=== PATIENT | male | born 1950 | race Caucasian/White ===

== ENCOUNTER 2019-09-23 12:45 | Outpatient (RCR) | payer MEDICARE, OTHER ==
[~2019-09-23] VITALS: Ht 180 cm; Wt 93.0 kg
== END 2019-12-22 | disposition home or self-care (01) ==
LOC: DSME 12:45
PROVIDERS: ATTEND Family Medicine
DX: E11.9 Type 2 diabetes mellitus without complications (principal)

== ENCOUNTER → 2020-03-07 | Outpatient (CLI) | payer OTHER, MEDICARE ==
[2020-03-07 18:37] LABS: ALBUMIN 4.4 GM/DL (3.2-4.5); CALCIUM 9.2 MG/DL (8.5-10.1); CREATININE SERUM 1.63 MG/DL (0.60-1.30); MAGNESIUM 2.9 MG/DL (1.6-2.4); PHOSPHORUS 5.2 MG/DL (2.3-4.7); POTASSIUM 4.6 MMOL/L (3.6-5.0); URIC ACID 5.4 MG/DL (2.6-7.2)
== END ==
LOC: GIR 17:38
PROVIDERS: ATTEND Internal Medicine Nephrology
DX: Z01.89 Encounter for other specified special examinations (principal)
CPT/HCPCS: 80069; 82570; 83735; 84156; 84550

== ENCOUNTER 2023-04-30 09:59 | Inpatient (IN) | payer MEDICARE, OTHER ==
[~2023-04-30] VITALS: Ht 180.3 cm; Wt 94.1 kg
--- NOTE | 2023-04-30 09:48 | PM&R Post Admission Assessment ---
PM&R HP Date of Visit: Apr 30, 2023 Time of Visit: 14:00 History of Present Illness CC: Brain injury and pelvic fracture following a fall with LOC HPI: This is a 73yoWM patient of Dr Pelayo who has a PMH of prostate cancer and DM who presents from following an evaluation of multiple bone fractures and s ubdural hematoma sustained in a fall on concrete steps on 04/23/23. No fracture was assessed to require surgical intervention. He is currently alert and reports some pain in his pelvis where his fracture it. Bowels are slow so will initiate treatment. 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 CC: multiple traumatic injuries HPI: 73 y/o male presented to the ED following [place] His neighbors found him, but patient himself has no recollection of falling. He sustained fractures to right 2nd rib, right acetabular, and left pelvic regions along with a small left subdural hematoma. His injuries were considered inoperable after neurological, orthopedic, and IM consults, and he was transferred on 04/30/23 to [facility] for further management. PMH: HTN, GERD, DMT2, arthritis, BPH-urinary retention, HLD, CKD stage 2, prostate cancer 2009. PSH: rectocutaneous fistulectomy-1999, rotator cuff repair- 2002, retropubic prostectomy -2010, b/l total pelvic lymphadectomy 10/23/2010, laproscopy w/ lysis of adhesion- 10/23/2010, appendectomy in , bunionectomy All: NKDA, no enviromental or food allergies Meds: Acetaminophen 325 mg PO Q6H Amantadine HCl 100 mg PO BID Amlodipine besylate 10 mg tab PO QD Ascorbate calcium 500 mg tab PO QD Aspirin 81 mg tab PO QD Bisacodyl 10 mg RC Q6H Dapagliflozin propanediol 10 mg PO QD Fish oil/ Borage/ flax/ om 3,6,9 1,200 mg capsule PO YID Lisinopril 10 mg tab PO QD Metformin 500 mg tab PO BID with meals Naloxone 4mg -held Oxycodone 5mg tab PO Q6H Miralax 34 grams PO BID Senna 8.6 mg tab PO BID Tamsulosin 0.4 mg cap PO QD Vitamen E 400 unit cap PO QD SH: No drugs, tobacco, ETOH- 1 drink a week. Occupation- retired FH: Heart attack, stroke ROS: No chest pain, no abdominal pain, no dyspnea, no fever or chills Exam: Neuro: A&Ox2-patient is aware of name and that thye are at [facility] could not answer any other questions. CN II-XII intact b/l. Muscle strength 5/5 in UE and 4/5 in LE. Sensation intact. Pupils responsive to light. Abdomen: Soft, non tender, no hepatospleenomegaly, non distended Cardio: Regular rate and rhythm, no murmurs or gallops Lung: Clear to auscultation b/l. no wheezing or rales. Labs: all on 04/23/23 no current labs after admission to [facility] CTA of head- multifocal intracranial atherosclerosis without blunt vascular injury, a right cisternal subarachnoid hemorrhage, and mild posterior posterior left cerebral subdural hemorrgae CT maxifacial sinus- nondisplaced right zygomatic fracture, right costomanubrial fracture. Pelvic X-ray showed large areas of central lucency and peripheral sclerosis in b/l femoral head- suggestive of underlying AVN on left Chest radiograph showed trace medial right pneumothorax. Right chest wall exhibits subcutaneous emphysema Chest CT showed mild cardiomegaly w/ pulmonary vascular congestion and perihilar interstital opacites -likely edema. Knee radiograph showed mild osteoarthritis in knee greatest at patellofemoral region. Assessment: Acute PT and OT subdural hematoma pelvic fracture DMT2 CKD HTN arthritis HLD Plan: continue PT and OT pain management monitor labs and vitals repeat neurological testing Past [id number]-[id number] Hx Past Med/Social Hx: Reviewed Nursing Past Med/Soc Hx, Reviewed and Corrections made Patient Social History Marrital Status: Employed/Student: employed Alcohol Use: Occasionally Uses Smoking Status: Never a Smoker Past Medical History Surgeries: Prostatectomy Cardiac: High Cholesterol, Hypertension Genitourinary: Prostate Problems Endocrine: Diabetes, Non-Insulin dep Cancer: Prostate What Type of Treatment Did You: Surgical Intervention 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 PM&R Allergy/Meds/Data Review Allergies Coded Allergies: No Known Drug Allergies (Unverified , 07/31/10) Home Medications Scheduled Acetaminophen (Tylenol), 650 MG PO Q6H, (Reported) Amantadine HCl (Amantadine), 100 MG PO BID, (Reported) Amlodipine Besylate (Amlodipine Besylate), 10 MG PO DAILY, (Reported) Ascorbate Calcium (Vitamin C), 1,500 MG PO DAILY, (Reported) Aspirin (Aspirin), 81 MG PO DAILY, (Reported) Bisacodyl (Bisacodyl), 10 MG RC Q6H, (Reported) Dapagliflozin Propanediol (Farxiga), 10 MG PO DAILY, (Reported) Fish Oil/Borage/Flax/Om3,6,9#1 ([place] 3-6-9 1,200 mg Softgel), 1 EA PO TID, (Reported) Lisinopril (Lisinopril), 10 MG PO DAILY, (Reported) Metformin HCl (Metformin HCl), 500 MG PO BID WITH MEALS, (Reported) Multivitamin (Multivitamin), 1 EACH PO DAILY, (Reported) Polyethylene Glycol 3350 (Miralax), 34 GM PO BID, (Reported) Sennosides (Senna), 17.2 MG PO BID, (Reported) Tamsulosin HCl (Flomax), 0.4 MG PO DAILY AFTER BREAKFAS, (Reported) Vitamin E Mixed (Vitamin E), 400 UNIT PO DAILY, (Reported) Scheduled PRN Bacitracin Zinc (Bacitracin Zinc), 1 EACH TP UD PRN for ABRASIONS, (Reported) Naloxone HCl (Narcan), 1 SPRAY NA UD PRN for OPIOID OVERDOSE, (Reported) Oxycodone HCl (Oxycodone HCl), 5 MG PO Q6H PRN for PAIN-SEVERE (8-10), (Reported) Current Medications Current Medications Reviewed Review of Systems Constitutional: see HPI, dizziness, malaise, weakness EENTM: no symptoms reported Respiratory: no symptoms reported Cardiovascular: no symptoms reported Gastrointestinal: constipation Genitourinary: decreased output Musculoskeletal: back pain, joint pain Skin: no symptoms reported Psychiatric/Neurological: Anxiety, Depressed All Other Systems Reviewed Negative Unless Noted: Yes Physical Exam Physical Exam Vital Signs Capillary Refill : Height, Weight, BMI Height: 5'11.00" Weight: 200lbs. 0.0oz. 90.125120dz; 28.70 BMI Method: General Appearance: No Apparent Distress, WD/WN, Chronically ill Eyes: Bilateral Eye Normal Inspection, Bilateral Eye PERRL HEENT: PERRL/EOMI, Normal ENT Inspection, Pharynx Normal Neck: Full Range of Motion, Normal Inspection, Non Tender, Supple, Carotid Bruit Respiratory: Chest Non Tender, Lungs Clear, Normal Breath Sounds, No Accessory Muscle Use, No Respiratory Distress Cardiovascular: Regular Rate, Rhythm, No Edema, No Gallop, No JVD, No Murmur, Normal Peripheral Pulses Gastrointestinal: Normal Bowel Sounds, No Organomegaly, No Pulsatile Mass, Non Tender, Soft Back: Normal Inspection, No CVA Tenderness, No Vertebral Tenderness Extremity: Normal Capillary Refill, Normal Inspection, Normal Range of Motion (except legs are limited due to pelvic fracture pain), Non Tender, No Calf Tenderness, No Pedal Edema Neurologic/Psychiatric: Alert, Oriented x3 (poor recall), 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 Norm as Tested, Abnormal Gait, Depressed Affect, Motor Weakness (all extremities 3/5) Skin: Normal Color, Warm/Dry Lymphatic: No Adenopathy PM&R Medical Assessment & Plan REHAB/MEDICAL ASSESSMENT AND PLAN: REHAB IMPAIRMENT GROUP: Major multisystem trauma with brain injury ETIOLOGIC DIAGNOSIS: IPH, closed fracture of right acetabulum, closed fracture of ramus and left pubis The comorbidities that impact the patients function and/or functional outcome by: advanced age, fall risk, pelvic fracture pain, brain injury, DM, BPH REHAB PLAN: The patient is being admitted to our comprehensive inpatient rehabilitation facility and can tolerate the intensity of service consisting of at least: 180 minutes of therapy a day, 5 out of 7 days a week Rehab treatment will consist of: PT OT will focus on regaining function with use of AD in order to regain function and independence in order to return home to live independently The patient/family has a good understanding of our discharge process and will benefit from an interdisciplinary inpatient rehabilitation program. The patient has potential to make improvement and is in need of at least two of the following multidisciplinary therapies including but not limited to physical, occupational, speech, and prosthetics and orthotics. Additionally the patient will need services from respiratory, nutritional services, wound care, psychology, etc. (Customize this to each patient). Given the patients complex condition and risk of further medical complications, rehabilitation services cannot be safely or effectively provided at a lower level of care such as a long-term facility. BARRIERS TO DISCHARGE: Severe pain and brain injury ESTIMATED LOS: 10 days DISPOSITION: Home RELEVANT CHANGES SINCE PREADMISSION SCREENING: I have compared the patients medical and functional status at the time of the preadmission screening and there are: no changes PROGNOSIS: Good REHABILITATION GOALS: 1. PT OT will focus on regaining function with use of AD in order to regain function and independence in order to return home to live independently All the above goals were reviewed with the patient and he/she is in agreement. By signing this document, I acknowledge that I have personally performed a full physical examination on this patient within 24 hours of admission to this inpatient rehabilitation facility and have determined the patient to be able to tolerate the above course of treatment at an intensive level for a reasonable period of time. I will be completing a detailed individualized Plan of Care for this patient by day #4 of the patients stay based upon the Preadmission Screen, the Post-Admission Evaluation, and the therapy evaluations. Admission Dx/Comorbidities: (1) Subdural hematoma ICD Codes: S06.5XAA - Traumatic subdural hemorrhage with loss of consciousness status unknown, initial encounter Assessment/Plan Assessment and Plan Assess & Plan/Chief Complaint Assessment: s/p fall on concrete steps sustaining SDH, facial fractures, pelvic fractures and sustaining brain injury with LOC DM HTN BPH h/o prostate cancer Current constipation Plan: PT OT ST to help regain cognition Monitor BP and sugar Home meds MARCIO COHN DO Apr 30, 2023 09:48
[~2023-04-30 09:59] MED LIST: ACETAMINOPHEN 325 MG TABLET PO PRN; ALPRAZolam 0.25 MG TABLET PO PRN; BISACODYL 10 MG SUPPOSITORY PR PRN; DOCUSATE SODIUM 100 MG CAPSULE PO PRN; LACTULOSE SYRUP 10GM/15ML 30ML UDC PO PRN; LOPERAMIDE 2 MG CAPSULE PO PRN; MELATONIN 3 MG TABLET PO PRN; Sodium Phosphate/Sodium Biphosphate ADULT enema PR PRN; diphenhydrAMINE 25 MG TABLET PO PRN; guaiFENesin/CODEINE 10ML UDC PO PRN
[2023-04-30] MEDS ORDERED: BISA10SU8 RC (11:43)
[2023-04-30] MEDS ORDERED: ACET325T38 PO (11:43)
[2023-04-30] MEDS ORDERED: NALO4SPR (11:43)
[2023-04-30] MEDS ORDERED: METF-397 PO (11:43)
[2023-04-30] MEDS ORDERED: VITA-212 PO (11:43)
[2023-04-30] MEDS ORDERED: MULT-1136 PO (11:43)
[2023-04-30] MEDS ORDERED: BACI1PAC28 TP (11:43)
[2023-04-30] MEDS ORDERED: LISI10TA25 PO (11:43)
[2023-04-30] MEDS ORDERED: DAPA10TA PO (11:43)
[2023-04-30] MEDS ORDERED: ASPI-999 PO (11:43)
[2023-04-30] MEDS ORDERED: SENN-234 PO (11:43)
[2023-04-30] MEDS ORDERED: ASCO-262 PO (11:43)
[2023-04-30] MEDS ORDERED: AMAN100T PO (11:43)
[2023-04-30] MEDS ORDERED: TMSL.4C PO (11:43)
[2023-04-30] MEDS ORDERED: FISH12002 PO (11:43)
[2023-04-30] MEDS ORDERED: AMLO-251 PO (11:43)
[2023-04-30] MEDS ORDERED: OXYC5TAB PO (11:43)
[2023-04-30] MEDS ORDERED: POLY17PO6 PO (11:43)
[2023-04-30 13:08] VITALS: BP 150/77
--- OUTSIDE RECORDS SUMMARY | 2023-04-30 13:20 | XMS REPORT | Clinical Summary ---
Author Author [facility] Organization [facility] Address Unknown Phone Unavailable Care Team Providers Care Tool Operator Name Role Phone Rossi MERIDA PA-C, James R Unavailable [phone] Ta Pelayo PCP James Valles MD Unavailable Unavailable Source Comments Some departments are not documenting in the electronic medical record. If you d o not see the information that you expected, contact Release of Information in [facility] Health Information Management department at [phone] for further assistan ce in locating additional records.[facility] Allergies No known active allergies Medications End Date Status Medication Sig Dispensed Refills Start Date Active Fish Oil-Fat Acid Take 1 Cap by 0 Comb.[id number] (OMEGA mouth Three 3-6-9) 1,200 mg PO Cap Times Daily. Active ascorbic acid (VITAMIN C) Take 1,500 mg 0 500 mg PO tablet by mouth Daily. Active vitamin E 400 unit PO Take 400 0 capsule Units by mouth Daily. Active vitamins, multiple PO Cap Take 1 Cap by 0 mouth Daily. Active metformin (GLUCOPHAGE) Take 500 mg 0 500 mg PO tablet by mouth Twice Daily With Meals. Active tamsulosin (FLOMAX) 0.4 Take one 90 capsule 0 /202 mg capsule capsule by 3 mouth daily after breakfast. Do not crush, chew or open capsules. Take 30 minutes following the same meal each day. Active senna (SENOKOT) 8.6 mg Take two 180 tablet 0 tablet tablets by 3 mouth twice daily. Active polyethylene glycol 3350 Take two 12 packet 0 0 (MIRALAX) 17 g packet packets by 3 mouth twice daily. Active oxyCODONE (ROXICODONE) 5 Take one 0 04/30 mg tablet tablet by 3 mouth every 6 hours as needed. Active lisinopriL (ZESTRIL) 10 Take one 90 tablet 0 mg tablet tablet by 3 mouth daily. Active dapagliflozin propanediol Take one 90 tablet 0 (FARXIGA) 10 mg tablet by 3 tabletIndications: type 2 mouth daily. diabetes mellitus Indications: type 2 diabetes mellitus Active bisacodyL (DULCOLAX) 10 Insert or 8 0 mg rectal suppository Apply one suppository 3 suppository to rectal area as directed every 6 hours. Active bacitracin zinc 500 Apply 30 g 0 unit/g topical ointment topically to 3 affected area as Needed (Apply to abrasions prn). Active amLODIPine (NORVASC) 10 Take one 90 tablet 0 mg tablet tablet by 3 mouth daily. Active amantadine (SYMMETREL) Take one 0 02 100 mg tablet tablet by 3 mouth twice daily. Active acetaminophen (TYLENOL) Take two 0 325 mg tablet tablets by 3 mouth every 6 hours while awake. Active naloxone (NARCAN) 4 Insert 1 2 each 0 mg/actuation nasal spray spray into 1 3 nostril as needed for signs of opioid overdose then call 911. May repeat dose every 2-3 minutes (alternate nostrils) until medical team arrives. Active aspirin 81 mg chewable Chew one 0 2 02 tablet tablet by 3 mouth daily. 04/30/2023 Discontinued tolterodine LA(+) (DETROL Take 4 mg by 0 LA) 4 mg PO capsule mouth Daily. 04/30/2023 Discontinued pravastatin (PRAVACHOL) Take 80 mg by 0 80 mg PO tablet mouth Daily. 04/30/2023 Discontinued MELOXICAM PO Take 15 mg by 0 mouth Daily. 04/30/2023 Discontinued olmesartan-hydrochlorothi Take 1 Tab by 0 azide (BENICAR HCT) mouth Daily. 20-12.5 mg PO per tablet 04/30/2023 Discontinued (Reorder) aspirin 81 mg PO chew Take 1 Tab by 1 Tab 0 tablet mouth daily. 1 04/30/2023 Discontinued oxycodone/acetaminophen Take 1 Tab by 45 Tab 0 (PERCOCET) 5/325 mg PO mouth every 4 1 tablet hours as needed for Pain. 04/30/2023 Discontinued hyoscyamine (LEVSIN/SL) 1 Tab every 4 40 Tab 0 0.125 mg SL tablet hours as 1 needed for Other... (Bladder spasms). 04/30/2023 Discontinued senna/docusate Take 1 Tab by 60 Tab 2 (SENOKOT-S) 8.6/50 mg PO mouth twice 1 tablet daily. 04/30/2023 Discontinued polymyxin/bacitracin/jared/ Apply to 1 Container 0 HC (CORTISPORIN) 1 % TP affected area 1 topical ointment three times daily. Active Problems Problem Noted Date Diagnosed Date Acute pain due to trauma 04/26/2023 Intraparenchymal hemorrhage of brain 04/26/2023 SDH (subdural hematoma) 04/26/2023 Closed fracture of left zygomatic arch 04/26/2023 HTN (hypertension) 04/26/2023 Urinary retention 04/26/2023 CKD (chronic kidney disease) stage 2, GFR 60-89 ml/mi n 04/26/2023 Traumatic rhabdomyolysis 04/26/2023 Type 2 diabetes mellitus, with long-term current use of 04/26/2023 insulin Closed fracture of ramus of left pubis 04/26/2023 Closed fracture of right acetabulum 04/26/2023 Impaired mobility and ADLs 04/26/2023 Trauma 04/23/2023 Encounters Care Team Description Date Type Department Jerald Crawford MD 04/26/2023 Hospital Vascular Access Tea m: 7:34 AM Encounter [facility] CDT [address] [facility] [address], [address] [place] [id number] Jerald Crawford MD Guidry, Christopher A, MD Trauma Discharge Disposition: Rehab Facility (Not [facility]) 04/23/2023 [facility] Patient Care Unit B H53: 4:20 AM Encounter [facility] CDT - [address] 04/30/2023 Level 5 11:00 AM [place] CDT [id number] from Last 3 Months Surgical History Surgery Date Site/Laterality Comments HX APPENDECTOMY early Open Appy 1990s HX BUNIONECTOMY ~ 1994 FL SURG TX ANAL FISTULA 2000 Rectocutaneous Fistulectomy SUBQ HX ROTATOR CUFF REPAIR 2005 Right FL LAPS PROSTECT 10/23/2010 RETROPUBIC RAD W/NRV SPARING ROBOT FL LAPS SURG BILATERAL 10/23/2010 TOTAL PELVIC LMPHADECTOMY FL LAPAROSCOPY W/LYSIS OF 10/23/2010 ADHESIONS Medical History Medical History Date Comments Prostate cancer (HCC) 08/21/2010 Type II diabetes mellitus (HCC) Arthritis BPH with urinary obstruction HTN (hypertension) HLD (hyperlipidemia) Family History Medical History Relation Name Comments Heart Attack Other 1 Stroke Other 2 Relation Name Status Comments Father Suicide Other 1 Other 2 Social History Date Tobacco Use Types Packs/Day Years Used Smoking Tobacco: Never Smokeless Tobacco: Never Tobacco Cessation: Counseling Given: Not Answered Comments Alcohol Use Standard Drinks/Week Yes 0.8 (1 standard drink = 0.6 oz pure alcohol) Date Recorded Alcohol Use Answer Alcohol Use Yes Male: 9+ ounces (15+ Standard Drinks) per week .5 Threshold Female: 4.8+ ounces (8+ Standard Drinks) per week No t on file Threshold Date Recorded Sex and Gender Information Value 04/26/2023 9:07 AM CDT Sex Assigned at Male 04/26/2023 9:07 AM CDT Gender Identity Male Sexual Orientation Not on file Obstetrics History Last Filed Vital Signs Reading Time Taken Comments Vital Sign 125/61 04/30/2023 7:55 AM CDT Blood Pressure 55 04/30/2023 8:34 AM CDT Pulse 36.4 C (97.5 F) 04/30/2023 7:55 AM CDT Temperature - - Respiratory Rate 93% 04/30/2023 8:34 AM CDT Oxygen Saturation - - Inhaled Oxygen Concentration 104 kg (229 lb 4.5 oz) 04/23/2023 4:32 AM CDT Weight 180.3 cm (5' 11") 04/23/2023 4:32 AM CDT Height 31.98 04/23/2023 4:32 AM CDT Body Mass Index Plan of Treatment Health Maintenance Due Date Last Done Comments DIABETES HBA1C 1950 DIABETES MICROALBUMIN TO 1950 CREATININE RATIO PNEUMOCOCCAL VACCINE 65+ 02/15/1956 YRS (1 - PCV) DIABETES DILATED EYE EXAM 02/15/1968 DIABETES FOOT EXAM 02/15/1968 (.dmfoot) HEPATITIS C SCREENING 02/15/1968 PHYSICAL (COMPREHENSIVE) 02/15/1968 EXAM COLORECTAL CANCER 1995 SCREENING DEPRESSION SCREENING 09/02/2022 COVID-19 VACCINE (5 - 12/16/2022 08/17/2022, Moderna series) 08/08/2021, 12/02/2020, Additional history exists INFLUENZA VACCINE (#1) 2023 DIABETES EGFR SCREEN 04/26/2024 04/26/2023, 04/25/2023, 04/24/2023, Additional history exists DTAP/TDAP VACCINES (2 - 04/22/2033 04/22/2023 Td or Tdap) SHINGLES RECOMBINANT Completed 05/30/2022, VACCINE 12/05/2021 Goals Goal Patient Associated Recent Progress Patient-Stat Aut hor Goal Type Problems ed? GOAL General On track (04/26/2023 No Monica wood, 12:27 PM CDT) FAB Cabrera Note: Back to normal Procedures Comments Procedure Name Priority Date/Time Associated Diag nosis POC GLUCOSE 04/30/2023 9:13 AM CDT POC GLUCOSE 04/30/2023 8:20 AM CDT POC GLUCOSE 04/29/2023 9:55 PM CDT POC GLUCOSE 04/29/2023 8:57 PM CDT POC GLUCOSE 04/29/2023 5:50 PM CDT POC GLUCOSE 04/29/2023 11:55 AM CDT POC GLUCOSE 04/29/2023 11:33 AM CDT POC GLUCOSE 04/29/2023 7:18 AM CDT POC GLUCOSE 04/28/2023 10:08 PM CDT POC GLUCOSE 04/28/2023 3:38 PM CDT POC GLUCOSE 04/28/2023 11:54 AM CDT POC GLUCOSE 04/28/2023 11:13 AM CDT POC GLUCOSE 04/28/2023 7:50 AM CDT POC GLUCOSE 04/27/2023 9:06 PM CDT POC GLUCOSE 04/27/2023 5:29 PM CDT POC GLUCOSE 04/27/2023 11:34 AM CDT POC GLUCOSE 04/27/2023 7:00 AM CDT POC GLUCOSE 04/26/2023 9:17 PM CDT POC GLUCOSE 04/26/2023 5:46 PM CDT POC GLUCOSE 04/26/2023 11:47 AM CDT POC GLUCOSE 04/26/2023 7:52 AM CDT CONSULT VASCULAR ACCESS Routine 04/26/2023 TEAM 6:34 AM CDT HC CK(CPK OR CREATINE Add on 04/26/2023 KINASE) 3:42 AM CDT HC BASIC METABOLIC PANEL Routine 04/26/2023 3:42 AM CDT HC PHOSPHOROUS, SERUM Routine 04/26/2023 3:42 AM CDT HC MAGNESIUM Routine 04/26/2023 3:42 AM CDT HC CBC,AUTOMATED Routine 04/26/2023 3:42 AM CDT POC GLUCOSE 04/25/2023 9:40 PM CDT POC GLUCOSE 04/25/2023 4:06 PM CDT POC GLUCOSE 04/25/2023 12:24 PM CDT POC GLUCOSE 04/25/2023 6:01 AM CDT HC BASIC METABOLIC PANEL Routine 04/25/2023 2:45 AM CDT HC PHOSPHOROUS, SERUM Routine 04/25/2023 2:45 AM CDT HC MAGNESIUM Routine 04/25/2023 2:45 AM CDT HC CBC,AUTOMATED Routine 04/25/2023 2:45 AM CDT POC GLUCOSE 04/24/2023 9:01 PM CDT FEEDING TUBE PLCMNT STAT 04/24/2023 (ABD/CHEST LMTD) 7:18 PM CDT POC GLUCOSE 04/24/2023 5:01 PM CDT POC GLUCOSE 04/24/2023 11:40 AM CDT FEEDING TUBE PLCMNT STAT 04/24/2023 (ABD/CHEST LMTD) 8:27 AM CDT FEEDING TUBE PLCMNT STAT 04/24/2023 (ABD/CHEST LMTD) 6:45 AM CDT POC GLUCOSE 04/24/2023 6:08 AM CDT HC COMPREHENSIVE Routine 04/24/2023 METABOLIC PANEL 3:55 AM CDT HC PHOSPHOROUS, SERUM Routine 04/24/2023 3:55 AM CDT HC MAGNESIUM Routine 04/24/2023 3:55 AM CDT HC CBC,AUTOMATED Routine 04/24/2023 3:55 AM CDT POC GLUCOSE 04/23/2023 9:40 PM CDT FEEDING TUBE PLCMNT Routine 04/23/2023 (ABD/CHEST LMTD) 4:40 PM CDT POC GLUCOSE 04/23/2023 4:17 PM CDT ANTEVERSION SERIES PELVIS Routine 04/23/2023 2:49 PM CDT POC GLUCOSE 04/23/2023 12:54 PM CDT CHEST SINGLE VIEW STAT 04/23/2023 8:56 AM CDT 2D + DOPPLER ECHO W/ ESHA 04/23/2023 CONTRAST 7:33 AM CDT HAND MIN 3 VIEWS RIGHT STAT 04/23/2023 6:29 AM CDT KNEE 1 OR 2 VIEWS RIGHT STAT 04/23/2023 6:29 AM CDT FOREARM 2 VIEWS RIGHT STAT 04/23/2023 6:28 AM CDT SHOULDER MIN 2 VIEWS STAT 04/23/2023 RIGHT 6:27 AM CDT CTA NECK WO/W CONT STAT 04/23/2023 5:44 AM CDT CTA HEAD WO/W CONT STAT 04/23/2023 5:[address] MAXIFACIAL/SINUS WO STAT 04/23/2023 CONTRAST 5:37 AM CDT TYPE & CROSSMATCH Routine 04/23/2023 4:29 AM CDT TEG WITH KAOLIN STAT 04/23/2023 4:29 AM CDT HC CK(CPK OR CREATINE STAT 04/23/2023 KINASE) 4:29 AM CDT HC PTT(APTT) STAT 04/23/2023 4:29 AM CDT HC PT(INR) STAT 04/23/2023 4:29 AM CDT HC CALCIUM IONIZED STAT 04/23/2023 4:29 AM CDT HC LACTIC ACID(LACTATE) STAT 04/23/2023 4:29 AM CDT HC PHOSPHOROUS, SERUM STAT 04/23/2023 4:29 AM CDT HC MAGNESIUM STAT 04/23/2023 4:29 AM CDT HC COMPREHENSIVE STAT 04/23/2023 METABOLIC PANEL 4:29 AM CDT HC CBC,AUTOMATED STAT 04/23/2023 4:29 AM CDT from Last 3 Months Results * (ABNORMAL) POC GLUCOSE (04/30/2023 9:13 AM CDT) Only the most recent of 32 results within the time period is included. Pathologist Signature Component Value Ref Test Method Analysis Performed A t Range Time Glucose, POC 156 (H) 70 - 100 04/30/2023 [facility] PA TH AND MG/DL 9:13 AM LAB MEDICINE POC CDT Anatomical Location / Laterality Collection Method / Volume Liss ection Time Received Time Specimen (Source) 04/30/2023 9:13 AM CDT 04/30/20 9:14 AM CDT Jerald Crawford OTHER LABORATORY City/State/ZIP Code Phone Number Performing [place] [address] [facility] DEPT PATH AND [address] [facility] LAB MEDICINE POC * CBC (04/26/2023 3:42 AM CDT) Only the most recent of 4 results within the time period is included. Pathologist Signature Component Value Ref Test Method Analysis Performed A t Range Time White Blood Cells 10.0 4.5 - 04/26/2023 [facility] DE PT PATH AND 11.0 4:03 AM LAB MEDICINE K/UL CDT RBC 4.43 4.4 - 04/26/2023 [facility] DEPT PAT H AND 5.5 M/UL 4:03 AM LAB MEDICINE CDT Hemoglobin 13.9 13.5 - 04/26/2023 [facility] DEPT PAT H AND 16.5 4:03 AM LAB MEDICINE GM/DL CDT Hematocrit 41.7 40 - 50 04/26/2023 [facility] PAT H AND % 4:03 AM LAB MEDICINE CDT MCV 94.1 80 - 100 04/26/2023 [facility] PAT H AND FL 4:03 AM LAB MEDICINE CDT MCH 31.3 26 - 34 04/26/2023 [facility] PAT H AND PG 4:03 AM LAB MEDICINE CDT MCHC 33.3 32.0 - 04/26/2023 [facility] PAT H AND 36.0 4:03 AM LAB MEDICINE G/DL CDT RDW 14.0 11 - 15 04/26/2023 [facility] DEPT PAT H AND % 4:03 AM LAB MEDICINE CDT Platelet Count 263 150 - 04/26/2023 [facility] DEPT PATH AND 400 K/UL 4:03 AM LAB MEDICINE CDT MPV 8.5 7 - 11 04/26/2023 [facility] DEPT PAT H AND FL 4:03 AM LAB MEDICINE CDT Anatomical Location / Laterality Collection Method / Volume Liss ection Time Received Time Specimen (Source) BLOOD / Unknown 04/26/2023 3:42 AM CDT 04/26/20 3:51 AM CDT Jerald Crawford LABORATORY ORDERJOHN LAMBERT [facility]/ZIP Code Phone Number Performing Address Organization [address] [employer] [facility] AND [address] [employer] . LAB MEDICINE * PHOSPHORUS (04/26/2023 3:42 AM CDT) Only the most recent of 4 results within the time period is included. Pathologist Signature Component Value Ref Test Method Analysis Performed A t Range Time Phosphorus 3.7 2.0 - 04/26/2023 [facility] DEPT PAT H AND 4.5 4:24 AM LAB MEDICINE MG/DL CDT Anatomical Location / Laterality Collection Method / Volume Liss ection Time Received Time Specimen (Source) BLOOD / Unknown 04/26/2023 3:42 AM CDT 04/26/20 3:51 AM CDT Jerald Crawford LABORATORY ORDERJOHN LAMBETR [facility]/ZIP Code Phone Number Performing Address Organization [address] [facility] DEPT PATH AND [address] [facility] LAB MEDICINE * MAGNESIUM (04/26/2023 3:42 AM CDT) Only the most recent of 4 results within the time period is included. Pathologist Signature Component Value Ref Test Method Analysis Performed A t Range Time Magnesium 2.3 1.6 - 04/26/2023 [facility] DEPT PAT H AND 2.6 4:24 AM LAB MEDICINE mg/dL CDT Anatomical Location / Laterality Collection Method / Volume Liss ection Time Received Time Specimen (Source) BLOOD / Unknown 04/26/2023 3:42 AM CDT 04/26/20 3:51 AM CDT Jerald Crawford LABORATORY ORDERABLES [facility]/State/ZIP Code Phone Number Performing Address [place] [address], [facility] PATH AND [employer] [facility] LAB [facility] * (ABNORMAL) CREATINE KINASE-CPK (04/26/2023 3:42 AM CDT) Only the most recent of 2 results within the time period is included. Pathologist Signature Component Value Ref Test Method Analysis Performed A t Range Time Creatine Kinase 907 (H) 35 - 232 04/26/2023 [facility] DEPT PATH AND U/L 7:43 AM LAB MEDICINE CDT Anatomical Location / Laterality Collection Method / Volume Liss ection Time Received Time Specimen (Source) 04/26/2023 3:42 AM CDT 04/26/20 3:51 AM CDT Altagracia Levi MD LABORATORY ORDERABLES City/State/ZIP Code Phone Number Performing Address Organization [address] [facility] PATH AND [employer] [facility] LAB MEDICINE * (ABNORMAL) BASIC METABOLIC PANEL (04/26/2023 3:42 AM CDT) Only the most recent of 2 results within the time period is included. Pathologist Signature Component Value Ref Test Method Analysis Performed A t Range Time Sodium 138 137 - 04/26/2023 [facility] DEPT PAT H AND 147 4:24 AM LAB MEDICINE MMOL/L CDT Potassium 4.9 3.5 - 04/26/2023 [facility] DEPT PAT H AND 5.1 4:24 AM LAB MEDICINE MMOL/L CDT Chloride 101 98 - 110 04/26/2023 [facility] DEPT PAT H AND MMOL/L 4:24 AM LAB MEDICINE CDT CO2 27 21 - 30 04/26/2023 [facility] DEPT PAT H AND MMOL/L 4:24 AM LAB MEDICINE CDT Anion Gap 10 3 - 12 04/26/2023 [facility] DEPT PAT H AND 4:24 AM LAB MEDICINE CDT Glucose 174 (H) 70 - 100 04/26/2023 [facility] DEPT PAT H AND MG/DL 4:24 AM LAB MEDICINE CDT Blood Urea Nitrogen 36 (H) 7 - 25 04/26/2023 [facility] DEPT PATH AND MG/DL 4:24 AM LAB MEDICINE CDT Creatinine 1.36 (H) 0.4 - 04/26/2023 [facility] DEPT PAT H AND 1.24 4:24 AM LAB MEDICINE MG/DL CDT Calcium 10.3 8.5 - 04/26/2023 [facility] DEPT PAT H AND 10.6 4:24 AM LAB MEDICINE MG/DL CDT eGFR 55 (L) >60 04/26/2023 [facility] DEPT PAT H AND mL/min 4:24 AM LAB MEDICINE CDT Comment: eGFR calculated using the CKD-EPIcr_R equation Anatomical Location / Laterality Collection Method / Volume Liss ection Time Received Time Specimen (Source) BLOOD / Unknown 04/26/2023 3:42 AM CDT 04/26/20 3:51 AM CDT Jerald Crawford LABORATORY ORDERABLES City/State/ZIP Code Phone Number [place] [address], [facility] AND [address] [facility] LAB MEDICINE * FEEDING TUBE PLCMNT (ABD/CHEST LMTD) (04/24/2023 7:18 PM CDT) Only the most recent of 4 results within the time period is included. Modality Anatomical Region Laterality Computed Radiography CHEST, Abdomen Anatomical Location / Laterality Collection Method / Volume Liss ection Time Received Time Specimen (Source) 04/25/2023 8:18 AM CDT Impressions 04/25/2023 8:43 AM CDT FINDINGS/IMPRESSION: Unchanged position of an enteric tube, which terminates in the third portion the duodenum. No dilated loops of bowel. Mild bibasilar opacities. Lumbar spine fusion hardware. Finalized by Aracelis Castañeda M.D. on 04/25/2023 8:43 AM. Dictated by Aracelis Castañeda M.D. on 04/25/2023 8:18 AM. Narrative 04/25/2023 8:43 AM CDT CLINICAL HISTORY: Patient pulled [place]. TECHNIQUE: AP semierect images of the lower chest and abdomen obtained. COMPARISON: Same-day abdominal radiograph. Procedure Note Aracelis Castañeda MD - 04/25/2023 CLINICAL HISTORY: Patient pulled [place]. TECHNIQUE: AP semierect images of the lower chest and abdomen obtained. COMPARISON: Same-day abdominal radiograph. IMPRESSION FINDINGS/IMPRESSION: Unchanged position of an enteric tube, which terminates in the third portion the duodenum. No dilated loops of bowel. Mild bibasilar opacities. Lumbar spine fusion hardware. Finalized by Aracelis Castañeda M.D. on 04/25/2023 8:43 AM. Dictated by Aracelis Castañeda M.D. on 04/25/2023 8:18 AM. Flor Briones MD DIAGNOSTIC IMAGING ORDERABL ES * (ABNORMAL) COMPREHENSIVE METABOLIC PANEL (04/24/2023 3:55 AM CDT) Only the most recent of 2 results within the time period is included. Pathologist Signature Component Value Ref Test Method Analysis Performed A t Range Time Sodium 142 137 - 04/24/2023 [facility] DEPT PAT H AND 147 4:50 AM LAB MEDICINE MMOL/L CDT Potassium 4.6 3.5 - 04/24/2023 [facility] DEPT PAT H AND 5.1 4:50 AM LAB MEDICINE MMOL/L CDT Chloride 108 98 - 110 04/24/2023 [facility] DEPT PAT H AND MMOL/L 4:50 AM LAB MEDICINE CDT Glucose 124 (H) 70 - 100 04/24/2023 [facility] DEPT PAT H AND MG/DL 4:50 AM LAB MEDICINE CDT Blood Urea Nitrogen 28 (H) 7 - 25 04/24/2023 [facility] DEPT PATH AND MG/DL 4:50 AM LAB MEDICINE CDT Creatinine 1.48 (H) 0.4 - 04/24/2023 [facility] DEPT PAT H AND 1.24 4:50 AM LAB MEDICINE MG/DL CDT Calcium 9.1 8.5 - 04/24/2023 [facility] DEPT PAT H AND 10.6 4:50 AM LAB MEDICINE MG/DL CDT Total Protein 6.4 6.0 - 04/24/2023 [facility] DEPT P ATH AND 8.0 G/DL 4:50 AM LAB MEDICINE CDT Total Bilirubin 0.7 0.3 - 04/24/2023 [facility] DEPT PATH AND 1.2 4:50 AM LAB MEDICINE MG/DL CDT Albumin 3.5 3.5 - 04/24/2023 [facility] DEPT PAT H AND 5.0 G/DL 4:50 AM LAB MEDICINE CDT Alk Phosphatase 42 25 - 110 04/24/2023 [facility] DEPT PATH AND U/L 4:50 AM LAB MEDICINE CDT AST (SGOT) 162 (H) 7 - 40 04/24/2023 [facility] DEPT PAT H AND U/L 4:50 AM LAB MEDICINE CDT CO2 24 21 - 30 04/24/2023 [facility] DEPT PAT H AND MMOL/L 4:50 AM LAB MEDICINE CDT ALT (SGPT) 249 (H) 7 - 56 04/24/2023 [facility] DEPT PAT H AND U/L 4:50 AM LAB MEDICINE CDT Anion Gap 10 3 - 12 04/24/2023 [facility] DEPT PAT H AND 4:50 AM LAB MEDICINE CDT eGFR 50 (L) >60 04/24/2023 [facility] DEPT PAT H AND mL/min 4:50 AM LAB MEDICINE CDT Comment: eGFR calculated using the CKD-EPIcr_R equation Anatomical Location / Laterality Collection Method / Volume Liss ection Time Received Time Specimen (Source) BLOOD / Unknown 04/24/2023 3:55 AM CDT 04/24/20 4:15 AM CDT Jerald Crawford LABORATORY ORDERABLES City/State/ZIP Code Phone Number [place] [address], [facility] DEPT PATH AND [address] [facility] LAB MEDICINE * ANTEVERSION SERIES PELVIS (04/23/2023 2:49 PM CDT) Modality Anatomical Region Laterality Computed Radiography ABD/PELVIS Anatomical Location / Laterality Collection Method / Volume Liss ection Time Received Time Specimen (Source) 04/23/2023 2:51 PM CDT Impressions 04/23/2023 2:56 PM CDT 1. Intubation, laminectomy and posteri or lateral bone graft partially visualized in the lower lumbar spine. 2. Large areas of central lucency otoniel pheral sclerosis in the bilateral femoral heads greater on the left most compatible with underlying AVN. Mild camouflage of both hips. 3. Minimally displaced left superior a nd inferior pubic rami fractures are noted. There is limited detail, the reported right anterior acetabular fracture is not well demonstrated. 4. Symphysis pubis and SI joints are m aintained. Minimal degenerative change of the hips. Finalized by Jorge Zamora M.D. on 04/23/2023 2:56 PM. Dictated by Jorge Zamora M.D. on 04/23/2023 2:51 PM. Narrative 04/23/2023 2:56 PM CDT Exam: ANTEVERSION SERIES PELVIS CLINICAL INDICATION: 73 years fall with pelvic fractures , CT with right anterior acetabular fracture and left superior pubic ramus fracture COMPARISON: None. Procedure Note Jorge Zamora MD - 04/23/2023 Exam: ANTEVERSION SERIES PELVIS CLINICAL INDICATION: 73 years fall with pelvic fractures , CT with right anterior acetabular fracture and left superior pubic ramus fracture COMPARISON: None. IMPRESSION 1. Intubation, laminectomy and posterio r lateral bone graft partially visualized in the lower lumbar spine. 2. Large areas of central lucency perip heral sclerosis in the bilateral femoral heads greater on the left most compatible with underlying AVN. Mild camouflage of both hips. 3. Minimally displaced left superior an d inferior pubic rami fractures are noted. There is limited detail, the reported right anterior acetabular fracture is not well demonstrated. 4. Symphysis pubis and SI joints are ma intained. Minimal degenerative change of the hips. Finalized by Jorge Zamora M.D. on 04/23/2023 2:56 PM. Dictated by Jorge Zamora M.D. on 04/23/2023 2:51 PM. Jerald Crawford DIAGNOSTIC IMAGING ORDERABL * CHEST SINGLE VIEW (04/23/2023 8:56 AM CDT) Modality Anatomical Region Laterality Computed Radiography CHEST Anatomical Location / Laterality Collection Method / Volume Liss ection Time Received Time Specimen (Source) 04/23/2023 9:18 AM CDT Impressions 04/23/2023 10:55 AM CDT 1. Trace medial right pneumothorax 2. Mild cardiomegaly with pulmonary va scular congestion with perihilar interstitial opacities, likely edema. 3. Right chest wall subcutaneous emphy sema. Approved by Andrew Ennis MD on 04/23/2023 10:40 AM By my electronic signature, I attest that I have personally reviewed the images for this examination and formulated the interpretations and opinions expressed in this report Finalized by Lacho Hussein M.D. on 04/23/2023 10:55 AM. Dictated by Andrew Ennis MD on 04/23/2023 9:18 AM. Narrative 04/23/2023 10:55 AM CDT CHEST SINGLE VIEW INDICATION: Evaluate R PTX. COMPARISON STUDY: None. FINDINGS: Lungs/Pleura: Perihilar interstitial opacities. Medial trace right pneumothorax. No pleural effusion. Heart and Mediastinum: Mild cardiomegaly with pulmonary vascular congestion. Osseous structures and soft tissues: Subcutaneous edema overlying the left chest wall and tracking through the pectoralis muscle. Procedure Note Lacho Hussein MD - 04/23/2023 CHEST SINGLE VIEW INDICATION: Evaluate R PTX. COMPARISON STUDY: None. FINDINGS: Lungs/Pleura: Perihilar interstitial opacities. Medial trace right pneumothorax. No pleural effusion. Heart and Mediastinum: Mild cardiomegaly with pulmonary vascular congestion. Osseous structures and soft tissues: Subcutaneous edema overlying the left chest wall and tracking through the pectoralis muscle. IMPRESSION 1. Trace medial right pneumothorax 2. Mild cardiomegaly with pulmonary vas cular congestion with perihilar interstitial opacities, likely edema. 3. Right chest wall subcutaneous emphys ravi. Approved by Andrew Ennis MD on 04/23/2023 10:40 AM By my electronic signature, I attest that I have personally reviewed the images for this examination and formulated the interpretations and opinions expressed in this report Finalized by Lacho Hussein M.D. on 04/23/2023 10:55 AM. Dictated by Andrew Ennis MD on 04/23/2023 9:18 AM. [facility]NO[facility]AG[facility] ORDERABL MARY KATE LAMBERT * 2D + DOPPLER ECHO W/ CONTRAST (04/23/2023 7:33 AM CDT) Pathologist Signature Component Value Ref Test Method Analysis Performed A t Range Time Left Ventricle 103.00 62 - 150 OTHER OUTSIDE L AB Diastolic Volume mL Left Ventricle 24.00 21 - 61 OTHER OUTSIDE L AB Systolic Volume mL IVS 1.10 0.6 - OTHER OUTSIDE L AB 1.0 cm LVIDD 5.00 4.2 - OTHER OUTSIDE L AB 5.8 cm LVIDS 3.10 2.5 - OTHER OUTSIDE L AB 4.0 cm LVOT diameter 2.10 cm OTHER OUTSIDE L AB LVOT peak VTI 27.20 cm OTHER OUTSIDE L AB PW 1.20 0.6 - OTHER OUTSIDE L AB 1.0 cm TDI lateral e' 0.10 m/s OTHER OUTSIDE L AB TDI Medial e' 0.07 m/s OTHER OUTSIDE L AB LA volume 57.00 18 - 58 OTHER OUTSIDE L AB mL LA size 4.00 3.0 - OTHER OUTSIDE L AB 4.0 cm AV peak velocity 1.90 m/s OTHER OUTSIDE LAB Sinus 3.30 2.8 - OTHER OUTSIDE L AB 4.0 cm E wave decelartion 261.00 ms OTHER OUTSI DE LAB time MV Peak A Theo 1.04 m/s OTHER OUTSIDE L AB MV Peak E Theo PW 0.84 m/s OTHER OUTSIDE LAB Right Heart Systolic 2.59 >1.7 cm OTHER OUT SIDE LAB Mmode TAPSE Right Ventricular 1.70 1.9 - OTHER OUTSID E LAB Mid Diameter 3.5 cm Right Ventricular 3.00 2.5 - OTHER OUTSID E LAB Basal Diameter 4.1 cm Right Atrial Area 13.00 <18 cm2 OTHER OUTSID E LAB Right Heart Systolic 0.15 m/s OTHER OUT SIDE LAB TDI S' BSA 2.28 m2 OTHER OUTSIDE L AB FS 38.00 28 - 44 OTHER OUTSIDE L AB % Teichholtz 64.60 % OTHER OUTSIDE L AB Left Ventricle 11 11 - 31 OTHER OUTSIDE L AB Systolic Volume mL/m2 Index Left Ventricle 45 34 - 74 OTHER OUTSIDE L AB Diastolic Volume mL/m2 Index Left Atrium Index 25.00 16 - 34 OTHER OUTSID E LAB mL/m2 LV mass 220 88 - 224 OTHER OUTSIDE L AB g Left Ventricle Mass 97 49 - 115 OTHER OUTS [facility] LAB Index g/m2 RWT 0.48 <=0.42 OTHER OUTSIDE L AB LVOT area 3.46 cm2 OTHER OUTSIDE L AB LVOT stroke volume 94.21 cm3 OTHER OUTSI DE LAB E/A ratio 0.81 OTHER OUTSIDE LAB Medial E/E' ratio 12.00 OTHER OUTSIDE LAB Lateral E/E' ratio 8.40 OTHER OUTSIDE LAB Cardiology Donis Epiq OTHER OUTSIDE LAB Ultrasound Machine Ascending aorta 3.3 cm OTHER OUTSIDE LAB LVOT peak theo 1.4 m/s OTHER OUTSIDE L AB AV Stroke Volume 42 OTHER OUTSIDE LAB Index AV index (curyung) 0.74 OTHER OUTSIDE LAB ECHO EF 75 % OTHER OUTSIDE L AB BOOKER'S BIPLANE EF 76 % OTHER OUT SIDE LAB Modality Anatomical Region Laterality Ultrasound Anatomical Location / Laterality Collection Method / Volume Liss ection Time Received Time Specimen (Source) Narrative 04/23/2023 8:17 AM CDT Technically difficult study with poor endocardial visualization. Unable to obtain subcostal images. Normal left ventricular size with hyperdynamic left ventricular systolic function, LVEF >70%. Normal diastolic function. Normal right ventricular size and systolic function. Normal-sized atria. No hemodynamically significant valvular abnormality on 2D and Doppler images. IVC not visualized, unable to estimate CVP. Insufficient TR jet, unable to estimate PASP. Based off PI jet, estimated mean PA pressure is 14 mmHg + CVP. No pericardial effusion. No prior studies for comparison. Left Ventricle The left ventricular size is normal. Wall thickness is increased. Concentric remodeling. The left ventricular systolic function is hyperdynamic. The visually estimated ejection fraction is 75%. The ejection fraction by Booker's biplane method is 76%. There are no segmental wall motion abnormalities. Normal left ventricular diastolic function. Normal left atrial pressure. Right Ventricle The right ventricular size is normal. The right ventricular systolic function is normal. The pulmonary artery pressure could not be estimated due to inadequate tricuspid regurgitation signal. Left Atrium Normal size. Right Atrium Normal size. IVC/SVC Inferior vena cava was not well seen; right atrial pressure could not be estimated. Mitral Valve Normal valve structure. No stenosis. No regurgitation. Tricuspid Valve Normal valve structure. No stenosis. No regurgitation. Aortic Valve Tricuspid aortic valve. No stenosis. No regurgitation. Pericardium No pericardial effusion. Pulmonary The pulmonic valve was not seen well but no Doppler evidence of stenosis. Mild regurgitation. Aorta The visualized portions of the aortic root and ascending aorta are normal in size. Wall Scoring Resting Score Index: 1.00 The left ventricular wall motion is globally hyperkinetic. Jerald Torres Crawford ECHO ORDERABLES MD * HAND MIN 3 VIEWS RIGHT (04/23/2023 6:29 AM CDT) Modality Anatomical Region Laterality Computed Radiography UPPEREXT Right Anatomical Location / Laterality Collection Method / Volume Liss ection Time Received Time Specimen (Source) 04/23/2023 8:15 AM CDT Impressions 04/23/2023 8:19 AM CDT 1. No fracture or dislocation of the s houlder. Mild degenerative change at the AC joint and glenohumeral joint. 2. No acute fracture of the radius and ulna. Mild to moderate spurring of the radial head at the elbow with small enthesophytes of the humeral epicondyles. 3. Moderate scattered osteoarthritis w ithin the hand. There are external artifacts. Small well-defined calcification on the dorsal aspect of the wrist fracture sequela of old injury though could be further evaluated with a dedicated exam of the wrist if there is focal tenderness in the dorsal wrist. 4. There is mild osteoarthritis of the knee greatest at the patellofemoral compartment. No acute fracture identified. Mild knee joint effusion. Finalized by Jorge Zamora M.D. on 04/23/2023 8:19 AM. Dictated by Jorge Zamora M.D. on 04/23/2023 8:15 AM. Narrative 04/23/2023 8:19 AM CDT Exam: SHOULDER MIN 2 VIEWS RIGHT, FOREARM 2 VIEWS RIGHT, HAND MIN 3 VIEWS RIGHT, KNEE 1 OR 2 VIEWS RIGHT CLINICAL INDICATION: 73 years trauma COMPARISON: None. Procedure Note Jorge Zamora MD - 04/23/2023 Exam: SHOULDER MIN 2 VIEWS RIGHT, FOREARM 2 VIEWS RIGHT, HAND MIN 3 VIEWS RIGHT, KNEE 1 OR 2 VIEWS RIGHT CLINICAL INDICATION: 73 years trauma COMPARISON: None. IMPRESSION 1. No fracture or dislocation of the sh oulder. Mild degenerative change at the AC joint and glenohumeral joint. 2. No acute fracture of the radius and ulna. Mild to moderate spurring of the radial head at the elbow with small enthesophytes of the humeral epicondyles. 3. Moderate scattered osteoarthritis wi thin the hand. There are external artifacts. Small well-defined calcification on the dorsal aspect of the wrist fracture sequela of old injury though could be further evaluated with a dedicated exam of the wrist if there is focal tenderness in the dorsal wrist. 4. There is mild osteoarthritis of the knee greatest at the patellofemoral compartment. No acute fracture identified. Mild knee joint effusion. Finalized by Jorge Zamora M.D. on 04/23/2023 8:19 AM. Dictated by Jorge Zamora M.D. on 04/23/2023 8:15 AM. [facility] DIAGNOSTIC IMAGING ORDERABL * KNEE 1 OR 2 VIEWS RIGHT (04/23/2023 6:29 AM CDT) Modality Anatomical Region Laterality Computed Radiography LOWEREXT Right Anatomical Location / Laterality Collection Method / Volume Liss ection Time Received Time Specimen (Source) 04/23/2023 8:15 AM CDT Impressions 04/23/2023 8:19 AM CDT 1. No fracture or dislocation of the s houlder. Mild degenerative change at the AC joint and glenohumeral joint. 2. No acute fracture of the radius and ulna. Mild to moderate spurring of the radial head at the elbow with small enthesophytes of the humeral epicondyles. 3. Moderate scattered osteoarthritis w ithin the hand. There are external artifacts. Small well-defined calcification on the dorsal aspect of the wrist fracture sequela of old injury though could be further evaluated with a dedicated exam of the wrist if there is focal tenderness in the dorsal wrist. 4. There is mild osteoarthritis of the knee greatest at the patellofemoral compartment. No acute fracture identified. Mild knee joint effusion. Finalized by Jorge Zamora M.D. on 04/23/2023 8:19 AM. Dictated by Jorge Zamora M.D. on 04/23/2023 8:15 AM. Narrative 04/23/2023 8:19 AM CDT Exam: SHOULDER MIN 2 VIEWS RIGHT, FOREARM 2 VIEWS RIGHT, HAND MIN 3 VIEWS RIGHT, KNEE 1 OR 2 VIEWS RIGHT CLINICAL INDICATION: 73 years trauma COMPARISON: None. Procedure Note Jorge Zamora MD - 04/23/2023 Exam: SHOULDER MIN 2 VIEWS RIGHT, FOREARM 2 VIEWS RIGHT, HAND MIN 3 VIEWS RIGHT, KNEE 1 OR 2 VIEWS RIGHT CLINICAL INDICATION: 73 years trauma COMPARISON: None. IMPRESSION 1. No fracture or dislocation of the sh oulder. Mild degenerative change at the AC joint and glenohumeral joint. 2. No acute fracture of the radius and ulna. Mild to moderate spurring of the radial head at the elbow with small enthesophytes of the humeral epicondyles. 3. Moderate scattered osteoarthritis wi thin the hand. There are external artifacts. Small well-defined calcification on the dorsal aspect of the wrist fracture sequela of old injury though could be further evaluated with a dedicated exam of the wrist if there is focal tenderness in the dorsal wrist. 4. There is mild osteoarthritis of the knee greatest at the patellofemoral compartment. No acute fracture identified. Mild knee joint effusion. Finalized by Jorge Zamora M.D. on 04/23/2023 8:19 AM. Dictated by Jorge Zamora M.D. on 04/23/2023 8:15 AM. [facility] DIAGNOSTIC IMAGING ORDERABL ES MD * FOREARM 2 VIEWS RIGHT (04/23/2023 6:28 AM CDT) Modality Anatomical Region Laterality Computed Radiography UPPEREXT Right Anatomical Location / Laterality Collection Method / Volume Liss ection Time Received Time Specimen (Source) 04/23/2023 8:15 AM CDT Impressions 04/23/2023 8:19 AM CDT 1. No fracture or dislocation of the s houlder. Mild degenerative change at the AC joint and glenohumeral joint. 2. No acute fracture of the radius and ulna. Mild to moderate spurring of the radial head at the elbow with small enthesophytes of the humeral epicondyles. 3. Moderate scattered osteoarthritis w ithin the hand. There are external artifacts. Small well-defined calcification on the dorsal aspect of the wrist fracture sequela of old injury though could be further evaluated with a dedicated exam of the wrist if there is focal tenderness in the dorsal wrist. 4. There is mild osteoarthritis of the knee greatest at the patellofemoral compartment. No acute fracture identified. Mild knee joint effusion. Finalized by Jorge Zamora M.D. on 04/23/2023 8:19 AM. Dictated by Jorge Zamora M.D. on 04/23/2023 8:15 AM. Narrative 04/23/2023 8:19 AM CDT Exam: SHOULDER MIN 2 VIEWS RIGHT, FOREARM 2 VIEWS RIGHT, HAND MIN 3 VIEWS RIGHT, KNEE 1 OR 2 VIEWS RIGHT CLINICAL INDICATION: 73 years trauma COMPARISON: None. Procedure Note Jorge Zamora MD - 04/23/2023 Exam: SHOULDER MIN 2 VIEWS RIGHT, FOREARM 2 VIEWS RIGHT, HAND MIN 3 VIEWS RIGHT, KNEE 1 OR 2 VIEWS RIGHT CLINICAL INDICATION: 73 years trauma COMPARISON: None. IMPRESSION 1. No fracture or dislocation of the sh oulder. Mild degenerative change at the AC joint and glenohumeral joint. 2. No acute fracture of the radius and ulna. Mild to moderate spurring of the radial head at the elbow with small enthesophytes of the humeral epicondyles. 3. Moderate scattered osteoarthritis wi thin the hand. There are external artifacts. Small well-defined calcification on the dorsal aspect of the wrist fracture sequela of old injury though could be further evaluated with a dedicated exam of the wrist if there is focal tenderness in the dorsal wrist. 4. There is mild osteoarthritis of the knee greatest at the patellofemoral compartment. No acute fracture identified. Mild knee joint effusion. Finalized by Jorge Zamora M.D. on 04/23/2023 8:19 AM. Dictated by Jorge Zamora M.D. on 04/23/2023 8:15 AM. J[facility] DIAGNOSTIC IMAGING ORDERABL ES * SHOULDER MIN 2 VIEWS RIGHT (04/23/2023 6:27 AM CDT) Modality Anatomical Region Laterality Computed Radiography UPPEREXT Right Anatomical Location / Laterality Collection Method / Volume Liss ection Time Received Time Specimen (Source) 04/23/2023 8:15 AM CDT Right Impressions 04/23/2023 8:19 AM CDT 1. No fracture or dislocation of the s houlder. Mild degenerative change at the AC joint and glenohumeral joint. 2. No acute fracture of the radius and ulna. Mild to moderate spurring of the radial head at the elbow with small enthesophytes of the humeral epicondyles. 3. Moderate scattered osteoarthritis w ithin the hand. There are external artifacts. Small well-defined calcification on the dorsal aspect of the wrist fracture sequela of old injury though could be further evaluated with a dedicated exam of the wrist if there is focal tenderness in the dorsal wrist. 4. There is mild osteoarthritis of the knee greatest at the patellofemoral compartment. No acute fracture identified. Mild knee joint effusion. Finalized by Jorge Zamora M.D. on 04/23/2023 8:19 AM. Dictated by Jorge Zamora M.D. on 04/23/2023 8:15 AM. Narrative 04/23/2023 8:19 AM CDT Exam: SHOULDER MIN 2 VIEWS RIGHT, FOREARM 2 VIEWS RIGHT, HAND MIN 3 VIEWS RIGHT, KNEE 1 OR 2 VIEWS RIGHT CLINICAL INDICATION: 73 years trauma COMPARISON: None. Procedure Note Jorge Zamora MD - 04/23/2023 Exam: SHOULDER MIN 2 VIEWS RIGHT, FOREARM 2 VIEWS RIGHT, HAND MIN 3 VIEWS RIGHT, KNEE 1 OR 2 VIEWS RIGHT CLINICAL INDICATION: 73 years trauma COMPARISON: None. IMPRESSION 1. No fracture or dislocation of the sh oulder. Mild degenerative change at the AC joint and glenohumeral joint. 2. No acute fracture of the radius and ulna. Mild to moderate spurring of the radial head at the elbow with small enthesophytes of the humeral epicondyles. 3. Moderate scattered osteoarthritis wi thin the hand. There are external artifacts. Small well-defined calcification on the dorsal aspect of the wrist fracture sequela of old injury though could be further evaluated with a dedicated exam of the wrist if there is focal tenderness in the dorsal wrist. 4. There is mild osteoarthritis of the knee greatest at the patellofemoral compartment. No acute fracture identified. Mild knee joint effusion. Finalized by Jorge Zamora M.D. on 04/23/2023 8:19 AM. Dictated by Jorge Zamora M.D. on 04/23/2023 8:15 AM. Jerald Crawford DIAGNOSTIC IMAGING ORDERABL ES * CTA NECK WO/W CONT (04/23/2023 5:44 AM CDT) Modality Anatomical Region Laterality Computed Tomography HEAD/NECK Anatomical Location / Laterality Collection Method / Volume Liss ection Time Received Time Specimen (Source) 04/23/2023 5:58 AM CDT Impressions 04/23/2023 6:35 AM CDT CTA head: 1. Multifocal intracranial atheroscler osis without intracranial blunt vascular injury or hemodynamic significant stenosis. 2. No significant change in mild multi focal left cerebral convexity and right cisternal subarachnoid hemorrhage and mild posterior left cerebral convexity subdural hemorrhage. CTA neck: 1. Multifocal atherosclerosis with mil d less than 25% narrowing of the ICAs and severe narrowing of the left vertebral artery origin. No evidence for blunt cerebrovascular injury. 2. Increased trace right pneumothorax with similar displaced anterior right costochondral fracture and suspected right first costomanubrial injury. Increased right anterior chest wall subcutaneous gas. Findings were discussed with Dr. Crowell by Dr. Marie by telephone at 6:32 AM 04/23/2023. Finalized by Jose Marie M.D. on 04/23/2023 6:35 AM. Dictated by Jose Marie M.D. on 04/23/2023 5:58 AM. Narrative 04/23/2023 6:35 AM CDT EXAM: CTA HEAD AND NECK HISTORY: Trauma, intracranial hemorrhage, second rib fracture, stability scan, TECHNIQUE: Multiple contiguous axial images were obtained of the brain and neck following the administration of IV contrast. Precontrast axial images were also obtained of the brain. CTA maximum density projection images were obtained of the brain and neck with image post processing. Comparison: Outside CT head, cervical spine, and thorax 04/22/2023 FINDINGS: CTA head: No significant interval change of mild multifocal subarachnoid hemorrhage about the left supratentorial convexity. Minor subarachnoid hemorrhage is also present within the right ambient cistern, unchanged (series 6 image 41). A small layering subdural hemorrhage measures 6 mm along the posterior left cerebral convexity, unchanged. No new or enlarging intracranial hemorrhage. No significant mass effect. No herniation or hydrocephalus. Mild ectasia and irregularity of the bilateral cavernous ICA is with mild associated calcific plaque. No dissection, fistula, or pseudoaneurysm identified. No superimposed stenosis. Bilateral ACAs and MCAs are patent with multifocal atherosclerotic irregularity. origin of bilateral blintze roller. 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 Mild irregularity of the blintze roller without significant narrowing. No aneurysm or arteriovenous malformation is identified. CTA neck: Arch and arch origins are patent. Calcified plaque in the left vertebral artery origin results in severe narrowing. Additional multifocal irregularity and mild narrowing of the left cervical vertebral artery, likely atherosclerotic. Right vertebral artery is patent with minimal multifocal irregularity, likely atherosclerotic. Calcified plaque and soft tissue plaque at the carotid bifurcations results in mild, less than 25% narrowing of the bilateral ICAs by NASCET criteria. Cervical carotid arteries are patent without evident injury. Bilateral subclavian arteries are patent without stenosis No aneurysm, AVM, or dissection is identified. Right sided multilevel costomanubrial and costovertebral injuries involving anterior right first and second ribs with intra-articular gas and mild displacement, or completely assessed on outside chest CT. There is no gross change in alignment; however, there is increasing subcutaneous gas in the anterior right chest wall and a developed small anterior right pneumothorax. Trace right pleural effusion and mild bibasilar atelectasis. Mild scattered paranasal sinus mucosal thickening left mastoid and middle ear opacification persists. Please see same day CT maxillofacial for more complete characteri zation of facial injuries. Procedure Note Jose Marie MD - 04/23/2023 EXAM: CTA HEAD AND NECK HISTORY: Trauma, intracranial hemorrhage, second rib fracture, stability scan, TECHNIQUE: Multiple contiguous axial images were obtained of the brain and neck following the administration of IV contrast. Precontrast axial images were also obtained of the brain. CTA maximum density projection images were obtained of the brain and neck with image post processing. Comparison: Outside CT head, cervical spine, and thorax 04/22/2023 FINDINGS: CTA head: No significant interval change of mild multifocal subarachnoid hemorrhage about the left supratentorial convexity. Minor subarachnoid hemorrhage is also present within the right ambient cistern, unchanged (series 6 image 41). A small layering subdural hemorrhage measures 6 mm along the posterior left cerebral convexity, unchanged. No new or enlarging intracranial hemorrhage. No significant mass effect. No herniation or hydrocephalus. Mild ectasia and irregularity of the bilateral cavernous ICA is with mild associated calcific plaque. No dissection, fistula, or pseudoaneurysm identified. No superimposed stenosis. Bilateral ACAs and MCAs are patent with multifocal atherosclerotic irregularity. origin of bilateral blintze roller. 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 Mild irregularity of the blintze roller without significant narrowing. No aneurysm or arteriovenous malformation is identified. CTA neck: Arch and arch origins are patent. Calcified plaque in the left vertebral artery origin results in severe narrowing. Additional multifocal irregularity and mild narrowing of the left cervical vertebral artery, likely atherosclerotic. Right vertebral artery is patent with minimal multifocal irregularity, likely atherosclerotic. Calcified plaque and soft tissue plaque at the carotid bifurcations results in mild, less than 25% narrowing of the bilateral ICAs by NASCET criteria. Cervical carotid arteries are patent without evident injury. Bilateral subclavian arteries are patent without stenosis No aneurysm, AVM, or dissection is identified. Right sided multilevel costomanubrial and costovertebral injuries involving anterior right first and second ribs with intra-articular gas and mild displacement, or completely assessed on outside chest CT. There is no gross change in alignment; however, there is increasing subcutaneous gas in the anterior right chest wall and a developed small anterior right pneumothorax. Trace right pleural effusion and mild bibasilar atelectasis. Mild scattered paranasal sinus mucosal thickening left mastoid and middle ear opacification persists. Please see same day CT maxillofacial for more complete characterization of facial injuries. IMPRESSION CTA head: 1. Multifocal intracranial atherosclero sis without intracranial blunt vascular injury or hemodynamic significant stenosis. 2. No significant change in mild multif ocal left cerebral convexity and right cisternal subarachnoid hemorrhage and mild posterior left cerebral convexity subdural hemorrhage. CTA neck: 1. Multifocal atherosclerosis with mild less than 25% narrowing of the ICAs and severe narrowing of the left vertebral artery origin. No evidence for blunt cerebrovascular injury. 2. Increased trace right pneumothorax w ith similar displaced anterior right costochondral fracture and suspected right first costomanubrial injury. Increased right anterior chest wall subcutaneous gas. Findings were discussed with Dr. Crowell by Dr. Marie by telephone at 6:32 AM 04/23/2023. Finalized by Jose Marie M.D. on 04/23/2023 6:35 AM. Dictated by Jose Marie M.D. on 04/23/2023 5:[address] ORDERABLES MD * CTA HEAD WO/W CONT (04/23/2023 5:44 AM CDT) Modality Anatomical Region Laterality Computed Tomography Head Anatomical Location / Laterality Collection Method / Volume Liss ection Time Received Time Specimen (Source) 04/23/2023 5:58 AM CDT Impressions 04/23/2023 6:35 AM CDT CTA head: 1. Multifocal intracranial atheroscler osis without intracranial blunt vascular injury or hemodynamic significant stenosis. 2. No significant change in mild multi focal left cerebral convexity and right cisternal subarachnoid hemorrhage and mild posterior left cerebral convexity subdural hemorrhage. CTA neck: 1. Multifocal atherosclerosis with mil d less than 25% narrowing of the ICAs and severe narrowing of the left vertebral artery origin. No evidence for blunt cerebrovascular injury. 2. Increased trace right pneumothorax with similar displaced anterior right costochondral fracture and suspected right first costomanubrial injury. Increased right anterior chest wall subcutaneous gas. Findings were discussed with Dr. Crowell by Dr. Marie by telephone at 6:32 AM 04/23/2023. Finalized by Jose Marie M.D. on 04/23/2023 6:35 AM. Dictated by Jose Marie M.D. on 04/23/2023 5:58 AM. Narrative 04/23/2023 6:35 AM CDT EXAM: CTA HEAD AND NECK HISTORY: Trauma, intracranial hemorrhage, second rib fracture, stability scan, TECHNIQUE: Multiple contiguous axial images were obtained of the brain and neck following the administration of IV contrast. Precontrast axial images were also obtained of the brain. CTA maximum density projection images were obtained of the brain and neck with image post processing. Comparison: Outside CT head, cervical spine, and thorax 04/22/2023 FINDINGS: CTA head: No significant interval change of mild multifocal subarachnoid hemorrhage about the left supratentorial convexity. Minor subarachnoid hemorrhage is also present within the right ambient cistern, unchanged (series 6 image 41). A small layering subdural hemorrhage measures 6 mm along the posterior left cerebral convexity, unchanged. No new or enlarging intracranial hemorrhage. No significant mass effect. No herniation or hydrocephalus. Mild ectasia and irregularity of the bilateral cavernous ICA is with mild associated calcific plaque. No dissection, fistula, or pseudoaneurysm identified. No superimposed stenosis. Bilateral ACAs and MCAs are patent with multifocal atherosclerotic irregularity. origin of bilateral blintze roller. 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 Mild irregularity of the blintze roller without significant narrowing. No aneurysm or arteriovenous malformation is identified. CTA neck: Arch and arch origins are patent. Calcified plaque in the left vertebral artery origin results in severe narrowing. Additional multifocal irregularity and mild narrowing of the left cervical vertebral artery, likely atherosclerotic. Right vertebral artery is patent with minimal multifocal irregularity, likely atherosclerotic. Calcified plaque and soft tissue plaque at the carotid bifurcations results in mild, less than 25% narrowing of the bilateral ICAs by NASCET criteria. Cervical carotid arteries are patent without evident injury. Bilateral subclavian arteries are patent without stenosis No aneurysm, AVM, or dissection is identified. Right sided multilevel costomanubrial and costovertebral injuries involving anterior right first and second ribs with intra-articular gas and mild displacement, or completely assessed on outside chest CT. There is no gross change in alignment; however, there is increasing subcutaneous gas in the anterior right chest wall and a developed small anterior right pneumothorax. Trace right pleural effusion and mild bibasilar atelectasis. Mild scattered paranasal sinus mucosal thickening left mastoid and middle ear opacification persists. Please see same day CT maxillofacial for more complete characteri zation of facial injuries. Procedure Note Jose Marie MD - 04/23/2023 EXAM: CTA HEAD AND NECK HISTORY: Trauma, intracranial hemorrhage, second rib fracture, stability scan, TECHNIQUE: Multiple contiguous axial images were obtained of the brain and neck following the administration of IV contrast. Precontrast axial images were also obtained of the brain. CTA maximum density projection images were obtained of the brain and neck with image post processing. Comparison: Outside CT head, cervical spine, and thorax 04/22/2023 FINDINGS: CTA head: No significant interval change of mild multifocal subarachnoid hemorrhage about the left supratentorial convexity. Minor subarachnoid hemorrhage is also present within the right ambient cistern, unchanged (series 6 image 41). A small layering subdural hemorrhage measures 6 mm along the posterior left cerebral convexity, unchanged. No new or enlarging intracranial hemorrhage. No significant mass effect. No herniation or hydrocephalus. Mild ectasia and irregularity of the bilateral cavernous ICA is with mild associated calcific plaque. No dissection, fistula, or pseudoaneurysm identified. No superimposed stenosis. Bilateral ACAs and MCAs are patent with multifocal atherosclerotic irregularity. origin of bilateral blintze roller. 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 Mild irregularity of the blintze roller without significant narrowing. No aneurysm or arteriovenous malformation is identified. CTA neck: Arch and arch origins are patent. Calcified plaque in the left vertebral artery origin results in severe narrowing. Additional multifocal irregularity and mild narrowing of the left cervical vertebral artery, likely atherosclerotic. Right vertebral artery is patent with minimal multifocal irregularity, likely atherosclerotic. Calcified plaque and soft tissue plaque at the carotid bifurcations results in mild, less than 25% narrowing of the bilateral ICAs by NASCET criteria. Cervical carotid arteries are patent without evident injury. Bilateral subclavian arteries are patent without stenosis No aneurysm, AVM, or dissection is identified. Right sided multilevel costomanubrial and costovertebral injuries involving anterior right first and second ribs with intra-articular gas and mild displacement, or completely assessed on outside chest CT. There is no gross change in alignment; however, there is increasing subcutaneous gas in the anterior right chest wall and a developed small anterior right pneumothorax. Trace right pleural effusion and mild bibasilar atelectasis. Mild scattered paranasal sinus mucosal thickening left mastoid and middle ear opacification persists. Please see same day CT maxillofacial for more complete characterization of facial injuries. IMPRESSION CTA head: 1. Multifocal intracranial atherosclero sis without intracranial blunt vascular injury or hemodynamic significant stenosis. 2. No significant change in mild multif ocal left cerebral convexity and right cisternal subarachnoid hemorrhage and mild posterior left cerebral convexity subdural hemorrhage. CTA neck: 1. Multifocal atherosclerosis with mild less than 25% narrowing of the ICAs and severe narrowing of the left vertebral artery origin. No evidence for blunt cerebrovascular injury. 2. Increased trace right pneumothorax w ith similar displaced anterior right costochondral fracture and suspected right first costomanubrial injury. Increased right anterior chest wall subcutaneous gas. Findings were discussed with Dr. Crowell by Dr. Marie by telephone at 6:32 AM 04/23/2023. Finalized by Jose Marie M.D. on 04/23/2023 6:35 AM. Dictated by Jose Marie M.D. on 04/23/2023 5:[address] ORDERABLES * CT MAXIFACIAL/SINUS WO CONTRAST (04/23/2023 5:37 AM CDT) Modality Anatomical Region Laterality Computed Tomography Head Anatomical Location / Laterality Collection Method / Volume Liss ection Time Received Time Specimen (Source) 04/23/2023 5:38 AM CDT Addenda Addendum by Jose Marie MD on 04/23/2023 6:39 AM CDT Finalized by Jose Marie M.D. on 04/23/2023 5:57 AM. Dictated by Jose Marie M.D. on 04/23/2023 5:38 AM.Addendum: Addendum: Following further review, there is a nondisplaced lucency to the right zygomatic arch, consistent with a nondisplaced right zygomatic arch fracture. Findings were discussed with Dr. Crowell by Dr. Marie by electronic message at 6:32 AM 04/23/2023. Finalized by Jose Marie M.D. on 04/23/2023 6:36 AM. Dictated by Jose Marie M.D. on 04/23/2023 6:04 AM. Impressions 04/23/2023 5:57 AM CDT 1. Right periorbital soft tissue contu xiomara. No orbital rim fracture or hematoma. 2. Left mastoid and middle ear opacifi cation, presumably a chronic effusion. Fluid related to a radiographically occult left mastoid temporal bone fracture could appear similar. Consider CT temporal bone for further characterization. 3. Cortical irregularity and lucency o f the anterior nasal spine, likely chronic. A minimally comminuted fracture of the anterior nasal spine is felt less likely. Correlation for focal tenderness. 4. Grossly stable left cerebral convex ity subarachnoid and subdural hemorrhage. Narrative 04/23/2023 5:57 AM CDT EXAM: CT MAXILLOFACIAL HISTORY: facial trauma, TECHNIQUE: Multiple contiguous axial images were obtained of the facial bones without intravenous contrast. Sagittal and coronal reformations were obtained. Comparison: Outside CT head 04/23/2023 FINDINGS: Motion and metallic artifacts somewhat limit evaluation of the skull base. Cortical irregularity and lucency of the anterior nasal spine (series 4 image 108). Right periorbital soft tissue contusion, small. No orbital hematoma is identified. The orbital rims appear intact. Mandible is intact. Temporomandibular joints are maintained. No additional facial fracture is identified. Mild scattered paranasal sinus mucosal thickening. Left mastoid and middle ear effusion is present. No definite left temporal bone fracture is identified. Similar scattered mild subarachnoid hemorrhage about the left cerebral convexity. Similar thin subdural hemorrhage layering about the left parietal convexity, seen to better advantage on a dedicated CT head (series 3 image 123). Procedure Note Jose Marie MD - 04/23/2023 EXAM: CT MAXILLOFACIAL HISTORY: facial trauma, TECHNIQUE: Multiple contiguous axial images were obtained of the facial bones without intravenous contrast. Sagittal and coronal reformations were obtained. Comparison: Outside CT head 04/23/2023 FINDINGS: Motion and metallic artifacts somewhat limit evaluation of the skull base. Cortical irregularity and lucency of the anterior nasal spine (series 4 image 108). Right periorbital soft tissue contusion, small. No orbital hematoma is identified. The orbital rims appear intact. Mandible is intact. Temporomandibular joints are maintained. No additional facial fracture is identified. Mild scattered paranasal sinus mucosal thickening. Left mastoid and middle ear effusion is present. No definite left temporal bone fracture is identified. Similar scattered mild subarachnoid hemorrhage about the left cerebral convexity. Similar thin subdural hemorrhage layering about the left parietal convexity, seen to better advantage on a dedicated CT head (series 3 image 123). IMPRESSION 1. Right periorbital soft tissue contus ion. No orbital rim fracture or hematoma. 2. Left mastoid and middle ear opacific ation, presumably a chronic effusion. Fluid related to a radiographically occult left mastoid temporal bone fracture could appear similar. Consider CT temporal bone for further characterization. 3. Cortical irregularity and lucency of the anterior nasal spine, likely chronic. A minimally comminuted fracture of the anterior nasal spine is felt less likely. Correlation for focal tenderness. 4. Grossly stable left cerebral convexi ty subarachnoid and subdural hemorrhage. Jerald Crawford CT ORDERABLES * TEG WITH KAOLIN (04/23/2023 4:29 AM CDT) Pathologist Signature Component Value Ref Test Method Analysis Performed A t Range Time MA Kaolin 71.0 >49.9 MM 04/23/2023 [facility] DEPT PAT H AND 5:42 AM LAB MEDICINE CDT R Kaolin 2.9 <9.1 MIN 04/23/2023 [facility] DEPT PAT H AND 5:42 AM LAB MEDICINE CDT RK Kaolin 3.8 <12.1 04/23/2023 [facility] DEPT PAT H AND MIN 5:42 AM LAB MEDICINE CDT K Kaolin 0.9 <3.1 MIN 04/23/2023 [facility] DEPT PAT H AND 5:42 AM LAB MEDICINE CDT Angle Kaolin 75.8 >54.9 04/23/2023 [facility] PA TH AND DEG 5:42 AM LAB MEDICINE CDT Lysis30 0.2 <8.1 % 04/23/2023 [facility] PAT H AND 5:42 AM LAB MEDICINE CDT Anatomical Location / Laterality Collection Method / Volume Liss ection Time Received Time Specimen (Source) BLOOD / Unknown 04/23/2023 4:29 AM CDT 04/23/20 4:41 AM CDT Jerald Crawford OTHER LABORATORY [facility]/State/ZIP Code Phone Number Performing Address [place] [address], [facility] AND [address] [facility] LAB MEDICINE * PTT (APTT) (04/23/2023 4:29 AM CDT) Pathologist Signature Component Value Ref Test Method Analysis Performed A t Range Time APTT 25.0 24.0 - 04/23/2023 [facility] DEPT PAT H AND 36.5 SEC 5:20 AM LAB MEDICINE CDT Anatomical Location / Laterality Collection Method / Volume Liss ection Time Received Time Specimen (Source) BLOOD / Unknown 04/23/2023 4:29 AM CDT 04/23/20 4:44 AM CDT Jerald Crawford LABORATORY ORDERABLES [facility]/ZIP Code Phone Number Performing Address [place] [address], [facility] PATH AND [address] [employer] [facility] LAB MEDICINE * PROTIME INR (PT) (04/23/2023 4:29 AM CDT) Pathologist Signature Component Value Ref Test Method Analysis Performed A t Range Time Protime 11.8 9.5 - 04/23/2023 [facility] PAT H AND 14.2 SEC 5:20 AM LAB MEDICINE CDT INR 1.1 0.8 - 04/23/2023 [facility] PAT H AND 1.2 5:20 AM LAB MEDICINE CDT Anatomical Location / Laterality Collection Method / Volume Liss ection Time Received Time Specimen (Source) BLOOD / Unknown 04/23/2023 4:29 AM CDT 04/23/20 4:44 AM CDT Jerald Crawford LABORATORY ORDERABLES [facility]/ZIP Code Phone Number Performing Address [place] [address], [facility] DEPT PATH AND [address] [facility] LAB MEDICINE * TYPE & CROSSMATCH (04/23/2023 4:29 AM CDT) Pathologist Signature Component Value Ref Test Method Analysis Performed A t Range Time Units Ordered 0 04/23/2023 [facility] PATH AND 4:41 AM LAB MEDICINE CDT Crossmatch Expires 04/26/2023,2 04/23/2023 [facility] DEPT PATH AND 359 5:29 AM LAB MEDICINE CDT Record Check FOUND 04/23/2023 [facility] PATH AND 4:41 AM LAB MEDICINE CDT ABO/RH(D) O NEG 04/23/2023 [facility] DEPT PATH AND 5:29 AM LAB MEDICINE CDT Antibody Screen NEG 04/23/2023 [facility] DEPT PAT H AND 5:29 AM LAB MEDICINE CDT Electronic YES 04/23/2023 [facility] DEPT PATH AND Crossmatch 5:29 AM LAB MEDICINE CDT Anatomical Location / Laterality Collection Method / Volume Liss ection Time Received Time Specimen (Source) BLOOD / Unknown 04/23/2023 4:29 AM CDT 04/23/20 4:40 AM CDT Jerald Crawford BLOOD BANK ORDERABLES [facility]/State/ZIP Code Phone Number Performing Address [place] [address], [facility] DEPT PATH AND [address] [facility] LAB MEDICINE * LACTIC ACID(LACTATE) (04/23/2023 4:29 AM CDT) Pathologist Signature Component Value Ref Test Method Analysis Performed A t Range Time Lactic Acid 1.9 0.5 - 04/23/2023 [facility] DEPT PAT H AND 2.0 5:29 AM LAB MEDICINE MMOL/L CDT Anatomical Location / Laterality Collection Method / Volume Liss ection Time Received Time Specimen (Source) BLOOD / Unknown 04/23/2023 4:29 AM CDT 04/23/20 4:44 AM CDT Jerald Crawford LABORATORY ORDERABLES [facility]/ZIP Code Phone Number Performing Address [place] [address], [facility] DEPT PATH AND [address] [facility] LAB MEDICINE * IONIZED CALCIUM (04/23/2023 4:29 AM CDT) Pathologist Signature Component Value Ref Test Method Analysis Performed A t Range Time Ionized Calcium 1.11 1.0 - 04/23/2023 [facility] DEPT PATH AND 1.3 5:35 AM LAB MEDICINE MMOL/L CDT Anatomical Location / Laterality Collection Method / Volume Liss ection Time Received Time Specimen (Source) BLOOD / Unknown 04/23/2023 4:29 AM CDT 04/23/20 4:44 AM CDT Jerald Crawford LABORATORY ORDERABLES City/State/ZIP Code Phone Number [place] [address], [facility] DEPT PATH AND [address] LAB MEDICINE from Last 3 Months Insurance Type Payer Benefit Subscriber ID Effective Phone Address Plan / Dates Group [employer] LETTER [facility] [id number] 2023- [phone] [id number] [address] [place] [address] Medicare A[employer]NA MEDICARE AETNA [id number] 2022-P [phone] [id number] [place] [address] [phone] Advance Directives Date Inactivated Comments Code Status Date Activated 04/30/2023 1:06 PM Full Code 04/23/2023 4:21 AM Comments Question Answer Provider has No, more discussion needed discussed Code Status w/Patient or Family? Date Inactivated Comments Code Status Date Activated 10/26/2010 5:33 AM Full Code 10/23/2010 1:33 PM Comments Question Answer Provider has No, discussion not necessar y based on Dx discussed Code Status w/Patient or Family? 10/23/2010 1:33 PM Full Code 10/23/2010 6:12 AM Comments Question Answer Provider has No, discussion not necessar y based on Dx discussed Code Status w/Patient or Family? Care Teams Start Date End Date Tool Operator Relationship Specialty 10/16/10 Ta Pelayo PCP - General [address] [place] [address] [place] [address] 10/16/10 Tolu Richey III, Urology PA-C [address] [facility] [address] [place] [address] 10/16/10 James Valles MD Urology Forwarding Address Unknown Left 01/30/2019
--- OUTSIDE RECORDS SUMMARY | 2023-04-30 13:20 | XMS REPORT | Encounter Summary ---
Author [facility] Address Unknown Phone Unavailable Care Team Providers Care Welder Tech Name Role Phone Rossi MERIDA PA-C, Tolu R Unavailable [phone] Ta Pelayo PCP James Valles MD Unavailable Unavailable Reason for Referral * Consult, Test & Treat (Routine) - New Request Diagnoses / Procedures Referred By Contact Referred To Conta ct Specialty Diagnoses Trauma Acute pain due to trauma SDH (subdural hematoma) (HCC) Closed fracture of ramus of left pubis, initial encounter (HCC) Closed nondisplaced fracture of right acetabulum, unspecified portion of acetabulum, initial encounter (HCC) Procedures APPOINTMENT REQUEST: ORTHOPEDICS Luis A Cabral PA-C [address] [facility] [place] [address] [place] [address] Mpb[facility] Ortho [address] [facility] [address], [address] [place] [address] Orthopedic Surgery Referral ID Status Reason Start Date Expiration Visits Vi sits Date Requested Authorized [id number] New Request 04/30/2023 04/29/2024 1 1 * Consult, Test & Treat (Discharge Pending) - Pending Review Diagnoses / Procedures Referred By Contact Referred To Conta ct Specialty Diagnoses Trauma Acute pain due to trauma SDH (subdural hematoma) (HCC) Closed fracture of ramus of left pubis, initial encounter (HCC) Closed nondisplaced fracture of right acetabulum, unspecified portion of acetabulum, initial encounter ([facility]) Procedures APPOINTMENT REQUEST: NEUROSURGERY Luis A Cabral PA-C [address] [facility] [place] [address] [place] [address] [facility] Neurosurg Cl [address] [facility] [place] [address] Neurosurgery Referral ID Status Reason Start Date Expiration Visits Vi sits Date Requested Authorized [id number] Pending 04/30/2023 04/29/2024 1 1 Review * Consult, Test & Treat (Discharge Pending) - Pending Review Diagnoses / Procedures Referred By Contact Referred To Conta ct Specialty Diagnoses Trauma Procedures APPOINTMENT REQUEST: NEUROSURGERY Jerald Crawford MD [address] [facility] [address] [place] [address] [facility] Brain Trauma Cl [address] [facility] [place] [address] Neurosurgery Referral ID Status Reason Start Date Expiration Visits Vi sits Date Requested Authorized [id number] Pending 04/23/2023 04/22/2024 1 1 Review Reason for Visit * Auth/Cert (Routine) Diagnoses / Procedures Referred By Contact Referred To Conta ct Specialty Diagnoses Trauma fall Referral ID Status Reason Start Date Expiration Visits Vi sits Date Requested Authorized [id number] 1 1 Encounter Details Care Team Description Date Type Department Jerald Crawford MD [address] [facility] [address] [place] [address] Jerald Brandt MD [address] [place] [address] Trauma Discharge Disposition: Rehab Facility (Not [facility]) 04/23/2023 Hospital Patient Care Unit B H53: 4:20 AM Encounter [facility] CDT - [address] 04/30/2023 Level 5 11:00 AM [place], [place] CDT [id number] Social History Date Tobacco Use Types Packs/Day [...] Identity Male Sexual Orientation Not on file documented as of this encounter Last Filed Vital Signs Reading Time Taken [...] 04/23/2023 4:32 AM CDT Body Mass Index documented in this encounter Functional Status Date of Assessment Functional Status Response 04/26/2023 Does the patient have a hearing impairment: No documented as of this encounter Discharge Summaries * Dorothy Comer - 04/30/2023 9:29 AM CDT Trauma Floor Case Management Progress Note NAME: Delmar Thornton : 1950 AGE: 73 y.o. Today's Date: 04/30/2023 PLAN: Dc to [facility] in [place], [place] BARRIERS to Discharge: None INTERVENTIONS: Discharge Planning SW reviewed pt's EMR and participated in Trauma Huddle where the following was d iscussed for pt's plan of care; pt stable for dc SW communicated with [facility], they are good for pt to transfer today. SW confirmed dc with medical provider, bedside RN and pt's daughter (via phone) SW faxed dc orders. Transportation (Wheelchair/Stretcher/Family) SW tasked THERAPEUTIC RADIOLOGIST to arrange for stretcher transport. Medication Needs Medication Voucher: No Dorothy Comer LMSW On Voalte * Lin Jarquin - 04/29/2023 1:14 PM CDT THERAPEUTIC RADIOLOGIST Note: Printed and placed transfer packet in the pt's wall unit per request from JUAN Schmidt. Lin Jarquin Cardiology Fellow For additional assistance please contact [facility] *[phone] * Lin Jarquin - 04/29/2023 11:59 AM CDT [facility] Note: Arranged stretcher transport with [facility] [employer] for pt tp dc to [facility] in [place], [place] at 10am.tomorrow, 04/30/2023 per the request from JUAN Schmidt. [employer] to pay, Voalted [facility] of scheduled transport. Lin Jarquin Cardiology Fellow For additional assistance please contact [facility] *[phone] * Dorothy Comer - 04/29/2023 11:57 AM CDT Trauma Floor Case Management Progress Note NAME: Delmar Thornton : 1950 AGE: 73 y.o. Today's Date: 04/29/2023 PLAN: Dc to Via [place], [place] BARRIERS to Discharge: None PLEASE MAKE SURE PATIENT DISCHARGES WITH HIS CELL PHONE AND GLASSES INTERVENTIONS: Discharge Planning SW reviewed pt's EMR and participated in Trauma Huddle where the following was d iscussed for pt's plan of care; pt stable for dc SW updated by [facility], they have insurance auth and want pt to transfer jaycob rrow. SW updated medical provider, bedside RN and pt's daughter (via phone) of dc plan s. SW tasked THERAPEUTIC RADIOLOGIST to deliver pt's transfer packet. Transportation (Wheelchair/Stretcher/Family) SW tasked THERAPEUTIC RADIOLOGIST to arrange for transportation. Pt is not safe to ride in a personal vehicle and unable to sit safely in a wheel chair. Facility is unable to transport pt due to not having and family is unable to afford transport. To avoid a delay in dc, SW had transport arranged. Medication Needs Medication Voucher: No Dorothy Comer LMSW On Voalte * Josie Bean - 04/28/2023 11:12 AM CDT Case Management Progress Note NAME:Delmar Thornton :[birth year] AGE: 73 y.o. ADMISSION DATE: 04/23/2023 DAYS ADMITTED: LOS: 5 days Today's Date: 04/28/2023 PLAN: Discharge to inpatient setting Expected Discharge Date: 04/30/2023 Is Patient Medically Stable: Yes Are there Barriers to Discharge? no INTERVENTION/DISPOSITION: Discharge Planning Discharge Planning: Inpatient Rehabilitation Saturday SW tasked THERAPEUTIC RADIOLOGIST to see if auth had been approved. Auth is still pending. Transportation Does the Patient Need Case Management to Arrange Discharge Transport ? (ex: facility, ambulance, wheelchair/stretcher, Medicaid, cab, other): (TBD) Will the Patient Use Family Transport?: (TBD) Support Support: Huddle/team update Info or Referral Positive SDOH Domains and Potential Barriers Medication Needs Financial Legal Other Discharge Disposition Selected Continued Care - Admitted Since 04/23/2023 No services have been selected for the patient. Josie Bean LMSW Available on Voalte Pager [phone] * Linda Darby - 04/28/2023 11:11 AM CDT THERAPEUTIC RADIOLOGIST Note Called [facility] [phone], insurance is still pending but he i s on their list and Haylee (liaison) will call if they have an update. Karine Darby Cardiology Fellow * Josie Bean - 04/28/2023 9:29 AM CDT Case Management Progress Note NAME:Delmar Thornton :[birth year] AGE: 73 y.o. ADMISSION DATE: 04/23/2023 DAYS ADMITTED: LOS: 5 days Today's Date: 04/28/2023 PLAN: Discharge to inpatient setting. Expected Discharge Date: 04/30/2023 Is Patient Medically Stable: Yes Are there Barriers to Discharge? yes (insurance auth) INTERVENTION/DISPOSITION: Discharge Planning Discharge Planning: Inpatient Rehabilitation SW tasked to identify if auth insurance had been approved. SW emailed attending to see if Pt is medically stable for dc Transportation Does the Patient Need Case Management to Arrange Discharge Transport ? (ex: facility, ambulance, wheelchair/stretcher, Medicaid, cab, other): (TBD) Will the Patient Use Family Transport?: (TBD) Support Support: Huddle/team update Info or Referral Positive SDOH Domains and Potential Barriers Medication Needs Financial Legal Other Discharge Disposition Selected Continued Care - Admitted Since 04/23/2023 No services have been selected for the patient. Josie Bean LMSW Available on Voalte Pager [phone] * Roseann Benson - 04/27/2023 1:19 PM CDT Case Management Progress Note NAME:Delmar Thornton :[birth year] AGE: 73 y.o. ADMISSION DATE: 04/23/2023 DAYS ADMITTED: LOS: 4 days Today's Date: 04/27/2023 PLAN: DC to inpt setting Expected Discharge Date: 04/30/2023 Is Patient Medically Stable: Yes Are there Barriers to Discharge? no INTERVENTION/DISPOSITION: Discharge Planning Discharge Planning: Inpatient Rehabilitation SW tasked THERAPEUTIC RADIOLOGIST to check auth. Transportation Does the Patient Need Case Management to Arrange Discharge Transport ? (ex: facility, ambulance, wheelchair/stretcher, Medicaid, cab, other): (TBD) Will the Patient Use Family Transport?: (TBD) Support Support: Huddle/team update Info or Referral Positive SDOH Domains and Potential Barriers Medication Needs Financial Legal Other Discharge Disposition Selected Continued Care - Admitted Since 04/23/2023 No services have been selected for the patient. Roseann Benson [facility] Weekend Hand Zipper Trimmer Please Voalte Me!! * Rachel Balderrama - 04/27/2023 12:38 PM CDT THERAPEUTIC RADIOLOGIST Note: Received request from JUAN Leahy to check on facility acceptance and i nsurance auth. Called [facility] [phone], referral is stil l pending. They will call this magnetic tape typewriter operator back today if there is an update. Updated [facility]. Update Received call back form [facility]. Francisca, the clinical liaison, is work ing from home this weekend but they are still waiting to hear back from [facility]. Francisca will reach out if they get auth this weekend. Updated [facility]. Rachel Balderrama Cardiology Fellow For additional assistance please contact [facility] * Edelmira Ortiz RN - 04/27/2023 10:34 AM CDT Case Management Trauma Progress Note NAME:Delmar Thornton :[birth year] AGE: 73 y.o. ADMISSION DATE: 04/23/2023 DAYS ADMITTED: LOS: 4 days Todays Date: 04/27/2023 PLAN: discharge to [facility] rehab in [place], [place]. Patient is medically stable for discharge according to [facility], Karine Caraballo. [facility] notified W/E JUAN Roseann Benson of medical stability status. Per note from JUAN y , facility acceptance and insurance authorization are still pending. Expected Discharge Date: 04/30/2023 Is Patient Medically Stable: Yes Are there Barriers to Discharge? yes (facility acceptance and insurance authoriz ation) Interventions: Discharge Planning Discharge Planning: Inpatient Rehabilitation Transportation Does the Patient Need Case Management to Arrange Discharge Transport ? (ex: facility, ambulance, wheelchair/stretcher, Medicaid, cab, other): (TBD) Will the Patient Use Family Transport?: (TBD) Support Support: Huddle/team update Info or Referral Positive SDOH Domains and Potential Barriers Medication Needs Financial Legal Other Trauma Screening Acute Stress Disorder Scale >56 is an 80% risk for development of PTSD Trauma Specific Frailty Index Index Score of >.27 indicates frailty. Provide appropriate interventions. Audit-C Men- A score of 4 or more is considered positive. Provide appropria te interventions. Women- A score of 3 or more is considered positive. Provide appropriate interve ntions. CAGE AID >3 recommend AWAS Discharge Disposition Next Level of Care (Acute Psych discharges only) Discharge Disposition Selected Continued Care - Admitted Since 04/23/2023 No services have been selected for the patient. Edelmira GILMORE, RN Nurse Enterprise Resource Planning Consultant Available on [facility] Office: [phone] * Dorothy Comer - 04/26/2023 11:46 AM CDT Trauma Floor Case Management Progress Note NAME: Delmar Thornton : 1950 AGE: 73 y.o. Today's Date: 04/26/2023 PLAN: Dc to inpatient setting BARRIERS to Discharge: Facility acceptance and insurance auth INTERVENTIONS: Discharge Planning SW reviewed pt's EMR and participated in Trauma Huddle where the following was d iscussed for pt's plan of care; anticipate pt to be stable for dc JUAN met with pt and pt's family (daughter and son) at bedside regarding dc planni ng. Everyone in agreement with dc plans to placement. Family would like a referr al to [facility] [place]. SW sent referral to [phone] Transportation (Wheelchair/Stretcher/Family) Anticipate SW to arrange transport Medication Needs Medication Voucher: No Dorothy Comer LMSW On Voalte * Lake Renteria RN - 04/23/2023 4:15 PM CDT Case Management Admission Trauma Assessment NAME:Delmar Thornton :1949 AGE: 73 y.o. ADMISSION DATE: 04/23/2023 DAYS ADMITTED: LOS: 0 days Todays Date: 04/23/2023 Source of Information: Patient's daughter and son-in-law This CM met with pt's daughter and THIEN for assessment on this date. Provided co ntact information and explanation of SW/NCM roles. Provided opportunity for qu estions and discussion. Pt/family encouraged to contact Case Management team wit h questions and concerns during hospitalization and until patient is able to tra nsition back to the patient's primary care physician. Plan Plan: Case Management Assessment, Assist PRN with SW/NCM Services ? Most recent therapy recommendations: ? PT: pending evaluation ? OT: pending evaluation ? ST: N/A ? CM needs are not fully known ? NCM/SW team to continue to follow patient's plan of care via EMR and team hudd le; will assist with discharge planning needs as indicated. Assessment Notes Patient's family are agreeable to completing assessment at this time. ? Patient's family encouraged to contact case management with questions and conc erns during hospitalization. ? Patient lives alone in 2 story house that accomodates 1 level living. Patient is independent with all ADLs and IADLs at baseline. ? Patient's resides in a skilled nursing near the patient's home address. Pt's daughter, THIEN, and granddaughter reside in [place], [place]. ? Home support is assessed to be unknown at this time. ? Patient's previous HH, LTACH, SNF, IPR, DME, outpatient therapy experience inc yee: OP PT. ? Transportation in the community: self or pt's family. ? Discharge planning ongoing. Patient Address/Phone [address] [facility] [address] (home) Emergency Contact Extended Emergency Contact Information Primary Emergency Contact: Maria Victoria Lomas Mobile Relation: Daughter Secondary Emergency Contact: CesiliaPo (THIEN) Mobile Relation: Relative Healthcare Directive Transportation Does the Patient Need Case Management to Arrange Discharge Transport? (ex: facil ity, ambulance, wheelchair/stretcher, Medicaid, cab, other): (TBD) Will the Patient Use Family Transport?: (TBD) Expected Discharge Date 04/30/2023 Living Situation Prior to Admission Living Arrangements Type of Residence: Home, independent Living Arrangements: Alone Bathroom Shower / Tub: Walk-in Shower How many levels in the residence?: 2 Can patient live on one level if needed?: Yes Does residence have entry and/or inside stairs?: No (ramp entry) Assistance needed prior to admit or anticipated on discharge: No Level of Function Prior level of function: Independent Cognitive Abilities Cognitive Abilities: Continue to Assess Financial Resources Coverage Primary Insurance: Medicare Replacement (Aetna) Secondary Insurance: Commercial insurance (BCBS Fed Emp) Additional Coverage: RX Source of Income Source Of Income: SSI, Other care home income Financial Assistance Needed? none Psychosocial Needs Mental Health Mental Health History: No Substance Use History Substance Use History Screen: No Other none Current/Previous Services PCP Ta Pelayo, , [facility] [address] [address] Durable Medical Equipment Home Health Receiving home health: No Hemodialysis or Peritoneal Dialysis Undergoing hemodialysis or peritoneal dialysis: No Tube/Enteral Feeds Receive tube/enteral feeds: No Infusion Receive infusions: No Private Duty Private duty help used: No Home and Community Based Services Home and community based services: No Gabriel Chery Gabriel White: N/A Hospice Hospice: No Outpatient Therapy PT: In the past OT: No CLEARING HAND: No Shelter Facility/Skilled Nursing SNF: No NH: No Inpatient Rehab IPR: No Long-Term Acute Care Hospital LTACH: No Acute Hospital Stay Acute Hospital Stay: In the past Was patient's stay within the last 30 days?: No Trauma Screening Acute Stress Disorder Scale >56 is an 80% risk for development of PTSD unable to assess at this time Trauma Specific Frailty Index Index Score of >.27 indicates frailty. Provide appropriate interventions. unable to assess at this time Audit-C Men- A score of 4 or more is considered positive. Provide appropria te interventions. Women- A score of 3 or more is considered positive. Provide appropriate interventions. Caige AID >3 recommend AWAS MANDO Kwan, boats renter Nurse Enterprise Resource Planning Consultant [facility] | | [email or web address] [address] documented in this encounter Medications at Time of Discharge Start Date End Date Medication Sig Dispensed Refills 04/30/2023 acetaminophen (TYLENOL) Take two 0 325 mg tablet tablets by mouth every 6 hours while awake. 04/30/2023 amantadine (SYMMETREL) Take one 0 100 mg tablet tablet by mouth twice daily. 04/30/2023 amLODIPine (NORVASC) 10 Take one 90 tablet 0 mg tablet tablet by mouth daily. ascorbic acid (VITAMIN C) Take 1,500 mg 0 500 mg PO tablet by mouth Daily. 04/30/2023 aspirin 81 mg chewable Chew one 0 tablet tablet by mouth daily. 04/30/2023 bacitracin zinc 500 Apply 30 g 0 unit/g topical ointment topically to affected area as Needed (Apply to abrasions prn). 04/30/2023 bisacodyL (DULCOLAX) 10 Insert or 8 0 mg rectal suppository Apply one suppository suppository to rectal area as directed every 6 hours. 04/30/2023 dapagliflozin propanediol Take one 90 tablet 0 (FARXIGA) 10 mg tablet by tabletIndications: type 2 mouth daily. diabetes mellitus Indications: type 2 diabetes mellitus Fish Oil-Fat Acid Take 1 Cap by 0 Comb.8-Hb137 (OMEGA mouth Three 3-6-9) 1,200 mg PO Cap Times Daily. 04/30/2023 lisinopriL (ZESTRIL) 10 Take one 90 tablet 0 mg tablet tablet by mouth daily. metformin (GLUCOPHAGE) Take 500 mg 0 500 mg PO tablet by mouth Twice Daily With Meals. 04/30/2023 naloxone (NARCAN) 4 Insert 1 2 each 0 mg/actuation nasal spray spray into 1 nostril as needed for signs of opioid overdose then call 911. May repeat dose every 2-3 minutes (alternate nostrils) until medical team arrives. 04/30/2023 oxyCODONE (ROXICODONE) 5 Take one 0 mg tablet tablet by mouth every 6 hours as needed. 04/30/2023 polyethylene glycol 3350 Take two 12 packet 0 (MIRALAX) 17 g packet packets by mouth twice daily. 04/30/2023 senna (SENOKOT) 8.6 mg Take two 180 tablet 0 tablet tablets by mouth twice daily. 04/30/2023 tamsulosin (FLOMAX) 0.4 Take one 90 capsule 0 mg capsule capsule by mouth daily after breakfast. Do not crush, chew or open capsules. Take 30 minutes following the same meal each day. vitamin E 400 unit PO Take 400 0 capsule Units by mouth Daily. vitamins, multiple PO Cap Take 1 Cap by 0 mouth Daily. documented as of this encounter Ordered Prescriptions Start Date End Date Prescription Sig Dispensed Refills 04/30/2023 aspirin 81 mg chewable Chew one 0 tablet tablet by mouth daily. 04/30/2023 naloxone (NARCAN) 4 Insert 1 2 each 0 mg/actuation nasal spray spray into 1 nostril as needed for signs of opioid overdose then call 911. May repeat dose every 2-3 minutes (alternate nostrils) until medical team arrives. 04/30/2023 acetaminophen (TYLENOL) Take two 0 325 mg tablet tablets by mouth every 6 hours while awake. 04/30/2023 amantadine (SYMMETREL) Take one 0 100 mg tablet tablet by mouth twice daily. 04/30/2023 amLODIPine (NORVASC) 10 Take one 90 tablet 0 mg tablet tablet by mouth daily. 04/30/2023 bacitracin zinc 500 Apply 30 g 0 unit/g topical ointment topically to affected area as Needed (Apply to abrasions prn). 04/30/2023 bisacodyL (DULCOLAX) 10 Insert or 8 0 mg rectal suppository Apply one suppository suppository to rectal area as directed every 6 hours. 04/30/2023 dapagliflozin propanediol Take one 90 tablet 0 (FARXIGA) 10 mg tablet by tabletIndications: type 2 mouth daily. diabetes mellitus Indications: type 2 diabetes mellitus 04/30/2023 lisinopriL (ZESTRIL) 10 Take one 90 tablet 0 mg tablet tablet by mouth daily. 04/30/2023 oxyCODONE (ROXICODONE) 5 Take one 0 mg tablet tablet by mouth every 6 hours as needed. 04/30/2023 polyethylene glycol 3350 Take two 12 packet 0 (MIRALAX) 17 g packet packets by mouth twice daily. 04/30/2023 senna (SENOKOT) 8.6 mg Take two 180 tablet 0 tablet tablets by mouth twice daily. 04/30/2023 tamsulosin (FLOMAX) 0.4 Take one 90 capsule 0 mg capsule capsule by mouth daily after breakfast. Do not crush, chew or open capsules. Take 30 minutes following the same meal each day. documented in this encounter Discharge Disposition Code Departure Means Destination Disposition Hospital Transport Rehab Facility (Not [facility]) documented in this encounter Progress Notes * Guerda Christine RN - 04/30/2023 11:00 AM CDT Delmar Thornton discharged on 04/30/2023. . Discharge instructions reviewed with patient. Valuables returned: ADL Belongings at Bedside: Eyeglasses/contacts. Home medications: . Functional assessment at discharge complete: Yes . Patient discharged to [facility], Alert and oriented, Transported bt [facility] via stretcher, paperwork sent with the port cdl a driver, Cell phone, animal bounty hunter and glasses sent with the patient, Report given to admitting nurse, BASIM christian ine removed, Tolerated well * Paty Salgado RT - 04/29/2023 2:46 PM CDT RT Adult Assessment Note NAME:Delmar Thornton :1950 AGE: 73 y.o. ADMISSION DATE: 04/23/2023 DAYS ADMITTED: LOS: 6 days RT Treatment Plan: Protocol Plan: Procedures Oscillating PEP Therapy: Q6h while awake & PRN PEP Therapy: Place a nursing order for "IS Q1h While Awake" for any of Lung Expa nsion indicators PAP: Q6h while awake & PRN Additional Comments: Impressions of the patient: pt laying in bed on room air. NAD Intervention(s)/outcome(s): completed RT protocol evaluation Patient education that was completed: n/a Recommendations to the care team: see above Vital Signs: Pulse: 56 RR: 16 PER MINUTE SpO2: 96 % O2 Device: None (Room air) Liter Flow: O2%: Breath Sounds: Clear (Implies normal);Decreased Respiratory Effort: Unlabored * Seema Villatoro OTA - 04/29/2023 1:06 PM CDT OCCUPATIONAL THERAPY PROGRESS NOTE Name: Delmar Thornton : 1950 Age: 73 y.o. Admission Date: 04/23/2023 LOS: 6 days Date of Service: 04/29/2023 Mobility Patient Turn/Position: Chair (wc) Progressive Mobility Level: Walk in room Distance Walked (feet): 15 ft Level of Assistance: Assist X2 Assistive Device: Walker Activity Limited By: Mental Status Variability;Weakness Subjective Pertinent Dx per Physician: 73 y.o. male with PMH of HTN, HLD, DM, GERD, on ASA who presented to as a trauma transfer 04/23/2023 s/p fall down stairs w/ IPH, R zygomatic arch fx, R 1st costomandubrial fx, R 2nd rib fx, trace R PTX, R ant erior column and acetabular roof fx, L pelvic fx Precautions: Falls;Vision/Cognitive Deficits R LE Precautions: RLE WBAT: Weight bearing as tolerated L LE Precautions: LLE WBAT: Weight bearing as tolerated Pain / Complaints: Patient agrees to participate in therapy Pain Location: Right;Left;Hip (Pelvis with weight bearing) Pain Level Current: 5 Objective Psychosocial Status: Willing and Cooperative to Participate Persons Present: RehabTechnician Home Living Type of Home: House Home Layout: One Level;Stairs to Enter w/ Rails Bathroom Shower / Tub: Walk-in Shower Bathroom Toilet: Standard Comment: 2 steps to enter, a few small steps in the home between rooms Prior Function Level Of [place]: Independent with ADLs and functional transfers;Independen t with homemaking w/ ambulation Lives With: Alone Receives Help From: None Needed Vision Comment: Reports blurred vision but also wears glasses. No glasses in room ADL's Where Assessed: Standing at Sink;Wheelchair Grooming Assist: Minimal Assist Grooming Deficits: Steadying;Teeth Care;Verbal Cueing (standing at sink with wc behind for safety) Toileting Assist: (denies need for toileting) ADL Mobility Bed Mobility: Supine to Sit: Minimal assist Transfer Type: Sit to stand Transfer: Assistance Level: To/from;Bed;Moderate assist;x2 people;Wheelchair Transfer: Assistive Device: Roller walker Transfer: Type of Assistance: For balance;For safety considerations;For strength deficit;Requires extra time End of Activity Status: Instructed patient to request assist with mobility;Instr ucted patient to use call light;Nursing notified;Up in chair (wc) Gait Distance: 15 feet Gait: Assistance Level: Minimal assist;x2 people Gait: Assistive Device: Roller walker Gait Comments: wc follow Activity Tolerance Endurance: 3/5 Tolerates 25-30 Minutes Exercise w/Multiple Rests Cognition Overall Cognitive Status: Impaired Expression: Expressive Aphasia (improving) Social Interaction: Increased Time to Adjust Problem Solving: Decreased Judgment/Safety;Cueing to Sequence Task Memory: Unable to Recall Daily Events Orientation: (stated year correct but "August", stated "hospital" but not nam e. Did state he fell but this is written on his board and he reports he does not recall) Attention: Awake/Alert ROM R UE ROM: WFL R UE ROM Method: Active L UE ROM: WFL L UE ROM Method: Active Thumb/Finger ROM: WFL R LE ROM: WFL R LE ROM Method: Active L LE ROM: WFL L LE ROM Method: Active Coordination: Mild Delay UE Strength / Tone Strength Position Assessed: Seated R UE Strength: WFL L UE Strength: WFL R LE Strength: WFL L LE Strength: WFL Education Persons Educated: Patient Barriers To Learning: Cognitive Deficits Interventions: Repetition of Instructions Teaching Methods: Verbal Instruction;Demonstration Patient Response: Return Demonstration;More Instruction Required Topics: Role of OT, Goals for Therapy Goal Formulation: With Patient Assessment Assessment: Decreased ADL Status;Decreased High-Level ADLs;Decreased Self-Care T rans;Decreased Endurance;Decreased Cognition Prognosis: Good;w/Cont OT s/p Acute Discharge Goal Formulation: Patient AM-PAC 6 Clicks Daily Activity Inpatient Putting on and taking off regular lower body clothes: Total Bathing (Including washing, rinsing, drying): Total Toileting, which includes using toilet, bedpan, or urinal: Total Putting on and taking off regular upper body clothing: A Lot Taking care of personal grooming such as brushing teeth: A Little Eating meals: None Daily Activity Raw Score: 12 Standardized (T-scale) Score: 30.6 AM-PAC Daily Activity Functional Stage: -2.73-40 No Independent Tasks Plan OT Frequency: 5x/week OT Plan for Next Visit: amb with chair follow, BSC, toileting, LE dressing ADL Goals Patient Will Perform Grooming: in Chair;w/ Stand By Assist;Met Patient Will Perform LE Dressing: w/ Minimum Assist Patient Will Perform Toileting: w/ Bedside Commode;w/ Minimum Assist Functional Transfer Goals Pt Will Perform All Functional Transfers: Minimum Assist Pt Will Transfer To Bedside Commode: w/ Minimum Assist OT Discharge Recommendations Recommendation: Inpatient setting Therapist: DENISE Ramirez Date: 04/29/2023 * Luis A Cabral PA-C - 04/29/2023 6:27 AM CDT Trauma Progress Note Date of Service: 04/29/2023 Hospital Day: Hospital Day: 7 HPI: Delmar Thornton is a 73 y.o. male w/ PMH HTN, HLD, DMII, GERD that was sent as a trauma transfer after fall down stairs resulting in IPH, R zygomatic arch fx, R 1st costomanubrial fx, R 2nd rib fx, Trace R pneumo, R acetabular roof and L pu bic rami fx. He was admitted to the SICU for close observation w/ Neurosurgery, Plastics, Ortho, and IM consults. All of his injuries will be managed non-op at this time. He remained medically stable and was transferred to the trauma floor 04/25. Since admission his mental status has waxed and waned. He is progressing w / therapies and they are recommending inpatient placement on dc. He is medically stable for placement. Assessment/ Plan: Method of injury:Fall Patient Active Problem List Diagnosis Date Noted Acute pain due to trauma 04/26/2023 Intraparenchymal hemorrhage of brain ([facility]) 04/26/2023 SDH (subdural hematoma) ([facility]) 04/26/2023 Closed fracture of left zygomatic arch ([facility]) 04/26/2023 HTN (hypertension) 04/26/2023 Urinary retention 04/26/2023 CKD (chronic kidney disease) stage 2, GFR 60-89 ml/min 04/26/2023 Traumatic rhabdomyolysis ([facility]) 04/26/2023 Type 2 diabetes mellitus, with long-term current use of insulin ([facility]) 2022 Closed fracture of ramus of left pubis ([facility]) 04/26/2023 Closed fracture of right acetabulum ([facility]) 04/26/2023 Impaired mobility and ADLs 04/26/2023 Trauma 04/23/2023 Neuro Acute pain due to trauma -- Tylenol 650mg Q6H while awake -- Oxycodone 5mg Q6H PRN IPH, SDH -- Neurosurgery signed off -- f/u TBI clinic -- Hold ASA until 04/30 -- No keppra needed -- Amantadine 100mg BID HEENT L zygomatic arch fx -- Plastics consulted -- Avoid pressure to L side of face -- F/u PRN CV 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 Amlodipine -- HAT FORMING MACHINE FEEDER Lisinopril HDS Continue to monitor Pulm R 1st costomanubrial fx, R 2nd rib fx -- CTA negative for BCVI -- Pain control Stable on RA Pulmonary toilet, encourage IS GI/FEN Diabetic diet Bowel regimen Last BM: 04/28 Zofran prn nausea Monitor and replace lytes prn Urinary retention -- Voiding spontaneously -- Flomax CKD -- Cr 1.36 (1.2) -- baseline 1.7 Heme/ID Hgb and WBC WNL, afebrile Endo DMII -- Holding HAT FORMING MACHINE FEEDER Trulicity -- HAT FORMING MACHINE FEEDER Farxiga -- MDCF MS R acetabular and L pubic rami fx -- Ortho following -- No acute intervention -- WBAT -- f/u Dr. Angelo 4 weeks -- ASA 81mg x 4 weeks Impaired mobility and ADLs -- PT/OT PPx SCDs, Lovenox Disp - SW/CM following for discharge planning needs. Medically stable for [facility] ent. Patient discussed with Dr. Brandt during rounds. Subjective NAEO. Patient resting in bed, sitting up with breakfast tray in front of him. I helped him call his daughter. Moderate confusion and short term memory loss sheltonkomal caballero does answer simple questions correctly. Denies pain, SOA, CP, n/v/d, abd justin n. Discussed plan for potential discharge today which he verbalized an understan ding of. Objective: Physical Exam: General: Alert, cooperative, no distress, appears stated age HEENT: Atraumatic, PERRL Neck: No jugular vein distension, atraumatic. Respiratory:Lungs clear to auscultation bilaterally, equal chest rise and fall . Cardiovascular:Regular rate and rhythm, chest wall atraumatic. Abdomen:Soft, round, non-tender, non-distended, bowel sounds present x 4, atra umatic. Extremities:Scattered areas of ecchymosis and abrasions, healing w/o s/sx infe ction. TTP of pelvis. Neuro:Oriented to time, place, self, situation. GCS 15. Sensation intact throu ghout. Skin:Warm, dry, intact. Scattered ecchymosis Musculoskelatal:Active range of motion and appropriate bilateral strength. Ove rall deconditioned. Vital Signs: (24 hours) BP: (121-155)/(64-83) Temp: [36.3 C (97.4 F)-37.1 C (98.8 F)] Pulse: [55-88] Respirations: [16 PER MINUTE-18 PER MINUTE] SpO2: [92 %-99 %] O2 Device: None (Room air) Intake/Output Summary: Intake/Output Summary (Last 24 hours) at 04/29/2023 1058 Last data filed at 04/29/2023 1053 Gross per 24 hour Intake 0 ml Output 1150 ml Net -1150 ml Date of Last Stool:HAT FORMING MACHINE FEEDER Medications: Scheduled Meds:acetaminophen (TYLENOL) tablet 650 mg, 650 mg, Oral, Q6H while aw martin amantadine (SYMMETREL) tablet 100 mg, 100 mg, Oral, BID (See eMAR) amLODIPine (NORVASC) tablet 10 mg, 10 mg, Oral, QDAY bisacodyL (DULCOLAX) rectal suppository 10 mg, 10 mg, Rectal, Q6H dapagliflozin propanediol (FARXIGA) tablet 10 mg, 10 mg, Oral, QDAY enoxaparin (LOVENOX) syringe 30 mg, 30 mg, Subcutaneous, BID insulin aspart (U-100) (NOVOLOG FLEXPEN U-100 INSULIN) injection PEN 0-12 Units, 0-12 Units, Subcutaneous, ACHS (22) lisinopriL (ZESTRIL) tablet 10 mg, 10 mg, Oral, QDAY polyethylene glycol 3350 (MIRALAX) packet 34 g, 2 packet, Oral, BID senna (SENOKOT) tablet 2 tablet, 2 tablet, Oral, BID tamsulosin (FLOMAX) capsule 0.4 mg, 0.4 mg, Oral, QDAY after breakfast Continuous Infusions: PRN and Respiratory Meds:bacitracin zinc PRN, dextrose 50% (D50) IV PRN, oxyCODO NE Q6H PRN Prophylaxis Review: Peptic Ulcer Disease: None: not indicated VTE: Pharmacological prophylaxis; Enoxaparin Lines, Drains, and Airways: Lines, Drains, Airways and Wounds IV Duration Peripheral IV 04/26/23 1900 Left Anterior Forearm 20 G 2 days Wound Duration Wounds 04/23/23 0429 Hematoma Right Eye 6 days Wounds 04/23/23 0443 Pressure injury Coccyx 6 days Pertinent labs, medications, radiology, and diagnostic procedures reviewed inclu ding: active problem list, medication list, allergies, family history, social hi story, health maintenance, notes from last encounter, lab results, imaging Luis A Cabral PA-C Pager [phone] * Wilner Johnson, PT - 04/28/2023 1:51 PM CDT PHYSICAL THERAPY NOTE Name: Delmar Thornton : 1950 Age: 73 y.o. Admission Date: 04/23/2023 LOS: 5 days Date of Service: 04/28/2023 PT attempted to see patient this afternoon. Patient was given a suppository and was preparing to get up with nursing staff to the commode. Nursing staff already had multiple staff in the room and did not need additional assistance at this time. PT will follow up Saturday for ongoing therapy and assistance with discharge needs. Therapist: Wilner Johnson PT, DPT Date: 04/28/2023 * Mirian Caraballo, INSTALLATION MANAGER-CAMP COUNSELOR - 04/28/2023 6:46 AM CDT Trauma Progress Note Date of Service: 04/28/2023 Hospital Day: Hospital Day: 6 HPI: Delmar Thornton is a 73 y.o. male w/ PMH HTN, HLD, DMII, GERD that was sent as a trauma transfer after fall down stairs resulting in IPH, R zygomatic arch fx, R 1st costomanubrial fx, R 2nd rib fx, Trace R pneumo, R acetabular roof and L pu bic rami fx. He was admitted to the SICU for close observation w/ Neurosurgery, Plastics, Ortho, and IM consults. All of his injuries will be managed non-op at this time. He remained medically stable and was transferred to the trauma floor 04/25. Since admission his mental status has waxed and waned. He is progressing w / therapies and they are recommending inpatient placement on dc. Assessment/ Plan: Method of injury:Fall Patient Active Problem List Diagnosis Date Noted Acute pain due to trauma 04/26/2023 Intraparenchymal hemorrhage of brain ([facility]) 04/26/2023 SDH (subdural hematoma) ([facility]) 04/26/2023 Closed fracture of left zygomatic arch ([facility]) 04/26/2023 HTN (hypertension) 04/26/2023 Urinary retention 04/26/2023 CKD (chronic kidney disease) stage 2, GFR 60-89 ml/min 04/26/2023 Traumatic rhabdomyolysis ([facility]) 04/26/2023 Type 2 diabetes mellitus, with long-term current use of insulin ([facility]) 2022 Closed fracture of ramus of left pubis ([facility]) 04/26/2023 Closed fracture of right acetabulum ([facility]) 04/26/2023 Impaired mobility and ADLs 04/26/2023 Trauma 04/23/2023 Neuro Acute pain due to trauma -- Tylenol 650mg Q6H while awake -- Oxycodone 5mg Q6H PRN IPH, SDH -- Neurosurgery signed off -- f/u TBI clinic -- Hold ASA until 04/30 -- No keppra needed -- Amantadine 100mg BID HEENT L zygomatic arch fx -- Plastics consulted -- Avoid pressure to L side of face -- F/u PRN CV 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 See VS summary below Continue to monitor Pulm R 1st costomanubrial fx, R 2nd rib fx -- CTA negative for BCVI -- Pain control Stable on RA Pulmonary toilet, encourage IS GI/FEN Diabetic diet Bowel regimen, increased 04/26, 04/27, 04/28 SLIV Zofran prn nausea Monitor and replace lytes prn At risk for constipation -- Last BM: 04/28 -- Bowel regimen increased 04/26, 04/27, 04/28 Urinary retention -- Voiding spontaneously -- Flomax CKD -- Cr 1.36 (1.2), baseline 1.7 Rhabdomyolysis, improved -- CK 907(1610) Heme/ID Hgb and WBC WNL, afebrile Endo DMII -- Holding HAT FORMING MACHINE FEEDER Trulicity -- HAT FORMING MACHINE FEEDER Farxiga -- MDCF MS R acetabular and L pubic rami fx -- Ortho following -- No acute intervention -- WBAT -- f/u Dr. Angelo 4 weeks -- ASA 81mg x 4 weeks Impaired mobility and ADLs -- PT/OT PPx SCDs, Lovenox Disp - Medically stable for discharge. Will need placement. SW/CM following for discharge planning needs. Possible dc to [address]?? Patient discussed with during rounds. Subjective Overnight Events: No acute events overnight. Patient resting in bed, sitting up in bed about to get cleaned up. RN reports patient had a good breakfast. Moderat e confusion and short term memory loss. Re-oriented. Answered questions. Denies pain, SOA, CP, n/v/d, abd pain. Discussed need to have a BM, patient verbalizes understanding. Objective: Physical Exam: General: Alert, cooperative, no distress, appears stated age HEENT: Atraumatic, pupils equal round and reactive to light. Neck: No jugular vein distension, atraumatic. Respiratory:Lungs clear to auscultation bilaterally, equal chest rise and fall . Cardiovascular:Regular rate and rhythm, S1/S2 present, no edema, chest wall at raumatic. Abdomen:Soft, round, non-tender, non-distended, bowel sounds present x 4, atra umatic. Extremities:Scattered areas of ecchymosis and abrasions, healing w/o s/sx infe ction. TTP of pelvis Neuro:Oriented to time, place, self, situation. GCS 15. Sensation intact throu ghout. Skin:Warm, dry, intact. Scattered ecchymosis Musculoskelatal:Active range of motion and appropriate bilateral strength. Ove rall deconditioned. Vital Signs: (24 hours) BP: (126-154)/(72-83) Temp: [36.6 C (97.8 F)-36.7 C (98.1 F)] Pulse: [59-72] Respirations: [18 PER MINUTE] SpO2: [94 %-99 %] O2 Device: None (Room air) Intake/Output Summary: Intake/Output Summary (Last 24 hours) at 04/28/2023 1440 Last data filed at 04/28/2023 1200 Gross per 24 hour Intake 0 ml Output 400 ml Net -400 ml Date of Last Stool:HAT FORMING MACHINE FEEDER Medications: Scheduled Meds:acetaminophen (TYLENOL) tablet 650 mg, 650 mg, Oral, Q6H while aw martin amantadine (SYMMETREL) tablet 100 mg, 100 mg, Oral, BID (See eMAR) amLODIPine (NORVASC) tablet 10 mg, 10 mg, Oral, QDAY bisacodyL (DULCOLAX) rectal suppository 10 mg, 10 mg, Rectal, Q6H dapagliflozin propanediol (FARXIGA) tablet 10 mg, 10 mg, Oral, QDAY enoxaparin (LOVENOX) syringe 30 mg, 30 mg, Subcutaneous, BID insulin aspart (U-100) (NOVOLOG FLEXPEN U-100 INSULIN) injection PEN 0-12 Units, 0-12 Units, Subcutaneous, ACHS (22) lisinopriL (ZESTRIL) tablet 10 mg, 10 mg, Oral, QDAY polyethylene glycol 3350 (MIRALAX) packet 34 g, 2 packet, Oral, BID senna (SENOKOT) tablet 2 tablet, 2 tablet, Oral, BID tamsulosin (FLOMAX) capsule 0.4 mg, 0.4 mg, Oral, QDAY after breakfast Continuous Infusions: PRN and Respiratory Meds:bacitracin zinc PRN, dextrose 50% (D50) IV PRN, oxyCODO NE Q6H PRN Prophylaxis Review: Peptic Ulcer Disease: None: not indicated VTE: Pharmacological prophylaxis; Enoxaparin Lines, Drains, and Airways: Lines, Drains, Airways and Wounds IV Duration Peripheral IV 04/26/23 1900 Left Anterior Forearm 20 G 1 day Wound Duration Wounds 04/23/23 0429 Hematoma Right Eye 5 days Wounds 04/23/23 0443 Pressure injury Coccyx 5 days Pertinent labs, medications, radiology, and diagnostic procedures reviewed inclu ding: active problem list, medication list, allergies, family history, social hi story, health maintenance, notes from last encounter, lab results, imaging Karine Caraballo, MSN, INSTALLATION MANAGER, RETORT FURNACE OPERATOR-C Trauma Team Pager [phone] * Gabriel Miller RN - 04/27/2023 3:50 PM CDT Accepted care of patient from [facility]. * Mirian Caraballo APRN-JUSTO - 04/27/2023 7:28 AM CDT Trauma Progress Note Date of Service: 04/27/2023 Hospital Day: Hospital Day: 5 HPI: Delmar Thornton is a 73 y.o. male w/ PMH HTN, HLD, DMII, GERD that was sent as a trauma transfer after fall down stairs resulting in IPH, R zygomatic arch fx, R 1st costomanubrial fx, R 2nd rib fx, Trace R pneumo, R acetabular roof and L pu bic rami fx. He was admitted to the SICU for close observation w/ Neurosurgery, Plastics, Ortho, and IM consults. All of his injuries will be managed non-op at this time. He remained medically stable and was transferred to the trauma floor 04/25. Since admission his mental status has waxed and waned. He is progressing w / therapies and they are recommending inpatient placement on dc. Assessment/ Plan: Method of injury:Fall Patient Active Problem List Diagnosis Date Noted Acute pain due to trauma 04/26/2023 Intraparenchymal hemorrhage of brain ([facility]CC) 04/26/2023 SDH (subdural hematoma) ([facility]) 04/26/2023 Closed fracture of left zygomatic arch ([facility]) 04/26/2023 HTN (hypertension) 04/26/2023 Urinary retention 04/26/2023 CKD (chronic kidney disease) stage 2, GFR 60-89 ml/min 04/26/2023 Traumatic rhabdomyolysis ([facility]) 04/26/2023 Type 2 diabetes mellitus, with long-term current use of insulin ([facility]) 2022 Closed fracture of ramus of left pubis ([facility]) 04/26/2023 Closed fracture of right acetabulum ([facility]) 04/26/2023 Impaired mobility and ADLs 04/26/2023 Trauma 04/23/2023 Neuro Acute pain due to trauma -- Tylenol 650mg Q6H while awake -- Oxycodone 5mg Q6H PRN IPH, SDH -- Neurosurgery signed off -- f/u TBI clinic -- Hold ASA until 04/30 -- No keppra needed -- Amantadine 100mg BID HEENT L zygomatic arch fx -- Plastics consulted -- Avoid pressure to L side of face -- F/u PRN CV 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 See VS summary below Continue to monitor Pulm R 1st costomanubrial fx, R 2nd rib fx -- CTA negative for BCVI -- Pain control Stable on RA Pulmonary toilet, encourage IS GI/FEN Diabetic diet Bowel regimen, increased 04/26 and 04/27 SLIV Zofran prn nausea Monitor and replace lytes prn At risk for constipation -- Last BM, HAT FORMING MACHINE FEEDER -- Bowel regimen increased 04/26 and 04/27 Urinary retention -- Voiding spontaneously -- Flomax CKD -- Cr 1.36 (1.2), baseline 1.7 Rhabdomyolysis, improved -- CK 907(1610) Heme/ID Hgb and WBC WNL, afebrile Endo DMII -- Holding HAT FORMING MACHINE FEEDER Trulicity -- HAT FORMING MACHINE FEEDER Farxiga -- MDCF MS R acetabular and L pubic rami fx -- Ortho following -- No acute intervention -- WBAT -- f/u Dr. Angelo 4 weeks -- ASA 81mg x 4 weeks Impaired mobility and ADLs -- PT/OT PPx SCDs, Lovenox Disp - Medically stable for discharge. Will need placement. SW/CM following for discharge planning needs. Possible dc to [facility]?? Patient discussed with during rounds. Subjective Overnight Events: No acute events overnight. Patient resting in bed, awakens to voice. Moderate confusion and short term memory loss. Re-oriented. Answered ques tions. Denies pain, SOA, CP, n/v/d, abd pain. Objective: Physical Exam: General: Alert, cooperative, no distress, appears stated age HEENT: Atraumatic, pupils equal round and reactive to light. Neck: No jugular vein distension, atraumatic. Respiratory:Lungs clear to auscultation bilaterally, equal chest rise and fall . Cardiovascular:Regular rate and rhythm, S1/S2 present, no edema, chest wall at raumatic. Abdomen:Soft, round, non-tender, non-distended, bowel sounds present x 4, atra umatic. Extremities:Scattered areas of ecchymosis and abrasions, healing w/o s/sx infe ction. TTP of pelvis Neuro:Oriented to time, place, self, situation. GCS 15. Sensation intact throu ghout. Skin:Warm, dry, intact. Scattered ecchymosis Musculoskelatal:Active range of motion and appropriate bilateral strength. Ove rall deconditioned. Vital Signs: (24 hours) BP: (128-170)/(72-82) Temp: [36.4 C (97.5 F)-36.8 C (98.3 F)] Pulse: [58-77] Respirations: [16 PER MINUTE-18 PER MINUTE] SpO2: [93 %-97 %] O2 Device: None (Room air) Intake/Output Summary: Intake/Output Summary (Last 24 hours) at 04/27/2023 1354 Last data filed at 04/27/2023 1000 Gross per 24 hour Intake -- Output 2024 ml Net -2024 ml Date of Last Stool:HAT FORMING MACHINE FEEDER Medications: Scheduled Meds:acetaminophen (TYLENOL) tablet 650 mg, 650 mg, Oral, Q6H while aw martin amantadine (SYMMETREL) tablet 100 mg, 100 mg, Oral, BID (See eMAR) amLODIPine (NORVASC) tablet 10 mg, 10 mg, Oral, QDAY dapagliflozin propanediol (FARXIGA) tablet 10 mg, 10 mg, Oral, QDAY enoxaparin (LOVENOX) syringe 30 mg, 30 mg, Subcutaneous, BID insulin aspart (U-100) (NOVOLOG FLEXPEN U-100 INSULIN) injection PEN 0-12 Units, 0-12 Units, Subcutaneous, ACHS (22) lisinopriL (ZESTRIL) tablet 10 mg, 10 mg, Oral, QDAY polyethylene glycol 3350 (MIRALAX) packet 34 g, 2 packet, Oral, BID senna (SENOKOT) tablet 2 tablet, 2 tablet, Oral, BID tamsulosin (FLOMAX) capsule 0.4 mg, 0.4 mg, Oral, QDAY after breakfast Continuous Infusions: PRN and Respiratory Meds:bacitracin zinc PRN, dextrose 50% (D50) IV PRN, oxyCODO NE Q6H PRN Prophylaxis Review: Peptic Ulcer Disease: None: not indicated VTE: Pharmacological prophylaxis; Enoxaparin Lines, Drains, and Airways: Lines, Drains, Airways and Wounds IV Duration Peripheral IV 04/26/23 1900 Left Anterior Forearm 20 G <1 day Wound Duration Wounds 04/23/23 0429 Hematoma Right Eye 4 days Wounds 04/23/23 0443 Pressure injury Coccyx 4 days Pertinent labs, medications, radiology, and diagnostic procedures reviewed inclu ding: active problem list, medication list, allergies, family history, social hi story, health maintenance, notes from last encounter, lab results, imaging Karine Caraballo, MSN, INSTALLATION MANAGER, RETORT FURNACE OPERATOR-C Trauma Team Pager [phone] * Seema Villatoro OTA - 04/26/2023 4:10 PM CDT OCCUPATIONAL THERAPY PROGRESS NOTE Name: Delmar Thornton : 1950 Age: 73 y.o. Admission Date: 04/23/2023 LOS: 3 days Date of Service: 04/26/2023 Mobility Patient Turn/Position: Supine Progressive Mobility Level: Active transfer to chair Level of Assistance: Assist X2 Assistive Device: Walker Activity Limited By: Weakness Subjective Pertinent Dx per Physician: 73 y.o. male with PMH of HTN, HLD, DM, GERD, on ASA who presented to as a trauma transfer 04/23/2023 s/p fall down stairs w/ IPH, R zygomatic arch fx, R 1st costomandubrial fx, R 2nd rib fx, trace R PTX, R ant erior column and acetabular roof fx, L pelvic fx Precautions: Falls;Vision/Cognitive Deficits R LE Precautions: RLE WBAT: Weight bearing as tolerated L LE Precautions: LLE WBAT: Weight bearing as tolerated Pain / Complaints: Patient agrees to participate in therapy Pain Location: Right;Left;Hip (Pelvis with weight bearing) Pain Level Current: 6 Severe pain Objective Psychosocial Status: Willing and Cooperative to Participate Persons Present: RehabTechnician;Family Home Living Type of Home: House Home Layout: One Level;Stairs to Enter w/ Rails Bathroom Shower / Tub: Walk-in Shower Bathroom Toilet: Standard Comment: 2 steps to enter, a few small steps in the home between rooms Prior Function Level Of [place]: Independent with ADLs and functional transfers;Independen t with homemaking w/ ambulation Lives With: Alone Receives Help From: None Needed Vision Comment: Further assessment when pt able to answer questions consistenlty ADL's Where Assessed: Chair LE Dressing Assist: Total Assist LE Dressing Deficits: Don/Doff R Sock;Don/Doff L Sock Toileting Assist: Total Assist Toileting Deficits: (suah) Comment: Pt sitting in chair upon entering room. Pt with increase pain in pelvis . Pt needing cues for motor planning steps to bed with RW. Pt performed 2 more s it to stands from the bed to RW and several side steps along EOB. Pt returned to supine after session. Pt more talkative this day and more expressive. Still with some word finding defecits ADL Mobility Bed Mobility: Sit to Supine: Minimal assist;x2 people Transfer Type: Sit to stand Transfer: Assistance Level: To/from;Bed;Bedside chair;Minimal assist;Moderate as sist;x2 people Transfer: Assistive Device: Roller walker Transfer: Type of Assistance: For balance;For safety considerations;Elevated bed ;For strength deficit;Requires extra time End of Activity Status: In bed;Instructed patient to request assist with mobilit y;Instructed patient to use call light;Nursing notified Gait Distance: 8 feet Gait: Assistance Level: Minimal assist;Moderate assist;x2 people Gait: Assistive Device: Roller walker Gait Comments: steps from chair to bed and several along EOB. Activity Tolerance Endurance: 2/5 Tolerates 10-20 Minutes Exercise w/Multiple Rests Cognition Overall Cognitive Status: Impaired Expression: Expressive Aphasia Social Interaction: Increased Time to Adjust Problem Solving: Decreased Judgment/Safety;Cueing to Sequence Task Memory: Unable to Recall Daily Events Orientation: To Person;Alert & Oriented x2;To Time (stated year, "[place]", called daughter by douglas's name but can correct with cues) Attention: Awake/Alert Cognition Comment: Delayed processing and motor planning ROM R UE ROM: WFL R UE ROM Method: Active L UE ROM: WFL L UE ROM Method: Active Thumb/Finger ROM: WFL R LE ROM: WFL R LE ROM Method: Active L LE ROM: WFL L LE ROM Method: Active UE Strength / Tone Strength Position Assessed: Seated R UE Strength: WFL L UE Strength: WFL R LE Strength: WFL L LE Strength: WFL Education Persons Educated: Patient Barriers To Learning: Cognitive Deficits Interventions: Repetition of Instructions Teaching Methods: Verbal Instruction;Demonstration Patient Response: Return Demonstration;More Instruction Required Topics: Role of OT, Goals for Therapy Goal Formulation: With Patient Assessment Assessment: Decreased ADL Status;Decreased High-Level ADLs;Decreased Self-Care T rans;Decreased Endurance;Decreased Cognition Prognosis: Good;w/Cont OT s/p Acute Discharge Goal Formulation: Patient AM-PAC 6 Clicks Daily Activity Inpatient Putting on and taking off regular lower body clothes: Total Bathing (Including washing, rinsing, drying): Total Toileting, which includes using toilet, bedpan, or urinal: Total Putting on and taking off regular upper body clothing: A Lot Taking care of personal grooming such as brushing teeth: A Lot Eating meals: Total Daily Activity Raw Score: 8 Standardized (T-scale) Score: 22.86 AM-PAC Daily Activity Functional Stage: -2.73-40 No Independent Tasks Plan OT Frequency: 5x/week OT Plan for Next Visit: amb with chair follow, BSC, toileting, LE dressing ADL Goals Patient Will Perform Grooming: in Chair;w/ Stand By Assist Patient Will Perform LE Dressing: w/ Minimum Assist Patient Will Perform Toileting: w/ Bedside Commode;w/ Minimum Assist Functional Transfer Goals Pt Will Perform All Functional Transfers: Minimum Assist Pt Will Transfer To Bedside Commode: w/ Minimum Assist OT Discharge Recommendations Recommendation: Inpatient setting Therapist: DENISE Ramirez Date: 04/26/2023 * Edelmira Murdock MA,CCC-CLEARING HAND - 04/26/2023 2:24 PM CDT SPEECH-LANGUAGE PATHOLOGY NO TREATMENT NOTE CLEARING HAND attempted cognitive evaluation; pt working with other discipline at time of attempt. Will f/u as indicated. Therapist: Edelmira Murdock MA,CCC-CLEARING HAND Date: 04/26/2023 * Javier Fernandez PTA - 04/26/2023 2:00 PM CDT PHYSICAL THERAPY PROGRESS NOTE Name: Delmar Thornton : 1950 Age: 73 y.o. Admission Date: 04/23/2023 LOS: 3 days Date of Service: 04/26/2023 Mobility Patient Turn/Position: Supine Progressive Mobility Level: Active transfer to chair Level of Assistance: Assist X2 Assistive Device: Walker Activity Limited By: Weakness;Mental Status Variability Subjective Significant hospital events: PMH: HTN, DM, GERD. Admission: found down, L parie nima hemorrhage, rib fracture, zygomatic arch fracture, R acetabular fx, L superi or pubic ramus fx. Mental / Cognitive Status: Alert;Cooperative;Follows Commands;Oriented;To Person ;Disoriented;To Situation (delayed responses, needing frequent re-orientation) Persons Present: RehabTechnician Pain: Patient complains of pain Pain Location: Hip (pelvis) Pain Interventions: Patient pre-medicated;Patient agrees to participate in thera py;Treatment altered to patient's pain tolerance R LE Precautions: RLE WBAT: Weight bearing as tolerated L LE Precautions: LLE WBAT: Weight bearing as tolerated Ambulation Assist: Independent Mobility in Community without Device Patient Owned Equipment: None Home Situation: Lives Alone (spouse is currently in a rehab facility and sounds like she may be there more residential) Type of Home: House Entry Stairs: 3-5 Stairs In-Home Stairs: 1-2 Stairs Bed Mobility/Transfer Bed Mobility: Supine to Sit: Moderate Assist;Head of Bed Elevated;Assist with B LE;Assist with Trunk Transfer Type: Sit to/from Stand;Stand Pivot Transfer: Assistance Level: From;Bed;To;Bed Side Chair;Moderate Assist;of 1st pe rson;Minimal Assist;of 2nd person Transfer: Assistive Device: Roller Walker Transfers: Type Of Assistance: Verbal Cues;Elevated Bed;For Balance;For Strength Deficit (cues for RLE placement under pt prior to standing) End Of Activity Status: Up in Chair;Nursing Notified;Instructed Patient to Reque st Assist with Mobility;Instructed Patient to Use Call Light (alarm activated) Comments: Pt limited by pain today. Declines further mobility. Assessment/Progress Impaired Mobility Due To: Pain;Cognitive Deficits;Safety Concerns;Decreased Stre ngth;Impaired Balance;Medical Status Limitation Assessment/Progress: Should Improve w/ Continued PT AM-PAC 6 Clicks Basic Mobility Inpatient Turning from your back to your side while in a flat bed without using bed rails: A lot Moving from lying on your back to sitting on the side of a flat bed without usin g bedrails : A Lot Moving to and from a bed to a chair (including a wheelchair): A Lot Standing up from a chair using your arms (e.g. wheelchair, or bedside chair): A Lot To walk in hospital room: Total Climbing 3-5 steps with a railing: Total Basic Mobility Inpatient Raw Score: 10 Standardized (T-scale) Score: 28.13 Goals Goal Formulation: With Patient Time For Goal Achievement: 5 days Patient Will Go Supine To/From Sit: w/ Minimal Assist Patient Will Transfer Sit to Stand: w/ Minimal Assist Patient Will Ambulate: w/ Walker, w/ Minimal Assist, 51-100 Feet Plan Treatment Interventions: Mobility Training Plan Frequency: 5-7 Days per Week PT Plan for Next Visit: sit to stands, bed to chair, short distance gait soon (m ay need chair follow) PT Discharge Recommendations Recommendation: Inpatient setting Therapist: Javier Feranndez PTA Date: 04/26/2023 * Roscoe Hernandez RT - 04/26/2023 1:08 PM CDT RT Adult Assessment Note NAME:Delmar Thornton :1950 AGE: 73 y.o. ADMISSION DATE: 04/23/2023 DAYS ADMITTED: LOS: 3 days RT Treatment Plan: Protocol Plan: Procedures Oscillating PEP Therapy: Q6h while awake & PRN PEP Therapy: Place a nursing order for "IS Q1h While Awake" for any of Lung Expa nsion indicators PAP: Q6h while awake & PRN Additional Comments: Impressions of the patient: Patient comfortable in bed on RA, no respiratory dis tress noted. Performing LE and AC therapies well. Able to achieve 6909-4021 ml o n IS consistently. Will continue PAP for indicated rib fractures. Intervention(s)/outcome(s): RT eval Patient education that was completed: None Recommendations to the care team: See plan above. Vital Signs: Pulse: 71 RR: 18 PER MINUTE SpO2: 96 % O2 Device: None (Room air) Breath Sounds: Clear (Implies normal);Decreased Respiratory Effort: Unlabored * Maisha Rose RD - 04/26/2023 11:33 AM CDT CLINICAL NUTRITION Clinical Nutrition Follow-Up Assessment Name: Delmar Thornton : 1950 Age: 73 y.o. Admission Date: 04/23/2023 LOS: 3 days Date of Service: 04/26/2023 Recommendation: Recommend continuing current diet order. Encourage 3 meals/day with 1-2 protein sources at each meal- RD to ensure pt is on meal trays. Please offer boost glucose control if unable to finish a meal. If PO intake declines, recommend starting EN. Isosource 1.5 at goal rate 60 m l/hr x 24 hrs (total volume 1440 ml/day) to provide 2160 kcal, 98 g protein, 109 4 ml free water. Comments: Clinical nutrition following through admit. Pt no longer with corpak and no on d iabetic diet order. RD met with patient at bedside for follow-up. Pt unable to r ecall how eating has been going, but family at bedside stated pt has been eating fairly well and was able to eat most of his breakfast this morning. Pt denies a ny N/V but does report constipation. RD encouraged 3 meals/day with 1-2 protein sources at each meal. Encouraged use of boost. Discussed house trays with feliz sierra and pt agrees that this would be beneficial. Pt remains at acute nutritional r isk, will continue to monitor. Nutrition Assessment of Patient: Admit Weight: 104 kg; Weight Change Since Admit: no updated wt BMI (Calculated): 31.98; BMI Categories Adult: Obesity Class I: 30-34.9 Pertinent Allergies/Intolerances: none noted Pertinent Labs: Reviewed; BUN 36, Cr 1.36, glucose 174; Pertinent Meds: Reviewed ; amlodipine, insulin, mirilax; Oral Diet Order: Diabetic 6227-8014 Kcal/day (60 g carb/meal, 30 g carb/HS snack ); Current Oral Intake: Inadequate;Improving Estimated Calorie Needs: 1344-3348 kcal (25-30 kcal/kg DBW) Estimated Protein Needs: 105-121 g (1.3-1.5 g/kg DBW) Malnutrition Assessment: Does not meet criteria Nutrition Focused Physical Assessment: Loss of Subcutaneous Fat: No; ; Muscle Wasting: No; ; Edema: No; ; Pressure Injury: stage 1 coccyx (present on arrival, per RN) 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 Nutrition Diagnosis: Inadequate oral intake Etiology: AMS Signs & Symptoms: current NPO status and potential need for EN Intervention / Plan: Monitor PO intake for adequacy and tolerance Monitor wt trends, GI function, meds, and labs Goals: EN tolerated and meeting >75% of nutritional needs Time Frame: Within 48 hours Status: No longer appropriate;New goal established Patient to consume >75% of meals/supplements Time Frame: Within 48 hours Maisha Rose MS RDN LD * Balbina Segovia Scar, INSTALLATION MANAGER-CAMP COUNSELOR - 04/26/2023 6:48 AM CDT Trauma Progress Note Date of Service: 04/26/2023 Hospital Day: Hospital Day: 4 HPI: Delmar Thornton is a 73 y.o. male w/ PMH HTN, HLD, DMII, GERD that was sent as a trauma transfer after fall down stairs resulting in IPH, R zygomatic arch fx, R 1st costomanubrial fx, R 2nd rib fx, Trace R pneumo, R acetabular roof and L pu bic rami fx. He was admitted to the SICU for close observation w/ Neurosurgery, Plastics, Ortho, and IM consults. All of his injuries will be managed non-op at this time. He remained medically stable and was transferred to the trauma floor 04/25. Since admission his mental status has waxed and waned. He is progressing w / therapies and they are recommending inpatient placement on dc. Assessment/ Plan: Method of injury:Fall Patient Active Problem List Diagnosis Date Noted Acute pain due to trauma 04/26/2023 Intraparenchymal hemorrhage of brain (HCC) 04/26/2023 SDH (subdural hematoma) ([facility]) 04/26/2023 Closed fracture of left zygomatic arch (HCC) 04/26/2023 HTN (hypertension) 04/26/2023 Urinary retention 04/26/2023 CKD (chronic kidney disease) stage 2, GFR 60-89 ml/min 04/26/2023 Traumatic rhabdomyolysis (HCC) 04/26/2023 Type 2 diabetes mellitus, with long-term current use of insulin (HCC) 2022 Closed fracture of ramus of left pubis (HCC) 04/26/2023 Closed fracture of right acetabulum ([facility]) 04/26/2023 Impaired mobility and ADLs 04/26/2023 Trauma 04/23/2023 Neuro Acute pain due to trauma -- Tylenol 650mg Q6H while awake -- Oxycodone 5mg Q6H PRN IPH, SDH -- Neurosurgery signed off -- f/u TBI clinic -- Hold ASA until 04/30 -- No keppra needed -- Amantadine 100mg BID HEENT L zygomatic arch fx -- Plastics consulted -- Avoid pressure to L side of face -- F/u PRN CV 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 See VS summary below Continue to monitor Pulm R 1st costomanubrial fx, R2nd rib fx -- CTA negative for BCVI -- Pain control Stable on RA Pulmonary toilet, encourage IS GI/FEN Diabetic diet Bowel regimen SLIV Zofran prn nausea Monitor and replace lytes prn Urinary retention -- Dc Trinidad today -- Flomax CKD -- Cr 1.36(1.2), baseline 1.7 Rhabdomyolysis, improved -- CK 907(1610) Heme/ID Hgb and WBC WNL, afebrile Endo DMII -- Holding HAT FORMING MACHINE FEEDER Trulicity -- HAT FORMING MACHINE FEEDER Farxiga -- MDCF MS R acetabular and L pubic rami fx -- Ortho following -- No acute intervention -- WBAT -- f/u Dr. Angelo 4 weeks -- ASA 81mg x 4 weeks Impaired mobility and ADLs -- PT/OT PPx SCDs, Lovenox Disp - Medically stable for discharge. Will need placement. SW/CM following for discharge planning needs. Patient discussed with during rounds. Subjective Overnight Events: No acute events overnight. Resting in bed w/ son at bedside. M oderate confusion and short term memory loss. Re-oriented. Explained TBI to natasha ent and son as well as expected course on dc from hospital. Answered questions. Denies pain, SOA, CP, n/v/d. Objective: Physical Exam: General: Alert, cooperative, no distress, appears stated age Head: Normocephalic, without obvious abnormality, scattered abrasions and ecchy mosis resolving Eyes: Conjunctival hemorrhage. PERRL, EOMs intact. Ears: Normal external ear canals, both ears Nose: Nares normal. Septum midline. Mucosa normal. No drainage or sinus tende rness Throat: Lips, mucosa and tongue normal. Teeth and gums normal Neck: Supple, symmetrical, trachea midline, no adenopathy, thyroid: no enlargem ent/tenderness/nodules, no carotid bruit and no JVD Back: Symmetric, no curvature, ROM normal. No CVA tenderness. Lungs: Clear to auscultation bilaterally Chest wall: No tenderness or deformity. Heart: Regular rate and rhythm, S1, S2 normal, no murmur, click rub or gallop Abdomen: Soft, non-tender. Bowel sounds normal. No masses. No organomegaly. Extremities: Scattered areas of ecchymosis and abrasions, healing w/o s/sx infec tion. TTP of pelvis Neurologic: AOx1-2, Normal strength, sensation throughout. Musculoskeletal: Deconditioned and limited d/t pain r/t injuries Vital Signs: (24 hours) BP: (152-170)/(70-89) Temp: [36.4 C (97.5 F)-37.2 C (98.9 F)] Pulse: [64-80] Respirations: [16 PER MINUTE-18 PER MINUTE] SpO2: [93 %-98 %] O2 Device: None (Room air) Intake/Output Summary: Intake/Output Summary (Last 24 hours) at 04/26/2023 1153 Last data filed at 04/26/2023 0410 Gross per 24 hour Intake 554 ml Output 1375 ml Net -821 ml Date of Last Stool:HAT FORMING MACHINE FEEDER Medications: Scheduled Meds:acetaminophen (TYLENOL) tablet 650 mg, 650 mg, Oral, Q6H while aw martin amantadine (SYMMETREL) tablet 100 mg, 100 mg, Oral, BID (See eMAR) amLODIPine (NORVASC) tablet 10 mg, 10 mg, Oral, QDAY dapagliflozin propanediol (FARXIGA) tablet 10 mg, 10 mg, Oral, QDAY enoxaparin (LOVENOX) syringe 30 mg, 30 mg, Subcutaneous, BID insulin aspart (U-100) (NOVOLOG FLEXPEN U-100 INSULIN) injection PEN 0-12 Units, 0-12 Units, Subcutaneous, ACHS (22) lisinopriL (ZESTRIL) tablet 10 mg, 10 mg, Oral, QDAY polyethylene glycol 3350 (MIRALAX) packet 17 g, 17 g, Oral, QDAY senna (SENOKOT) tablet 2 tablet, 2 tablet, Oral, BID tamsulosin (FLOMAX) capsule 0.4 mg, 0.4 mg, Oral, QDAY after breakfast Continuous Infusions: PRN and Respiratory Meds:dextrose 50% (D50) IV PRN, oxyCODONE Q6H PRN Prophylaxis Review: Peptic Ulcer Disease: None: not indicated VTE: Pharmacological prophylaxis; Enoxaparin Lines, Drains, and Airways: Lines, Drains, Airways and Wounds IV Duration Peripheral IV 04/26/23 0733 Right Mid Forearm 20 G <1 day Drain Duration Indwelling Urinary Catheter 04/25/23 0530 1 day Wound Duration Wounds 04/23/23 0429 Hematoma Right Eye 3 days Wounds 04/23/23 0443 Pressure injury Coccyx 3 days Pertinent labs, medications, radiology, and diagnostic procedures reviewed inclu ding: active problem list, medication list, allergies, family history, social hi story, health maintenance, notes from last encounter, lab results, imaging Balbina Luca, INSTALLATION MANAGER [id number] Trauma Team Pager [phone] * Martha Aranda RN - 04/25/2023 11:02 PM CDT 2243: Sharmin Andujar MD voalted because a progress note by Med Consults naeem mmended patient be on tele. RN voalted MD to clarify that patient no longer need s telemetry monitoring. ~0015: RN walked into patient's room and found patient had removed IV and discon nected trinidad catheter bag from the piece inserted into patient. FAB Roche nd, RN cleaned catheter with alcohol and catheter wipes before at taching a new trinidad drainage bag. Avasys camera ordered at this time. * Seema Villatoro OTA - 04/25/2023 10:57 AM CDT OCCUPATIONAL THERAPY PROGRESS NOTE Name: Delmar Thornton : 1950 Age: 73 y.o. Admission Date: 04/23/2023 LOS: 2 days Date of Service: 04/25/2023 Mobility Patient Turn/Position: Supine Progressive Mobility Level: Active transfer to chair Level of Assistance: Assist X2 Assistive Device: Walker Activity Limited By: Weakness;Mental Status Variability Subjective Pertinent Dx per Physician: 73 y.o. male with PMH of HTN, HLD, DM, GERD, on ASA who presented to as a trauma transfer 04/23/2023 s/p fall down stairs w/ IPH, R zygomatic arch fx, R 1st costomandubrial fx, R 2nd rib fx, trace R PTX, R ant erior column and acetabular roof fx, L pelvic fx Precautions: Falls;Vision/Cognitive Deficits R LE Precautions: RLE WBAT: Weight bearing as tolerated L LE Precautions: LLE WBAT: Weight bearing as tolerated Pain / Complaints: Patient agrees to participate in therapy Pain Location: Right;Left;Hip (Pelvis with weight bearing) Pain Level Current: 3 Objective Psychosocial Status: Willing and Cooperative to Participate Persons Present: RehabTechnician Home Living Type of Home: House Home Layout: One Level;Stairs to Enter w/ Rails Bathroom Shower / Tub: Walk-in Shower Bathroom Toilet: Standard Comment: 2 steps to enter, a few small steps in the home between rooms Prior Function Level Of [place]: Independent with ADLs and functional transfers;Independen t with homemaking w/ ambulation Lives With: Alone Receives Help From: None Needed Vision Comment: Further assessment when pt able to answer questions consistenlty ADL's Where Assessed: Chair LE Dressing Assist: Total Assist LE Dressing Deficits: Don/Doff R Sock;Don/Doff L Sock Toileting Assist: Total Assist Toileting Deficits: (suha) Comment: Pt sitting in chair. Attempted to amb with chair follow but pt attempte d to take step forward and LEs buckled. Pt took steps to bed with mod assist xs' 2 with RW. Pt slow processing and not oriented except for self. Pt follows comm ands with delay. ADL Mobility Bed Mobility: Sit to Supine: Maximum assist;x2 people Bed Mobility Comments: Assist with BLE, assist with trunk. Transfer Type: Sit to stand Transfer: Assistance Level: To/from;Bed;Moderate assist;x2 people Transfer: Assistive Device: Roller walker Transfer: Type of Assistance: For balance;For safety considerations;Elevated bed ;For strength deficit;Requires extra time End of Activity Status: In bed;Instructed patient to request assist with mobilit y;Instructed patient to use call light;Nursing notified Gait Distance: 3 feet Gait: Assistance Level: Moderate assist;x2 people Gait: Assistive Device: Roller walker Gait Comments: Only taking steps from chair to bed with RW. Unable to amb forwar d with chair follow due to LEs buckling. Activity Tolerance Endurance: 2/5 Tolerates 10-20 Minutes Exercise w/Multiple Rests Cognition Overall Cognitive Status: Impaired Expression: Expressive Aphasia Social Interaction: Increased Time to Adjust Problem Solving: Decreased Judgment/Safety;Cueing to Sequence Task Memory: Unable to Recall Daily Events Orientation: Alert & Oriented x1;To Person (unable to state place, "2019" year) Attention: Awake/Alert Cognition Comment: Delayed processing and motor planning ROM R UE ROM: WFL R UE ROM Method: Active L UE ROM: WFL L UE ROM Method: Active Thumb/Finger ROM: WFL R LE ROM: WFL R LE ROM Method: Active L LE ROM: WFL L LE ROM Method: Active UE Strength / Tone Strength Position Assessed: Seated R UE Strength: WFL L UE Strength: WFL R LE Strength: WFL L LE Strength: WFL Education Persons Educated: Patient Barriers To Learning: Cognitive Deficits Interventions: Repetition of Instructions Teaching Methods: Verbal Instruction Patient Response: Verbalized Understanding Topics: Role of OT, Goals for Therapy Goal Formulation: With Patient Assessment Assessment: Decreased ADL Status;Decreased High-Level ADLs;Decreased Self-Care T rans;Decreased Endurance;Decreased Cognition Prognosis: Good;w/Cont OT s/p Acute Discharge Goal Formulation: Patient AM-PAC 6 Clicks Daily Activity Inpatient Putting on and taking off regular lower body clothes: Total Bathing (Including washing, rinsing, drying): Total Toileting, which includes using toilet, bedpan, or urinal: Total Putting on and taking off regular upper body clothing: A Lot Taking care of personal grooming such as brushing teeth: A Lot Eating meals: Total Daily Activity Raw Score: 8 Standardized (T-scale) Score: 22.86 AM-PAC Daily Activity Functional Stage: -2.73-40 No Independent Tasks Plan OT Frequency: 5x/week OT Plan for Next Visit: Edge of bed ADLs, transfers to commode or chair as able ADL Goals Patient Will Perform Grooming: in Chair;w/ Stand By Assist Patient Will Perform LE Dressing: w/ Minimum Assist Patient Will Perform Toileting: w/ Bedside Commode;w/ Minimum Assist Functional Transfer Goals Pt Will Perform All Functional Transfers: Minimum Assist Pt Will Transfer To Bedside Commode: w/ Minimum Assist OT Discharge Recommendations Recommendation: Inpatient setting;Recommend rehab medicine consult Therapist: DENISE Ramirez Date: 04/25/2023 * Ekaterina Villa, PT - 04/25/2023 9:28 AM CDT PHYSICAL THERAPY PROGRESS NOTE Name: Delmar Thornton : 1950 Age: 73 y.o. Admission Date: 04/23/2023 LOS: 2 days Date of Service: 04/25/2023 Mobility Patient Turn/Position: Chair Progressive Mobility Level: Active transfer to chair Level of Assistance: Assist X2 Assistive Device: Walker Activity Limited By: Pain Subjective Significant hospital events: PMH: HTN, DM, GERD. Admission: found down, L parie nima hemorrhage, rib fracture, zygomatic arch fracture, R acetabular fx, L superi or pubic ramus fx. Mental / Cognitive Status: Alert;Cooperative;Follows Commands;Oriented;To Person ;Disoriented;To Situation (delayed responses, needing frequent re-orientation) Persons Present: Nursing Staff;RehabTechnician Pain: Patient complains of pain Pain Location: (pelvis, seems to point to L thigh) Pain Interventions: Patient pre-medicated;Patient agrees to participate in thera py;Treatment altered to patient's pain tolerance (short acting IV pain med) R LE Precautions: RLE WBAT: Weight bearing as tolerated L LE Precautions: LLE WBAT: Weight bearing as tolerated Ambulation Assist: Independent Mobility in Community without Device Patient Owned Equipment: None Home Situation: Lives Alone (spouse is currently in a rehab facility and sounds like she may be there more residential) Type of Home: House Entry Stairs: 3-5 Stairs In-Home Stairs: 1-2 Stairs Bed Mobility/Transfer Bed Mobility: Supine to Sit: Moderate Assist;x2 People;Head of Bed Elevated;Assi st with B LE;Assist with Trunk Transfer Type: Sit to/from Stand Transfer: Assistance Level: To/From;Bed;Moderate Assist;x2 People Transfer: Assistive Device: Roller Walker Transfers: Type Of Assistance: Verbal Cues;Elevated Bed;For Balance;For Strength Deficit (assist to position R foot closer to bed prior to standing) End Of Activity Status: Up in Chair;Nursing Notified;Instructed Patient to Reque st Assist with Mobility;Instructed Patient to Use Call Light (chair height eleva ottoniel with folded blankets x2 and pillow) Gait Gait Distance: 3 feet Gait: Assistance Level: Moderate Assist;x2 People Gait: Assistive Device: Roller Walker Comments: pt needing cues for sequencing and weight shifting, maunal assist to p rogress R LE forward Activity Limited By: Complaint of Pain Activity/Exercise Sit Edge Of Bed: 5 minutes Sit Edge Of Bed Assist: Stand By Assist Assessment/Progress Impaired Mobility Due To: Pain;Cognitive Deficits;Safety Concerns;Decreased Stre ngth;Impaired Balance;Medical Status Limitation AM-PAC 6 Clicks Basic Mobility Inpatient Turning from your back to your side while in a flat bed without using bed rails: A lot Moving from lying on your back to sitting on the side of a flat bed without usin g bedrails : A Lot Moving to and from a bed to a chair (including a wheelchair): A Lot Standing up from a chair using your arms (e.g. wheelchair, or bedside chair): A Lot To walk in hospital room: Total Climbing 3-5 steps with a railing: Total Basic Mobility Inpatient Raw Score: 10 Standardized (T-scale) Score: 28.13 Goals Goal Formulation: With Patient Time For Goal Achievement: 5 days Patient Will Go Supine To/From Sit: w/ Minimal Assist Patient Will Transfer Sit to Stand: w/ Minimal Assist Patient Will Ambulate: w/ Walker, w/ Minimal Assist, 51-100 Feet Plan Treatment Interventions: Mobility Training Plan Frequency: 5-7 Days per Week PT Plan for Next Visit: sit to stands, bed to chair, short distance gait soon (m ay need chair follow) PT Discharge Recommendations Recommendation: Inpatient setting Currently: Patient requires the use of a walker with wheels to complete ADLs in the home including meal preparation, ambulation to the bathroom for toileting, b athing and grooming, and safe home mobility. Patient is unable to complete thes e ADLs with a cane or crutch and can safely use the walker. Therapist: Ekaterina Villa, PT Date: 04/25/2023 * Isaura Rankin MD - 04/25/2023 8:30 AM CDT General Medicine Consult Progress Note Name: Delmar Thornton : 1950 Age: 73 y.o. Admission Date: 04/23/2023 LOS: 2 days Date of Service: 04/25/2023 Reason for Consult: Geriatric Trauma Consult type: Written opinion only Delmar Thornton is a 73 y/o male with PMH HTN, DM, GERD who presented as transfe r to [facility] for being found down and was found to have small L parietal hemorrhage, rib fracture, zygomatic arch fracture, and pelvic fracture. Fall L parietal hemorrhage Rib, zygomatic arch, pelvic fractures - per discussion with daughter and granddaughter, the area where he fell has gra brandy and would be easy to trip on, they also report that he has been noticeably u nsteady on his feet lately, he was oriented when found so he was able to report it was dark when he went to water his plants and was then found down at approxim ately 8PM - unable to obtain hx from patient based on AMS - based on this history, sounds like fall is 2/2 unsteady gait, other considerat ions would include syncope, orthostatic hypotension, heat exhaustion - ECHO: EF 70% - ortho, nsg, plastics consulted: no acute surgical intervention - receiving Keppra seizure ppx for hemorrhage Altered Mental Status - patient is oriented to self, able to recognize that he is in a hospital when g iven multiple choices (library, gymnasium, hospital) - per chart review mental status has been fluctuating during admission - has elevated CPK, AST/ALT, BUN on admission, improving throughout admission - suspect metabolic encephalopathy v TBI Rhabdo - improving - CK 1610, AST 515, ALT 385 on admission - sp LR CKD - known CKD stage 2 per daughter - elevated Scr & BUN on admission DM - per daughter, patient on Trulicity and insulin at home - currently on [facility] HTN HLD - hx of HTN & HLD, takes medication at home but family is unsure what medication - BP has been 150s-170s/70-80s - started on valsartan & HCTZ Recommendations: - Agree with initiation of valsartan & HCTZ - Agree with telemetry to monitor for rhythm changes - Agree with [facility] - Agree with Keppra for seizure ppx - Recommend delirium precautions Discussed with Dr. Vora. We will sign off at this time. Isaura Rankin MD PharmD 04/23/23 PGY1 Neurology Available on Voalte Pager #[phone] Please direct initial questions to the primary service. General Medicine consults can be contacted via Voalte using Med Consults 1 or 2 First Call 24 hours a day Interim events: passed swallow eval Subjective (today): This morning Mr. Thornton was seen awake in bed eating breakf ast. When asked how he was feeling he said "I'm feeling pretty well." He denies any pain. No LEOS, CP, SOA. He knows his name. He is able to recognize that he is in a hospital when given a multiple choices of location. He is not sure what med ications he takes or what pharmacy he goes too. Review of Systems: - CP, SOA, abdominal pain, nausea Vital Signs: Last Filed in 24 hours Vital Signs: 24 hour Range BP: 165/80 (04/25 719) Temp: 37 C (98.6 F) (04/25 719) Pulse: 68 (04/25 719) Respirations: 18 PER MINUTE (04/25 719) SpO2: 94 % (04/25 719) O2 Device: None (Room air) (04/25 300) BP: (147-192)/(71-88) Temp: [36.4 C (97.5 F)-37.2 C (98.9 F)] Pulse: [58-79] Respirations: [15 PER MINUTE-29 PER MINUTE] SpO2: [92 %-95 %] O2 Device: None (Room air) Physical Exam: General: Alert, cooperative, no distress, appears stated age Lungs: Clear to auscultation bilaterally Heart: Regular rate and rhythm, S1, S2 normal, no murmur, click rub or gallop Abdomen: Soft, non-tender. Bowel sounds normal. No masses. No organomegaly. Neurologic: Oriented to person, answers Yes to hospital & no to library, school for location, year "2019", season "spring" Lab/Radiology/Other Diagnostic Tests: 24-hour labs: Results for orders placed or performed during the hospital encounter of 04/23/23 (from the past 24 hour(s)) POC GLUCOSE Collection Time: 04/24/23 11:40 AM Result Value Ref Range Glucose, POC 128 (H) 70 - 100 MG/DL POC GLUCOSE Collection Time: 04/24/23 5:01 PM Result Value Ref Range Glucose, POC 158 (H) 70 - 100 MG/DL POC GLUCOSE Collection Time: 04/24/23 9:01 PM Result Value Ref Range Glucose, POC 139 (H) 70 - 100 MG/DL CBC Collection Time: 04/25/23 2:45 AM Result Value Ref Range White Blood Cells 11.3 (H) 4.5 - 11.0 K/UL RBC 4.09 (L) 4.4 - 5.5 M/UL Hemoglobin 13.0 (L) 13.5 - 16.5 GM/DL Hematocrit 38.0 (L) 40 - 50 % MCV 92.9 80 - 100 FL MCH 31.7 26 - 34 PG MCHC 34.1 32.0 - 36.0 G/DL RDW 14.3 11 - 15 % Platelet Count 246 150 - 400 K/UL MPV 8.2 7 - 11 FL MAGNESIUM Collection Time: 04/25/23 2:45 AM Result Value Ref Range Magnesium 2.2 1.6 - 2.6 mg/dL PHOSPHORUS Collection Time: 04/25/23 2:45 AM Result Value Ref Range Phosphorus 2.8 2.0 - 4.5 MG/DL BASIC METABOLIC PANEL Collection Time: 04/25/23 2:45 AM Result Value Ref Range Sodium 140 137 - 147 MMOL/L Potassium 4.3 3.5 - 5.1 MMOL/L Chloride 104 98 - 110 MMOL/L CO2 22 21 - 30 MMOL/L Anion Gap 14 (H) 3 - 12 Glucose 194 (H) 70 - 100 MG/DL Blood Urea Nitrogen 31 (H) 7 - 25 MG/DL Creatinine 1.20 0.4 - 1.24 MG/DL Calcium 9.5 8.5 - 10.6 MG/DL eGFR >60 >60 mL/min POC GLUCOSE Collection Time: 04/25/23 6:01 AM Result Value Ref Range Glucose, POC 243 (H) 70 - 100 MG/DL Pertinent radiology reviewed. Isaura Rankin MD Associated attestation - Francisco Vora DO - 04/25/2023 1:53 PM CDT ATTESTATION I personally performed the burgos portions of the E/M visit, discussed case with e Consult team and I concur with the resident's documentation of history, physi ernst exam, assessment, and treatment plan unless otherwise noted in blue italics. Thomas Vora DO Date: 04/25/2023 Internal Medicine, Hospitalist [phone] * Maria E Ambriz, FAB - 04/25/2023 5:45 AM CDT 0515: Dr. Wooten notified of ISCx2 with high outputs, order given to replace ashley patel for retention. Pt repeating self, noted weakness to RUE. Dr. Wooten to be dside to assess. Pt intermittently able to state name. * Ekaterina Villa, PT - 04/24/2023 3:16 PM CDT PHYSICAL THERAPY ASSESSMENT Name: Delmar Thornton : 1950 Age: 73 y.o. Admission Date: 04/23/2023 LOS: 1 day Date of Service: 04/24/2023 Mobility Patient Turn/Position: Supine Progressive Mobility Level: Stand Level of Assistance: Assist X2 Assistive Device: Hand Held Activity Limited By: Pain;Dizziness Subjective Significant hospital events: PMH HTN, DM, GERD who presented as transfer to [facility] f or being found down and was found to have small L parietal hemorrhage, rib fract ure, zygomatic arch fracture, and pelvic fracture. Mental / Cognitive Status: Alert;Cooperative Persons Present: Family;Occupational Therapist Pain: Patient complains of pain Pain Location: (pelvis (more R sided)) Pain Interventions: Patient agrees to participate in therapy;Nurse provides pain meds;Treatment altered to patient's pain tolerance R LE Precautions: RLE WBAT: Weight bearing as tolerated L LE Precautions: LLE WBAT: Weight bearing as tolerated Ambulation Assist: Independent Mobility in Community without Device Patient Owned Equipment: None Home Situation: Lives Alone (spouse is currently in a rehab facility) Type of Home: House Entry Stairs: 3-5 Stairs In-Home Stairs: 1-2 Stairs Bed Mobility/Transfer Bed Mobility: Supine to Sit: Maximum Assist;x2 People Bed Mobility: Sit to Supine: Maximum Assist;x2 People Transfer Type: Sit to/from Stand Transfer: Assistance Level: To/From;Bed;Moderate Assist;x2 People Transfer: Assistive Device: Hand Hold Assist Transfers: Type Of Assistance: Verbal Cues;For Balance;For Strength Deficit;For Safety Considerations;Knees(s) Blocked;Elevated Bed End Of Activity Status: In Bed Comments: able to move LLE to take a side step, difficulty moving R LE to side ( leg starts to buckle), limited by pain and weakness Education Persons Educated: Patient Patient Barriers To Learning: Cognitive Deficits;Impaired Communication Interventions: Repetition of Instructions Teaching Methods: Verbal Instruction Patient Response: Verbalized Understanding;More Instruction Required Topics: Plan/Goals of PT Interventions Assessment/Progress Impaired Mobility Due To: Pain;Cognitive Deficits;Impaired Balance;Safety Concer ns;Medical Status Limitation Assessment/Progress: Should Improve w/ Continued PT AM-PAC 6 Clicks Basic Mobility Inpatient Turning from your back to your side while in a flat bed without using bed rails: A lot Moving from lying on your back to sitting on the side of a flat bed without usin g bedrails : A Lot Moving to and from a bed to a chair (including a wheelchair): A Lot Standing up from a chair using your arms (e.g. wheelchair, or bedside chair): A Lot To walk in hospital room: Total Climbing 3-5 steps with a railing: Total Basic Mobility Inpatient Raw Score: 10 Standardized (T-scale) Score: 28.13 Goals Goal Formulation: With Patient Time For Goal Achievement: 5 days Patient Will Go Supine To/From Sit: w/ Minimal Assist Patient Will Transfer Sit to Stand: w/ Minimal Assist Patient Will Ambulate: 11-30 Feet, w/ Walker, w/ Minimal Assist Plan Treatment Interventions: Mobility Training Plan Frequency: 5-7 Days per Week PT Plan for Next Visit: sit to stands, side steps, marching PT Discharge Recommendations Recommendation: Inpatient setting Therapist Ekaterina Villa, PT Date 04/24/2023 * Jermaine Kendrick, OT - 04/24/2023 2:59 PM CDT OCCUPATIONAL THERAPY ASSESSMENT NOTE Name: Delmar Thornton : 1950 Age: 73 y.o. Admission Date: 04/23/2023 LOS: 1 day Date of Service: 04/24/2023 Mobility Patient Turn/Position: Supine Progressive Mobility Level: Stand Level of Assistance: Assist X2 Assistive Device: Hand Held Activity Limited By: Pain Subjective Pertinent Dx per Physician: 73 y.o. male with PMH of HTN, HLD, DM, GERD, on ASA who presented to as a trauma transfer 04/23/2023 s/p fall down stairs w/ IPH, R zygomatic arch fx, R 1st costomandubrial fx, R 2nd rib fx, trace R PTX, R ant erior column and acetabular roof fx, L pelvic fx Precautions: Falls;Vision/Cognitive Deficits R LE Precautions: RLE WBAT: Weight bearing as tolerated L LE Precautions: LLE WBAT: Weight bearing as tolerated Pain / Complaints: Patient agrees to participate in therapy Pain Location: Right;Left;Hip (Pelvis with weight bearing) Objective Psychosocial Status: Willing and Cooperative to Participate Persons Present: Family;Physical Therapist Home Living Type of Home: House Home Layout: One Level;Stairs to Enter w/ Rails Bathroom Shower / Tub: Walk-in Shower Bathroom Toilet: Standard Comment: 2 steps to enter, a few small steps in the home between rooms Prior Function Level Of [place]: Independent with ADLs and functional transfers;Independen t with homemaking w/ ambulation Lives With: Alone Receives Help From: None Needed ADL's Where Assessed: Edge of Bed Eating Deficits: NPO;NPO, but hand to mouth WNL Grooming Assist: Stand By Assist Grooming Deficits: Setup LE Dressing Assist: Total Assist LE Dressing Deficits: Don/Doff R Sock;Don/Doff L Sock Toileting Assist: Total Assist Toileting Deficits: Perineal Hygiene ADL Mobility Bed Mobility: Supine to Sit: Maximum assist;x2 people Bed Mobility: Sit to Supine: Maximum assist;x2 people Bed Mobility Comments: Assist with BLE, assist with trunk. Transfer Type: Sit to stand Transfer: Assistance Level: To/from;Bed;Maximum assist;x2 people Transfer: Assistive Device: Hand hold assist Transfer: Type of Assistance: For balance;For safety considerations;Elevated bed ;For strength deficit;Requires extra time;Knee(s) blocked End of Activity Status: In bed;Instructed patient to request assist with mobilit y;Instructed patient to use call light;Nursing notified Transfer Comments: Patient able to take one small side step, limited by pain wit h weight shifting. Activity Tolerance Endurance: 2/5 Tolerates 10-20 Minutes Exercise w/Multiple Rests Comment: Pain limiting Cognition Overall Cognitive Status: Impaired Expression: Expressive Aphasia Problem Solving: Direction Following Assist;Decreased Judgment/Safety;Cueing to Sequence Task Attention: Awake/Alert ROM R UE ROM: WFL R UE ROM Method: Active L UE ROM: WFL L UE ROM Method: Active Thumb/Finger ROM: WFL R LE ROM: WFL R LE ROM Method: Active L LE ROM: WFL L LE ROM Method: Active UE Strength / Tone Strength Position Assessed: Seated R UE Strength: WFL L UE Strength: WFL R LE Strength: WFL L LE Strength: WFL Education Persons Educated: Patient Barriers To Learning: Cognitive Deficits Interventions: Repetition of Instructions Teaching Methods: Verbal Instruction Patient Response: Verbalized Understanding Topics: Role of OT, Goals for Therapy Goal Formulation: With Patient Assessment Assessment: Decreased ADL Status;Decreased High-Level ADLs;Decreased Self-Care T rans;Decreased Endurance;Decreased Cognition Prognosis: Good;w/Cont OT s/p Acute Discharge Goal Formulation: Patient AM-PAC 6 Clicks Daily Activity Inpatient Putting on and taking off regular lower body clothes: Total Bathing (Including washing, rinsing, drying): Total Toileting, which includes using toilet, bedpan, or urinal: Total Putting on and taking off regular upper body clothing: A Lot Taking care of personal grooming such as brushing teeth: A Lot Eating meals: Total Daily Activity Raw Score: 8 Standardized (T-scale) Score: 22.86 AM-PAC Daily Activity Functional Stage: -2.73-40 No Independent Tasks Plan OT Frequency: 5x/week OT Plan for Next Visit: Edge of bed ADLs, transfers to commode or chair as able ADL Goals Patient Will Perform Grooming: in Chair;w/ Stand By Assist Patient Will Perform LE Dressing: w/ Minimum Assist Patient Will Perform Toileting: w/ Bedside Commode;w/ Minimum Assist Functional Transfer Goals Pt Will Perform All Functional Transfers: Minimum Assist Pt Will Transfer To Bedside Commode: w/ Minimum Assist OT Discharge Recommendations Recommendation: Inpatient setting;Recommend rehab medicine consult Patient Currently Requires Physical Assist With: All mobility;All personal care ADLs;All home functioning ADLs Therapist: JEANNINE Gold/Scar [id number] Date: 04/24/2023 * Edelmira Murdock MA,CCC-CLEARING HAND - 04/24/2023 2:40 PM CDT SPEECH-LANGUAGE PATHOLOGY CLINICAL SWALLOW ASSESSMENT Name: Delmar Thornton : 1950 Age: 73 y.o. Admission Date: 04/23/2023 LOS: 1 day Date of Service: 04/24/2023 Evaluation Summary Clinical swallow evaluation completed. Clinical Impression: Minimal dysphagia Sources of Dysphagia: AMS Recommendations Swallow Recommendations PO: Regular, Thin liquids Medications: As tolerated Ice Chip Trials: 3-5 per hour Supervision: 1:1 Positioning: Upright 90 degrees or chair mode Swallow Strategies: 100% supervision to provide cues for swallow strategies dur ing meals, Small bites/sips, Slow rate of intake Oral Hygiene: 3 times per day, Complete oral care to minimize the risk of aspira ting oral bacteria Dyphagia Comments: Pt would benefit from cognitive evaluation during admission PO Presentation Presentations: Therapist Fed Thin Liquid: 1 Tsp, Cup, Straw Other Consistencies: Ice chips, Puree, Soft and bite-sized, Regular solids Clinical Interpretation of Oral Stage Withdraw Bolus: WFL Form Bolus: WFL Masticate Bolus: WFL Transfer Bolus: WFL Anterior Bolus Spillage: None Oral Residue: None Oral Stage Summary: WFL Clinical Interpretation of Pharyngeal Stage Swallow Initiation: Timely Laryngeal Elevation: Suspected to be adequate Signs / Symptoms Of Aspiration: No Pharyngeal Stage Summary: WFL Oral Mech Exam Oral Mech WFL: Yes Dentition: Natural - Good Oral Mech Exam Summary: Right eye bruising; bloody secretions in oral cavity lik mohsen 2/2 corpak placement Objective Relevant Med Background: Delmar Llamas a 73y/o malewith PMH HTN, DM, G ERDwho [facility] being [facility] downand was found to hav e small L parietal hemorrhage, rib fracture, zygomatic arch fracture, and pelvic fracture. Psychosocial Status: Willing and Cooperative to Participate Nutrition Nutrition Prior To Hospitalization: Oral, Regular, Thin Liquids Current Form Of Nutrition: NPO, NG Education Persons Educated: Pt/Family Barriers To Learning: Cognitive Deficits Interventions: Family Educated, Staff Educated Teaching Methods: Verbal Topics: Dysphagia Patient Response: Verbalized Understanding Assessment/Prognosis Plan: Other (Comment) (cognitive evaluation when appropriate) Prognosis: Fair NOMS Dysphagia Ratin-Minimal Dysphagia -Swallow safe, pt eats/drinks indep, may require min cues. Usually self-cues when difficulty occurs. May need to avoi d specific food items (e.g., popcorn & nuts) or need more time (due to dysphagia). Therapist:Edelmira Murdock MA,CCC-CLEARING HAND Date:04/24/2023 * Moises Haas MD - 04/24/2023 1:59 PM CDT C-Collar Removal Staff Radiologists reported no evidence for fracture or subluxation on the CT C- spine. Patient capable to participate in physical exam for C-spine clearance. Patient denies tenderness to palpation of cervical spine and denies pain with fu ll active Range of Motion. C-collar removed. Moises Haas MD * Daniel Ng RN - 04/24/2023 8:21 AM CDT Small Bore Feeding Tube Placement Procedure was discussed with patient Time Placed: 819 Size of Tube: 10 Fr Length of Tube: 140 cm Physician's order received for feeding tube placement. Placed small bore feeding tube in patient's left nare with Cortrak tracking device. 1 attempt/s made to p lace tube; Air bolus utilized in attempt to advance tube past pylorus. Tube adva nced to 105 centimeter theodore on tube, and secured with nasal bridle to the patien t's septum. No one at bedside to assist. Nurse to confirm correct tube placement via KUB with primary team physician. Procedure completed without complications. * Isaura Rankin MD - 04/24/2023 8:04 AM CDT General Medicine Consult Progress Note Name: Delmar Thornton : 1950 Age: 73 y.o. Admission Date: 04/23/2023 LOS: 1 day Date of Service: 04/24/2023 Reason for Consult: Geriatric Trauma Consult type: Written opinion only Delmar Thornton is a 73 y/o male with PMH HTN, DM, GERD who presented as transfe r to [facility] for being found down and was found to have small L parietal hemorrhage, rib fracture, zygomatic arch fracture, and pelvic fracture. Fall L parietal hemorrhage Rib, zygomatic arch, pelvic fractures - per discussion with daughter and granddaughter, the area where he fell has gra brandy and would be easy to trip on, they also report that he has been noticeably u nsteady on his feet lately, he was oriented when found so he was able to report it was dark when he went to water his plants and was then found down at approxim ately 8PM - unable to obtain hx from patient based on AMS - based on this history, sounds like fall is 2/2 unsteady gait, other considerat ions would include syncope, orthostatic hypotension, heat exhaustion - ECHO: EF 70% - ortho, nsg, plastics consulted: no acute surgical intervention - receiving Keppra seizure ppx for hemorrhage Altered Mental Status - patient is oriented to self, able to recognize that he is in a hospital when g iven multiple choices (library, [employer], hospital) - per chart review mental status has been fluctuating during admission - has elevated CPK, AST/ALT, BUN on admission - suspect metabolic encephalopathy Rhabdo - improving - CK 1610, AST 515, ALT 385 on admission - sp LR CKD - known CKD stage 2 per daughter - elevated Scr & BUN on admission DM - per daughter, patient on Trulicity and insulin at home - currently on [facility] HTN HLD - hx of HTN & HLD, takes medication at home but family is unsure what medication - BP has been 140s-160s/70-80s Recommendations: - Med Rec with pharmacy - needs initiation of an antihypertensive, preferably his [employer] med - Agree with telemetry to monitor for rhythm changes - [facility] - Agree with [facility] for seizure ppx - Recommend delirium precautions Discussed with Dr. Vielka Rankin MD PharmD 04/23/23 PGY1 Neurology Available on Voalte Pager #[phone] Please direct initial questions to the primary service. General Medicine consults can be contacted via Voalte using [employer] Consults 1 or 2 First Call 24 hours a day Interim events: Corpak placed Subjective (today): This morning Mr. Thornton was seen awake in bed. When asked i f anything hurts, he answered "my stomach." His ROS was infante positive, with a "ye s" to CP, SOA, abdominal pain, nausea. Review of Systems: + CP, SOA, abdominal pain, nausea Vital Signs: Last Filed in 24 hours Vital Signs: 24 hour Range BP: 154/86 (04/24 600) Temp: 37 C (98.6 F) (04/24 0400) Pulse: 66 (04/24 600) Respirations: 13 PER MINUTE (04/24 600) SpO2: 94 % (04/24 600) O2 Device: Nasal cannula (04/24 700) O2 Liter Flow: 1 Lpm (04/24 700) BP: (142-158)/(64-86) Temp: [36.5 C (97.7 F)-37.2 C (98.9 F)] Pulse: [61-70] Respirations: [13 PER MINUTE-22 PER MINUTE] SpO2: [90 %-96 %] O2 Device: Nasal cannula O2 Liter Flow: 1 Lpm Physical Exam: General: Awakens to voice, opens eyes Lungs: Clear to auscultation bilaterally Heart: Regular rate and rhythm, S1, S2 normal, no murmur, click rub or gallop Abdomen: Soft, diffusely tender, no rebound, no guarding Neurologic: Oriented to person, answers Yes to hospital & no to library, gymnasium for location, year "1219" Lab/Radiology/Other Diagnostic Tests: 24-hour labs: Results for orders placed or performed during the hospital encounter of 04/23/23 (from the past 24 hour(s)) POC GLUCOSE Collection Time: 04/23/23 12:54 PM Result Value Ref Range Glucose, POC 138 (H) 70 - 100 MG/DL POC GLUCOSE Collection Time: 04/23/23 4:17 PM Result Value Ref Range Glucose, POC 114 (H) 70 - 100 MG/DL POC GLUCOSE Collection Time: 04/23/23 9:40 PM Result Value Ref Range Glucose, POC 122 (H) 70 - 100 MG/DL CBC Collection Time: 04/24/23 3:55 AM Result Value Ref Range White Blood Cells 8.9 4.5 - 11.0 K/UL RBC 3.78 (L) 4.4 - 5.5 M/UL Hemoglobin 11.9 (L) 13.5 - 16.5 GM/DL Hematocrit 35.7 (L) 40 - 50 % MCV 94.6 80 - 100 FL MCH 31.5 26 - 34 PG MCHC 33.3 32.0 - 36.0 G/DL RDW 14.4 11 - 15 % Platelet Count 225 150 - 400 K/UL MPV 8.4 7 - 11 FL MAGNESIUM Collection Time: 04/24/23 3:55 AM Result Value Ref Range Magnesium 2.2 1.6 - 2.6 mg/dL PHOSPHORUS Collection Time: 04/24/23 3:55 AM Result Value Ref Range Phosphorus 3.1 2.0 - 4.5 MG/DL COMPREHENSIVE METABOLIC PANEL Collection Time: 04/24/23 3:55 AM Result Value Ref Range Sodium 142 137 - 147 MMOL/L Potassium 4.6 3.5 - 5.1 MMOL/L Chloride 108 98 - 110 MMOL/L Glucose 124 (H) 70 - 100 MG/DL Blood Urea Nitrogen 28 (H) 7 - 25 MG/DL Creatinine 1.48 (H) 0.4 - 1.24 MG/DL Calcium 9.1 8.5 - 10.6 MG/DL Total Protein 6.4 6.0 - 8.0 G/DL Total Bilirubin 0.7 0.3 - 1.2 MG/DL Albumin 3.5 3.5 - 5.0 G/DL Alk Phosphatase 42 25 - 110 U/L AST (SGOT) 162 (H) 7 - 40 U/L CO2 24 21 - 30 MMOL/L ALT (SGPT) 249 (H) 7 - 56 U/L Anion Gap 10 3 - 12 eGFR 50 (L) >60 mL/min POC GLUCOSE Collection Time: 04/24/23 6:08 AM Result Value Ref Range Glucose, POC 121 (H) 70 - 100 MG/DL POC GLUCOSE Collection Time: 04/24/23 11:40 AM Result Value Ref Range Glucose, POC 128 (H) 70 - 100 MG/DL Pertinent radiology reviewed. Iasura Rankin MD Associated attestation - Francisco Vora DO - 04/25/2023 9:48 AM CDT ATTESTATION I personally performed the burgos portions of the E/M visit, discussed case with e resident and concur with the documentation of history, physical exam, assessme nt, and treatment plan unless otherwise noted. Care plan was discussed with the patient, correctional case manager, house staff, and pharmac ist. Thomas Vora DO Date: 04/25/2023 Internal Medicine, Hospitalist [phone] * Kaitlyn Mahajan APRN-JUSTO - 04/24/2023 7:46 AM CDT ORTHO FINAL RECS: 73 y.o. with right anterior acetabular fx, left superior pubic ramus fx -Weight Bearing as tolerated to bilateral lower extremity. -Follow up appointment needed with the orthopedics clinic with Dr. Al or vt latha Cherry, please call [phone] to schedule/confirm this 4 week appo intment. -Lovenox 40 mg daily for DVT ppx until follow up. Should you have a question or concern regarding your orthopedic care or injuries please call our nurse's line at [phone]. Our clinic is located on the 2nd floor of the [facility], across from the [facility]. The clinic address is [address] [place] [id number] Kaitlyn Mahajan APRN Nurse Practitioner, Orthopedic Surgery Pager [phone]/Voalte (MWTF, 6-4) * Librado Weaver RN - 04/24/2023 6:35 AM CDT Small Bore Feeding Tube Placement Procedure was discussed with patient Time Placed: 629 Size of Tube: 10 fr Length of Tube: 140cm Physician's order received for feeding tube placement. Placed small bore feeding tube in patient's left nare with [employer] tracking device. 2 attempt/s made to p lace tube. Tube advanced to 73 centimeter theodore on tube, and secured with nasal b ridle. FAB Fontenot at bedside to assist. Nurse to confirm correct tube placement vi a KUB with primary team physician. Procedure completed without complications. * Kellie Webb RD - 04/23/2023 3:02 PM CDT CLINICAL NUTRITION Clinical Nutrition Initial Assessment Name: Delmar Thornton : 1950 Age: 73 y.o. Admission Date: 04/23/2023 LOS: 0 days Date of Service: 04/23/2023 Recommendation: Advance PO diet as medically able per speech recommendations. Goal PO diet: diab etic diet 8965-4145 kcal/day, 75 g carbs per meal, 30g carbs per snack. If unable to advance PO diet, recommend starting EN. Isosource 1.5 at goal rate 60 ml/hr x 24 hrs (total volume 1440 ml/day) to provide 2160 kcal, 98 g protein, 1094 ml free water. Comments: 73 male with PMH Arthritis, BPH with urinary obstruction, HLD, HTN, Prostate can cer (08/21/2010), and Type II diabetes mellitus. Admitted after fall down stairs ; found to have a small L parietal bleed as well as a 2nd rib fracture, R acetab ular, L pelvic fracture. Pt seen today due to potential need for EN. Pt's daught er at bedside; reported pt had a good appetite prior to admission. Stated he has had some weight loss over the past couple of years while caring for his . S he reports pt's is now in a skilled nursing; pt's appetite has since returned and he gained back the weight he lost (stable 200-210lbs). Followed a low sodium and diabetic diet prior to admission. Discussed plan for nutrition and answered daughter's questions regarding tube feeds and advancing PO diet pending speech therapy evaluations. Nutrition Assessment of Patient: Admit Weight: 104 kg; ; Desired Weight: 80.9 kg BMI (Calculated): 31.98; BMI Categories Adult: Obesity Class I: 30-34.9; Appeara nce: Obese Pertinent Allergies/Intolerances: none Pertinent Labs: BUN 31, creatinine 1.83, GFR 38, glu 185, AST 515, ALT 385, crea radha kinase 1610; Pertinent Meds: insulin, miralax, senna; Oral Diet Order: NPO; Current Oral Intake: NPO Estimated Calorie Needs: 1091-0629 kcal (25-30 kcal/kg DBW) Estimated Protein Needs: 105-121 g (1.3-1.5 g/kg DBW) Malnutrition Assessment: Does not meet criteria Nutrition Focused Physical Assessment: Loss of Subcutaneous Fat: No; ; Muscle Wasting: No; ; Edema: No; ; Pressure Injury: stage 1 coccyx (present on arrival, per RN) 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 Patient tolerated travel well. Returned to room and placed kristi k on bedside monitor. * Abhijit Meza - 04/23/2023 10:02 AM CDT Fruit Grader Note: Patient is Sabianist. Fruit Grader visited to offer prayer, support and sacramental care. Patient's daughter and grand-daughter were present at bedside. Patient appeared calm and resting. Patient's family concerned about his health and aske d for prayer and sacramental care for healing. They shared about his illness an d concerns of the unknown. Fruit Grader offered active listening, support, prayer a nd provided the Sacrament of the Sick for peace, hope and healing. Patient's jamil mac appreciated for visit. Continue available for support and prayer. The spiritual care team is available as needed, 25/03, through the [place] [employer] ([phone]). For a response within 24 hours, please submit an order in O2 fo r a mechanical manufacturing technician consult. * Alfonzo Hong DO - 04/23/2023 8:57 AM CDT Brief Progress Note Pertinent imaging reviewed w/ attending Dr. Gomez Recommendations: - No acute neurosurgical intervention - 6hr CTH stable. No further surveillance imaging necessary at this time. 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 Cartagena. We will arrange follow-up appointment with our clinic and scans. Our clinic may be reached at [phone] or [phone] for the [facility]. Thank you for involving neurosurgery in this patient's care. We will sign off at this time. Please reach out to [phone] if there are further neurosurgical questions or concerns. Alfonzo Hong D.O. Neurological Surgery Pager: [phone] * Amna Lozada RN - 04/23/2023 5:38 AM CDT ~0430: pt arrived to SICU, no acute changes during travel. See ICU doc flow ravi banda for detailed assessment. ~0530: transported pt to CT, no acute changes occurred during the transportation ~0550: transported pt from CT to SICU, no acute changes occurred during the schuster sportation. documented in this encounter H&P Notes * Balbina Segovia APRN-JUSTO - 04/26/2023 11:32 AM CDT Tertiary Trauma Survey (TTS) Date of TTS: 04/26/2023 Admission Date: 04/23/2023 Trauma Activation Type: Transfer HPI:Delmar Thornton is a 73 y.o. male w/ PMH HTN, HLD, DMII, GERD that was sent as a trauma transfer after fall down stairs resulting in IPH, R zygomatic arch f x, R 1st costomanubrial fx, R 2nd rib fx, Trace R pneumo, R acetabular roof and L pubic rami fx. He was admitted to the SICU for close observation w/ Neurosurge ry, Plastics, Ortho, and IM consults. All of his injuries will be managed non-op at this time. He remained medically stable and was transferred to the trauma fl oor 04/25. Since admission his mental status has waxed and waned. He is progressi ng w/ therapies and they are recommending inpatient placement on dc. PMHx: Medical History: Diagnosis Date Arthritis BPH with urinary obstruction HLD (hyperlipidemia) HTN (hypertension) Prostate cancer (HCC) 08/21/2010 Type II diabetes mellitus (HCC) PSHx: Surgical History: Procedure Laterality Date HI SURG TX ANAL FISTULA SUBQ 2000 Rectocutaneous Fistulectomy HX ROTATOR CUFF REPAIR 2005 Right HI LAPS PROSTECT RETROPUBIC RAD W/NRV SPARING ROBOT 10/23/2010 HI LAPS SURG BILATERAL TOTAL PELVIC LMPHADECTOMY 10/23/2010 HI LAPAROSCOPY W/LYSIS OF ADHESIONS 10/23/2010 HX APPENDECTOMY early Open Appy HX BUNIONECTOMY ~ 1994 Social Hx: Social History Socioeconomic History Marital status: Occupational History Employer: RETIRED Comment: [employer] Substance and Sexual Activity Alcohol use: Yes Alcohol/week: 0.8 standard drinks of alcohol Types: 1 drink(s) per week Sexual activity: Yes Partners: Female Allergies: No Known Allergies PHYSICAL ASSESSMENT General: Alert, cooperative, no distress, appears stated age Head: Normocephalic, without obvious abnormality, scattered abrasions and ecchy mosis resolving Eyes: Conjunctival hemorrhage. PERRL, EOMs intact. Ears: Normal external ear canals, both ears Nose: Nares normal. Septum midline. Mucosa normal. No drainage or sinus tende rness Throat: Lips, mucosa and tongue normal. Teeth and gums normal Neck: Supple, symmetrical, trachea midline, no adenopathy, thyroid: no enlargem ent/tenderness/nodules, no carotid bruit and no JVD Back: Symmetric, no curvature, ROM normal. No CVA tenderness. Lungs: Clear to auscultation bilaterally Chest wall: No tenderness or deformity. Heart: Regular rate and rhythm, S1, S2 normal, no murmur, click rub or gallop Abdomen: Soft, non-tender. Bowel sounds normal. No masses. No organomegaly. Extremities: Scattered areas of ecchymosis and abrasions, healing w/o s/sx infec tion. TTP of pelvis Neurologic: AOx1-2, Normal strength, sensation throughout. Musculoskeletal: Deconditioned and limited d/t pain r/t injuries SBIRT AUDIT-C 1. How often did you have a drink containing alcohol in the past year? 1 0: Never 1: monthly or less 2: 2-4x per month 3: 2-3x per week 4: 4 or more times per week 2. How many drinks containing alcohol did you have on a typical day when you wer e drinking in the past year? 0 0: 1-2 1: 3-4 2: 5-6 3: 7-9 4: 10 or more 3. How often did you have 6 or more drinks on one occasion in the last year? 0 0: Never 1: less than monthly 2: monthly 3: weekly 4: daily or almost daily Total: 1 Positive scores: >=4 for men, >=3 for women Consult Date Consult Date Neurosurgery 04/23 IM 04/23 Orthopedics 04/23 Plastics 04/23 Urology List Injuries Identified to Date: IPH, R zygomatic arch fx, R 1st costomanubrial fx, R 2nd rib fx, Trace R pneumo , R acetabular roof and L pubic rami fx. LIST OPERATIVE & Interventional RADIOLOGICAL Procedures: None FEEDING TUBE PLCMNT (ABD/CHEST LMTD) Final Result FINDINGS/IMPRESSION: Unchanged position of an enteric tube, which terminates in the third portion the duodenum. No dilated loops of bowel. Mild bibasilar opacities. Lumbar spine fusion hardwar e. Finalized by Aracelis Castañeda M.D. on 04/25/2023 8:43 AM. Dictated by Aracelis morocho M.D. on 04/25/2023 8:18 AM. FEEDING TUBE PLCMNT (ABD/CHEST LMTD) Final Result Feeding tube tip in the distal duodenum near the ligament of Treitz. Finalized by Dorothy Baker M.D. on 04/24/2023 8:32 AM. Dictated by Dorothy domínguez M.D. on 04/24/2023 8:30 AM. FEEDING TUBE PLCMNT (ABD/CHEST LMTD) Final Result Feeding tube tip in the mid stomach. Finalized by Dorothy Baker M.D. on 04/24/2023 8:20 AM. Dictated by Dorothy domínguez M.D. on 04/24/2023 8:18 AM. FEEDING TUBE PLCMNT (ABD/CHEST LMTD) Final Result Findings/impression: Single AP projection of the lower chest and upper abdomen was obtained. Indwelling enteric tube with the distal tip terminating over the stomach. Chest findings are more completely evaluated on same-day chest radiograph. Finalized by Jacqueline Child M.D. on 04/23/2023 4:57 PM. Dictated by Arturo Child M.D. on 04/23/2023 4:56 PM. ANTEVERSION SERIES PELVIS Final Result 1. Intubation, laminectomy and posterior lateral bone graft partially visualize d in the lower lumbar spine. 2. Large areas of central lucency peripheral sclerosis in the bilateral femoral heads greater on the left most compatible with underlying AVN. Mild camouflage of both hips. 3. Minimally displaced left superior and inferior pubic rami fractures are note d. There is limited detail, the reported right anterior acetabular fracture is n ot well demonstrated. 4. Symphysis pubis and SI joints are maintained. Minimal degenerative change of the hips. Finalized by Jorge Zamora M.D. on 04/23/2023 2:56 PM. Dictated by Lili Ahuja on 04/23/2023 2:51 PM. CHEST SINGLE VIEW Final Result 1. Trace medial right pneumothorax 2. Mild cardiomegaly with pulmonary vascular congestion with perihilar intersti tial opacities, likely edema. 3. Right chest wall subcutaneous emphysema. Approved by Andrew Ennis MD on 04/23/2023 10:40 AM By my electronic signature, I attest that I have personally reviewed the images for this examination and formulated the interpretations and opinions expressed i n this report Finalized by Lacho Hussein M.D. on 04/23/2023 10:55 AM. Dictated by Andrew Ennis MD on 04/23/2023 9:18 AM. 2D + DOPPLER ECHO Final Result HAND MIN 3 VIEWS RIGHT Final Result 1. No fracture or dislocation of the shoulder. Mild degenerative change at the AC joint and glenohumeral joint. 2. No acute fracture of the radius and ulna. Mild to moderate spurring of the r adial head at the elbow with small enthesophytes of the humeral epicondyles. 3. Moderate scattered osteoarthritis within the hand. There are external artifa cts. Small well-defined calcification on the dorsal aspect of the wrist fracture sequela of old injury though could be further evaluated with a dedicated exam of the wrist if there is focal tenderness in the dorsal wrist. 4. There is mild osteoarthritis of the knee greatest at the patellofemoral comp artment. No acute fracture identified. Mild knee joint effusion. Finalized by Jorge Zamora M.D. on 04/23/2023 8:19 AM. Dictated by Lili Ahuja on 04/23/2023 8:15 AM. KNEE 1 OR 2 VIEWS RIGHT Final Result 1. No fracture or dislocation of the shoulder. Mild degenerative change at the AC joint and glenohumeral joint. 2. No acute fracture of the radius and ulna. Mild to moderate spurring of the r adial head at the elbow with small enthesophytes of the humeral epicondyles. 3. Moderate scattered osteoarthritis within the hand. There are external artifa cts. Small well-defined calcification on the dorsal aspect of the wrist fracture sequela of old injury though could be further evaluated with a dedicated exam of the wrist if there is focal tenderness in the dorsal wrist. 4. There is mild osteoarthritis of the knee greatest at the patellofemoral comp artment. No acute fracture identified. Mild knee joint effusion. Finalized by Jorge Zamora M.D. on 04/23/2023 8:19 AM. Dictated by Lili Ahuja on 04/23/2023 8:15 AM. FOREARM 2 VIEWS RIGHT Final Result 1. No fracture or dislocation of the shoulder. Mild degenerative change at the AC joint and glenohumeral joint. 2. No acute fracture of the radius and ulna. Mild to moderate spurring of the r adial head at the elbow with small enthesophytes of the humeral epicondyles. 3. Moderate scattered osteoarthritis within the hand. There are external artifa cts. Small well-defined calcification on the dorsal aspect of the wrist fracture sequela of old injury though could be further evaluated with a dedicated exam of the wrist if there is focal tenderness in the dorsal wrist. 4. There is mild osteoarthritis of the knee greatest at the patellofemoral comp artment. No acute fracture identified. Mild knee joint effusion. Finalized by Jorge Zamora M.D. on 04/23/2023 8:19 AM. Dictated by Lili Ahuja on 04/23/2023 8:15 AM. SHOULDER MIN 2 VIEWS RIGHT Final Result 1. No fracture or dislocation of the shoulder. Mild degenerative change at the AC joint and glenohumeral joint. 2. No acute fracture of the radius and ulna. Mild to moderate spurring of the r adial head at the elbow with small enthesophytes of the humeral epicondyles. 3. Moderate scattered osteoarthritis within the hand. There are external artifa cts. Small well-defined calcification on the dorsal aspect of the wrist fracture sequela of old injury though could be further evaluated with a dedicated exam of the wrist if there is focal tenderness in the dorsal wrist. 4. There is mild osteoarthritis of the knee greatest at the patellofemoral comp artment. No acute fracture identified. Mild knee joint effusion. Finalized by Jorge Zamora M.D. on 04/23/2023 8:19 AM. Dictated by Lili Ahuja on 04/23/2023 8:15 AM. CTA HEAD WO/W CONT Final Result CTA head: 1. Multifocal intracranial atherosclerosis without intracranial blunt vascular injury or hemodynamic significant stenosis. 2. No significant change in mild multifocal left cerebral convexity and right c isternal subarachnoid hemorrhage and mild posterior left cerebral convexity subd ural hemorrhage. CTA neck: 1. Multifocal atherosclerosis with mild less than 25% narrowing of the ICAs and severe narrowing of the left vertebral artery origin. No evidence for blunt cer ebrovascular injury. 2. Increased trace right pneumothorax with similar displaced anterior right cos tochondral fracture and suspected right first costomanubrial injury. Increased r ight anterior chest wall subcutaneous gas. Findings were discussed with Dr. Crowell by Dr. Marie by telephone at 6:32 AM . Finalized by Jose Marie M.D. on 04/23/2023 6:35 AM. Dictated by Jose angulo M.D. on 04/23/2023 5:58 AM. CTA NECK WO/W CONT Final Result CTA head: 1. Multifocal intracranial atherosclerosis without intracranial blunt vascular injury or hemodynamic significant stenosis. 2. No significant change in mild multifocal left cerebral convexity and right c isternal subarachnoid hemorrhage and mild posterior left cerebral convexity subd ural hemorrhage. CTA neck: 1. Multifocal atherosclerosis with mild less than 25% narrowing of the ICAs and severe narrowing of the left vertebral artery origin. No evidence for blunt cer ebrovascular injury. 2. Increased trace right pneumothorax with similar displaced anterior right cos tochondral fracture and suspected right first costomanubrial injury. Increased r ight anterior chest wall subcutaneous gas. Findings were discussed with Dr. Crowell by Dr. Marie by telephone at 6:32 AM . Finalized by Jose Marie M.D. on 04/23/2023 6:35 AM. Dictated by Jose angulo M.D. on 04/23/2023 5:[address] MAXIFACIAL/SINUS WO CONTRAST Final Result Addendum (preliminary) 1 of 1 Finalized by Jose Marie M.D. on 04/23/2023 [...] Jose Marie M.D. on 04/23/2023 6:04 AM. Final 1. Right periorbital soft tissue contusion. No orbital rim fracture or hematoma . 2. Left mastoid and middle ear opacification, presumably a chronic effusion. Fl uid related to a radiographically occult left mastoid temporal bone fracture cou ld appear similar. Consider CT temporal bone for further characterization. 3. Cortical irregularity and lucency of the anterior nasal spine, likely chroni c. A minimally comminuted fracture of the anterior nasal spine is felt less like ly. Correlation for focal tenderness. 4. Grossly stable left cerebral convexity subarachnoid and subdural hemorrhage. TTS completed and radiology reviewed. No additional injuries or concerns noted. MARGARETTE Brito documented in this encounter Consult Notes * Alma Rosa Claros APRN-NP - 04/25/2023 3:12 PM CDT [facility] Consult Note Admission Date: 04/23/2023 Chief Complaint/Reason for Consult: Pelvic fractures Assessment/Plan Delmar Thornton is a 73 y.o. male with PMHx HTN, GERD, DM, HLD who presents as a trauma transfer from [place] after suspected fall from a dock, CT imaging demons trates a right anterior acetabular fx, left superior pubic ramus fx -No acute surgical intervention -Will treat these fractures non-operatively -WBAT BLE -ASA 81mg PO daily x 4 weeks -FU in ortho clinic in 4 weeks. Call [phone] to schedule -Pain control/medical management per primary -Imaging: reviewed -Labs: see below -Abx/tetanus: Not indicated from orthopedic standpoint -PPx: per primary Patient was discussed with Dr Angelo who helped formulate the plan During normal business hours, please contact Karine Cherry (Pager #[phone] on [facility]), Kristina Soliz (#[phone]), Kaitlyn Mahajan (#[phone]), Kyaw Jamison, Dexter Jacome (#[phone]) , or Justin White (#[phone]) regarding this patient. At all other times, contact the orthopedic surgery resident engineering and operations director for any questions or c oncerns. Alma Rosa Claros, ALANNAH-CAMP COUNSELOR History of Present Illness: Delmar Thornton is a 73 y.o. male with past medical history above who presents as a trauma transfer after falling down many cement s tairs at his [place] house. He was found by his neighbors after unknown amount of t bren and EMS was called. He is only oriented to self. He was found to have a smal l L parietal bleed as well as a 2nd rib fx, R acetabular, L pelvic fx. Patient i s slightly confused, and he does not know how he fell. Currently awake in bed. Does not show recollection of pelvic fractures or of re cently moving from bed to chair. Medical History: Diagnosis Date Arthritis BPH with urinary obstruction HLD (hyperlipidemia) HTN (hypertension) Prostate cancer (HCC) 08/21/2010 Type II diabetes mellitus (HCC) Surgical History: Procedure Laterality Date HI SURG TX ANAL FISTULA SUBQ 2000 Rectocutaneous Fistulectomy HX ROTATOR CUFF REPAIR 2005 Right HI LAPS PROSTECT RETROPUBIC RAD W/NRV SPARING ROBOT 10/23/2010 HI LAPS SURG BILATERAL TOTAL PELVIC LMPHADECTOMY 10/23/2010 HI LAPAROSCOPY W/LYSIS OF ADHESIONS 10/23/2010 HX APPENDECTOMY early Open Appy HX BUNIONECTOMY ~ 1994 Social History Substance Use Topics Alcohol use: Yes Alcohol/week: 0.8 standard drinks of alcohol Types: 1 drink(s) per week Family Hx: Reviewed and non-contributory Allergies: Patient has no known allergies. Outpatient Medications as of 04/25/2023 Medication Sig Dispense Refill ascorbic acid (VITAMIN C) 500 mg PO tablet Take 1,500 mg by mouth Daily. aspirin 81 mg PO chew tablet Take 1 Tab by mouth daily. 1 Tab 0 Fish Oil-Fat Acid Comb.8-Hb137 (OMEGA 3-6-9) 1,200 mg PO Cap Take 1 Cap by m outh Three Times Daily. hyoscyamine (LEVSIN/SL) 0.125 mg SL tablet 1 Tab every 4 hours as needed for Other... (Bladder spasms). 40 Tab 0 MELOXICAM PO Take 15 mg by mouth Daily. metformin (GLUCOPHAGE) 500 mg PO tablet Take 500 mg by mouth Twice Daily Wit h Meals. olmesartan-hydrochlorothiazide (BENICAR HCT) 20-12.5 mg PO per tablet Take 1 Tab by mouth Daily. oxycodone/acetaminophen (PERCOCET) 5/325 mg PO tablet Take 1 Tab by mouth ev hortencia 4 hours as needed for Pain. 45 Tab 0 polymyxin/bacitracin/jared/HC (CORTISPORIN) 1 % TP topical ointment Apply to affected area three times daily. 1 Container 0 pravastatin (PRAVACHOL) 80 mg PO tablet Take 80 mg by mouth Daily. senna/docusate (SENOKOT-S) 8.6/50 mg PO tablet Take 1 Tab by mouth twice roberto ly. 60 Tab 2 tolterodine LA(+) (DETROL LA) 4 mg PO capsule Take 4 mg by mouth Daily. vitamin E 400 unit PO capsule Take 400 Units by mouth Daily. vitamins, multiple PO Cap Take 1 Cap by mouth Daily. Review of Systems: Negative for stated in HPI above Vital Signs: Last Filed in 24 hours BP: 170/83 (04/25 1324) Temp: 37.2 C (98.9 F) (04/25 1324) Pulse: 67 (04/25 1324) Respirations: 16 PER MINUTE (04/25 1324) SpO2: 94 % (04/25 1324) O2 Device: None (Room air) (04/25 1324) Physical Exam: Constitutional: Alert, NAD HEENT: EOMI, normocephalic Respiratory: Unlabored respirations Cardiovascular: Regular rate Skin: No open fractures, rashes, abrasions, lacerations Musculoskeletal: Extremities: RLE: NVI distally, TA/GS, EHL/FHL intact. SILT in DP/SP/Tib/Chris/Saph distribut ions, DP/PT palpable, Cap refill < 2 sec, warm extremity, soft compartments LLE: NVI distally, TA/GS, EHL/FHL intact. SILT in DP/SP/Tib/Chris/Saph distributi ons, DP/PT palpable, Cap refill < 2 sec, soft compartments. Spontaneous movement of left leg when prompted. More difficulty with spontaneou s right leg movement. Denies pain with passive ROM of right hip Lab/Radiology/Other Diagnostic Tests: Radiology: Reviewed CBC w/Diff Lab Results Component Value Date/Time WBC 11.3 (H) 04/25/2023 02:45 AM HGB 13.0 (L) 04/25/2023 02:45 AM HCT 38.0 (L) 04/25/2023 02:45 AM PLTCT 246 04/25/2023 02:45 AM Inflammatory Markers No results found for: "ESR", "CRP" Coagulation Studies Lab Results Component Value Date/Time PT 11.8 04/23/2023 04:29 AM PTT 25.0 04/23/2023 04:29 AM INR 1.1 04/23/2023 04:29 AM Basic Metabolic Profile Lab Results Component Value Date/Time NA 140 04/25/2023 02:45 AM K 4.3 04/25/2023 02:45 AM CL 104 04/25/2023 02:45 AM CO2 22 04/25/2023 02:45 AM GAP 14 (H) 04/25/2023 02:45 AM BUN 31 (H) 04/25/2023 02:45 AM CR 1.20 04/25/2023 02:45 AM GLU 194 (H) 04/25/2023 02:45 AM FEEDING TUBE PLCMNT (ABD/CHEST LMTD) Final Result FINDINGS/IMPRESSION: Unchanged position of an enteric tube, which terminates in the third portion the duodenum. No dilated loops of bowel. Mild bibasilar opacities. Lumbar spine fusion hardwar e. Finalized by Aracelis Castañeda M.D. on 04/25/2023 8:43 AM. Dictated by Aracelis morocho M.D. on 04/25/2023 8:18 AM. FEEDING TUBE PLCMNT (ABD/CHEST LMTD) Final Result Feeding tube tip in the distal duodenum near the ligament of Treitz. Finalized by Dorothy Baker M.D. on 04/24/2023 8:32 AM. Dictated by Dorothy domínguez M.D. on 04/24/2023 8:30 AM. FEEDING TUBE PLCMNT (ABD/CHEST LMTD) Final Result Feeding tube tip in the mid stomach. Finalized by Dorothy Baker M.D. on 04/24/2023 8:20 AM. Dictated by Dorothy domínguez M.D. on 04/24/2023 8:18 AM. FEEDING TUBE PLCMNT (ABD/CHEST LMTD) Final Result Findings/impression: Single AP projection of the lower chest and upper abdomen was obtained. Indwelling enteric tube with the distal tip terminating over the stomach. Chest findings are more completely evaluated on same-day chest radiograph. Finalized by Jacuqeline Child M.D. on 04/23/2023 4:57 PM. Dictated by Arturo Child M.D. on 04/23/2023 4:56 PM. ANTEVERSION SERIES PELVIS Final Result 1. Intubation, laminectomy and posterior lateral bone graft partially visualize d in the lower lumbar spine. 2. Large areas of central lucency peripheral sclerosis in the bilateral femoral heads greater on the left most compatible with underlying AVN. Mild camouflage of both hips. 3. Minimally displaced left superior and inferior pubic rami fractures are note d. There is limited detail, the reported right anterior acetabular fracture is n ot well demonstrated. 4. Symphysis pubis and SI joints are maintained. Minimal degenerative change of the hips. Finalized by Jorge Zamora M.D. on 04/23/2023 2:56 PM. Dictated by Lili Ahuja on 04/23/2023 2:51 PM. CHEST SINGLE VIEW Final Result 1. Trace medial right pneumothorax 2. Mild cardiomegaly with pulmonary vascular congestion with perihilar intersti tial opacities, likely edema. 3. Right chest wall subcutaneous emphysema. Approved by Andrew Ennis MD on 04/23/2023 10:40 AM By my electronic signature, I attest that I have personally reviewed the images for this examination and formulated the interpretations and opinions expressed i n this report Finalized by Lacho Hussein M.D. on 04/23/2023 10:55 AM. Dictated by Andrew Ennis MD on 04/23/2023 9:18 AM. 2D + DOPPLER ECHO Final Result HAND MIN 3 VIEWS RIGHT Final Result 1. No fracture or dislocation of the shoulder. Mild degenerative change at the AC joint and glenohumeral joint. 2. No acute fracture of the radius and ulna. Mild to moderate spurring of the r adial head at the elbow with small enthesophytes of the humeral epicondyles. 3. Moderate scattered osteoarthritis within the hand. There are external artifa cts. Small well-defined calcification on the dorsal aspect of the wrist fracture sequela of old injury though could be further evaluated with a dedicated exam of the wrist if there is focal tenderness in the dorsal wrist. 4. There is mild osteoarthritis of the knee greatest at the patellofemoral comp artment. No acute fracture identified. Mild knee joint effusion. Finalized by Jorge Zamora M.D. on 04/23/2023 8:19 AM. Dictated by Lili Ahuja on 04/23/2023 8:15 AM. KNEE 1 OR 2 VIEWS RIGHT Final Result 1. No fracture or dislocation of the shoulder. Mild degenerative change at the AC joint and glenohumeral joint. 2. No acute fracture of the radius and ulna. Mild to moderate spurring of the r adial head at the elbow with small enthesophytes of the humeral epicondyles. 3. Moderate scattered osteoarthritis within the hand. There are external artifa cts. Small well-defined calcification on the dorsal aspect of the wrist fracture sequela of old injury though could be further evaluated with a dedicated exam of the wrist if there is focal tenderness in the dorsal wrist. 4. There is mild osteoarthritis of the knee greatest at the patellofemoral comp artment. No acute fracture identified. Mild knee joint effusion. Finalized by Jorge Zamora M.D. on 04/23/2023 8:19 AM. Dictated by Lili Ahuja on 04/23/2023 8:15 AM. FOREARM 2 VIEWS RIGHT Final Result 1. No fracture or dislocation of the shoulder. Mild degenerative change at the AC joint and glenohumeral joint. 2. No acute fracture of the radius and ulna. Mild to moderate spurring of the r adial head at the elbow with small enthesophytes of the humeral epicondyles. 3. Moderate scattered osteoarthritis within the hand. There are external artifa cts. Small well-defined calcification on the dorsal aspect of the wrist fracture sequela of old injury though could be further evaluated with a dedicated exam of the wrist if there is focal tenderness in the dorsal wrist. 4. There is mild osteoarthritis of the knee greatest at the patellofemoral comp artment. No acute fracture identified. Mild knee joint effusion. Finalized by Jorge Zamora M.D. on 04/23/2023 8:19 AM. Dictated by Lili Ahuja on 04/23/2023 8:15 AM. SHOULDER MIN 2 VIEWS RIGHT Final Result 1. No fracture or dislocation of the shoulder. Mild degenerative change at the AC joint and glenohumeral joint. 2. No acute fracture of the radius and ulna. Mild to moderate spurring of the r adial head at the elbow with small enthesophytes of the humeral epicondyles. 3. Moderate scattered osteoarthritis within the hand. There are external artifa cts. Small well-defined calcification on the dorsal aspect of the wrist fracture sequela of old injury though could be further evaluated with a dedicated exam of the wrist if there is focal tenderness in the dorsal wrist. 4. There is mild osteoarthritis of the knee greatest at the patellofemoral comp artment. No acute fracture identified. Mild knee joint effusion. Finalized by Jorge Zamora M.D. on 04/23/2023 8:19 AM. Dictated by Lili Ahuja on 04/23/2023 8:15 AM. CTA HEAD WO/W CONT Final Result CTA head: 1. Multifocal intracranial atherosclerosis without intracranial blunt vascular injury or hemodynamic significant stenosis. 2. No significant change in mild multifocal left cerebral convexity and right c isternal subarachnoid hemorrhage and mild posterior left cerebral convexity subd ural hemorrhage. CTA neck: 1. Multifocal atherosclerosis with mild less than 25% narrowing of the ICAs and severe narrowing of the left vertebral artery origin. No evidence for blunt cer ebrovascular injury. 2. Increased trace right pneumothorax with similar displaced anterior right cos tochondral fracture and suspected right first costomanubrial injury. Increased r ight anterior chest wall subcutaneous gas. Findings were discussed with Dr. Crowell by Dr. Marie by telephone at 6:32 AM . Finalized by Jose Marie M.D. on 04/23/2023 6:35 AM. Dictated by Jose angulo M.D. on 04/23/2023 5:58 AM. CTA NECK WO/W CONT Final Result CTA head: 1. Multifocal intracranial atherosclerosis without intracranial blunt vascular injury or hemodynamic significant stenosis. 2. No significant change in mild multifocal left cerebral convexity and right c isternal subarachnoid hemorrhage and mild posterior left cerebral convexity subd ural hemorrhage. CTA neck: 1. Multifocal atherosclerosis with mild less than 25% narrowing of the ICAs and severe narrowing of the left vertebral artery origin. No evidence for blunt cer ebrovascular injury. 2. Increased trace right pneumothorax with similar displaced anterior right cos tochondral fracture and suspected right first costomanubrial injury. Increased r ight anterior chest wall subcutaneous gas. Findings were discussed with Dr. Crowell by Dr. Marie by telephone at 6:32 AM . Finalized by Jose Marie M.D. on 04/23/2023 6:35 AM. Dictated by Jose angulo M.D. on 04/23/2023 5:[address] MAXIFACIAL/SINUS WO CONTRAST Final Result Addendum (preliminary) 1 of Finalized by Jose Marie M.D. on 04/23/2023 [...] Jose Marie M.D. on 04/23/2023 6:04 AM. Final 1. Right periorbital soft tissue contusion. No orbital rim fracture or hematoma . 2. Left mastoid and middle ear opacification, presumably a chronic effusion. Fl uid related to a radiographically occult left mastoid temporal bone fracture cou ld appear similar. Consider CT temporal bone for further characterization. 3. Cortical irregularity and lucency of the anterior nasal spine, likely chroni c. A minimally comminuted fracture of the anterior nasal spine is felt less like ly. Correlation for focal tenderness. 4. Grossly stable left cerebral convexity subarachnoid and subdural hemorrhage. * Phan Waite MD - 04/25/2023 12:57 PM CDTAssociated Order(s): CONSULT REHABILITATION MEDICINE PHYSICIAN Physical Medicine & Rehabilitation Consult Service Date of Service: 04/25/2023 Delmar Thornton is a 73 y.o.. : 1950 Financial Class: Payor: AET MEDICARE / Plan: TNA MEDICARE PPO / Product Type : Medicare / Date of Admission: 04/23/2023 Referring Physician: Jerald Crawford MD Reason for Consult: evaluate for Post-Acute Rehab/Placement Precautions: Fall, WBAT BLE Assessment & Plan: Principal Problem: Trauma TBI Hip fracture Multiple traumatic injuries Gait abnormality Impaired mobility/ADLs Impaired transfers Cognitive Deficits Delmar Tohrnton is a 73 y.o. year old male admitted to [facility] on 04/23/2023 with the following issues: TBI, multiple traumatic injuries Impairments: cognitive impairments, pain and weakness Activity Limitations: eating, grooming, toileting, transfers, ambulation and st airs Participation Restrictions: unable to return home safely Family / Patient Dispositional Goals: return home to previous level of function Overall Functional Goals The patient will need to be modified independent for all home distance mobility and self-cares including stair navigation Recommendations: Post-acute care rehabilitation needs: The patient certainly has significant medical complexity in setting of acute tra umatic brain injury with improving cognitive deficits, multiple traumatic injuri es including hip and pelvic fractures requiring specialized brain injury rehabil itation at an acute inpatient rehab facility. Barriers/Facilitators: Barriers: High burden of care Facilitators: good family / social support and patient motivation Rehabilitation Prognosis: Good Tolerance for three hours of therapy a day: Good Impaired gait/mobility/transfers: The patient will benefit from continued work with PT to address mobility deficit s Impaired ADLs: The patient will benefit from ongoing OT to address functional deficits Thank you for this consultation. Please contact the Rehab Medicine consultation service with questions or concerns. Phan Waite MD History of Present Illness: Hospital Course: Mr. Thornton is a 73 y.o. male with PMH of hypertension, diabete s, HLD, presenting to [facility] on 04/23 after falling down c ement stairs sustaining multiple traumatic injuries including a left parietal bl eed, rib fractures, right acetabular and left pelvic fractures. He is unable to recall the events of his injury, presenting with a GCS of 13. Orthopedic surge ry consulted with no acute plans for surgery, currently WBAT BLE. Neurosurgery was consulted, no acute plans for surgical treatment, prophylactic Keppra initia ottoniel. His hospital course has been complicated by cognitive deficits which are s lowly improving, ataxia, unsteady gait, diffuse weakness rhabdomyolysis. Medici ne service consulted to assist with medical comorbidities. The primary team has consulted PT and OT, and will continue working with therapi es to address functional and mobility deficits, rehab is now consulted for post- acute rehab/placement recommendations. The patient's family/social support consists of: The patient was previously danielle ng alone (spouse lives at a long-term care facility) in a home with 3 steps to e nter and a few steps within the house. He was previously independent for all co mmunity distance mobility and self-cares.. Medical History: Diagnosis Date Arthritis BPH with urinary obstruction HLD (hyperlipidemia) HTN (hypertension) Prostate cancer (HCC) 08/21/2010 Type II diabetes mellitus (HCC) Surgical History: Procedure Laterality Date HI SURG TX ANAL FISTULA SUBQ 2000 Rectocutaneous Fistulectomy HX ROTATOR CUFF REPAIR 2005 Right HI LAPS PROSTECT RETROPUBIC RAD W/NRV SPARING ROBOT 10/23/2010 HI LAPS SURG BILATERAL TOTAL PELVIC LMPHADECTOMY 10/23/2010 HI LAPAROSCOPY W/LYSIS OF ADHESIONS 10/23/2010 HX APPENDECTOMY early Open Appy HX BUNIONECTOMY ~ 1994 Social History Socioeconomic History Marital status: Occupational History Employer: RETIRED Comment: [employer] Substance and Sexual Activity Alcohol use: Yes Alcohol/week: 0.8 standard drinks of alcohol Types: 1 drink(s) per week Sexual activity: Yes Partners: Female Family History Problem Relation Age of Onset Heart Attack Other Stroke Other Scheduled Meds:acetaminophen (TYLENOL EXTRA STRENGTH) tablet 1,000 mg, 1,000 mg, Oral, Q6H* amantadine (SYMMETREL) tablet 100 mg, 100 mg, Oral, BID (See eMAR) amLODIPine (NORVASC) tablet 10 mg, 10 mg, Oral, QDAY enoxaparin (LOVENOX) syringe 40 mg, 40 mg, Subcutaneous, QDAY valsartan (DIOVAN) tablet 80 mg, 80 mg, Oral, QDAY And hydroCHLOROthiazide tablet 12.5 mg, 12.5 mg, Oral, QDAY insulin aspart (U-100) (NOVOLOG FLEXPEN U-100 INSULIN) injection PEN 0-12 Units, 0-12 Units, Subcutaneous, ACHS (22) polyethylene glycol 3350 (MIRALAX) packet 17 g, 17 g, Oral, QDAY senna (SENOKOT) tablet 2 tablet, 2 tablet, Oral, BID tamsulosin (FLOMAX) capsule 0.4 mg, 0.4 mg, Oral, QDAY after breakfast Continuous Infusions: PRN and Respiratory Meds:dextrose 50% (D50) IV PRN, oxyCODONE Q3H PRN No Known Allergies Home Environment: Home Situation: Lives Alone (spouse is currently in a rehab facility and sounds like she may be there more residential) (04/25/2023 9:00 AM) Patient Owned Equipment: None (04/25/2023 9:00 AM) Type of Home: House (04/25/2023 10:00 AM) Entry Stairs: 3-5 Stairs (04/25/2023 9:00 AM) In-Home Stairs: 1-2 Stairs (04/25/2023 9:00 AM) No data recorded No data recorded @ADDRESSFULL@ Current Level Of Function: PT Gait:Gait Distance: 3 feet Gait: Assistance Level: Moderate Assist, x2 People Gait: Assistive Device: Roller Walker Bed Mobility/Transfers Bed Mobility: Supine to Sit: Moderate Assist, x2 People, Head of Bed Elevated, A ssist with B LE, Assist with Trunk Bed Mobility: Sit to Supine: Maximum Assist, x2 People Transfer Type: Sit to/from Stand Transfer: Assistance Level: To/From, Bed, Moderate Assist, x2 People Transfer: Assistive Device: Roller Walker Transfers: Type Of Assistance: Verbal Cues, Elevated Bed, For Balance, For Stren gth Deficit (assist to position R foot closer to bed prior to standing) End Of Activity Status: Up in Chair, Nursing Notified, Instructed Patient to Req uest Assist with Mobility, Instructed Patient to Use Call Light (chair height el evated with folded blankets x2 and pillow) Comments: able to move LLE to take a side step, difficulty moving R LE to side ( leg starts to buckle), limited by pain and weakness OT ADL's Where Assessed: Chair Eating Deficits: NPO, NPO, but hand to mouth WNL Grooming Assist: Stand By Assist Grooming Deficits: Setup LE Dressing Assist: Total Assist LE Dressing Deficits: Don/Doff R Sock, Don/Doff L Sock Toileting Assist: Total Assist Toileting Deficits: (suha) Comment: Pt sitting in chair. Attempted to amb with chair follow but pt attempte d to take step forward and LEs buckled. Pt took steps to bed with mod assist xs' 2 with RW. Pt slow processing and not oriented except for self. Pt follows comm ands with delay. CLEARING HAND COGNITIVE EVALUATION SUMMARY PRAGMATICS: BEHAVIOR: AUDITORY COMPREHENSION: ORIENTATION: AUDITORY ATTENTION/WORKING MEMORY: AUDITORY MEMORY/SUSTAINED ATTENTION: NEW LEARNING: SEQUENCING/ORGANIZATION: PROBLEM SOLVING: REASONING: MATH/MONEY SKILLS: VISUAL PERCEPTUAL: SWALLOW EVALUATION SUMMARY Oral Stage Summary: WFL Pharyngeal Stage Summary: WFL Swallow Recommendations* PO: Regular, Thin liquids Plan: Other (Comment) (cognitive evaluation when appropriate) Prognosis: Fair Review of Systems: A 14 point review of systems was negative except for: that noted in the HPI Physical Exam: BP: 165/80 (04/25 719) Temp: 37 C (98.6 F) (04/25 719) Pulse: 68 (04/25 719) Respirations: 18 PER MINUTE (04/25 719) SpO2: 94 % (04/25 719) O2 Device: None (Room air) (04/25 300) Body mass index is 31.98 kg/m. Gen: Alert, oriented to person only HEENT: EOMI Neck: Supple, Heart: Extremities well perfused Lungs: non labored breathing Abdomen: Soft, non-tender, non-distended Skin: no gross lesions appreciated Ext: No significant BLE edema MS: Root Right Left Shoulder Abduction C5 5 5 Elbow Flexion C5 5 5 Elbow Extension C7 4 4 Hip Flexion L2 3 3 Knee Flexion L5/S1 4 4 Knee Extension L3 4 4 Dorsiflexion L4 4 4 Plantarflexion S1 5 5 Neuro: DTR's 1+ throughout Babinski Plantar Reflex is Downgoing Bilaterally Clonus Negative Bilaterally Memory/Cognition/Speech patient confused, able to follow simple commands with r epetition Intake/Output Summary (Last 24 hours) at 04/25/2023 1257 Last data filed at 04/25/2023 0900 Gross per 24 hour Intake 1167 ml Output 2185 ml Net -1018 ml Hematology: Lab Results Component Value Date HGB 13.0 04/25/2023 HCT 38.0 04/25/2023 PLTCT 246 04/25/2023 WBC 11.3 04/25/2023 MCV 92.9 04/25/2023 MCH 31.7 04/25/2023 MCHC 34.1 04/25/2023 MPV 8.2 04/25/2023 RDW 14.3 04/25/2023 , Coagulation: Lab Results Component Value Date PT 11.8 04/23/2023 PTT 25.0 04/23/2023 INR 1.1 04/23/2023 and General Chemistry: Lab Results Component Value Date NA 140 04/25/2023 K 4.3 04/25/2023 CL 104 04/25/2023 CO2 22 04/25/2023 GAP 14 04/25/2023 BUN 31 04/25/2023 CR 1.20 04/25/2023 GLU 194 04/25/2023 CA 9.5 04/25/2023 ALBUMIN 3.5 04/24/2023 LACTIC 1.9 04/23/2023 OBSCA 1.11 04/23/2023 MG 2.2 04/25/2023 TOTBILI 0.7 04/24/2023 PO4 2.8 04/25/2023 Radiology: Reviewed Phan Waite MD * Isaura Rankin MD - 04/23/2023 8:24 AM CDTAssociated Order(s): CONSULT INTERNAL MEDICINE PHYSICIAN Internal Medicine Initial Consult Note Patient's Name: Delmar Thornton Today's Date: 04/23/2023 Admission Date: 04/23/2023 LOS: 0 days Problem list Principal Problem: Trauma Consult: Geriatric Trauma Type: written opinion Assessment and Plan Delmar Thornton is a 73 y/o male with PMH HTN, DM, GERD who presented as transfe r to [facility] for being found down and was found to have small L parietal hemorrhage, rib fracture, zygomatic arch fracture, and pelvic fracture. Fall L parietal hemorrhage Rib, zygomatic arch, pelvic fractures - per discussion with daughter and granddaughter, the area where he fell has gra brandy and would be easy to trip on, they also report that he has been noticeably u nsteady on his feet lately, he was oriented when found so he was able to report it was dark when he went to water his plants and was then found down at approxim ately 8PM - unable to obtain hx from patient based on AMS - based on this history, sounds like fall is 2/2 unsteady gait, other considerat ions would include syncope, orthostatic hypotension, heat exhaustion - ortho, nsg, plastics consulted - receiving Keppra seizure ppx for hemorrhage Altered Mental Status - patient is oriented to self only - per chart review mental status has been fluctuating during admission - has elevated CPK, AST/ALT, BUN on admission - suspect metabolic encephalopathy Rhabdo - CK 1610, AST 515, ALT 385 - on LR CKD - known CKD stage 2 per daughter - elevated Scr & BUN on admission DM - per daughter, patient on Trulicity and insulin at home - currently on MDCF HTN HLD - hx of HTN & HLD, takes medication at home but family is unsure what medication - BP has been 140s-150s/70s Recommendations: - Med Rec with pharmacy - Consider syncopal work up including ECHO & orthostatics - Agree with telemetry to monitor for rhythm changes - Recommend LDCF while NPO - okay to hold off on starting daily antihypertensive for now while awaiting med rec - Agree with Xiang for seizure ppx - Recommend delirium precautions - Agree with LR for Rhabdo treatment Discussed with Dr. Vielka Rankin MD PharmD 04/23/23 PGY1 Neurology Available on [employer] Pager #[phone] Subjective: Chief Complaint: Found down after presumed fall down several stairs HPI: History obtained from chart review. Patient was found at [place] of a [place], there are 3 flights of stairs at this location. Unknown how far he fell or how long he had been down. Neighbor s found him and called an ambulance. Patient lives alone. At OSH he was found to have small L parietal hemorrhage, rib fracture, pelvic fractures. He was transf erred to for ICU care. He has had altered mental status since being found clif n. Patient was seen at bedside. He was able to wake to voice. He denies abdominal p ain. He believes he is in his daughters house. When asked what pharmacy he goes too he answered "[id number]." Unable to obtain history. Later daughter & granddaughter seen at bedside. They report that he roth plants daily. This is likely what he was doing when he fell. He has been unsteady on his feet lately. The path to the stairs down to the plants he roth has gravel. They state that they imagine he tripped on something. They do not believe he was down for long because the neighbors heard him moaning and swam over around 8PM. He was lucid when first found and stated that he went to water the plants after dark. They are unsure what antihypertensives he takes but they know he takes insulin and Trulicity for his DM. Review of Systems Unable to perform ROS: Mental status change Past medical history: The patient has a past medical history of Arthritis, BPH with urinary obstructi on, HLD (hyperlipidemia), HTN (hypertension), Prostate cancer (HCC) (08/21/2010) , and Type II diabetes mellitus (HCC). Social history: Unable to obtain due to patient's mental status Social History Substance Use Topics Alcohol use: Yes Alcohol/week: 0.8 standard drinks of alcohol Types: 1 drink(s) per week Past surgical history: The patient has a past surgical history that includes appendectomy (early ); bunionectomy (~ 1994); surg tx anal fistula subq (1999); rotator cuff repair (2004); laps prostect retropubic rad w/nrv sparing robot (10/23/2010); laps surg bilateral total pelvic lmphadectomy (10/23/2010); and laparoscopy w/lysis of ad hesions (10/23/2010). Family History: family history includes Heart Attack in an other family member; Stroke in an oth er family member. Objective: Vital Signs: BP (!) 148/73 (BP Source: Arm, Left Upper) | Pulse 65 | Temp 37.5 C (99.5 F) | Ht 180.3 cm (5' 11") | Wt 104 kg (229 lb 4.5 oz) | SpO2 96% | BMI 31.98 kg/m Physical Exam HENT: Head: Comments: Hematoma of L eye Cardiovascular: Rate and Rhythm: Normal rate and regular rhythm. Pulses: Normal pulses. Abdominal: General: Bowel sounds are normal. Palpations: Abdomen is soft. Tenderness: There is no guarding. Musculoskeletal: Right lower leg: No edema. Left lower leg: No edema. Neurological: Mental Status: He is disoriented. Comments: Oriented to name only. Location "daughter's house" Year "2002" Alfredo h "2006" Moves all four extremities spontaneously Labs: Recent Labs 04/23/23428 HGB 12.3* HCT 36.6* WBC 11.6* PLTCT 251 NA 141 K 4.7 CL 107 CO2 23 BUN 31* CR 1.83* GLU 185* CA 9.0 MG 2.1 PO4 4.2 ALBUMIN 3.9 TOTPROT 6.7 TOTBILI 0.5 AST 515* ALT 385* ALKPHOS 43 INR 1.1 PTT 25.0 Glucose: (!) 185 (04/23/23428) KNEE 1 OR 2 VIEWS RIGHT Result Date: 04/23/2023 1. No fracture or dislocation of the shoulder. Mild degenerative change at the AC joint and glenohumeral joint. 2. No acute fracture of the radius and ulna. M ild to moderate spurring of the radial head at the elbow with small enthesophyte s of the humeral epicondyles. 3. Moderate scattered osteoarthritis within the h and. There are external artifacts. Small well-defined calcification on the dorsa l aspect of the wrist fracture sequela of old injury though could be further sreedhar luated with a dedicated exam of the wrist if there is focal tenderness in the do rsal wrist. 4. There is mild osteoarthritis of the knee greatest at the patello femoral compartment. No acute fracture identified. Mild knee joint effusion. Fi nalized by Jorge Zamora M.D. on 04/23/2023 8:19 AM. Dictated by Jorge Zamora M.D. on 04/23/2023 8:15 AM. SHOULDER MIN 2 VIEWS RIGHT Result Date: 04/23/2023 1. No fracture or dislocation of the shoulder. Mild degenerative change at the AC joint and glenohumeral joint. 2. No acute fracture of the radius and ulna. M ild to moderate spurring of the radial head at the elbow with small enthesophyte s of the humeral epicondyles. 3. Moderate scattered osteoarthritis within the h and. There are external artifacts. Small well-defined calcification on the dorsa l aspect of the wrist fracture sequela of old injury though could be further sreedhar luated with a dedicated exam of the wrist if there is focal tenderness in the do rsal wrist. 4. There is mild osteoarthritis of the knee greatest at the patello femoral compartment. No acute fracture identified. Mild knee joint effusion. Fi nalized by Jorge Zamora M.D. on 04/23/2023 8:19 AM. Dictated by Jorge Zamora M.D. on 04/23/2023 8:15 AM. HAND MIN 3 VIEWS RIGHT Result Date: 04/23/2023 1. No fracture or dislocation of the shoulder. Mild degenerative change at the AC joint and glenohumeral joint. 2. No acute fracture of the radius and ulna. M ild to moderate spurring of the radial head at the elbow with small enthesophyte s of the humeral epicondyles. 3. Moderate scattered osteoarthritis within the h and. There are external artifacts. Small well-defined calcification on the dorsa l aspect of the wrist fracture sequela of old injury though could be further sreedhar luated with a dedicated exam of the wrist if there is focal tenderness in the do rsal wrist. 4. There is mild osteoarthritis of the knee greatest at the patello femoral compartment. No acute fracture identified. Mild knee joint effusion. Fi nalized by Jorge Zamora M.D. on 04/23/2023 8:19 AM. Dictated by Jorge Zamora M.D. on 04/23/2023 8:15 AM. FOREARM 2 VIEWS RIGHT Result Date: 04/23/2023 1. No fracture or dislocation of the shoulder. Mild degenerative change at the AC joint and glenohumeral joint. 2. No acute fracture of the radius and ulna. M ild to moderate spurring of the radial head at the elbow with small enthesophyte s of the humeral epicondyles. 3. Moderate scattered osteoarthritis within the h and. There are external artifacts. Small well-defined calcification on the dorsa l aspect of the wrist fracture sequela of old injury though could be further sreedhar luated with a dedicated exam of the wrist if there is focal tenderness in the do rsal wrist. 4. There is mild osteoarthritis of the knee greatest at the patello femoral compartment. No acute fracture identified. Mild knee joint effusion. Fi nalized by Jorge Zamora M.D. on 04/23/2023 8:19 AM. Dictated by Jorge Zamora M.D. on 04/23/2023 8:[address] MAXIFACIAL/SINUS WO CONTRAST Addendum Date: 04/23/2023 Finalized by Jose Marie M.D. on 04/23/2023 5:57 AM. Dictated by Jose angulo M.D. on 04/23/2023 5:38 AM.Addendum: Addendum: Following further review, there is a nondisplaced lucency to the right zygomatic arch, consistent with a nondis placed right zygomatic arch fracture. Findings were discussed with Dr. Crowell by Dr. Marie by electronic message at 6:32 AM 04/23/2023. Finalized by Jose Marie M.D. on 04/23/2023 6:36 AM. Dictated by Jose Marie M.D. on 04/23/2023 6: 04 AM. Result Date: 04/23/2023 1. Right periorbital soft tissue contusion. No orbital rim fracture or hematoma . 2. Left mastoid and middle ear opacification, presumably a chronic effusion. Fluid related to a radiographically occult left mastoid temporal bone fracture c ould appear similar. Consider CT temporal bone for further characterization. 3. Cortical irregularity and lucency of the anterior nasal spine, likely chronic. A minimally comminuted fracture of the anterior nasal spine is felt less likely. Correlation for focal tenderness. 4. Grossly stable left cerebral convexity bourgeois barachnoid and subdural hemorrhage. CTA HEAD WO/W CONT Result Date: 04/23/2023 CTA head: 1. Multifocal intracranial atherosclerosis without intracranial blunt vascular injury or hemodynamic significant stenosis. 2. No significant change in mild multifocal left cerebral convexity and right cisternal subarachnoid hemo rrhage and mild posterior left cerebral convexity subdural hemorrhage. CTA neck: 1. Multifocal atherosclerosis with mild less than 25% narrowing of the ICAs and severe narrowing of the left vertebral artery origin. No evidence for blunt ce rebrovascular injury. 2. Increased trace right pneumothorax with similar displa matias anterior right costochondral fracture and suspected right first costomanubri al injury. Increased right anterior chest wall subcutaneous gas. Findings were d iscussed with Dr. Crowell by Dr. Marie by telephone at 6:32 AM 04/23/2023. Nataliya lized by Jose Marie M.D. on 04/23/2023 6:35 AM. Dictated by Arsh Gonzáles on 04/23/2023 5:58 AM. CTA NECK WO/W CONT Result Date: 04/23/2023 CTA head: 1. Multifocal intracranial atherosclerosis without intracranial blunt vascular injury or hemodynamic significant stenosis. 2. No significant change in mild multifocal left cerebral convexity and right cisternal subarachnoid hemo rrhage and mild posterior left cerebral convexity subdural hemorrhage. CTA neck: 1. Multifocal atherosclerosis with mild less than 25% narrowing of the ICAs and severe narrowing of the left vertebral artery origin. No evidence for blunt ce rebrovascular injury. 2. Increased trace right pneumothorax with similar displa matias anterior right costochondral fracture and suspected right first costomanubri al injury. Increased right anterior chest wall subcutaneous gas. Findings were d iscussed with Dr. Crowell by Dr. Marie by telephone at 6:32 AM 04/23/2023. Nataliya lized by Jose Marie M.D. on 04/23/2023 6:35 AM. Dictated by Arsh Gonzáles on 04/23/2023 5:58 AM. Meds: Scheduled Meds:acetaminophen (OFIRMEV) 1,000 mg injection 100 mL, 1,000 mg, Intr avenous, Q6H levETIRAcetam (KEPPRA) IV push 500 mg, 500 mg, Intravenous, BID polyethylene glycol 3350 (MIRALAX) packet 17 g, 17 g, Oral, QDAY sennosides-docusate sodium (SENOKOT-S) tablet 1 tablet, 1 tablet, Oral, BID Continuous Infusions: lactated ringers infusion 125 mL/hr at 04/23/23 0509 PRN and Respiratory Meds:fentaNYL citrate PF Q1H PRN, oxyCODONE Q4H PRN Associated attestation - Francisco Vora DO - 04/23/2023 1:52 PM CDT ATTESTATION I personally performed the burgos portions of the E/M visit, discussed case with e Consult team and I concur with the resident's documentation of history, physi ernst exam, assessment, and treatment plan unless otherwise noted in blue italics. Discussed events with daughter and grand daughter. Likely patient lost footing at top of stairs on loose gravel. However cannot rule out syncopal episode so a gree with workup. Pt with several medications, will need Med reconciliation [facility]. Thomas Vora DO Date: 04/23/2023 Internal Medicine, Hospitalist [phone] Total Time Today was 80 minutes in the following activities: Preparing to see th e patient, Obtaining and/or reviewing separately obtained history, Performing a medically appropriate examination and/or evaluation, Counseling and educating th e patient/family/caregiver, Ordering medications, tests, or procedures, Referrin g and communication with other health housekeeper caregiver (when not separately re ported), Documenting clinical information in the electronic or other health naeem rd, and Independently interpreting results (not separately reported) and communi cating results to the patient/family/caregiver * Rachel Carney MD - 04/23/2023 8:15 AM CDTAssociated Order(s): CONSULT PLASTIC SURGERY PHYSICIAN Plastic Surgery Consult Note Reason for Consultation: R zygomatic arch fracture History of Present Illness: Delmar Thornton is a 73 y.o. Male who presents after falling down cement stairs and was found down by neighbors. On arrival CT max f latosha revealed a potential R zygomatic arch fracture and right orbital wall fractu re as well as a small L parietal IPH and SDH that are now stable. CT imaging als o demonstrated a R. Anterior acetabular fx, left superior pubic ramus fx. No pr ior history of face trauma or face surgery. On exam he is AOx1. No obvious facial deformities or step-off, L. Forehead abras ion, right orbital ecchymosis and swelling with intraocular eye movements intact without pain. No evidence of entrapment. Non-tender to palpation over sinuses or R. Zygomatic arch. Past Medical History Delmar Thornton has a past medical history of Arthritis, BPH with urinary obstru ction, HLD (hyperlipidemia), HTN (hypertension), Prostate cancer (HCC) (08/21/20 10), and Type II diabetes mellitus (HCC). Past Surgical History He has a past surgical history that includes appendectomy (early ) (Open Ap py); bunionectomy (~ 1994); surg tx anal fistula subq (1999) (Rectocutaneous Fis tulectomy); rotator cuff repair (2004) (Right); laps prostect retropubic rad w/n rv sparing robot (10/23/2010) ( ); laps surg bilateral total pelvic lmphadectomy (10/23/2010) ( ); and laparoscopy w/lysis of adhesions (10/23/2010) ( ). Family History Delmar's family history includes Heart Attack in an other family member; Stroke in an other family member. Social History Delmar reports current alcohol use of about 0.8 standard drinks of alcohol per week. Allergies Patient has no known allergies. Medications HAT [employer]ACH[employer]ER ASA 81 ROS: A comprehensive 12 point ROS was obtained and was negative except for as st ated in HPI Physical Exam: Blood pressure (!) 148/72, pulse 66, temperature 37.5 C (99.5 F), height 180 .3 cm (5' 11"), weight 104 kg (229 lb 4.5 oz), SpO2 95 %. -General: Appears comfortable. AOx1, disoriented to place and time. --Respiratory: Unlabored respirations -Neck: in C-collar -CardioVascular: Well perfused Gastrointestinal: protuberant abdomen, soft, mildly tender, multiple abrasions t o the R side of abdomen Extremities: bruising to R hip, pelvic fx followed by Ortho Skin: No jaundice -Psychiatric: Appropriate mood and affect. Face Exam General: No obvious deformity or asymmetry. No obvious step-offs Skin: R orbital ecchymosis, L forehead abrasion. Nerves: Sensation intact and equal bilaterally in V1-V3 distributions. Facial mo vements intact and equal in all facial nerve distributions bilaterally. Eyes: Normal eye opening, no enophthalmos, proptosis, or dystopia. No chemosis o r subconjunctival hemorrhage. No foreign body. Extraocular movements intact with out pain or diplopia. Vision grossly intact bilaterally. No blurry vision, loss of vision, diplopia. Nose: Nasal spine midline, no bony instability, step-offs, crepitance. Septum mi dline without septal hematoma. No bloody or clear rhinorrhea appreciated. Dried blood present on outside of nose. Mouth: No maxillary or mandibular tenderness, step-offs, deformities. Normal occ lusion. No intra-oral lacerations. No loose or missing teeth. No TMJ tenderness . No trismus. No posterior pharyngeal obstruction or edema. Ears: Normal appearing ears bilaterally. No laceration or hematoma. Pertinent Imaging: CT MAXIFACIAL/SINUS WO CONTRAST Addendum Date: 04/23/2023 Finalized by Jose Marie M.D. on 04/23/2023 5:57 AM. Dictated by Jose angulo M.D. on 04/23/2023 5:38 AM.Addendum: Addendum: Following further review, there is a nondisplaced lucency to the right zygomatic arch, consistent with a nondis placed right zygomatic arch fracture. Findings were discussed with Dr. Crowell by Dr. Marie by electronic message at 6:32 AM 04/23/2023. Finalized by Jose Marie M.D. on 04/23/2023 6:36 AM. Dictated by Jose Marie M.D. on 04/23/2023 6: 04 AM. Result Date: 04/23/2023 EXAM: CT MAXILLOFACIAL HISTORY: facial trauma, TECHNIQUE: Multiple contiguous a xial images were obtained of the facial bones without intravenous contrast. Sagi ttal and coronal reformations were obtained. Comparison: Outside CT head 04/23/20 FINDINGS: Motion and metallic artifacts somewhat limit evaluation of the skul l base. Cortical irregularity and lucency of the anterior nasal spine (series 4 image 108). Right periorbital soft tissue contusion, small. No orbital hematoma is identified. The orbital rims appear intact. Mandible is intact. Temporomandib ular joints are maintained. No additional facial fracture is identified. Mild sc attered paranasal sinus mucosal thickening. Left mastoid and middle ear effusion is present. No definite left temporal bone fracture is identified. Similar scat tered mild subarachnoid hemorrhage about the left cerebral convexity. Similar th in subdural hemorrhage layering about the left parietal convexity, seen to doug mcnulty on a dedicated CT head (series 3 image 123). 1. Right periorbital soft tissue contusion. No orbital rim fracture or hematoma . 2. Left mastoid and middle ear opacification, presumably a chronic effusion. Fluid related to a radiographically occult left mastoid temporal bone fracture c ould appear similar. Consider CT temporal bone for further characterization. 3. Cortical irregularity and lucency of the anterior nasal spine, likely chronic. A minimally comminuted fracture of the anterior nasal spine is felt less likely. Correlation for focal tenderness. 4. Grossly stable left cerebral convexity bourgeois barachnoid and subdural hemorrhage. CTA HEAD WO/W CONT Result Date: 04/23/2023 EXAM: CTA HEAD AND NECK HISTORY: Trauma, intracranial hemorrhage, second rib fra cture, stability scan, TECHNIQUE: Multiple contiguous axial images were obtained of the brain and neck following the administration of IV contrast. Precontrast axial images were also obtained of the brain. CTA maximum density projection ryan ges were obtained of the brain and neck with image post processing. Comparison: Outside CT head, cervical spine, and thorax 04/22/2023 FINDINGS: CTA head: No si gnificant interval change of mild multifocal subarachnoid hemorrhage about the l eft supratentorial convexity. Minor subarachnoid hemorrhage is also present with in the right ambient cistern, unchanged (series 6 image 41). A small layering bourgeois bdural hemorrhage measures 6 mm along the posterior left cerebral convexity, unc hanged. No new or enlarging intracranial hemorrhage. No significant mass effect. No herniation or hydrocephalus. Mild ectasia and irregularity of the bilateral cavernous ICA is with mild associated calcific plaque. No dissection, fistula, o r pseudoaneurysm identified. No superimposed stenosis. Bilateral ACAs and MCAs a re patent with multifocal atherosclerotic irregularity. 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 Congenital small caliber of the vertebral arteries and basilar artery ar e patent without focal narrowing. Mild irregularity of the dinkey press operator without signific ant narrowing. No aneurysm or arteriovenous malformation is identified. CTA neck : Arch and arch origins are patent. Calcified plaque in the left vertebral arter y origin results in severe narrowing. Additional multifocal irregularity and mil d narrowing of the left cervical vertebral artery, likely atherosclerotic. Right vertebral artery is patent with minimal multifocal irregularity, likely atheros clerotic. Calcified plaque and soft tissue plaque at the carotid bifurcations re sults in mild, less than 25% narrowing of the bilateral ICAs by NASCET criteria. Cervical carotid arteries are patent without evident injury. Bilateral subclavi an arteries are patent without stenosis No aneurysm, AVM, or dissection is iden tified. Right sided multilevel costomanubrial and costovertebral injuries involv ing anterior right first and second ribs with intra-articular gas and mild displ acement, or completely assessed on outside chest CT. There is no gross change in alignment; however, there is increasing subcutaneous gas in the anterior right chest wall and a developed small anterior right pneumothorax. Trace right pleura l effusion and mild bibasilar atelectasis. Mild scattered paranasal sinus mucos al thickening left mastoid and middle ear opacification persists. Please see [facility] day CT maxillofacial for more complete characterization of facial injuries. CTA head: 1. Multifocal intracranial atherosclerosis without intracranial blunt vascular injury or hemodynamic significant stenosis. 2. No significant change in mild multifocal left cerebral convexity and right cisternal subarachnoid hemo rrhage and mild posterior left cerebral convexity subdural hemorrhage. CTA neck: 1. Multifocal atherosclerosis with mild less than 25% narrowing of the ICAs and severe narrowing of the left vertebral artery origin. No evidence for blunt ce rebrovascular injury. 2. Increased trace right pneumothorax with similar displa matias anterior right costochondral fracture and suspected right first costomanubri al injury. Increased right anterior chest wall subcutaneous gas. Findings were d iscussed with Dr. Crowell by Dr. Marie by telephone at 6:32 AM 04/23/2023. Nataliya lized by Jose Marie M.D. on 04/23/2023 6:35 AM. Dictated by Arsh Gonzáles on 04/23/2023 5:58 AM. CTA NECK WO/W CONT Result Date: 04/23/2023 EXAM: CTA HEAD AND NECK HISTORY: Trauma, intracranial hemorrhage, second rib fra cture, stability scan, TECHNIQUE: Multiple contiguous axial images were obtained of the brain and neck following the administration of IV contrast. Precontrast axial images were also obtained of the brain. CTA maximum density projection ryan ges were obtained of the brain and neck with image post processing. Comparison: Outside CT head, cervical spine, and thorax 04/22/2023 FINDINGS: CTA head: No si gnificant interval change of mild multifocal subarachnoid hemorrhage about the l eft supratentorial convexity. Minor subarachnoid hemorrhage is also present with in the right ambient cistern, unchanged (series 6 image 41). A small layering bourgeois bdural hemorrhage measures 6 mm along the posterior left cerebral convexity, unc hanged. No new or enlarging intracranial hemorrhage. No significant mass effect. No herniation or hydrocephalus. Mild ectasia and irregularity of the bilateral cavernous ICA is with mild associated calcific plaque. No dissection, fistula, o r pseudoaneurysm identified. No superimposed stenosis. Bilateral ACAs and MCAs a re patent with multifocal atherosclerotic irregularity. 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 Congenital small caliber of the vertebral arteries and basilar artery ar e patent without focal narrowing. Mild irregularity of the dinkey press operator without signific ant narrowing. No aneurysm or arteriovenous malformation is identified. CTA neck : Arch and arch origins are patent. Calcified plaque in the left vertebral arter y origin results in severe narrowing. Additional multifocal irregularity and mil d narrowing of the left cervical vertebral artery, likely atherosclerotic. Right vertebral artery is patent with minimal multifocal irregularity, likely atheros clerotic. Calcified plaque and soft tissue plaque at the carotid bifurcations re sults in mild, less than 25% narrowing of the bilateral ICAs by NASCET criteria. Cervical carotid arteries are patent without evident injury. Bilateral subclavi an arteries are patent without stenosis No aneurysm, AVM, or dissection is iden tified. Right sided multilevel costomanubrial and costovertebral injuries involv ing anterior right first and second ribs with intra-articular gas and mild displ acement, or completely assessed on outside chest CT. There is no gross change in alignment; however, there is increasing subcutaneous gas in the anterior right chest wall and a developed small anterior right pneumothorax. Trace right pleura l effusion and mild bibasilar atelectasis. Mild scattered paranasal sinus mucos al thickening left mastoid and middle ear opacification persists. Please see [facility] CT maxillofacial for more complete characterization of facial injuries. CTA head: 1. Multifocal intracranial atherosclerosis without intracranial blunt vascular injury or hemodynamic significant stenosis. 2. No significant change in mild multifocal left cerebral convexity and right cisternal subarachnoid hemo rrhage and mild posterior left cerebral convexity subdural hemorrhage. CTA neck: 1. Multifocal atherosclerosis with mild less than 25% narrowing of the ICAs and severe narrowing of the left vertebral artery origin. No evidence for blunt ce rebrovascular injury. 2. Increased trace right pneumothorax with similar displa matias anterior right costochondral fracture and suspected right first costomanubri al injury. Increased right anterior chest wall subcutaneous gas. Findings were d iscussed with Dr. Crowell by Dr. Marie by telephone at 6:32 AM 04/23/2023. Nataliya lized by Jose Marie M.D. on 04/23/2023 6:35 AM. Dictated by Arsh Gonzáles on 04/23/2023 5:58 AM. Assessment / Plan: - No acute surgical intervention - Potential nondisplaced R. zygomatic arch fracture, non-tender on exam - No pressure to right side of face - No sinus precautions necessary - Follow-up as needed with DIANA Coe [phone] -Discussed w/ Dr. Pepe - Call with any questions Rachel Carney MD Pager: [phone] Associated attestation - Lynnette Pepe MD - 04/24/2023 11:14 AM CDT I reviewed the clinical details and imaging and agree with the assessment and pl an as detailed by the resident. I did not personally examine the patient. 73 y/o M with ground level fall, with questionable non-displaced fracture of the right zygomatic arch on imaging. Patient is non-tender over the right cheek with no appreciable malar flattening. Would recommend conservative measures only. F ollow up PRN with any questions/concerns. Lynnette Pepe MD, PhD 04/24/2023 11:14 AM * Aneudy Rm MD - 04/23/2023 5:27 AM CDTAssociated Order(s): CONSULT ORTHOPEDIC SURGERY PHYSICIAN [facility] Consult Note Admission Date: 04/23/2023 Chief Complaint/Reason for Consult: Pelvic fractures Assessment/Plan Delmar Thornton is a 73 y.o. male with PMHx HTN, GERD, DM, HLD who presents as a trauma transfer from [place] after suspected fall from a dock, CT imaging demons trates a right anterior acetabular fx, left superior pubic ramus fx -No acute surgical intervention at this time. WBAT BLE. Okay for diet from ort hopedic standpoint. Patient will follow-up in clinic Dr. Angelo upon discharg e in 1 to 2 weeks, appointment has been requested. -Pain control/medical management per primary -Imaging: reviewed -Labs: see below -Abx/tetanus: Not indicated from orthopedic standpoint -PPx: Per primary Patient was seen and discussed with the following staff surgeon when clinically appropriate: Dr. Angelo During normal business hours, please contact Karine Cherry (Pager #[phone] on [facility]), Kristina Soliz (#[phone]), Kaitlyn Mahajan (#[phone]), Kyaw Jamison Drew Diederich (#[phone]) , or Justin White (#[phone]) regarding this patient. At all other times, contact the orthopedic surgery resident engineering and operations director for any questions or c oncerns. Aneudy Rm MD PGY-2, Orthopedic Surgery P 5102 History of Present Illness: Delmar Thornton is a 73 y.o. male with past medical history above who presents as a trauma transfer after falling down many cement s tairs at his [place]. He was found by his neighbors after unknown amount of t bren and EMS was called. He is only oriented to self. He was found to have a smal l L parietal bleed as well as a 2nd rib fx, R acetabular, L pelvic fx. Patient i s slightly confused, and he does not know how he fell. Medical History: Diagnosis Date Arthritis BPH with urinary obstruction HLD (hyperlipidemia) HTN (hypertension) Prostate cancer (HCC) 08/21/2010 Type II diabetes mellitus (HCC) Surgical History: Procedure Laterality Date HI SURG TX ANAL FISTULA SUBQ 2000 Rectocutaneous Fistulectomy HX ROTATOR CUFF REPAIR 2005 Right HI LAPS PROSTECT RETROPUBIC RAD W/NRV SPARING ROBOT 10/23/2010 HI LAPS SURG BILATERAL TOTAL PELVIC LMPHADECTOMY 10/23/2010 HI LAPAROSCOPY W/LYSIS OF ADHESIONS 10/23/2010 HX APPENDECTOMY early Open Appy HX BUNIONECTOMY ~ 1994 Social History Substance Use Topics Alcohol use: Yes Alcohol/week: 0.8 standard drinks of alcohol Types: 1 drink(s) per week Family Hx: Reviewed and non-contributory Allergies: Patient has no known allergies. Outpatient Medications as of 04/23/2023 Medication Sig Dispense Refill ascorbic acid (VITAMIN C) 500 mg PO tablet Take 1,500 mg by mouth Daily. aspirin 81 mg PO chew tablet Take 1 Tab by mouth daily. 1 Tab 0 Fish Oil-Fat Acid Comb.8-Hb137 (OMEGA 3-6-9) 1,200 mg PO Cap Take 1 Cap by m outh Three Times Daily. hyoscyamine (LEVSIN/SL) 0.125 mg SL tablet 1 Tab every 4 hours as needed for Other... (Bladder spasms). 40 Tab 0 MELOXICAM PO Take 15 mg by mouth Daily. metformin (GLUCOPHAGE) 500 mg PO tablet Take 500 mg by mouth Twice Daily Wit h Meals. olmesartan-hydrochlorothiazide (BENICAR HCT) 20-12.5 mg PO per tablet Take 1 Tab by mouth Daily. oxycodone/acetaminophen (PERCOCET) 5/325 mg PO tablet Take 1 Tab by mouth ev hortencia 4 hours as needed for Pain. 45 Tab 0 polymyxin/bacitracin/jared/HC (CORTISPORIN) 1 % TP topical ointment Apply to affected area three times daily. 1 Container 0 pravastatin (PRAVACHOL) 80 mg PO tablet Take 80 mg by mouth Daily. senna/docusate (SENOKOT-S) 8.6/50 mg PO tablet Take 1 Tab by mouth twice roberto ly. 60 Tab 2 tolterodine LA(+) (DETROL LA) 4 mg PO capsule Take 4 mg by mouth Daily. vitamin E 400 unit PO capsule Take 400 Units by mouth Daily. vitamins, multiple PO Cap Take 1 Cap by mouth Daily. Review of Systems: Negative for stated in HPI above Vital Signs: Last Filed in 24 hours BP: 144/73 (04/23 0500) Temp: 37.5 C (99.5 F) (04/23 043) Pulse: 75 (04/23 0500) Respirations: 21 PER MINUTE (04/23 050) SpO2: 96 % (04/23 050) O2 Device: Nasal cannula (04/23 600) O2 Liter Flow: 2 Lpm (04/23 600) Height: 180.3 cm (5' 11") (04/23 432) Physical Exam: Constitutional: A&O, NAD HEENT: EOMI, normocephalic Respiratory: Unlabored respirations Cardiovascular: Regular rate Skin: No open fractures, rashes, abrasions, lacerations Musculoskeletal: Extremities: RLE: NVI distally, TA/GS, EHL/FHL intact. SILT in DP/SP/Tib/Chris/Saph distribut ions, DP/PT palpable, Cap refill < 2 sec, warm extremity, soft compartments LLE: NVI distally, TA/GS, EHL/FHL intact. SILT in DP/SP/Tib/Chris/Saph distributi ons, DP/PT palpable, Cap refill < 2 sec, soft compartments. Lab/Radiology/Other Diagnostic Tests: Radiology: Reviewed CBC w/Diff Lab Results Component Value Date/Time WBC 11.6 (H) 04/23/2023 04:29 AM HGB 12.3 (L) 04/23/2023 04:29 AM HCT 36.6 (L) 04/23/2023 04:29 AM PLTCT 251 04/23/2023 04:29 AM Inflammatory Markers No results found for: "ESR", "CRP" Coagulation Studies Lab Results Component Value Date/Time PT 11.8 04/23/2023 04:29 AM PTT 25.0 04/23/2023 04:29 AM INR 1.1 04/23/2023 04:29 AM Basic Metabolic Profile Lab Results Component Value Date/Time NA 141 04/23/2023 04:29 AM K 4.7 04/23/2023 04:29 AM CL 107 04/23/2023 04:29 AM CO2 23 04/23/2023 04:29 AM GAP 11 04/23/2023 04:29 AM BUN 31 (H) 04/23/2023 04:29 AM CR 1.83 (H) 04/23/2023 04:29 AM GLU 185 (H) 04/23/2023 04:29 AM ANTEVERSION SERIES PELVIS (Results Pending) CTA HEAD WO/W CONT (Results Pending) CTA NECK WO/W CONT (Results Pending) CT MAXIFACIAL/SINUS WO CONTRAST (Results Pending) KNEE 1 OR 2 VIEWS RIGHT (Results Pending) SHOULDER MIN 2 VIEWS RIGHT (Results Pending) 2D + DOPPLER ECHO (Results Pending) HAND MIN 3 VIEWS RIGHT (Results Pending) FOREARM 2 VIEWS RIGHT (Results Pending) Associated attestation - Yash Angelo MD - 04/25/2023 3:51 PM CDT I have reviewed the case with the resident but did not see or examine the patien t. I agree with the documentation. Yash Angelo MD * Silvia Almanza MD - 04/23/2023 4:48 AM CDTAssociated Order(s): CONSULT NEUROSURGERY PHYSICIAN Neurosurgery Consult History and Physical Note Admission Date: 04/23/2023 LOS: 0 days Reason for Consult: L partietal SDH Consult type: Co-Management w/Signed Orders Consulting Physician: Neurosurgery Attendings: Nikita Gomez MD Requesting Physician: SICU Assessment/Plan: Delmar Thornton is a 73 y.o. male s/p fall down stairs. CTH demonstrates small L parietal IPH with small SDH stable on repeat 6hr CTA. On exam patient has no fo ernst deficits on exam, nods appropriately to questions. 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 - No acute neurosurgical intervention - Hold all anticoagulation - SBP < 140 - No need for additional imaging with stable 6hr CTH > Okay to resume ASA 81 in 1 week if pt is taking - INR goal < 1.6 and Plt goal > 80 - Keppra 500 BID x 7 days - Okay for DVT ppx 24 hrs after stable scan and Q4H NC - F/u in 3 weeks in TBI clinic - Thank you for involving neurosurgery in this patient's care. We will sign off at this time. Please reach out to [phone] if there are further neurosurgic al questions or concerns. - Patient and plan discussed with attending Dr. Jason Almanza MD Neurological Surgery, PGY-2 Please page [phone] with questions. History of Present Illness: Delmar Thornton is a 73 y.o. male presented as trauma transfer after falling clif n many cement stairs at his [facility]. He was found by his neighbors after unkn own amount of time and EMS was called. He is only oriented to self. He was found to have a small L parietal bleed. Patient unable to provide any additional hist ory. Past Medical History: Medical History: Diagnosis Date Arthritis BPH with urinary obstruction HLD (hyperlipidemia) HTN (hypertension) Prostate cancer (HCC) 08/21/2010 Type II diabetes mellitus (HCC) Past Surgical History: Surgical History: Procedure Laterality Date HI SURG TX ANAL FISTULA SUBQ 2000 Rectocutaneous Fistulectomy HX ROTATOR CUFF REPAIR 2005 Right HI LAPS PROSTECT RETROPUBIC RAD W/NRV SPARING ROBOT 10/23/2010 HI LAPS SURG BILATERAL TOTAL PELVIC LMPHADECTOMY 10/23/2010 HI LAPAROSCOPY W/LYSIS OF ADHESIONS 10/23/2010 HX APPENDECTOMY early Open Appy HX BUNIONECTOMY ~ 1994 Social History: Social History Substance Use Topics Alcohol use: Yes Alcohol/week: 0.8 standard drinks of alcohol Types: 1 drink(s) per week Family History: Family History Problem Relation Age of Onset Heart Attack Other Stroke Other Allergies: Patient has no known allergies. 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: Current Outpatient Medications Medication Instructions ascorbic acid (vitamin C) (ASCORBIC ACID (VITAMIN C)) 1,500 mg, DAILY aspirin 81 mg, Oral, DAILY Fish Oil-Fat Acid Comb.8-Hb137 (OMEGA 3-6-9) 1,200 mg PO Cap 1 capsule, THRE E TIMES DAILY hyoscyamine sulfate (LEVSIN/SL) 0.125 mg, EVERY 4 HOURS PRN MELOXICAM PO 15 mg, DAILY metFORMIN (GLUCOPHAGE) 500 mg, TWICE DAILY WITH MEALS olmesartan-hydrochlorothiazide (BENICAR HCT) 20-12.5 mg PO per tablet 1 tabl et, DAILY oxycodone/acetaminophen (PERCOCET) 5/325 mg PO tablet 1 tablet, Oral, EVERY 4 HOURS PRN polymyxin/bacitracin/jared/HC (CORTISPORIN) 1 % TP topical ointment Topical, T HREE TIMES DAILY pravastatin (PRAVACHOL) 80 mg, DAILY senna/docusate (SENOKOT-S) 8.6/50 mg PO tablet 1 tablet, Oral, TWICE DAILY tolterodine LA (DETROL LA) 4 mg, DAILY vitamin E 400 Units, DAILY vitamins, multiple PO Cap 1 capsule, DAILY Inpatient: Scheduled Meds:acetaminophen (OFIRMEV) 1,000 mg injection 100 mL, 1,000 mg, Intr avenous, Q6H polyethylene glycol 3350 (MIRALAX) packet 17 g, 17 g, Oral, QDAY sennosides-docusate sodium (SENOKOT-S) tablet 1 tablet, 1 tablet, Oral, BID Continuous Infusions: lactated ringers infusion 125 mL/hr at 04/23/23 0509 PRN and Respiratory Meds:fentaNYL citrate PF Q1H PRN, oxyCODONE Q4H PRN, perflut yosef lipid microspheres Once PRN Review of Systems: Full 10 point review of systems negative except for HPI Physical Exam: Vital Signs: Last Filed in 24 hours Vital Signs: 24 hour Range BP: 136/69 (04/23 600) Temp: 37.5 C (99.5 F) (04/23 432) Pulse: 74 (04/23 600) Respirations: 18 PER MINUTE (04/23 600) SpO2: 95 % (04/23 600) O2 Device: Nasal cannula (04/23 600) O2 Liter Flow: 2 Lpm (04/23 600) Height: 180.3 cm (5' 11") (04/23 432) BP: (136-155)/(69-74) Temp: [37.5 C (99.5 F)] Pulse: [74-75] Respirations: [17 PER MINUTE-21 PER MINUTE] SpO2: [94 %-96 %] O2 Device: Nasal cannula O2 Liter Flow: 2 Lpm General appearance: No acute distress Lungs: breathing comfortably on room air, equal bilateral chest rise Heart: extremities warm and well perfused Gastrointestinal: non-distended Musculoskeletal: No edema, redness or tenderness in the calves or thighs Skin: Integument intact without major lesion. Psychiatric: Normal affect Neurologic Exam: Mental Status: Awake, alert and oriented x 1, states name, mumbles incoherently Pupils: Pupils equal round and reactive to light Cranial Nerves: CN II-XII individually tested and found to be intact, gag not te sted Motor: No focal deficits, moves all extremities symmetrically and purposefully Normal muscle bulk and tone No pronator drift Sensation: Sensation intact to light touch throughout LabTests: Hematology: Lab Results Component Value Date HGB 12.3 04/23/2023 HCT 36.6 04/23/2023 PLTCT 251 04/23/2023 WBC 11.6 04/23/2023 MCV 92.9 04/23/2023 MCH 31.3 04/23/2023 MCHC 33.7 04/23/2023 MPV 8.4 04/23/2023 RDW 14.1 04/23/2023 General Chemistry: Lab Results Component Value Date NA 141 04/23/2023 K 4.7 04/23/2023 CL 107 04/23/2023 CO2 23 04/23/2023 BUN 31 04/23/2023 CR 1.83 04/23/2023 GLU 185 04/23/2023 OBSCA 1.11 04/23/2023 CA 9.0 04/23/2023 MG 2.1 04/23/2023 PO4 4.2 04/23/2023 General Chemistry: Lab Results Component Value Date GAP 11 04/23/2023 ALBUMIN 3.9 04/23/2023 LACTIC 1.9 04/23/2023 TOTBILI 0.5 04/23/2023 TOTPROT 6.7 04/23/2023 AST 515 04/23/2023 ALT 385 04/23/2023 ALKPHOS 43 04/23/2023 Radiology and other Diagnostics Review: Pertinent radiology reviewed Silvia Almanza MD 04/23/2023 Neurological Surgery, PGY-2 Associated attestation - Nikita Gomez MD - 04/23/2023 3:44 PM CDT Attending Note Patient and imaging reviewed with resident/ CAMP COUNSELOR. Patient seen and examined on 04/03. I agree with the history, examination findings and assessment/ plan unl ess otherwise noted below. Nikita Gomez MD documented in this encounter Miscellaneous Notes * Care Plan - Guerda Christine RN - 04/30/2023 11:00 AM CDT Problem: Discharge Planning Goal: Participation in plan of care Outcome: Goal Achieved Goal: Knowledge regarding plan of care Outcome: Goal Achieved Goal: Prepared for discharge Outcome: Goal Achieved Problem: Infection, Risk of, Urinary Catheter-Associated Urinary Tract Infection Goal: Absence of urinary catheter-associated infection Outcome: Goal Achieved Problem: High Fall Risk Goal: High Fall Risk Outcome: Goal Achieved Problem: Skin Integrity Goal: Skin integrity intact Outcome: Goal Achieved Goal: Healing of skin (Wound & Incision) Outcome: Goal Achieved Goal: Healing of skin (Pressure Injury) Outcome: Goal Achieved Problem: Nutrition Deficit Goal: Adequate nutritional intake Outcome: Goal Achieved Problem: Injury-Risk of, Non-Violent Physical Restraints Goal: Absence of Injury while physically restrained (Non-Violent) Outcome: Goal Achieved * Care Plan - Yumiko Hartley RN - 04/26/2023 7:27 PM CDT Problem: Discharge Planning Goal: Participation in plan of care Outcome: Goal Ongoing Goal: Knowledge regarding plan of care Outcome: Goal Ongoing Goal: Prepared for discharge Outcome: Goal Ongoing Problem: Infection, Risk of, Urinary Catheter-Associated Urinary Tract Infection Goal: Absence of urinary catheter-associated infection Outcome: Goal Ongoing Problem: High Fall Risk Goal: High Fall Risk Outcome: Goal Ongoing Problem: Skin Integrity Goal: Skin integrity intact Outcome: Goal Ongoing Goal: Healing of skin (Wound & Incision) Outcome: Goal Ongoing Goal: Healing of skin (Pressure Injury) Outcome: Goal Ongoing Problem: Nutrition Deficit Goal: Adequate nutritional intake Outcome: Goal Ongoing Problem: Injury-Risk of, Non-Violent Physical Restraints Goal: Absence of Injury while physically restrained (Non-Violent) Outcome: Goal Ongoing documented in this encounter Plan of Treatment Not on filedocumented as of this encounter Goals Goal Patient Associated Recent Progress Patient-Stat Aut hor Goal Type Problems ed? GOAL General On track (04/26/2023 No Monica wood, 12:27 PM CDT) FAB Cabrera Note: Back to normal documented as of this encounter Procedures Comments Procedure Name Priority Date/Time Associated [...] Routine 04/26/2023 TEAM 6:34 AM CDT HC CBC,AUTOMATED Routine 04/26/2023 3:42 AM CDT HC PHOSPHOROUS, SERUM Routine 04/26/2023 3:42 AM CDT HC MAGNESIUM Routine 04/26/2023 3:42 AM CDT HC CK(CPK OR CREATINE Add on 04/26/2023 KINASE) 3:42 AM CDT HC BASIC METABOLIC PANEL Routine 04/26/2023 3:42 AM CDT POC GLUCOSE 04/25/2023 9:40 PM CDT POC GLUCOSE 04/25/2023 4:06 PM CDT POC GLUCOSE 04/25/2023 12:24 PM CDT POC GLUCOSE 04/25/2023 6:01 AM CDT HC CBC,AUTOMATED Routine 04/25/2023 2:45 AM CDT HC PHOSPHOROUS, SERUM Routine 04/25/2023 2:45 AM CDT HC MAGNESIUM Routine 04/25/2023 2:45 AM CDT HC BASIC METABOLIC PANEL Routine 04/25/2023 2:45 AM CDT POC GLUCOSE 04/24/2023 9:01 PM CDT FEEDING TUBE PLCMNT STAT 04/24/2023 (ABD/CHEST LMTD) 7:18 PM CDT POC GLUCOSE 04/24/2023 5:01 PM CDT POC GLUCOSE 04/24/2023 11:40 AM CDT FEEDING TUBE PLCMNT STAT 04/24/2023 (ABD/CHEST LMTD) 8:27 AM CDT FEEDING TUBE PLCMNT STAT 04/24/2023 (ABD/CHEST LMTD) 6:45 AM CDT POC GLUCOSE 04/24/2023 6:08 AM CDT HC CBC,AUTOMATED Routine 04/24/2023 3:55 AM CDT HC PHOSPHOROUS, SERUM Routine 04/24/2023 3:55 AM CDT HC MAGNESIUM Routine 04/24/2023 3:55 AM CDT HC COMPREHENSIVE Routine 04/24/2023 METABOLIC PANEL 3:55 AM CDT POC GLUCOSE 04/23/2023 9:40 [...] WO STAT 04/23/2023 CONTRAST 5:37 AM CDT TEG WITH KAOLIN STAT 04/23/2023 4:29 AM CDT HC PTT(APTT) STAT 04/23/2023 4:29 AM CDT HC PT(INR) STAT 04/23/2023 4:29 AM CDT HC CBC,AUTOMATED STAT 04/23/2023 4:29 AM CDT TYPE & CROSSMATCH Routine 04/23/2023 4:29 AM CDT HC PHOSPHOROUS, SERUM STAT 04/23/2023 4:29 AM CDT HC MAGNESIUM STAT 04/23/2023 4:29 AM CDT HC LACTIC ACID(LACTATE) STAT 04/23/2023 4:29 AM CDT HC CK(CPK OR CREATINE STAT 04/23/2023 KINASE) 4:29 AM CDT HC CALCIUM IONIZED STAT 04/23/2023 4:29 AM CDT HC COMPREHENSIVE STAT 04/23/2023 METABOLIC PANEL 4:29 AM CDT documented in this encounter Results * (ABNORMAL) POC GLUCOSE (04/30/2023 9:13 AM CDT) Pathologist Signature Component Value Ref Test Method Analysis Performed A t Range Time Glucose, POC 156 (H) 70 - 100 04/30/2023 [facility] PA TH AND MG/DL 9:13 AM LAB MEDICINE POC CDT Anatomical Location / Laterality Collection Method / Volume Liss ection Time Received Time Specimen (Source) 04/30/2023 9:13 AM CDT 04/30/20 9:14 AM CDT Jerald Crawford OTHER LABORATORY City/State/ZIP Code Phone Number [place] [address] [facility] DEPT PATH AND [address] [facility] LAB MEDICINE POC * (ABNORMAL) POC GLUCOSE (04/30/2023 8:20 AM CDT) Pathologist Signature Component Value Ref Test Method Analysis Performed A t Range Time Glucose, POC 157 (H) 70 - 100 04/30/2023 [facility] PA TH AND MG/DL 8:21 AM LAB MEDICINE POC CDT Anatomical Location / Laterality Collection Method / Volume Liss ection Time Received Time Specimen (Source) 04/30/2023 8:20 AM CDT 04/30/20 8:21 AM CDT Jerald LAST LABORATORY [facility]/ZIP Code Phone Number Performing Address Organization [address] PATH AND [address] [place] [address] MEDICINE POC * (ABNORMAL) POC GLUCOSE (04/29/2023 9:55 PM CDT) Pathologist Signature Component Value Ref Test Method Analysis Performed A t Range Time Glucose, POC 176 (H) 70 - 100 04/29/2023 [facility] PA TH AND MG/DL 9:56 PM LAB MEDICINE POC CDT Anatomical Location / Laterality Collection Method / Volume Liss ection Time Received Time Specimen (Source) 04/29/2023 9:55 PM CDT 04/29/20 9:56 PM CDT Jerald LAST LABORATORY [facility]/ZIP Code Phone Number Performing Address Organization [address] PATH AND [address] [place] [address] POC * (ABNORMAL) POC GLUCOSE (04/29/2023 8:57 PM CDT) Pathologist Signature Component Value Ref Test Method Analysis Performed A t Range Time Glucose, POC 190 (H) 70 - 100 04/29/2023 [facility] PA TH AND MG/DL 8:58 PM LAB MEDICINE POC CDT Anatomical Location / Laterality Collection Method / Volume Liss ection Time Received Time Specimen (Source) 04/29/2023 8:57 PM CDT 04/29/20 8:58 PM CDT Jerald MAYS MD [facility]/ZIP Code Phone Number Performing Address Organization [address] PATH AND [address] [place] [address] POC * (ABNORMAL) POC GLUCOSE (04/29/2023 5:50 PM CDT) Pathologist Signature Component Value Ref Test Method Analysis Performed A t Range Time Glucose, POC 145 (H) 70 - 100 04/29/2023 [facility] PA TH AND MG/DL 5:51 PM LAB MEDICINE POC CDT Anatomical Location / Laterality Collection Method / Volume Liss ection Time Received Time Specimen (Source) 04/29/2023 5:50 PM CDT 04/29/20 5:51 PM CDT Jerald LAST LABORATORY [facility]/State/ZIP Code Phone Number [place] [address] [facility] AND [address] [facility] LAB MEDICINE POC * (ABNORMAL) POC GLUCOSE (04/29/2023 11:55 AM CDT) Pathologist Signature Component Value Ref Test Method Analysis Performed A t Range Time Glucose, POC 196 (H) 70 - 100 04/29/2023 [facility] DEPT PA TH AND MG/DL 11:56 AM LAB MEDICINE POC CDT Anatomical Location / Laterality Collection Method / Volume Liss ection Time Received Time Specimen (Source) 04/29/2023 11:55 AM CDT 04/29/20 11:56 AM CDT Jerald LAST LABORATORY [facility]/ZIP Code Phone Number Performing Address Organization [place], [place] [id number] [place], [place] [address]T PATH AND [address] [facility] LAB MEDICINE POC * (ABNORMAL) POC GLUCOSE (04/29/2023 11:33 AM CDT) Pathologist Signature Component Value Ref Test Method Analysis Performed A t Range Time Glucose, POC 216 (H) 70 - 100 04/29/2023 [facility] DEPT PA TH AND MG/DL 11:34 AM LAB MEDICINE POC CDT Anatomical Location / Laterality Collection Method / Volume Liss ection Time Received Time Specimen (Source) 04/29/2023 11:33 AM CDT 04/29/20 11:34 AM CDT Jerald LAST LABORATORY [facility]/ZIP Code Phone Number Performing [place] [address] [facility] AND [address] [facility] LAB MEDICINE POC * (ABNORMAL) POC GLUCOSE (04/29/2023 7:18 AM CDT) Pathologist Signature Component Value Ref Test Method Analysis Performed A t Range Time Glucose, POC 155 (H) 70 - 100 04/29/2023 [facility] DEPT PA TH AND MG/DL 7:20 AM LAB MEDICINE POC CDT Anatomical Location / Laterality Collection Method / Volume Liss ection Time Received Time Specimen (Source) 04/29/2023 7:18 AM CDT 04/29/20 7:20 AM CDT Jerald Crawford OTHER LABORATORY [facility]/State/ZIP Code Phone Number Performing [place] [address] [facility] AND [address] [facility] MEDICINE POC * (ABNORMAL) POC GLUCOSE (04/28/2023 10:08 PM CDT) Pathologist Signature Component Value Ref Test Method Analysis Performed A t Range Time Glucose, POC 225 (H) 70 - 100 04/28/2023 [facility] DE[facility] PA TH AND MG/DL 10:09 PM LAB MEDICINE POC CDT Anatomical Location / Laterality Collection Method / Volume Liss ection Time Received Time Specimen (Source) 04/28/2023 10:08 PM CDT 04/28/20 10:09 PM CDT Jerald LAST LABORATORY [facility]/State/ZIP Code Phone Number Performing Address Organization [address] PATH AND [address] [facility] POC * (ABNORMAL) POC GLUCOSE (04/28/2023 3:38 PM CDT) Pathologist Signature Component Value Ref Test Method Analysis Performed A t Range Time Glucose, POC 227 (H) 70 - 100 04/28/2023 [facility] DEPT PA TH AND MG/DL 3:39 PM LAB MEDICINE POC CDT Anatomical Location / Laterality Collection Method / Volume Liss ection Time Received Time Specimen (Source) 04/28/2023 3:38 PM CDT 04/28/20 3:39 PM CDT Jerald MAYS MD [facility]/ZIP Code Phone Number Performing Address Organization [address] PATH AND [employer] [facility] POC * (ABNORMAL) POC GLUCOSE (04/28/2023 11:54 AM CDT) Pathologist Signature Component Value Ref Test Method Analysis Performed A t Range Time Glucose, POC 229 (H) 70 - 100 04/28/2023 [facility] DEPT PA TH AND MG/DL 11:56 AM LAB MEDICINE POC CDT Anatomical Location / Laterality Collection Method / Volume Liss ection Time Received Time Specimen (Source) 04/28/2023 11:54 AM CDT 04/28/20 11:56 AM CDT Jerald LAST LABORATORY [facility]/ZIP Code Phone Number Performing Address Organization [place], [place] [id number] [place], [place] [address]T PATH AND [address] [facility] LAB MEDICINE POC * (ABNORMAL) POC GLUCOSE (04/28/2023 11:13 AM CDT) Pathologist Signature Component Value Ref Test Method Analysis Performed A t Range Time Glucose, POC 240 (H) 70 - 100 04/28/2023 [facility] DEPT PA TH AND MG/DL 11:14 AM LAB MEDICINE POC CDT Anatomical Location / Laterality Collection Method / Volume Liss ection Time Received Time Specimen (Source) 04/28/2023 11:13 AM CDT 04/28/20 11:14 AM CDT Jerald LAST LABORATORY [facility]/State/ZIP Code Phone Number Performing Address Organization [place], [place] [id number] [place] [address] PATH AND [address] [facility] LAB MEDICINE POC * (ABNORMAL) POC GLUCOSE (04/28/2023 7:50 AM CDT) Pathologist Signature Component Value Ref Test Method Analysis Performed A t Range Time Glucose, POC 188 (H) 70 - 100 04/28/2023 [facility] DEPT PA TH AND MG/DL 7:51 AM LAB MEDICINE POC CDT Anatomical Location / Laterality Collection Method / Volume Liss ection Time Received Time Specimen (Source) 04/28/2023 7:50 AM CDT 04/28/20 7:51 AM CDT Jerald MAYS MD [facility]/ZIP Code Phone Number Performing Address Organization [place], [place] [id number] [place] [address] PATH AND [address] [facility] LAB MEDICINE POC * (ABNORMAL) POC GLUCOSE (04/27/2023 9:06 PM CDT) Pathologist Signature Component Value Ref Test Method Analysis Performed A t Range Time Glucose, POC 213 (H) 70 - 100 [facility]20[facility] MG/DL 9:07 PM LAB MEDICINE POC CDT Anatomical Location / Laterality Collection Method / Volume Liss ection Time Received Time Specimen (Source) 04/27/2023 9:06 PM CDT 04/27/20 9:07 PM CDT Jerald MAYS MD [facility]/ZIP Code Phone Number Performing [place] [address] [facility] PATH AND [address] [facility] LAB MEDICINE POC * (ABNORMAL) POC GLUCOSE (04/27/2023 5:29 PM CDT) Pathologist Signature Component Value Ref Test Method Analysis Performed A t Range Time Glucose, POC 196 (H) 70 - 100 04/27/2023 [facility] DEPT PA TH AND MG/DL 5:30 PM LAB MEDICINE POC CDT Anatomical Location / Laterality Collection Method / Volume Liss ection Time Received Time Specimen (Source) 04/27/2023 5:29 PM CDT 04/27/20 5:30 PM CDT Jerald LAST LABORATORY [facility]/ZIP Code Phone Number Performing Address Organization [place], [place] [id number] [place], [place] [address]T PATH AND [address] [facility] LAB MEDICINE POC * (ABNORMAL) POC GLUCOSE (04/27/2023 11:34 AM CDT) Pathologist Signature Component Value Ref Test Method Analysis Performed A t Range Time Glucose, POC 284 (H) 70 - 100 04/27/2023 [facility] DEPT PA TH AND MG/DL 11:46 AM LAB MEDICINE POC CDT Anatomical Location / Laterality Collection Method / Volume Liss ection Time Received Time Specimen (Source) 04/27/2023 11:34 AM CDT 04/27/20 11:46 AM CDT Jerald LAST LABORATORY [facility]/ZIP Code Phone Number [place] [address] [facility] PATH AND [address] [facility] LAB [facility] POC * (ABNORMAL) POC GLUCOSE (04/27/2023 7:00 AM CDT) Pathologist Signature Component Value Ref Test Method Analysis Performed A t Range Time Glucose, POC 212 (H) 70 - 100 04/27/2023 [facility] DEPT PA TH AND MG/DL 7:02 AM LAB MEDICINE POC CDT Anatomical Location / Laterality Collection Method / Volume Liss ection Time Received Time Specimen (Source) 04/27/2023 7:00 AM CDT 04/27/20 7:02 AM CDT Jerald LAST LABORATORY [facility]/ZIP Code Phone Number [place] [address] [facility] PATH AND [address] [facility] LAB MEDICINE POC * (ABNORMAL) POC GLUCOSE (04/26/2023 9:17 PM CDT) Pathologist Signature Component Value Ref Test Method Analysis Performed A t Range Time Glucose, POC 247 (H) 70 - 100 04/26/2023 [facility] DEPT PA TH AND MG/DL 9:18 PM LAB MEDICINE POC CDT Anatomical Location / Laterality Collection Method / Volume Liss ection Time Received Time Specimen (Source) 04/26/2023 9:17 PM CDT 04/26/20 9:18 PM CDT Jerald LAST LABORATORY [facility]/ZIP Code Phone Number Performing Address Organization [place], [place] [id number] [place], [place] [address]T PATH AND [address] [facility] LAB MEDICINE POC * (ABNORMAL) POC GLUCOSE (04/26/2023 5:46 PM CDT) Pathologist Signature Component Value Ref Test Method Analysis Performed A t Range Time Glucose, POC 205 (H) 70 - 100 04/26/2023 [facility] DEPT PA TH AND MG/DL 5:47 PM LAB MEDICINE POC CDT Anatomical Location / Laterality Collection Method / Volume Liss ection Time Received Time Specimen (Source) 04/26/2023 5:46 PM CDT 04/26/20 5:47 PM CDT Jerald MAYS MD [facility]/ZIP Code Phone Number [place] [address] [facility] AND [address] [facility] LAB MEDICINE POC * (ABNORMAL) POC GLUCOSE (04/26/2023 11:47 AM CDT) Pathologist Signature Component Value Ref Test Method Analysis Performed A t Range Time Glucose, POC 222 (H) 70 - 100 04/26/2023 [facility] DEPT PA TH AND MG/DL 11:48 AM LAB MEDICINE POC CDT Anatomical Location / Laterality Collection Method / Volume Liss ection Time Received Time Specimen (Source) 04/26/2023 11:47 AM CDT 04/26/20 11:48 AM CDT Jerald LAST LABORATORY [facility]/State/ZIP Code Phone Number Performing Address Organization [place], [place] [id number] [place], [place] [address]T PATH AND [address] [facility] LAB MEDICINE POC * (ABNORMAL) POC GLUCOSE (04/26/2023 7:52 AM CDT) Pathologist Signature Component Value Ref Test Method Analysis Performed A t Range Time Glucose, POC 225 (H) 70 - 100 04/26/2023 [facility] DEPT PA TH AND MG/DL 7:53 AM LAB MEDICINE POC CDT Anatomical Location / Laterality Collection Method / Volume Liss ection Time Received Time Specimen (Source) 04/26/2023 7:52 AM CDT 04/26/20 7:53 AM CDT Jerald LAST LABORATORY MD [facility]/State/ZIP Code Phone Number Performing Address Organization [place], [place] [id number] [place] [address] DEPT PATH AND [address] [facility] LAB MEDICINE POC * (ABNORMAL) CREATINE KINASE-CPK (04/26/2023 3:42 AM CDT) Pathologist Signature Component Value Ref Test Method Analysis Performed A t Range Time Creatine Kinase 907 (H) 35 - 232 04/26/2023 [facility] DEPT PATH AND U/L 7:43 AM LAB MEDICINE CDT Anatomical Location / Laterality Collection Method / Volume Liss ection Time Received Time Specimen (Source) 04/26/2023 3:42 AM CDT 04/26/20 3:51 AM CDT Altagracia Lvei MD LABORATORY ORDERABLES City/State/ZIP Code Phone Number Performing Address Organization [place], [place] [id number] [place] [address] DEPT PATH AND [address] [facility] LAB MEDICINE * (ABNORMAL) BASIC METABOLIC PANEL (04/26/2023 3:42 AM CDT) Pathologist Signature Component Value Ref [...] MG/DL CDT eGFR 55 (L) >60 04/26/2023 [facility] DEPT PAT H AND mL/min 4:24 AM LAB MEDICINE CDT Comment: eGFR calculated using the CKD-EPIcr_R equation Anatomical Location / Laterality Collection Method / Volume Liss ection Time Received Time Specimen (Source) BLOOD / Unknown 04/26/2023 3:42 AM CDT 04/26/20 3:51 AM CDT Jerald Crawford LABORATORY ORDERABLES [facility] Code Phone Number Performing Address Organization [address] [phone] [facility] AND [employer] [facility] [[email or web address] LAB MEDICINE * PHOSPHORUS (04/26/2023 3:42 AM CDT) Pathologist Signature Component Value Ref Test Method Analysis Performed A t Range Time Phosphorus 3.7 2.0 - 04/26/2023 [facility] DEPT PAT H AND 4.5 4:24 AM LAB MEDICINE MG/DL CDT Anatomical Location / Laterality Collection Method / Volume Liss ection Time Received Time Specimen (Source) BLOOD / Unknown 04/26/2023 3:42 AM CDT 04/26/20 3:51 AM CDT Jerald Crawford LABORATORY ORDERABLES [facility]/ZIP Code Phone Number Performing [place] [address], [address] [facility] PATH AND [employer] [facility] [[email or web address]] LAB MEDICINE * MAGNESIUM (04/26/2023 3:42 AM CDT) Pathologist Signature Component Value Ref Test Method Analysis Performed A t Range Time Magnesium 2.3 1.6 - 04/26/2023 [facility] DEPT PAT H AND 2.6 4:24 AM LAB MEDICINE mg/dL CDT Anatomical Location / Laterality Collection Method / Volume Liss ection Time Received Time Specimen (Source) BLOOD / Unknown 04/26/2023 3:42 AM CDT 04/26/20 3:51 AM CDT Jerald Crawford LABORATORY ORDERABLES [facility]/State/ZIP Code Phone Number [place] [address], [facility] DEPT PATH AND [address] LAB MEDICINE * CBC (04/26/2023 3:42 AM CDT) Pathologist Signature Component Value Ref Test Method Analysis Performed A t Range Time White Blood Cells 10.0 4.5 - 04/26/2023 [facility] DE PT PATH AND 11.0 4:03 AM LAB MEDICINE K/UL CDT RBC 4.43 4.4 - 04/26/2023 [facility] DEPT PAT H AND 5.5 M/UL 4:03 AM LAB MEDICINE CDT Hemoglobin 13.9 13.5 - 04/26/2023 [facility] DEPT PAT H AND 16.5 4:03 AM LAB MEDICINE GM/DL CDT Hematocrit 41.7 40 - 50 04/26/2023 [facility] DEPT PAT H AND % 4:03 AM LAB MEDICINE CDT MCV 94.1 80 - 100 04/26/2023 [facility] DEPT PAT H AND FL 4:03 AM LAB MEDICINE CDT MCH 31.3 26 - 34 04/26/2023 [facility] DEPT PAT H AND PG 4:03 AM LAB MEDICINE CDT MCHC 33.3 32.0 - 04/26/2023 [facility] DEPT PAT H AND 36.0 4:03 AM LAB MEDICINE G/DL CDT RDW 14.0 11 - 15 04/26/2023 [facility] DEPT PAT H AND % 4:03 AM LAB MEDICINE CDT Platelet Count 263 150 - 04/26/2023 [facility] DEPT PATH AND 400 K/UL 4:03 AM LAB MEDICINE CDT MPV 8.5 7 - 11 04/26/2023 [facility] DEPT PAT H AND FL 4:03 AM LAB MEDICINE CDT Anatomical Location / Laterality Collection Method / Volume Liss ection Time Received Time Specimen (Source) BLOOD / Unknown 04/26/2023 3:42 AM CDT 04/26/20 3:51 AM CDT Jerald Crawford LABORATORY ORDERABLES City/State/ZIP Code Phone Number [place] [address], [facility] DEPT PATH AND [address] [facility] [[email or web address] LAB MEDICINE * (ABNORMAL) POC GLUCOSE (04/25/2023 9:40 PM CDT) Pathologist Signature Component Value Ref Test Method Analysis Performed A t Range Time Glucose, POC 196 (H) 70 - 100 04/25/2023 [facility] DEPT PA TH AND MG/DL 9:41 PM LAB MEDICINE POC CDT Anatomical Location / Laterality Collection Method / Volume Liss ection Time Received Time Specimen (Source) 04/25/2023 9:40 PM CDT 04/25/20 9:41 PM CDT Jerald LAST LABORATORY [facility]/ZIP Code Phone Number Performing Address Organization [place], [place] [id number] [place] [address] PATH AND [address] [facility] LAB MEDICINE POC * (ABNORMAL) POC GLUCOSE (04/25/2023 4:06 PM CDT) Pathologist Signature Component Value Ref Test Method Analysis Performed A t Range Time Glucose, POC 193 (H) 70 - 100 04/25/2023 [facility] DEPT PA TH AND MG/DL 4:30 PM LAB MEDICINE POC CDT Anatomical Location / Laterality Collection Method / Volume Liss ection Time Received Time Specimen (Source) 04/25/2023 4:06 PM CDT 04/25/20 4:30 PM CDT Jerald MAYS MD [facility]/ZIP Code Phone Number Performing Address Organization [place], [place] [id number] [place] [address] PATH AND [address] [facility] LAB [facility] POC * (ABNORMAL) POC GLUCOSE (04/25/2023 12:24 PM CDT) Pathologist Signature Component Value Ref Test Method Analysis Performed A t Range Time Glucose, POC 186 (H) 70 - 100 [facility] MG/DL 12:26 PM LAB MEDICINE POC CDT Anatomical Location / Laterality Collection Method / Volume Liss ection Time Received Time Specimen (Source) 04/25/2023 12:24 PM CDT 04/25/20 12:26 PM CDT Jerald MAYS MD [facility]/ZIP Code Phone Number [place] [address] [facility] PATH AND [address] [facility] LAB MEDICINE POC * (ABNORMAL) POC GLUCOSE (04/25/2023 6:01 AM CDT) Pathologist Signature Component Value Ref Test Method Analysis Performed A t Range Time Glucose, POC 243 (H) 70 - 100 04/25/2023 [facility] DEPT PA TH AND MG/DL 6:02 AM LAB MEDICINE POC CDT Anatomical Location / Laterality Collection Method / Volume Liss ection Time Received Time Specimen (Source) 04/25/2023 6:01 AM CDT 04/25/20 6:02 AM CDT Jerald Crawford OTHER LABORATORY City/State/ZIP Code Phone Number [place] [address] [facility] DEPT PATH AND [address] [facility]. LAB MEDICINE POC * (ABNORMAL) BASIC METABOLIC PANEL (04/25/2023 2:45 AM CDT) Pathologist Signature Component Value Ref Test Method Analysis Performed A t Range Time Sodium 140 137 - 04/25/2023 [facility] DEPT PAT H AND 147 3:28 AM LAB MEDICINE MMOL/L CDT Potassium 4.3 3.5 - 04/25/2023 [facility] DEPT PAT H AND 5.1 3:28 AM LAB MEDICINE MMOL/L CDT Chloride 104 98 - 110 04/25/2023 [facility] DEPT PAT H AND MMOL/L 3:28 AM LAB MEDICINE CDT CO2 22 21 - 30 04/25/2023 [facility] DEPT PAT H AND MMOL/L 3:28 AM LAB MEDICINE CDT Anion Gap 14 (H) 3 - 12 04/25/2023 [facility] DEPT PAT H AND 3:28 AM LAB MEDICINE CDT Glucose 194 (H) 70 - 100 04/25/2023 [facility] DEPT PAT H AND MG/DL 3:28 AM LAB MEDICINE CDT Blood Urea Nitrogen 31 (H) 7 - 25 04/25/2023 [facility] DEPT PATH AND MG/DL 3:28 AM LAB MEDICINE CDT Creatinine 1.20 0.4 - 04/25/2023 [facility] DEPT PAT H AND 1.24 3:28 AM LAB MEDICINE MG/DL CDT Calcium 9.5 8.5 - 04/25/2023 [facility] DEPT PAT H AND 10.6 3:28 AM LAB MEDICINE MG/DL CDT eGFR >60 >60 04/25/2023 [facility] DEPT PAT H AND mL/min 3:28 AM LAB MEDICINE CDT Comment: eGFR calculated using the CKD-EPIcr_R equation Anatomical Location / Laterality Collection Method / Volume Liss ection Time Received Time Specimen (Source) BLOOD / Unknown 04/25/2023 2:45 AM CDT 04/25/20 2:50 AM CDT Jerald Crawford LABORATORY ORDERJOHN LAMBERT [facility]/ZIP Code Phone Number Performing [place] [address], [facility] DEPT PATH AND [employer] [facility] LAB MEDICINE * PHOSPHORUS (04/25/2023 2:45 AM CDT) Pathologist Signature Component Value Ref Test Method Analysis Performed A t Range Time Phosphorus 2.8 2.0 - 04/25/2023 [facility] DEPT PAT H AND 4.5 3:28 AM LAB MEDICINE MG/DL CDT Anatomical Location / Laterality Collection Method / Volume Liss ection Time Received Time Specimen (Source) BLOOD / Unknown 04/25/2023 2:45 AM CDT 04/25/20 2:50 AM CDT Jerald MAYS ORDERJOHN LAMBERT [facility]/ZIP Code Phone Number Performing Address Organization [address] [facility] DEPT PATH AND [address] [facility] [[email or web address] LAB MEDICINE * MAGNESIUM (04/25/2023 2:45 AM CDT) Pathologist Signature Component Value Ref Test Method Analysis Performed A t Range Time Magnesium 2.2 1.6 - 04/25/2023 [facility] DEPT PAT H AND 2.6 3:28 AM LAB MEDICINE mg/dL CDT Anatomical Location / Laterality Collection Method / Volume Liss ection Time Received Time Specimen (Source) BLOOD / Unknown 04/25/2023 2:45 AM CDT 04/25/20 2:50 AM CDT Jerald Crawford LABORATORY ORDERJOHN LAMBERT [facility]/ZIP Code Phone Number Performing [place] [address], [facility] DEPT PATH AND [address] [facility] [[email or web address] LAB MEDICINE * (ABNORMAL) CBC (04/25/2023 2:45 AM CDT) Pathologist Signature Component Value Ref Test Method Analysis Performed A t Range Time White Blood Cells 11.3 (H) 4.5 - 04/25/2023 [facility] DE PT PATH AND 11.0 3:06 AM LAB MEDICINE K/UL CDT RBC 4.09 (L) 4.4 - 04/25/2023 [facility] DEPT PAT H AND 5.5 M/UL 3:06 AM LAB MEDICINE CDT Hemoglobin 13.0 (L) 13.5 - 04/25/2023 [facility] DEPT PAT H AND 16.5 3:06 AM LAB MEDICINE GM/DL CDT Hematocrit 38.0 (L) 40 - 50 04/25/2023 [facility] DEPT PAT H AND % 3:06 AM LAB MEDICINE CDT MCV 92.9 80 - 100 04/25/2023 [facility] DEPT PAT H AND FL 3:06 AM LAB MEDICINE CDT MCH 31.7 26 - 34 04/25/2023 [facility] DEPT PAT H AND PG 3:06 AM LAB MEDICINE CDT MCHC 34.1 32.0 - 04/25/2023 [facility] DEPT PAT H AND 36.0 3:06 AM LAB MEDICINE G/DL CDT RDW 14.3 11 - 15 04/25/2023 [facility] DEPT PAT H AND % 3:06 AM LAB MEDICINE CDT Platelet Count 246 150 - 04/25/2023 [facility] DEPT PATH AND 400 K/UL 3:06 AM LAB MEDICINE CDT MPV 8.2 7 - 11 04/25/2023 [facility] DEPT PAT H AND FL 3:06 AM LAB MEDICINE CDT Anatomical Location / Laterality Collection Method / Volume Liss ection Time Received Time Specimen (Source) BLOOD / Unknown 04/25/2023 2:45 AM CDT 04/25/20 2:50 AM CDT Jerald Crawford LABORATORY ORDERABLES City/State/ZIP Code Phone Number [place] [address], [facility] DEPT PATH AND [address] [facility] LAB MEDICINE * (ABNORMAL) POC GLUCOSE (04/24/2023 9:01 PM CDT) Pathologist Signature Component Value Ref Test Method Analysis Performed A t Range Time Glucose, POC 139 (H) 70 - 100 04/24/2023 [facility] DEPT PA TH AND MG/DL 9:02 PM LAB MEDICINE POC CDT Anatomical Location / Laterality Collection Method / Volume Liss ection Time Received Time Specimen (Source) 04/24/2023 9:01 PM CDT 04/24/20 9:02 PM CDT Jerald Crawford OTHER LABORATORY City/State/ZIP Code Phone Number [place] [address] [facility] [address] [facility] LAB MEDICINE POC * FEEDING TUBE PLCMNT (ABD/CHEST LMTD) (04/24/2023 7:18 PM CDT) Modality Anatomical Region Laterality Computed Radiography CHEST, [...] MD DIAGNOSTIC IMAGING ORDERABL ES * (ABNORMAL) POC GLUCOSE (04/24/2023 5:01 PM CDT) Pathologist Signature Component Value Ref Test Method Analysis Performed A t Range Time Glucose, POC 158 (H) 70 - 100 04/24/2023 [facility] DEPT PA TH AND MG/DL 5:02 PM LAB MEDICINE POC CDT Anatomical Location / Laterality Collection Method / Volume Liss ection Time Received Time Specimen (Source) 04/24/2023 5:01 PM CDT 04/24/20 5:02 PM CDT Jerald LAST LABORATORY [facility]/State/ZIP Code Phone Number [place] [address] [facility] AND [address] [facility] MEDICINE POC * (ABNORMAL) POC GLUCOSE (04/24/2023 11:40 AM CDT) Pathologist Signature Component Value Ref Test Method Analysis Performed A t Range Time Glucose, POC 128 (H) 70 - 100 [facility] AND MG/DL 11:42 AM LAB MEDICINE POC CDT Anatomical Location / Laterality Collection Method / Volume Liss ection Time Received Time Specimen (Source) 04/24/2023 11:40 AM CDT 04/24/20 11:42 AM CDT Jerald MAYS MD [facility]/ZIP Code Phone Number [place] [address] [facility] AND [address] [facility] POC * FEEDING TUBE PLCMNT (ABD/CHEST LMTD) (04/24/2023 8:27 AM CDT) Modality Anatomical Region Laterality Computed Radiography CHEST, Abdomen Anatomical Location / Laterality Collection Method / Volume Liss ection Time Received Time Specimen (Source) 04/24/2023 8:30 AM CDT Impressions 04/24/2023 8:32 AM CDT Feeding tube tip in the distal duodenum near the ligament of Treitz. Finalized by Dorothy Baker M.D. on 04/24/2023 8:32 AM. Dictated by Dorothy Baker M.D. on 04/24/2023 8:30 AM. Narrative 04/24/2023 8:32 AM CDT FEEDING TUBE PLCMNT (ABD/CHEST LMTD) INDICATION: corpak. COMPARISON: Exam from 0638 hours today. TECHNIQUE: Portable supine view of the lower chest/upper abdomen was obtained. FINDINGS: Support devices: The feeding tube has been advanced with tip now in the distal duodenum near the ligament of Treitz. The stylette remains in place. Abdomen: Visualized bowel gas pattern is nonobstructive. Moderate amount of diffuse colonic stool. Lower Chest: Evaluation of the lower chest demonstrates no acute abnormality. Skeletal Structures: Postoperative changes in the lower lumbar spine. Procedure Note Dorothy Baker MD - 04/24/2023 FEEDING TUBE PLCMNT (ABD/CHEST LMTD) INDICATION: corpak. COMPARISON: Exam from 0638 hours today. TECHNIQUE: Portable supine view of the lower chest/upper abdomen was obtained. FINDINGS: Support devices: The feeding tube has been advanced with tip now in the distal duodenum near the ligament of Treitz. The stylette remains in place. Abdomen: Visualized bowel gas pattern is nonobstructive. Moderate amount of diffuse colonic stool. Lower Chest: Evaluation of the lower chest demonstrates no acute abnormality. Skeletal Structures: Postoperative changes in the lower lumbar spine. IMPRESSION Feeding tube tip in the distal duodenum near the ligament of Treitz. Finalized by Dorothy Baker M.D. on 04/24/2023 8:32 AM. Dictated by Dorothy Baker M.D. on 04/24/2023 8:30 AM. Criss Villa DIAGNOSTIC IMAGING ORDERABL ES INSTALLATION MANAGER-CAMP COUNSELOR * FEEDING TUBE PLCMNT (ABD/CHEST LMTD) (04/24/2023 6:45 AM CDT) Modality Anatomical Region Laterality Computed Radiography CHEST, Abdomen Anatomical Location / Laterality Collection Method / Volume Liss ection Time Received Time Specimen (Source) 04/24/2023 8:18 AM CDT Impressions 04/24/2023 8:20 AM CDT Feeding tube tip in the mid stomach. Finalized by Dorothy Baker M.D. on 04/24/2023 8:20 AM. Dictated by Dorothy Baker M.D. on 04/24/2023 8:18 AM. Narrative 04/24/2023 8:20 AM CDT FEEDING TUBE PLCMNT (ABD/CHEST LMTD) INDICATION: Corpak placement. COMPARISON: 04/23/2023. TECHNIQUE: Portable upright view of the lower chest/upper abdomen was obtained. FINDINGS: Support devices: Feeding tube tip in the mid stomach. The stylette remains in place. Abdomen: Visualized bowel gas pattern is nonobstructive. No free air. Lower Chest: Evaluation of the lower chest demonstrates no acute abnormality. Skeletal Structures: Thoracolumbar spondylosis. Postoperative changes in the lower lumbar spine. Procedure Note Dorothy Baker MD - 04/24/2023 FEEDING TUBE PLCMNT (ABD/CHEST LMTD) INDICATION: Corpak placement. COMPARISON: 04/23/2023. TECHNIQUE: Portable upright view of the lower chest/upper abdomen was obtained. FINDINGS: Support devices: Feeding tube tip in the mid stomach. The stylette remains in place. Abdomen: Visualized bowel gas pattern is nonobstructive. No free air. Lower Chest: Evaluation of the lower chest demonstrates no acute abnormality. Skeletal Structures: Thoracolumbar spondylosis. Postoperative changes in the lower lumbar spine. IMPRESSION Feeding tube tip in the mid stomach. Finalized by Dorothy Baker M.D. on 04/24/2023 8:20 AM. Dictated by Dorothy Baker M.D. on 04/24/2023 8:18 AM. Jerald Crawford DIAGNOSTIC IMAGING ORDERABL ES * (ABNORMAL) POC GLUCOSE (04/24/2023 6:08 AM CDT) Pathologist Signature Component Value Ref Test Method Analysis Performed A t Range Time Glucose, POC 121 (H) 70 - 100 04/24/2023 [facility] DEPT PA TH AND MG/DL 6:09 AM LAB MEDICINE POC CDT Anatomical Location / Laterality Collection Method / Volume Liss ection Time Received Time Specimen (Source) 04/24/2023 6:08 AM CDT 04/24/20 6:09 AM CDT Jerald Crawford OTHER LABORATORY City/State/ZIP Code Phone Number [place] [address] [facility] DEPT PATH AND [address] [facility] LAB MEDICINE POC * (ABNORMAL) COMPREHENSIVE METABOLIC PANEL (04/24/2023 3:55 AM CDT) Pathologist Signature Component Value Ref [...] Glucose 124 (H) 70 - 100 04/24/2023 [facility] DEPT PAT H AND MG/DL 4:50 AM [...] MG/DL CDT Albumin 3.5 3.5 - 04/24/2023 [facility] DEPT PAT H AND 5.0 G/DL 4:50 AM LAB MEDICINE CDT Alk Phosphatase 42 25 - 110 04/24/2023 [facility] DEPT PATH AND U/L 4:50 AM LAB MEDICINE CDT AST (SGOT) 162 (H) 7 - 40 04/24/2023 [facility] DEPT PAT H AND U/L 4:50 AM LAB MEDICINE CDT CO2 24 21 - 30 04/24/2023 [facility] DEPT PAT H AND MMOL/L 4:50 AM LAB MEDICINE CDT ALT (SGPT) 249 (H) 7 - 56 04/24/2023 [facility] DEPT PAT H AND U/L 4:50 AM LAB MEDICINE CDT Anion Gap 10 3 - 12 04/24/2023 [facility] DEPT PAT H AND 4:50 AM LAB MEDICINE CDT eGFR 50 (L) >60 04/24/2023 [facility] DEPT PAT H AND mL/min 4:50 AM LAB MEDICINE CDT Comment: eGFR calculated using the CKD-EPIcr_R equation Anatomical Location / Laterality Collection Method / Volume Liss ection Time Received Time Specimen (Source) BLOOD / Unknown 04/24/2023 3:55 AM CDT 04/24/20 4:15 AM CDT Jerald Crawford LABORATORY ORDERABLES [facility]/ZIP Code Phone Number Performing [place] [address], [employer] DEPT PATH AND [address] [facility] LAB MEDICINE * PHOSPHORUS (04/24/2023 3:55 AM CDT) Pathologist Signature Component Value Ref Test Method Analysis Performed A t Range Time Phosphorus 3.1 2.0 - 04/24/2023 [facility] DEPT PAT H AND 4.5 4:50 AM LAB MEDICINE MG/DL CDT Anatomical Location / Laterality Collection Method / Volume Liss ection Time Received Time Specimen (Source) BLOOD / Unknown 04/24/2023 3:55 AM CDT 04/24/20 4:15 AM CDT Jerald Crawford LABORATORY ORDERABLES [facility]/ZIP Code Phone Number Performing [place] [address], [employer] DEPT PATH AND [address] [facility] LAB MEDICINE * MAGNESIUM (04/24/2023 3:55 AM CDT) Pathologist Signature Component Value Ref Test Method Analysis Performed A t Range Time Magnesium 2.2 1.6 - 04/24/2023 [facility] DEPT PAT H AND 2.6 4:50 AM LAB MEDICINE mg/dL CDT Anatomical Location / Laterality Collection Method / Volume Liss ection Time Received Time Specimen (Source) BLOOD / Unknown 04/24/2023 3:55 AM CDT 04/24/20 4:15 AM CDT Jerald Crawford LABORATORY ORDERABLES [facility]/ZIP Code Phone Number Performing [place] [address], [facility] DEPT PATH AND [address] [facility] LAB MEDICINE * (ABNORMAL) CBC (04/24/2023 3:55 AM CDT) Pathologist Signature Component Value Ref Test Method Analysis Performed A t Range Time White Blood Cells 8.9 4.5 - 04/24/2023 [facility] DE PT PATH AND 11.0 4:33 AM LAB MEDICINE K/UL CDT RBC 3.78 (L) 4.4 - 04/24/2023 [facility] DEPT PAT H AND 5.5 M/UL 4:33 AM LAB MEDICINE CDT Hemoglobin 11.9 (L) 13.5 - 04/24/2023 [facility] DEPT PAT H AND 16.5 4:33 AM LAB MEDICINE GM/DL CDT Hematocrit 35.7 (L) 40 - 50 04/24/2023 [facility] PAT H AND % 4:33 AM LAB MEDICINE CDT MCV 94.6 80 - 100 04/24/2023 [facility] DEPT PAT H AND FL 4:33 AM LAB MEDICINE CDT MCH 31.5 26 - 34 04/24/2023 [facility] PAT H AND PG 4:33 AM LAB MEDICINE CDT MCHC 33.3 32.0 - 04/24/2023 [facility] DEPT PAT H AND 36.0 4:33 AM LAB MEDICINE G/DL CDT RDW 14.4 11 - 15 04/24/2023 [facility] DEPT PAT H AND % 4:33 AM LAB MEDICINE CDT Platelet Count 225 150 - 04/24/2023 [facility] DEPT PATH AND 400 K/UL 4:33 AM LAB MEDICINE CDT MPV 8.4 7 - 11 04/24/2023 [facility] DEPT PAT H AND FL 4:33 AM LAB MEDICINE CDT Anatomical Location / Laterality Collection Method / Volume Liss ection Time Received Time Specimen (Source) BLOOD / Unknown 04/24/2023 3:55 AM CDT 04/24/20 4:15 AM CDT Jerald Crawford LABORATORY ORDERABLES City/State/ZIP Code Phone Number Performing Address Organization [address] [facility] AND [address] LAB MEDICINE * (ABNORMAL) POC GLUCOSE (04/23/2023 9:40 PM CDT) Pathologist Signature Component Value Ref Test Method Analysis Performed A t Range Time Glucose, POC 122 (H) 70 - 100 04/23/2023 [facility] DEPT PA TH AND MG/DL 9:42 PM LAB MEDICINE POC CDT Anatomical Location / Laterality Collection Method / Volume Liss ection Time Received Time Specimen (Source) 04/23/2023 9:40 PM CDT 04/23/20 9:42 PM CDT Jerald Crawford OTHER LABORATORY City/State/ZIP Code Phone Number Performing Address Organization [address] DEPT PATH AND [address] [facility] [[email or web address] LAB MEDICINE POC * FEEDING TUBE PLCMNT (ABD/CHEST LMTD) (04/23/2023 4:40 PM CDT) Modality Anatomical Region Laterality Computed Radiography CHEST, Abdomen Anatomical Location / Laterality Collection Method / Volume Liss ection Time Received Time Specimen (Source) 04/23/2023 4:56 PM CDT Impressions 04/23/2023 4:57 PM CDT Findings/impression: Single AP projection of the lower chest and upper abdomen was obtained. Indwelling enteric tube with the distal tip terminating over the stomach. Chest findings are more completely evaluated on same-day chest radiograph. Finalized by Jacqueline Child M.D. on 04/23/2023 4:57 PM. Dictated by Jacqueline Child M.D. on 04/23/2023 4:56 PM. Narrative 04/23/2023 4:57 PM CDT Procedure: FEEDING TUBE PLCMNT (ABD/CHEST LMTD) Clinical Indication: Post feeding tube placement Comparison: Chest x-ray 04/23/2023 Procedure Note Jacqueline Child MD - 04/23/2023 Procedure: FEEDING TUBE PLCMNT (ABD/CHEST LMTD) Clinical Indication: Post feeding tube placement Comparison: Chest x-ray 04/23/2023 IMPRESSION Findings/impression: Single AP projection of the lower chest and upper abdomen was obtained. Indwelling enteric tube with the distal tip terminating over the stomach. Chest findings are more completely evaluated on same-day chest radiograph. Finalized by Jacqueline Child M.D. on 04/23/2023 4:57 PM. Dictated by Jacqueline Child M.D. on 04/23/2023 4:56 PM. Jerald Crawford DIAGNOSTIC IMAGING ORDERABL MARY KATE LAMBERT * (ABNORMAL) POC GLUCOSE (04/23/2023 4:17 PM CDT) Pathologist Signature Component Value Ref Test Method Analysis Performed A t Range Time Glucose, POC 114 (H) 70 - 100 04/23/2023 [facility] DE[facility] PA TH AND MG/DL 4:18 PM LAB MEDICINE POC CDT Anatomical Location / Laterality Collection Method / Volume Liss ection Time Received Time Specimen (Source) 04/23/2023 4:17 PM CDT 04/23/20 4:18 PM CDT Jerald Crawford OTHER LABORATORY City/State/ZIP Code Phone Number Performing [place] [address] [facility] [address] [facility] MEDICINE POC * ANTEVERSION SERIES PELVIS (04/23/2023 2:49 PM [...] 2:51 PM. Jerald Crawford DIAGNOSTIC IMAGING ORDERABL ES MD * (ABNORMAL) POC GLUCOSE (04/23/2023 12:54 PM CDT) Pathologist Signature Component Value Ref Test Method Analysis Performed A t Range Time Glucose, POC 138 (H) 70 - 100 04/23/2023 [facility] DEPT PA TH AND MG/DL 12:55 PM LAB MEDICINE POC CDT Anatomical Location / Laterality Collection Method / Volume Liss ection Time Received Time Specimen (Source) 04/23/2023 12:54 PM CDT 04/23/20 12:55 PM CDT Jerald Crawford OTHER LABORATORY MD City/State/ZIP Code Phone Number [place] [address] [facility] DEPT PATH AND [address] [facility] LAB MEDICINE POC * CHEST SINGLE VIEW (04/23/2023 8:56 AM [...] 9:18 AM. Jerald Crawford DIAGNOSTIC IMAGING ORDERABL ES MD * 2D + DOPPLER ECHO W/ CONTRAST [...] OUTSI DE LAB time MV Peak A Brandy 1.04 m/s OTHER OUTSIDE L AB MV Peak E Brandy PW 0.84 m/s OTHER OUTSIDE LAB Right [...] 3.3 cm OTHER OUTSIDE LAB LVOT peak brandy 1.4 m/s OTHER OUTSIDE L AB AV Stroke Volume 42 OTHER OUTSIDE LAB Index AV index ([place]) 0.74 OTHER OUTSIDE LAB ECHO EF 75 % OTHER OUTSIDE L AB FRY'S BIPLANE EF 76 % OTHER OUT SIDE [...] fraction is 75%. The ejection fraction by Fry's biplane method is 76%. There are no [...] ventricular wall motion is globally hyperkinetic. Jerald Crawford ECHO ORDERABLES MD * HAND MIN [...] Jerald Crawford DIAGNOSTIC IMAGING ORDERABL ES * KNEE 1 OR 2 VIEWS RIGHT [...] Jerald Crawford DIAGNOSTIC IMAGING ORDERABL ES * FOREARM 2 VIEWS RIGHT (04/23/2023 6:28 [...] Crawford DIAGNOSTIC IMAGING ORDERABL ES MD * CTA NECK WO/W CONT (04/23/2023 5:44 [...] with multifocal atherosclerotic irregularity. 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 Mild irregularity of the dinkey press operator without significant narrowing. No aneurysm or arteriovenous [...] with multifocal atherosclerotic irregularity. 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 Mild irregularity of the dinkey press operator without significant narrowing. No aneurysm or arteriovenous [...] with multifocal atherosclerotic irregularity. 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 Mild irregularity of the dinkey press operator without significant narrowing. No aneurysm or arteriovenous [...] with multifocal atherosclerotic irregularity. 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 Mild irregularity of the dinkey press operator without significant narrowing. No aneurysm or arteriovenous [...] AM. Jerald Crawford CT ORDERABLES MD * CT MAXIFACIAL/SINUS WO CONTRAST (04/23/2023 5:37 [...] subdural hemorrhage. Jerald Crawford CT ORDERABLES * TYPE & CROSSMATCH (04/23/2023 4:29 AM CDT) Pathologist Signature Component Value Ref Test Method Analysis Performed A t Range Time Units Ordered 0 04/23/2023 [facility] DEPT PATH AND 4:41 AM LAB MEDICINE CDT Crossmatch Expires 04/26/2023,2 04/23/2023 [facility] DEPT PATH AND 359 5:29 AM LAB MEDICINE CDT Record Check FOUND 04/23/2023 [facility] DEPT PATH AND 4:41 AM LAB MEDICINE CDT ABO/RH(D) O NEG 04/23/2023 [facility] DEPT PATH AND 5:29 AM LAB MEDICINE CDT Antibody Screen NEG 04/23/2023 [facility] DEPT PAT H AND 5:29 AM LAB MEDICINE CDT Electronic YES 04/23/2023 [facility] DEPT PATH AND Crossmatch 5:29 AM LAB MEDICINE CDT Anatomical Location / Laterality Collection Method / Volume Liss ection Time Received Time Specimen (Source) BLOOD / Unknown 04/23/2023 4:29 AM CDT 04/23/20 4:40 AM CDT Jerald Crawford BLOOD BANK ORDERABLES City/State/ZIP Code Phone Number Performing [place] [address], [facility] DEPT PATH AND [address] [facility] LAB MEDICINE * (ABNORMAL) CREATINE KINASE-CPK (04/23/2023 4:29 AM CDT) Pathologist Signature Component Value Ref Test Method Analysis Performed A t Range Time Creatine Kinase 1,610 (H) 35 - 232 04/23/2023 [facility] DEPT PATH AND U/L 5:22 AM LAB MEDICINE CDT Anatomical Location / Laterality Collection Method / Volume Liss ection Time Received Time Specimen (Source) BLOOD / Unknown 04/23/2023 4:29 AM CDT 04/23/20 4:44 AM CDT Jerald Crawford LABORATORY ORDERABLES [facility]/State/ZIP Code Phone Number Performing [place] [address], [facility] [address] [facility] LAB MEDICINE * TEG WITH KAOLIN (04/23/2023 4:29 AM [...] MEDICINE CDT Angle Kaolin 75.8 >54.9 04/23/2023 [facility] DEPT PA TH AND DEG 5:42 AM LAB MEDICINE CDT Lysis30 0.2 <8.1 % 04/23/2023 [facility] DEPT PAT H AND 5:42 AM LAB MEDICINE CDT Anatomical Location / Laterality Collection Method / Volume Liss ection Time Received Time Specimen (Source) BLOOD / Unknown 04/23/2023 4:29 AM CDT 04/23/20 4:41 AM CDT Jerald Crawford OTHER LABORATORY [facility]/State/ZIP Code Phone Number Performing [place] [address], [facility] [address] [facility] LAB MEDICINE * PTT (APTT) (04/23/2023 4:29 AM CDT) Pathologist Signature Component Value Ref Test Method Analysis Performed A t Range Time APTT 25.0 24.0 - 04/23/2023 [facility] DEPT PAT H AND 36.5 SEC 5:20 AM LAB MEDICINE CDT Anatomical Location / Laterality Collection Method / Volume Liss ection Time Received Time Specimen (Source) BLOOD / Unknown 04/23/2023 4:29 AM CDT 04/23/20 4:44 AM CDT Jerald Crawford LABORATORY ORDERABLES [facility]/ZIP Code Phone Number Performing Address Organization [address] [facility] AND [address] [place] [address] * PROTIME INR (PT) (04/23/2023 4:29 AM CDT) Pathologist Signature Component Value Ref Test Method Analysis Performed A t Range Time Protime 11.8 9.5 - 04/23/2023 [facility] DEPT PAT H AND 14.2 SEC 5:20 AM LAB MEDICINE CDT INR 1.1 0.8 - 04/23/2023 [facility] DEPT PAT H AND 1.2 5:20 AM LAB MEDICINE CDT Anatomical Location / Laterality Collection Method / Volume Liss ection Time Received Time Specimen (Source) BLOOD / Unknown 04/23/2023 4:29 AM CDT 04/23/20 4:44 AM CDT Jerald Crawford LABORATORY ORDERABLES [facility]/ZIP Code Phone Number Performing Address Organization [address] DEPT PATH AND [address] [facility] * IONIZED CALCIUM (04/23/2023 4:29 AM CDT) [...] 4:44 AM CDT Jerald Crawford LABORATORY ORDERABLES [facility]/ZIP Code Phone Number Performing Address Organization [address] DEPT PATH AND [address] [facility] * LACTIC ACID(LACTATE) (04/23/2023 4:29 AM CDT) Pathologist Signature Component Value Ref Test Method Analysis Performed A t Range Time Lactic Acid 1.9 0.5 - 04/23/2023 [facility] DEPT PAT H AND 2.0 5:29 AM LAB MEDICINE MMOL/L CDT Anatomical Location / Laterality Collection Method / Volume Liss ection Time Received Time Specimen (Source) BLOOD / Unknown 04/23/2023 4:29 AM CDT 04/23/20 4:44 AM CDT Jerald Crawford LABORATORY ORDERJOHN LAMBERT [facility]/ZIP Code Phone Number Performing [place] [address], [address] DEPT PATH AND [address] [facility] [[email or web address] LAB MEDICINE * PHOSPHORUS (04/23/2023 4:29 AM CDT) Pathologist Signature Component Value Ref Test Method Analysis Performed A t Range Time Phosphorus 4.2 2.0 - 04/23/2023 [facility] DEPT PAT H AND 4.5 5:22 AM LAB MEDICINE MG/DL CDT Anatomical Location / Laterality Collection Method / Volume Liss ection Time Received Time Specimen (Source) BLOOD / Unknown 04/23/2023 4:29 AM CDT 04/23/20 4:44 AM CDT Jerald MAYS ORDERJOHN LAMBERT [facility]/ZIP Code Phone Number Performing Address Organization [address] DEPT PATH AND [address] [facility] LAB MEDICINE * MAGNESIUM (04/23/2023 4:29 AM CDT) Pathologist Signature Component Value Ref Test Method Analysis Performed A t Range Time Magnesium 2.1 1.6 - 04/23/2023 [facility] DEPT PAT H AND 2.6 5:22 AM LAB MEDICINE mg/dL CDT Anatomical Location / Laterality Collection Method / Volume Liss ection Time Received Time Specimen (Source) BLOOD / Unknown 04/23/2023 4:29 AM CDT 04/23/20 4:44 AM CDT Jerald Crawford LABORATORY ORDERJOHN LAMBERT [facility]/ZIP Code Phone Number Performing [place] [address], [address] DEPT PATH AND [address] [facility] [[email or web address] LAB MEDICINE * (ABNORMAL) COMPREHENSIVE METABOLIC PANEL (04/23/2023 4:29 AM CDT) Pathologist Signature Component Value Ref Test Method Analysis Performed A t Range Time Sodium 141 137 - 04/23/2023 [facility] DEPT PAT H AND 147 5:22 AM LAB MEDICINE MMOL/L CDT Potassium 4.7 3.5 - 04/23/2023 [facility] DEPT PAT H AND 5.1 5:22 AM LAB MEDICINE MMOL/L CDT Chloride 107 98 - 110 04/23/2023 [facility] DEPT PAT H AND MMOL/L 5:22 AM LAB MEDICINE CDT Glucose 185 (H) 70 - 100 04/23/2023 [facility] DEPT PAT H AND MG/DL 5:22 AM LAB MEDICINE CDT Blood Urea Nitrogen 31 (H) 7 - 25 04/23/2023 [facility] DEPT PATH AND MG/DL 5:22 AM LAB MEDICINE CDT Creatinine 1.83 (H) 0.4 - 04/23/2023 [facility] DEPT PAT H AND 1.24 5:22 AM LAB MEDICINE MG/DL CDT Calcium 9.0 8.5 - 04/23/2023 [facility] DEPT PAT H AND 10.6 5:22 AM LAB MEDICINE MG/DL CDT Total Protein 6.7 6.0 - 04/23/2023 [facility] DEPT P ATH AND 8.0 G/DL 5:22 AM LAB MEDICINE CDT Total Bilirubin 0.5 0.3 - 04/23/2023 [facility] DEPT PATH AND 1.2 5:22 AM LAB MEDICINE MG/DL CDT Albumin 3.9 3.5 - 04/23/2023 [facility] DEPT PAT H AND 5.0 G/DL 5:22 AM LAB MEDICINE CDT Alk Phosphatase 43 25 - 110 04/23/2023 [facility] DEPT PATH AND U/L 5:22 AM LAB MEDICINE CDT AST (SGOT) 515 (H) 7 - 40 04/23/2023 [facility] DEPT PAT H AND U/L 5:22 AM LAB MEDICINE CDT CO2 23 21 - 30 04/23/2023 [facility] PAT H AND MMOL/L 5:22 AM LAB MEDICINE CDT ALT (SGPT) 385 (H) 7 - 56 04/23/2023 [facility] PAT H AND U/L 5:22 AM LAB MEDICINE CDT Anion Gap 11 3 - 12 04/23/2023 [facility] DEPT PAT H AND 5:22 AM LAB MEDICINE CDT eGFR 38 (L) >60 04/23/2023 [facility] DEPT PAT H AND mL/min 5:22 AM LAB MEDICINE CDT Comment: eGFR calculated using the CKD-EPIcr_R equation Anatomical Location / Laterality Collection Method / Volume Liss ection Time Received Time Specimen (Source) BLOOD / Unknown 04/23/2023 4:29 AM CDT 04/23/20 4:44 AM CDT Jerald Crawford LABORATORY ORDERABLES City/State/ZIP Code Phone Number Per[place] [address], [facility] DEPT PATH AND [address] LAB MEDICINE * (ABNORMAL) CBC (04/23/2023 4:29 AM CDT) Pathologist Signature Component Value Ref Test Method Analysis Performed A t Range Time White Blood Cells 11.6 (H) 4.5 - 04/23/2023 [facility] DE PT PATH AND 11.0 4:58 AM LAB MEDICINE K/UL CDT RBC 3.94 (L) 4.4 - 04/23/2023 [facility] DEPT PAT H AND 5.5 M/UL 4:58 AM LAB MEDICINE CDT Hemoglobin 12.3 (L) 13.5 - 04/23/2023 [facility] PAT H AND 16.5 4:58 AM LAB MEDICINE GM/DL CDT Hematocrit 36.6 (L) 40 - 50 04/23/2023 [facility] PAT H AND % 4:58 AM LAB MEDICINE CDT MCV 92.9 80 - 100 04/23/2023 [facility] DEPT PAT H AND FL 4:58 AM LAB MEDICINE CDT MCH 31.3 26 - 34 04/23/2023 [facility] PAT H AND PG 4:58 AM LAB MEDICINE CDT MCHC 33.7 32.0 - 04/23/2023 [facility] DEPT PAT H AND 36.0 4:58 AM LAB MEDICINE G/DL CDT RDW 14.1 11 - 15 04/23/2023 [facility] DEPT PAT H AND % 4:58 AM LAB MEDICINE CDT Platelet Count 251 150 - 04/23/2023 [facility] DEPT PATH AND 400 K/UL 4:58 AM LAB MEDICINE CDT MPV 8.4 7 - 11 04/23/2023 [facility] DEPT PAT H AND FL 4:58 AM LAB MEDICINE CDT Anatomical Location / Laterality Collection Method / Volume Liss ection Time Received Time Specimen (Source) BLOOD / Unknown 04/23/2023 4:29 AM CDT 04/23/20 4:44 AM CDT Jerald Crawford LABORATORY ORDERABLES City/State/ZIP Code Phone Number Performing [place] [address], [facility] AND [address] [facility] LAB MEDICINE documented in this encounter Visit Diagnoses Diagnosis Trauma - Primary Injury, other and unspecified, unspecif ied site Trauma Injury, other and unspecified, unspecif ied site Acute pain due to trauma SDH (subdural hematoma) (HCC) Subdural hemorrhage Closed fracture of ramus of left pubis, initial encounter (HCC) Closed nondisplaced fracture of right a cetabulum, unspecified portion of acetabulum, initial encounter (HCC) Acute pain due to trauma Intraparenchymal hemorrhage of brain (H CC) Intracerebral hemorrhage SDH (subdural hematoma) (HCC) Subdural hemorrhage Closed fracture of left zygomatic arch (HCC) HTN (hypertension) Unspecified essential hypertension Urinary retention Retention of urine, unspecified CKD (chronic kidney disease) stage 2, G FR 60-89 ml/min Chronic kidney disease, Stage II (mild) Traumatic rhabdomyolysis (HCC) Type 2 diabetes mellitus, with long-ter m current use of insulin (HCC) Closed fracture of ramus of left pubis (HCC) Closed fracture of right acetabulum (HC C) Closed fracture of acetabulum Impaired mobility and ADLs Mechanical problems with limbs documented in this encounter Admitting Diagnoses Diagnosis Trauma Injury, other and unspecified, unspecif ied site documented in this encounter Administered Medications Action Date Dose Rate Site Medication Order MAR Action 04/23/2023 10:38 AM CDT 1,000 mg 400 mL/hr acetaminophen (OFIRMEV) 1,000 mg Given - New injection 100 mL Bag 1,000 mg, Intravenous, 100 mL, Administer over 15 Minutes, EVERY 6 HOURS, First dose on Sat04/23/23 at 0430, Until Discontinued, Admission/Obs/Extended Recovery 1,000 mg 400 mL/hr Given - New Bag 04/23/2023 5:09 AM CDT 04/26/2023 3:43 AM CDT 1,000 mg acetaminophen (TYLENOL EXTRA STRENGTH) Given tablet 1,000 mg 1,000 mg, Oral, EVERY 6 HOURS, First dose (after last modification) on Sat04/23/23 at 1630, Until Discontinued, TOTAL ACETAMINOPHEN DOSE NOT TO EXCEED 4GM DAILY 1,000 mg Given 04/25/2023 9:41 PM CDT 1,000 mg Given 04/25/2023 4:08 PM CDT 1,000 mg Given 04/25/2023 5:05 AM CDT 1,000 mg Given 04/24/2023 10:12 PM CDT 1,000 mg Given 04/24/2023 4:54 PM CDT 1,000 mg Given 04/24/2023 9:44 AM CDT 1,000 mg Given 04/24/2023 4:30 AM CDT 1,000 mg Given 04/23/2023 9:37 PM CDT 1,000 mg Given 04/23/2023 5:09 PM CDT 04/30/2023 9:14 AM CDT 650 mg acetaminophen (TYLENOL) tablet 650 mg Given 650 mg, Oral, EVERY 6 HOURS WHILE AWAKE, First dose (after last modification) on Sat04/26/23 at 0900, Until Discontinued, TOTAL ACETAMINOPHEN DOSE NOT TO EXCEED 4GM DAILY 650 mg Given 04/29/2023 8:52 PM CDT 650 mg Given 04/29/2023 8:40 AM CDT 650 mg Given 04/28/2023 9:42 PM CDT 650 mg Given 04/28/2023 3:05 PM CDT 650 mg Given 04/28/2023 8:51 AM CDT 650 mg Given 04/27/2023 8:57 PM CDT 650 mg Given 04/27/2023 2:36 PM CDT 650 mg Given 04/27/2023 8:23 AM CDT 650 mg Given 04/26/2023 9:40 PM CDT 650 mg Given 04/26/2023 3:39 PM CDT 650 mg Given 04/26/2023 8:32 AM CDT 04/30/2023 6:23 AM CDT 100 mg amantadine (SYMMETREL) tablet 100 mg Given 100 mg, Oral, TWICE DAILY - SEE EMAR, First dose on Sat04/24/23 at 1200, Unti l Discontinued 100 mg Given 04/29/2023 11:33 AM CDT 100 mg Given 04/29/2023 6:48 AM CDT 100 mg Given 04/28/2023 11:23 AM CDT 100 mg Given 04/28/2023 6:38 AM CDT 100 mg Given 04/27/2023 2:36 PM CDT 100 mg Given 04/27/2023 6:09 AM CDT 100 mg Given 04/26/2023 12:15 PM CDT 100 mg Given 04/26/2023 5:27 AM CDT 100 mg Given 04/25/2023 12:23 PM CDT 100 mg Given 04/25/2023 5:05 AM CDT 100 mg Given 04/24/2023 12:26 PM CDT 04/30/2023 9:14 AM CDT 10 mg amLODIPine (NORVASC) tablet 10 mg Given 10 mg, Oral, DAILY, First dose on Sat04/25/23 at 1215, Until Discontinued, NURSING: Please educate patient and document: Do not give with grapefruit juice. 10 mg Given 04/29/2023 8:40 AM CDT 10 mg Given 04/28/2023 8:51 AM CDT 10 mg Given 04/27/2023 8:23 AM CDT 10 mg Given 04/26/2023 8:32 AM CDT 10 mg Given 04/25/2023 12:23 PM CDT 04/30/2023 9:14 AM CDT 81 mg aspirin chewable tablet 81 mg Given 81 mg, Oral, DAILY, First dose on Sat04/30/23 at 0900, Until Discontinued 04/27/2023 6:08 AM CDT bacitracin zinc topical ointment Given Topical, NEEDED, Starting on 04/27/23 at 0020, Until Sat04/30/23 at 1301, Other..., Apply to abrasions prn, Apply to abrasions prn 04/29/2023 5:48 PM CDT 10 mg bisacodyL (DULCOLAX) rectal suppository Given 10 mg 10 mg, Rectal, EVERY 6 HOURS, First dose on 04/28/23 at 1200, Until Discontinued, Hold for loose stools 10 mg Given 04/28/2023 11:23 AM CDT 04/30/2023 9:14 AM CDT 10 mg dapagliflozin propanediol (FARXIGA) Given tablet 10 mg 10 mg, Oral, DAILY, First dose on Sat04/26/23 at 1245, Until Discontinued 10 mg Given 04/29/2023 8:41 AM CDT 10 mg Given 04/28/2023 8:52 AM CDT 10 mg Given 04/27/2023 11:50 AM CDT 10 mg Given 04/26/2023 1:00 PM CDT dextrose 50% (D50) syringe 25-50 mL 25-50 mL (12.5-25 g), Intravenous, NEEDED, Starting on Sat04/23/23 at 1257 , Until Sat04/30/23 at 1301, Blood Sugar..., =< 70 mg/dL: See admin instructions, = Blood Sugar Patient Management Result Status Strategy = Blood Glucose Conscious, Oral carbohydrates 50-70 mg/dL able to take PO - Conscious, 25mL (12.5g) dextrose 50% unable to take PO slow IV push - Unconscious 50mL (25g) dextrose 50% slow IV push = Blood Glucose Conscious, Oral carbohydrates <50 mg/dL able to take PO - Conscious, 50mL (25g) dextrose 50% unable to take PO slow IV push - Unconscious 50mL (25g) dextrose 50% slow IV push = NOTE: This is a HIGH ALERT Medication. 04/25/2023 2:48 AM CDT 60 mL/hr Diet Critical Care Enteral Feeding Dose/Rate Volume Based Infusion Change CONTINUOUS, Starting on Sat04/24/23 at 1115, Until Sat04/25/23 at 0930, Please see DIET CRITICAL CARE TABLE REFERENCE (below DIET section) for 4 hr and 24 hr goal calculations. Volume based feedin g is restricted to the ICU. At 0800 daily return the rate to Infusion Goal Rate. Then, every 4hrs readjust rate to achieve the 24hr goal as follows: Step 1: 24 hr. volume goal - volume delivere d since 0801 = X volume left to be infuse d Step 2: X volume left to be infused / remaining hours in day until next 0800= Y Step 3: Y = new hourly rate for next 4 hours (Minimum rate = infusion goal rate, Maximum = 120 ml/hr.) 40 mL/hr Infusion Restarted 04/24/2023 8:44 PM CDT 20 mL/hr Given - New Bag 04/24/2023 1:15 PM CDT 04/30/2023 9:13 AM CDT 30 mg Abdomina l Tissue enoxaparin (LOVENOX) syringe 30 mg Given 30 mg, Subcutaneous, TWICE DAILY, First dose (after last modification) on Sat04/26/23 at 0900, Until Discontinued, Fo r patients undergoing surgery: Consult physician in advance -- enoxaparin is a n anticoagulant and may need to be held for 12hr prior to surgery or invasive procedures. NOTE: This is a HIGH ALERT Medication. 30 mg Abdomen:LLQ Given 04/29/2023 8:52 PM CDT 30 mg Abdomen:RUQ Given 04/29/2023 8:41 AM CDT 30 mg Abdomen:LLQ Given 04/28/2023 9:42 PM CDT 30 mg Arm, Left Given 04/28/2023 8:53 AM CDT 30 mg Abdomen:LLQ Given 04/27/2023 8:59 PM CDT 30 mg Abdominal Tissue Given 04/27/2023 8:23 AM CDT 30 mg Abdomen:RLQ Given 04/26/2023 9:43 PM CDT 30 mg Abdomen:RLQ Given 04/26/2023 8:33 AM CDT 04/25/2023 8:30 PM CDT 40 mg Abdomen: LLQ enoxaparin (LOVENOX) syringe 40 mg Given 40 mg, Subcutaneous, DAILY, First dose on Sat04/24/23 at 2100, Until Discontinued, For patients undergoing surgery: Consult physician in advance - - enoxaparin is an anticoagulant and may need to be held for 12hr prior to surgery or invasive procedures. NOTE: This is a HIGH ALERT Medication. 40 mg Abdominal Tissue Given 04/24/2023 8:40 PM CDT 04/25/2023 9:36 AM CDT 25 mcg fentaNYL citrate PF (SUBLIMAZE) Given injection 12.5-25 mcg 12.5-25 mcg, Intravenous, EVERY 1 HOUR PRN, Starting on Sat04/23/23 at 0421, Until Daija 04/25/23 at 1108, Pain Injectable, Admission/Obs/Extended Recovery 25 mcg Given 04/25/2023 12:20 AM CDT 25 mcg Given 04/24/2023 7:28 PM CDT 25 mcg Given 04/24/2023 1:13 PM CDT 12.5 mcg Given 04/24/2023 6:44 AM CDT 12.5 mcg Given 04/24/2023 12:59 AM CDT 12.5 mcg Given 04/23/2023 9:54 PM CDT 12.5 mcg Given 04/23/2023 6:35 PM CDT 04/24/2023 2:41 PM CDT 5,000 Units Abdomina l Tissue heparin (porcine) PF syringe 5,000 Units Given 5,000 Units, Subcutaneous, EVERY 8 HOURS, First dose on Sat04/24/23 at 1400, Until Discontinued, NOTE: This is a HIGH ALERT Medication. 04/25/2023 8:57 AM CDT 12.5 mg hydroCHLOROthiazide tablet 12.5 mg Given 12.5 mg, Oral, DAILY, First dose on Sat04/24/23 at 1715, Until Discontinued 12.5 mg Given 04/24/2023 4:54 PM CDT 04/29/2023 11:35 AM CDT 2 Units Abdomen: LLQ insulin aspart (U-100) (NOVOLOG FLEXPEN Given U-100 INSULIN) injection PEN 0-12 Units 0-12 Units, Subcutaneous, BEFORE MEALS AND 2200, First dose on Sat04/23/23 at 1200, Until Discontinued, MID DOSE -POC glucose 181-220mg/dL at , , administer 2 units insulin, at 22, 03* administer 0 units. -POC glucose 221-260mg/dL at , , administer 4 units insulin, at 22, 03* administer 2 units. -POC glucose 261-300mg/dL at , administer 6 units insulin, at 22, 03* administer 4 units. -POC glucos e 301-350mg/dL at , administer 8 units insulin, at 22, 03* administer 6 units. -POC glucose 351-400mg/dL at , , administer 10 units insulin, at 22, 03* administer 8 units. -POC glucos e >400mg/dL at , , administer 12 units insulin, at 22, 03* administer 10 units. *only if ordered 5x's daily Fo r POCT glucose >350mg/dL give correction bolus and recheck POCT glucose in 2 hours. If POCT glucose at 2 hours >300mg/dL call physician for further orders. For patients who are not eatin g meals, continue to administer the appropriate correction factor. NOTE: This is a HIGH ALERT Medication., Dispense pens manually with initial order and then upon request. DO NOT uncheck "Do not dispense" 2 Units Arm, Left Given 04/28/2023 11:22 PM CDT 4 Units Arm, Left Given 04/28/2023 5:13 PM CDT 4 Units Abdominal Tissue Given 04/28/2023 11:22 AM CDT 2 Units Arm, Right Given 04/28/2023 7:57 AM CDT 2 Units Arm, Right Given 04/27/2023 5:32 PM CDT 6 Units Arm, Right Given 04/27/2023 11:47 AM CDT 2 Units Arm, Right Given 04/27/2023 8:24 AM CDT 2 Units Arm, Left Given 04/26/2023 9:40 PM CDT 2 Units Left Arm Given 04/26/2023 5:48 PM CDT 4 Units Left Arm Given 04/26/2023 12:00 PM CDT 4 Units Abdomen:LLQ Given 04/26/2023 8:00 AM CDT 2 Units Arm, Right Given 04/25/2023 4:08 PM CDT 2 Units Abdomen:RLQ Given 04/25/2023 12:25 PM CDT 4 Units Abdominal Tissue Given 04/25/2023 6:03 AM CDT 04/23/2023 5:39 AM CDT 60 mL iohexoL (OMNIPAQUE-350) 350 mg/mL Given injection 60 mL 60 mL, Intravenous, ONCE, 1 dose, On 04/23/23 at 0545, NOTE: This is a HIGH ALERT Medication. 04/24/2023 1:44 PM CDT 10 mg labetaloL (NORMODYNE) injection 10 mg Given 10 mg, Intravenous, EVERY 15 MIN PRN, 2 doses, Starting on Sat04/24/23 at 1331, Until Daija 04/25/23 at 0012, Systolic Blood Pressure..., > 150, Hold for hear t rate < 50 bpm 04/23/2023 5:09 AM CDT 125 mL/hr lactated ringers infusion Given - New 1,000 mL, Intravenous, at 125 mL/hr, Bag CONTINUOUS, Starting on Sat04/23/23 at 0500, Until Sat04/23/23 at 1151 04/23/2023 8:34 AM CDT 500 mg levETIRAcetam (KEPPRA) IV push 500 mg Given 500 mg, Intravenous, 5 mL, TWICE DAILY, First dose on Sat04/23/23 at 0900, Unti l Discontinued, IV Push should be administered over 1 minute for every 500mg. 04/30/2023 9:14 AM CDT 10 mg lisinopriL (ZESTRIL) tablet 10 mg Given 10 mg, Oral, DAILY, First dose on Sat04/26/23 at 0900, Until Discontinued 10 mg Given 04/29/2023 8:40 AM CDT 10 mg Given 04/28/2023 8:55 AM CDT 10 mg Given 04/27/2023 8:23 AM CDT 10 mg Given 04/26/2023 8:32 AM CDT 04/29/2023 11:59 PM CDT 5 mg melatonin tablet 5 mg Given 5 mg, Oral, ONCE, 1 dose, On Sat 3 at 2345 04/26/2023 8:32 AM CDT 30 mL milk of magnesium oral suspension 30 mL Given 30 mL, Oral, ONCE, 1 dose, On Sat04/26/23 at 0830 04/27/2023 8:22 AM CDT 30 mL milk of magnesium oral suspension 30 mL Given 30 mL, Oral, ONCE, 1 dose, On Sat04/27/23 at 0815 04/27/2023 8:26 AM CDT 12.5 mg naloxegoL (MOVANTIK) tablet 12.5 mg Given 12.5 mg, Oral, ONCE, 1 dose, On Sat04/27/23 at 0815, Should be administered at least 1 hour prior to the first meal of the day or 2 hours after the meal. For patients who are unable to swallow the tablet whole, the tablet can be crushed to a powder, mixed with 4 ounce s (120 mL) of water and drunk immediately . The glass should be refilled with 4 ounces (120 mL) of water, stirred and the contents drunk. Consumption of grapefruit or grapefruit juice during treatment with naloxegol should be avoided. 04/28/2023 8:55 AM CDT 25 mg naloxegoL (MOVANTIK) tablet 25 mg Given 25 mg, Oral, ONCE, 1 dose, On Sat04/28/23 at 0745, Should be administered at least 1 hour prior to the first meal of the day or 2 hours after the meal. For patients who are unable to swallow the tablet whole, the tablet can be crushed to a powder, mixed with 4 ounce s (120 mL) of water and drunk immediately . The glass should be refilled with 4 ounces (120 mL) of water, stirred and the contents drunk. Consumption of grapefruit or grapefruit juice during treatment with naloxegol should be avoided. 04/28/2023 9:42 PM CDT 5 mg oxyCODONE (ROXICODONE) tablet 5 mg Given 5 mg, Oral, EVERY 6 HOURS PRN, Startin g on Sat04/26/23 at 0700, Until Sat04/30/23 at 1301, Pain PO, Admission/Obs/Extended Recovery 5 mg Given 04/28/2023 6:42 AM CDT 5 mg Given 04/27/2023 2:36 PM CDT 5 mg Given 04/27/2023 6:12 AM CDT 5 mg Given 04/26/2023 3:41 PM CDT 04/24/2023 9:44 AM CDT 5 mg oxyCODONE (ROXICODONE) tablet 5-10 mg Given 5-10 mg, Oral, EVERY 4 HOURS PRN, Starting on Sat04/23/23 at 0421, Until Sat04/24/23 at 1119, Pain PO, Admission/Obs/Extended Recovery 5 mg Given 04/24/2023 12:31 AM CDT 04/25/2023 4:08 PM CDT 5 mg oxyCODONE (ROXICODONE) tablet 5-10 mg Given 5-10 mg, Oral, EVERY 3 HOURS PRN, Starting on Sat04/24/23 at 1130, Until Sat04/26/23 at 0657, Pain PO, Admission/Obs/Extended Recovery 5 mg Given 04/25/2023 12:23 PM CDT 5 mg Given 04/24/2023 6:51 PM CDT 04/23/2023 7:33 AM CDT 1.5 Diluted mL perflutren lipid microspheres (DEFINITY) Given injection 1-10 Diluted mL 1-10 Diluted mL, Intravenous, ONCE PRN, 1 dose, Starting on Sat04/23/23 at 0641 , Until Sat04/23/23 at 0733, For Procedure, A road consultant may only administer Definity through a saline lock. If IV is in use or a port, PICC, or central line is being used a nurse must administer. NOTE: This is a HIGH ALERT Medication., MAC Procedure Area Only - Medications 04/26/2023 8:33 AM CDT 17 g polyethylene glycol 3350 (MIRALAX) Given packet 17 g 17 g, Oral, DAILY, First dose on Sat04/23/23 at 0900, Until Discontinued, 8. 5 GRAMS = 0.5 PACKET 17 GRAMS = 1 PACKET 34 GRAMS = 2 PACKETS, Admission/Obs/Extended Recovery 17 g Given 04/25/2023 8:57 AM CDT 17 g Given 04/24/2023 9:44 AM CDT 04/30/2023 9:13 AM CDT 34 g polyethylene glycol 3350 (MIRALAX) Given packet 34 g 34 g (2 packet), Oral, TWICE DAILY, First dose (after last modification) on Sat04/27/23 at 0900, Until Discontinued , 8.5 GRAMS = 0.5 PACKET 17 GRAMS = 1 PACKET 34 GRAMS = 2 PACKETS, Admission/Obs/Extended Recovery 34 g Given 04/29/2023 8:41 AM CDT 34 g Given 04/28/2023 8:57 AM CDT 34 g Given 04/27/2023 8:59 PM CDT 34 g Given 04/27/2023 8:23 AM CDT 04/30/2023 9:14 AM CDT 2 tablets senna (SENOKOT) tablet 2 tablet Given 2 tablet, Oral, TWICE DAILY, First dose on Sat04/23/23 at 1200, Until Discontinued, Hold for loose stools 2 tablets Given 04/29/2023 8:51 PM CDT 2 tablets Given 04/29/2023 8:40 AM CDT 2 tablets Given 04/28/2023 9:41 PM CDT 2 tablets Given 04/28/2023 8:57 AM CDT 2 tablets Given 04/27/2023 8:57 PM CDT 2 tablets Given 04/27/2023 8:23 AM CDT 2 tablets Given 04/26/2023 9:39 PM CDT 2 tablets Given 04/26/2023 8:32 AM CDT 2 tablets Given 04/25/2023 8:30 PM CDT 2 tablets Given 04/25/2023 8:57 AM CDT 2 tablets Given 04/24/2023 8:40 PM CDT 2 tablets Given 04/23/2023 9:37 PM CDT 04/23/2023 5:38 AM CDT 50 mL sodium chloride PF 0.9% injection 50 mL Given 50 mL, Intravenous, ONCE, 1 dose, On e 04/23/23 at 0545, DO NOT SEND this medication unless it is requested. This med is usually available in floor stock . 04/30/2023 9:14 AM CDT 0.4 mg tamsulosin (FLOMAX) capsule 0.4 mg Given 0.4 mg, Oral, DAILY AFTER BREAKFAST, First dose on Daija 04/25/23 at 1215, Unti l Discontinued, NURSING: Please educate patient and document: Give 1/2 hour following same meal everyday. Do not crush, chew or open the capsule. 0.4 mg Given 04/29/2023 8:40 AM CDT 0.4 mg Given 04/28/2023 8:58 AM CDT 0.4 mg Given 04/27/2023 8:23 AM CDT 0.4 mg Given 04/26/2023 8:32 AM CDT 0.4 mg Given 04/25/2023 12:23 PM CDT 04/25/2023 8:57 AM CDT 80 mg valsartan (DIOVAN) tablet 80 mg Given 80 mg, Oral, DAILY, First dose on Daija 04/25/23 at 0900, Until Discontinued documented in this encounter Discontinued Medications Start Date End Date Medication Sig Discontinue Reason 04/30/2023 tolterodine LA(+) (DETROL Take 4 mg by LA) 4 mg PO capsule mouth Daily. 04/30/2023 pravastatin (PRAVACHOL) Take 80 mg 80 mg PO tablet by mouth Daily. 04/30/2023 MELOXICAM PO Take 15 mg by mouth Daily. 04/30/2023 olmesartan-hydrochlorothi Take 1 Tab azide (BENICAR HCT) by mouth 20-12.5 mg PO per tablet Daily. 10/25/2010 04/30/2023 oxycodone/acetaminophen Take 1 Tab (PERCOCET) 5/325 mg PO by mouth tablet every 4 hours as needed for Pain. 10/25/2010 04/30/2023 hyoscyamine (LEVSIN/SL) 1 Tab every 0.125 mg SL tablet 4 hours as needed for Other... (Bladder spasms). 10/25/2010 04/30/2023 senna/docusate Take 1 Tab (SENOKOT-S) 8.6/50 mg PO by mouth tablet twice daily. 10/25/2010 04/30/2023 polymyxin/bacitracin/jared/ Apply to HC (CORTISPORIN) 1 % TP affected topical ointment area three times daily. 10/25/2010 04/30/2023 aspirin 81 mg PO chew Take 1 Tab Reorder tablet by mouth daily. documented as of this encounter Active and Recently Administered Medications Times are shown in CDT. 04/29/2023 04/30/2023 Medication Order 04/28/2023 0840 (Given - Provider: Berkley Soto RN)1452 (Med Not Given - Provider: Berkley Soto RN - Reason: Other (Comment) - Comment: pt is sleeping)2051 (Given - Provider: Tracey Sierra RN) 0914 (Given - Provider: Basilia Finnegan) acetaminophen (TYLENOL) tablet 650 mg 0851 (Given - 650 mg, Oral, EVERY 6 HOURS WHILE Provider: Gabriel MONGE, First dose (after last FAB Miller)1505 modification) on Sat04/26/23 at 0900, (Given - Provi shawn: Until Discontinued, TOTAL ACETAMINOPHEN Bernardo Hussein RN)2142 DOSE NOT TO EXCEED 4GM DAILY (Given - Provider: Gaye Rivera RN) 0648 (Given - Provider: Gaye Rivera RN) 1133 (Given - Provider: Berkley Soto RN) 0623 (Given - Provider: Jeremiah Mcnair RN) amantadine (SYMMETREL) tablet 100 mg 0638 (Given - 100 mg, Oral, TWICE DAILY - SEE EMAR, Provider: Sandy a First dose on Sat04/24/23 at 1200, Until FAB Rivera)1 123 Discontinued (Given - Provider: Gabriel Miller RN) 0840 (Given - Provider: Berkley Soto RN) 0914 (Given - Provider: Basilia Finnegan) amLODIPine (NORVASC) tablet 10 mg 0851 (Given - 10 mg, Oral, DAILY, First dose on Daija Provider: Gabriel 04/25/23 at 1215, Until Discontinued, Angela, FAB) NURSING: Please educate patient and document: Do not give with grapefruit juice. 0914 (Given - Provider: Basilia Finnegan) aspirin chewable tablet 81 mg 81 mg, Oral, DAILY, First dose on Sat04/30/23 at 0900, Until Discontinued 0648 (Med Not Given - Provider: Gaye laguna RN - Reason: Contraindicated)1121 (Med Not Given - Provider: Berkley Soto RN - Reason: Order parameters not met)1748 (Given - Provider: WES MeadN)2309 (Med Not Given - Provider: Jeremiah Mcnair RN - Reason: Patient Refused) 0624 (Med Not Given - Provider: Jeremiah Mcnair RN - Reason: Patient Refused) bisacodyL (DULCOLAX) rectal suppository 1123 (Given - 10 mg Provider: Gabriel 10 mg, Rectal, EVERY 6 HOURS, First FAB Miller)1 715 dose on Sat04/28/23 at 1200, Until (Med Not Given - Discontinued, Hold for loose stools Provider: Bernardo Hussein RN - Reason: Patient Refused)2300 (Med Not Given - Provider: Gaye Rivera RN - Reason: Order parameters not met) 0841 (Given - Provider: Berkley Soto RN) 0914 (Given - Provider: Basilia Finnegan) dapagliflozin propanediol (FARXIGA) 0852 (Given - tablet 10 mg Provider: Gabriel 10 mg, Oral, DAILY, First dose on Sat FAB Miller) 04/26/23 at 1245, Until Discontinued 0841 (Given - Provider: Berkley Soto, FAB)2051 (Given - Provider: Tracey Sierra, FAB) 09 (Given - Provider: Basilia Finnegan) enoxaparin (LOVENOX) syringe 30 mg 0853 (Given - 30 mg, Subcutaneous, TWICE DAILY, First Provider: Ry an dose (after last modification) on Sat FAB Miller) 214104/26/23 at 0900, Until Discontinued, For (Given - Pr ovider: patients undergoing surgery: Consult Gaye Rivera, FAB ) physician in advance -- enoxaparin is a n anticoagulant and may need to be held for 12hr prior to surgery or invasive procedures. NOTE: This is a HIGH ALERT Medication. 0731 (Med Not Given - Provider: Berkley sim RN - Reason: Order parameters not met)1135 (Given - Provider: Berkley Soto, RN)1750 (Med Not Given - Provider: WES MeadN - Reason: Order parameters not met)2100 (Med Not Given - Provider: Tracey Sierra RN - Reason: Order parameters not met - Comment: bs 190) 0915 (Med Not Given - Provider: Guerda newell RN - Reason: Order parameters not met)1100 (Due) insulin aspart (U-100) (NOVOLOG FLEXPEN 0757 (Given - U-100 INSULIN) injection PEN 0-12 Units Provider: Ry maggie 0-12 Units, Subcutaneous, BEFORE MEALS FAB Miller )1122 AND 2200, First dose on Sat04/23/23 at (Given - Prov ider: 1200, Until Discontinued, MID DOSE -POC Gabriel Donaldson ty, glucose 181-220mg/dL at , , RN)1713 (Given - administer 2 units insulin, at , 03* Provider: Steffen katz administer 0 units. -POC glucose Keenan RN)2322 (Give n 221-260mg/dL at , , administer 4 - Provider: Gaye perez insulin, at , 03* administer 2 FAB Rivera) units. -POC glucose 261-300mg/dL at , , administer 6 units insulin, at 22, 03* administer 4 units. -POC glucos e 301-350mg/dL at , , administer 8 units insulin, at 22, 03* administer 6 units. -POC glucose 351-400mg/dL at , , administer 10 units insulin, at 22, 03* administer 8 units. -POC glucos e >400mg/dL at , , administer 12 units insulin, at 22, 03* administer 10 units. *only if ordered 5x's daily Fo r POCT glucose >350mg/dL give correction bolus and recheck POCT glucose in 2 hours. If POCT glucose at 2 hours >300mg/dL call physician for further orders. For patients who are not eatin g meals, continue to administer the appropriate correction factor. NOTE: This is a HIGH ALERT Medication., Dispense pens manually with initial order and then upon request. DO NOT uncheck "Do not dispense" 0840 (Given - Provider: Berkley Soto RN) 0914 (Given - Provider: Basilia Finnegan) lisinopriL (ZESTRIL) tablet 10 mg 0855 (Given - 10 mg, Oral, DAILY, First dose on Sat Provider: Gabriel 04/26/23 at 0900, Until Discontinued FAB Miller) 2359 (Given - Provider: Jeremiah Mcnair RN) melatonin tablet 5 mg (COMPLETED) 5 mg, Oral, ONCE, 1 dose, On Sat 3 at 2345 naloxegoL (MOVANTIK) tablet 25 mg 0855 (Given - (COMPLETED) Provider: Gabriel 25 mg, Oral, ONCE, 1 dose, On Sat FAB Miller - 04/28/23 at 0745, Should be administered Comment: med not at least 1 hour prior to the first meal available) of the day or 2 hours after the meal. For patients who are unable to swallow the tablet whole, the tablet can be crushed to a powder, mixed with 4 ounce s (120 mL) of water and drunk immediately . The glass should be refilled with 4 ounces (120 mL) of water, stirred and the contents drunk. Consumption of grapefruit or grapefruit juice during treatment with naloxegol should be avoided. 0841 (Given - Provider: Berkley Soto RN)2052 (Med Not Given - Provider: Tracey Sierra RN - Reason: Patient Refused) 912 (Given - Provider: Basilia Finnegan) polyethylene glycol 3350 (MIRALAX) 0857 (Given - packet 34 g Provider: Gabriel 34 g (2 packet), Oral, TWICE DAILY, FAB Miller)21 54 First dose (after last modification) on (Med Not Giv en - 04/27/23 at 0900, Until Discontinued, Provider: Kurtis annette 8.5 GRAMS = 0.5 PACKET 17 GRAMS = 1 FAB Rivera - Reas on: PACKET 34 GRAMS = 2 PACKETS, Patient Refused) Admission/Obs/Extended Recovery 0840 (Given - Provider: Berkley Soto RN)2050 (Given - Provider: Tracey Sierra RN) 0914 (Given - Provider: Basilia Finnegan) senna (SENOKOT) tablet 2 tablet 0857 (Given - 2 tablet, Oral, TWICE DAILY, First dose Provider: Ry an on Sat04/23/23 at 1200, Until FAB Miller)2140 Discontinued, Hold for loose stools (Given - Provide r: Gaye Rivera RN) 0840 (Given - Provider: Berkley Soto RN) 0914 (Given - Provider: Basilia Finnegan) tamsulosin (FLOMAX) capsule 0.4 mg 0858 (Given - 0.4 mg, Oral, DAILY AFTER BREAKFAST, Provider: Gabriel First dose on Sat04/25/23 at 1215, Until FAB Miller) Discontinued, NURSING: Please educate patient and document: Give 1/2 hour following same meal everyday. Do not crush, chew or open the capsule. 04/29/2023 04/30/2023 Medication Order 04/28/2023 bacitracin zinc topical ointment Topical, NEEDED, Starting on 04/27/23 at 0020, Until Sat04/30/23 at 1301, Other..., Apply to abrasions prn, Apply to abrasions prn dextrose 50% (D50) syringe 25-50 mL 25-50 mL (12.5-25 g), Intravenous, NEEDED, Starting on Sat04/23/23 at 1257 , Until Sat04/30/23 at 1301, Blood Sugar..., =< 70 mg/dL: See admin instructions, = Blood Sugar Patient Management Result Status Strategy = Blood Glucose Conscious, Oral carbohydrates 50-70 mg/dL able to take PO - Conscious, 25mL (12.5g) dextrose 50% unable to take PO slow IV push - Unconscious 50mL (25g) dextrose 50% slow IV push = Blood Glucose Conscious, Oral carbohydrates <50 mg/dL able to take PO - Conscious, 50mL (25g) dextrose 50% unable to take PO slow IV push - Unconscious 50mL (25g) dextrose 50% slow IV push = NOTE: This is a HIGH ALERT Medication. oxyCODONE (ROXICODONE) tablet 5 mg 0642 (Given - 5 mg, Oral, EVERY 6 HOURS PRN, Starting Provider: Kurtis bryant on Sat04/26/23 at 0700, Until Margaret Rivera RN)214104/30/23 at 1301, Pain PO, (Given - Provider: Admission/Obs/Extended Recovery Gaye Rivera RN) documented in this encounter Orders First Ordered Date Medications Ordered That Might Not Have Count Last Ordered Date Been Administered 04/23/2023 acetaminophen (TYLENOL EXTRA STRENGTH) 2 04/26/2023 tablet 1,000 mg Diet Critical Care Enteral Feeding 1 Volume Based Infusion enoxaparin (LOVENOX) syringe 30 mg 1 labetaloL (NORMODYNE) injection 10 mg 1 04/24/2023 pancrelipase 20,880 Units/sodium 1 04/24 bicarbonate 650 mg (KU CLOG DESTROYER) dextrose 50% (D50) syringe 25-50 mL 1 sennosides-docusate sodium (SENOKOT-S) 1 04/23/2023 tablet 1 tablet First Ordered Date Procedures Count Last Ordered Date CONSULT VASCULAR ACCESS TEAM 1 3 First Ordered Date Diet Count Last Ordered Date DISCHARGE DIET DIABETIC 1 04/30/2023 DISCHARGE DIET OTHER 1 04/30/2023 First Ordered Date Nursing Count Last Ordered Date DISCHARGE ACTIVITY DRIVING 1 04/30/2023 DISCHARGE ACTIVITY NORMAL 1 04/30/2023 DISCHARGE ACTIVITY OTHER 1 04/30/2023 DISCHARGE ACTIVITY WT BEARING 2 04/30/20 DISCHARGE CONTACT 1 04/30/2023 DISCHARGE EDUCATION 3 04/30/2023 DISCHARGE RETURN APPOINTMENT 5 DISCHARGE SIGNS/SYMPTOMS 1 04/30/2023 LINE/DRAIN COMMUNICATION 1 04/24/2023 URINARY CATHETER FROM OUTSIDE FACILITY 1 04/23/2023 First Ordered Date Consult Count Last Ordered Date CONSULT REHABILITATION MEDICINE 1 2022 PHYSICIAN 04/23/2023 CONSULT DIETITIAN 2 04/24/2023 CONSULT INTERNAL MEDICINE PHYSICIAN 1 CONSULT NEUROSURGERY PHYSICIAN 1 023 CONSULT ORTHOPEDIC SURGERY PHYSICIAN 1 0 04/23/2023 CONSULT PLASTIC SURGERY PHYSICIAN 1 04/03 First Ordered Date OT Count Last Ordered Date OT CONSULT OCCUPATIONAL THERAPY 1 2022 First Ordered Date PT Count Last Ordered Date PT CONSULT PHYSICAL THERAPY 1 04/24/2023 First Ordered Date CLEARING HAND Count Last Ordered Date CLEARING HAND CONSULT CLINICAL BEDSIDE SWALLOW 1 0 04/24/2023 EVAL & TX First Ordered Date Admission Count Last Ordered Date ADMIT TO INPATIENT (NO BED REQUEST) 1 First Ordered Date Transfer Count Last Ordered Date TRANSFER PATIENT (BED REQUEST) 1 023 First Ordered Date Discharge Count Last Ordered Date DISCHARGE PATIENT NOW 1 04/30/2023 First Ordered Date Equipment Count Last Ordered Date [facility] ANGUS BED AIRFLOW PUMP 1 04/25/20 [id number] MONITOR 1 04/24/2023 PUMP, FEEDING 1 04/24/2023 COMPRESSION DEVICE, LEG 1 04/23/2023 PUMP IV CONTROL UNIT W/MODULES 1 023 First Ordered Date Vital Signs Count Last Ordered Date VITAL SIGNS 1 04/23/2023 First Ordered Date Activity Count Last Ordered Date MOBILITY 1 04/23/2023 First Ordered Date Discharge Contingent Count Last Ordered Date DISCHARGE PATIENT CONTINGENT 1 First Ordered Date Tube Feeding Count Last Ordered Date SMALL BORE FEEDING TUBE PLACEMENT 1 04/03 First Ordered Date SPECIALITY EQUIPMENT Count Last Ordered Date COMMODE STANDARD 300LBS MAX 1 04/26/2023 04/24/2023 FAN 2 04/26/2023 First Ordered Date Appointment Request Count Last Ordered Date 04/23/2023 APPOINTMENT REQUEST: NEUROSURGERY 2 04/03 APPOINTMENT REQUEST: ORTHOPEDICS 1 04/30 First Ordered Date Intake & Output Count Last Ordered Date INTAKE AND OUTPUT 1 04/23/[address] & Maintain Count Last Ordered Date PLACE AND MAINTAIN SCD 1 04/23/2023 First Ordered Date ADT Patient Update Count Last Ordered Date CHANGE SERVICE / LEVEL OF CARE (NO BED 1 04/24/2023 REQUEST) documented in this encounter Additional Health Concerns Noted Time Assessment 04/30/2023 9:13 AM CDT A fall risk assessment has been complet ed for the patient documented as of this encounter Care Teams Start Date End Date Welder Tech Relationship Specialty 10/16/10 Ta Pelayo PCP - General [address] [place] [address] [place] [address] 10/16/10 Tolu Richey III, Urology [place] [facility] [address] [place] [address] 10/16/10 James Valles MD Urology Forwarding Address Unknown Left 01/30/2019 documented as of this encounter
--- OUTSIDE RECORDS SUMMARY | 2023-04-30 13:20 | XMS REPORT | Encounter Summary ---
Author Author [facility] Organization [facility] Address Unknown Phone Unavailable Care Team Providers Care Director Learning Name Role Phone Rossi MERIDA PA-C, James R Unavailable [phone] Ta Pelayo PCP James Valles MD Unavailable Unavailable Reason for Visit * Auth/Cert (Routine) Diagnoses / Procedures Referred By Contact Referred To Conta ct Specialty Diagnoses Trauma fall Referral ID Status Reason Start Date Expiration Visits Vi sits Date Requested Authorized [id number] 1 1 Encounter Details Care Team Description Date Type Department Jerald Crawford MD [address] [facility] [address], Gustavo F [place] [address] [place] [address] 04/26/2023 Hospital Vascular Access Tea m: 7:34 AM Encounter [facility] CDT [address] [facility] [address], [address] [place] [address] Social History Date Tobacco Use Types Packs/Day Years Used Smoking Tobacco: Never Smokeless Tobacco: Never Comments Alcohol Use Standard Drinks/Week Yes 0.8 [...] on file documented as of this encounter Functional Status Date of Assessment Functional Status Response 04/26/2023 Does the patient have a hearing impairment: No documented as of this encounter Plan of Treatment Not on filedocumented as of this encounter Goals Goal Patient Associated Recent Progress Patient-Stat Aut hor Goal Type Problems ed? GOAL General On track (04/26/2023 No Monica wood, 12:27 PM CDT) FAB Cabrera Note: Back to normal documented as of this encounter Procedures Comments Procedure Name Priority Date/Time Associated Diag nosis CONSULT VASCULAR ACCESS Routine 04/26/2023 TEAM 6:34 AM CDT documented in this encounter Visit Diagnoses Not on filedocumented in this encounter Orders First Ordered Date Procedures Count Last Ordered Date CONSULT VASCULAR ACCESS TEAM 1 3 documented in this encounter Additional Health Concerns Noted Time Assessment 04/26/2023 8:45 PM CDT A fall risk assessment has been complet ed for the patient documented as of this encounter Care Teams Start Date End Date Director Learning Relationship Specialty 10/16/10 Ta Pelayo PCP - General [address] [place] [address] [place] [address] 10/16/10 Tolu Richey III, Urology PA-C [address] [facility] [address] [place] [address] 10/16/10 James Valles MD Urology Forwarding Address Unknown Left 01/30/2019 documented as of this encounter
[2023-04-30] MEDS ORDERED: BACITRACIN ZINC TP PRN (13:30)
[2023-04-30] MEDS ORDERED: BACITRACIN OINTMENT 28 GM TUBE TOP PRN (13:45)
--- NOTE | 2023-04-30 14:06 | Occupational Therapy Eval ---
OT Evaluation-General/PLF Medical Diagnosis Admission Date Apr 30, 2023 at 13:00 Medical Diagnosis: SDH; closed fx of R acetabulum; closed fx of ramus of L pubis Onset Date: Apr 23, 2023 Therapy Diagnosis Therapy Diagnosis: SDH; closed fx of R acetabulum; closed fx of ramus of L pubis Height/Weight Height (Feet): 5 Height (Inches): 11.00 Weight (Pounds): 200 Weight (Ounces): 0.0 Precautions Precautions/Isolations: Fall Prevention, Standard Precautions Safety Interventions: Bed Exit Alarm Weight Bear Status Weight Bearing Restriction: Weight Bearing/Tolerated Location Restriction: L LE, R LE Referral Referral Reason: Activity Tolerance, Self Care, Evaluation/Treatment, Strengthening/ROM Medical History Pertinent Medical History: Arthritis, DM, HTN, Prostate CA Reviewed History: Yes Social History Home: Single Level Current Living Status: Alone Entry Into Home: Level Entry ADL-Prior Level of Function SCALE: Activities may be completed with or without assistive devices. 4-Zxvwxwerkl-oauetcc completes the activity by him/herself with no assistance from a helper. 5-Set-up or Clean-up Assistance-helper sets up or cleans up; patient completes activity. [place] assists only prior to or following the activity. 4-Supervision or Touching Assistance-helper provides verbal cues and/or touching/steadying and/or contact guard assistance as patient completes activity. Assistance may be provided throughout the activity or intermittently. 3-Partial/Moderate Assistance-helper does LESS THAN HALF the effort. [place] lifts, holds or supports trunk or limbs, but provides less than half the effort. 2-Substantial/Maximal Assistance-helper does MORE THAN HALF the effort. [place] lifts or holds trunk or limbs and provides more than half the effort. 2-Urkfmmykl-lwggrn does ALL the effort. Patient does none of the effort to complete the activity. Or, the assistance of 2 or more helpers is required for the patient to complete the activity. If activity was not attempted, code reason: 7-Patient Refused. 9-Not Applicable-not attempted and the patient did not perform the activity before the current illness, exacerbation or injury. 10-Not Attempted due to Environmental Limitations-(lack of equipment, weather restraints, etc.). 88-Not Attempted due to Medical Conditions or Safety Concerns. 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 Drive Self: Yes Leisure Interests: Pt reported that he enjoys playing the organ and tending to house plants OT Current Status Subjective Pt consented to OT evaluation Pain Numeric Pain Scale: 7 Location: Right Location Body Site: Hip Mental Status/Objective Patient Orientation: Person, Place, Time, Situation Current Glasses/Contacts: Yes Hearing Aids: No Dentures/Partials: No Hand Dominance: Right Upper Extremity ROM AROM WFL to perform basic ADLs Upper Extremity Coordination Appears to be WFL; OT will continue to assess Upper Extremity Sensation WNL per pt reporting Upper Extremity Strength BUE strength 4+/5 grossly ADL-Treatment Eating (QC): 5 (Set-up A to open packages; pt able to bring cup to mouth to drink water.) Oral Hygiene (QC): 4 (Verbal cues for oral care) Shower/Bathe Self (QC): 3 (Partial/mod A for sponge bath seated at EOB; pt req uired verbal cues for sequencing task; pt required (A) to clean buttocks and B feet; pt would benefit from long handled sponge.) Upper Body Dressing (QC): 4 (SBA to don shirt seated at EOB.) Lower Body Dressing (QC): 2 (Sub/max A to don/doff pants and brief) On/Off Footwear (QC): 1 (Total A for donning/doffing socks seated at EOB; pt would benefit from AE.) Toileting Hygiene (QC): 2 (Sub/max A for toileting) Simulated toilet t/f performed with chair at bedside with pt performing SPT from EOB<>chair with Min A x 1; verbal cues needed for safety and managing RW. Education OT Patient Education: Correct positioning, Energy conservation, Modified ADL techniques, Progress toward Goal/Update tx plan, Purpose of tx/functional activities, Rehab process, Safety issues, Transfer techniques Teaching Recipient: Patient Teaching Methods: Demonstration, Discussion Response to Teaching: Verbalize Understanding, Reinforcement Needed OT Snf Goals Weight Tester Goals Eating (QC): 6 Oral Hygiene (QC): 6 Toileting Hygiene (QC): 4 Shower/Bathe Self (QC): 4 Upper Body Dressing (QC): 6 Lower Body Dressing (QC): 4 On/Off Footwear (QC): 6 1=Demonstrate adherence to instructed precautions during ADL tasks. 2=Patient will verbalize/demonstrate understanding of assistive devices/modifications for ADL. 3=Patient will improve strength/tolerance for activity to enable patient to perform ADL's. OT Education/Plan Problem List/Assessment Assessment: Decreased Activ Tolerance, Decreased Safety Aware, Dependent Transf ers, Impaired Bed Mobility, Impaired Cognition, Impaired Coordination, Impaired Funct Balance, Impaired I ADL's, Impaired Self-Care Skills Discharge Recommendations Plan/Recommendations: Continue POC Barriers to Progress Pt lives alone, decreased cognition/memory Patient/Family Goals Return to PLOF and to be able to go visit who lives in [facility]. Treatment Plan/Plan of Care Treatment,Training & Education: Yes Patient would benefit from OT for education, treatment and training to promote independence in ADL's, mobility, safety and/or upper extremity function for ADL's. Plan of Care: ADL Retraining, Caregiver Training, Cognitive Retraining, Functional Mobility, UE Funct Exercise/Act Treatment Duration: May 14, 2023 Frequency: At least 5 of 7 days/Wk (IRF) Estimated Hrs Per Day: 1.5 hours per day Agreement: Yes Rehab Potential: Good Time Start Time: 13:00 Stop Time: 14:00 DATE: Apr 30, 2023 Total Time Billed (hr/min): 60 Billed Treatment Time 60 minutes EVM 1 (15 minutes) ADL 3 (30 minutes) SALOME SMITH Apr 30, 2023 14:06
--- NOTE | 2023-04-30 14:29 | Occupational Ther Daily Note ---
OT Current Status-Daily Note Subjective Pt alert, sitting up in bed. Pt agrees to therapy, pt stated 1/10 pain in hip. Mental Status/Objective Patient Orientation: Person, Place, Time, Situation ADL-Treatment Therapy Code Descriptions/Definitions Functional [place] Measure: 0=Not Assessed/NA 4=Minimal Assistance 1=Total Assistance 5=Supervision or Setup 2=Maximal Assistance 6=Modified [place] 3=Moderate Assistance 7=Complete IndependenceSCALE: Activities may be completed with or without assistive devices. 2-Kztwsyyxde-wjnhsto completes the activity by him/herself with no assistance from a helper. 5-Set-up or Clean-up Assistance-helper sets up or cleans up; patient completes activity. [place] assists only prior to or following the activity. 4-Supervision or Touching Assistance-helper provides verbal cues and/or touching /steadying and/or contact guard assistance as patient completes activity. Assistance may be provided throughout the activity or intermittently. 3-Partial/Moderate Assistance-helper does LESS THAN HALF the effort. [place] lifts, holds or supports trunk or limbs, but provides less than half the effort. 2-Substantial/Maximal Assistance-helper does MORE THAN HALF the effort. [place] lifts or holds trunk or limbs and provides more than half the effort. 2-Exrswkott-dnvveh does ALL the effort. Patient does none of the effort to complete the activity. Or, the assistance of 2 or more helpers is required for the patient to complete the activity. If activity was not attempted, code reason: 7-Patient Refused. 9-Not Applicable-not attempted and the patient did not perform the activity before the current illness, exacerbation or injury. 10-Not Attempted due to Environmental Limitations-(lack of equipment, weather restraints, etc.). 88-Not Attempted due to Medical Conditions or Safety Concerns. Eating (QC): 6 (Pt independently opened packages and utilized utensils correctly.) Other Treatment Pt sitting up in bed during tx. Pt worked on B UE strengthening exercises for HEP with resistance band. Skilled instruction required for proper positioning/movement. Pt completed 2 sets of 10 reps of B UE exercises. Pt working on overall UE strengthening and activity tolerance. Dinner was brought into the room and pt was able to eat independently. Ended session with pt sitting up in bed with call light/phone in reach. All needs met in room. Bed alarm on. Education OT Patient Education: Correct positioning, Home exercise program Teaching Recipient: Patient Teaching Methods: Demonstration, Discussion Response to Teaching: Verbalize Understanding, Return Demonstration Skilled instruction given on proper positioning/movement associated with HEP for B UE. Pt demonstrated verbal/physical understanding of instructions but needed a few VCs for correct movement. OT Overhead Distribution Engineer Goals Skilled Nursing Goals 1=Demonstrate adherence to instructed precautions during ADL tasks. 2=Patient will verbalize/demonstrate understanding of assistive devices/modifications for ADL. 3=Patient will improve strength/tolerance for activity to enable patient to perform ADL's. OT Education/Plan Problem List/Assessment Assessment: Decreased Activ Tolerance, Decreased UE Strength Discharge Recommendations Plan/Recommendations: Continue POC Treatment Plan/Plan of Care Patient would benefit from OT for education, treatment and training to promote independence in ADL's, mobility, safety and/or upper extremity function for ADL's. Plan of Care: ADL Retraining, Cognitive Retraining, Functional Mobility, Group Exercise/Act as Ind, UE Funct Exercise/Act, UE Neuromus Re-Ed/Coord Treatment Duration: May 14, 2023 Frequency: At least 5 of 7 days/Wk (IRF) Estimated Hrs Per Day: 1.5 hours per day Agreement: Yes Rehab Potential: Good Time Start Time: 14:00 Stop Time: 14:30 DATE: Apr 30, 2023 Total Time Billed (hr/min): 30 Billed Treatment Time 1 visit- EX 2 (30 mins) JACY JAMIL Apr 30, 2023 14:29
--- NOTE | 2023-04-30 15:18 | Progress Note ---
OSORIO,HET 04/30/23 1517: Progress Note CC: multiple traumatic injuries HPI: 73 y/o male presented to the ED [place] His neighbors found him, but patient himself has no recollection of falling. He sustained fractures to right 2nd rib, right acetabular, and left pelvic regions along with a small left subdural hematoma. His injuries were considered inoperable after neurological, orthopedic, and IM consults, and [facility]. PMH: HTN, GERD, DMT2, arthritis, BPH-urinary retention, HLD, CKD stage 2, prostate cancer 2009. PSH: rectocutaneous fistulectomy-1999, rotator cuff repair- 2002, retropubic prostectomy -2010, b/l total pelvic lymphadectomy 10/23/2010, laproscopy w/ lysis of adhesion- 10/23/2010, appendectomy in , bunionectomy All: NKDA, no enviromental or food allergies Meds: Acetaminophen 325 mg PO Q6H Amantadine HCl 100 mg PO BID Amlodipine besylate 10 mg tab PO QD Ascorbate calcium 500 mg tab PO QD Aspirin 81 mg tab PO QD Bisacodyl 10 mg RC Q6H Dapagliflozin propanediol 10 mg PO QD Fish oil/ Borage/ flax/ om 3,6,9 1,200 mg capsule PO YID Lisinopril 10 mg tab PO QD Metformin 500 mg tab PO BID with meals Naloxone 4mg -held Oxycodone 5mg tab PO Q6H Miralax 34 grams PO BID Senna 8.6 mg tab PO BID Tamsulosin 0.4 mg cap PO QD Vitamen E 400 unit cap PO QD SH: No drugs, tobacco, ETOH- 1 drink a week. Occupation- retired FH: Heart attack, stroke ROS: No chest pain, no abdominal pain, no dyspnea, no fever or chills Exam: Neuro: A&Ox2-patient is aware of name and that thye are at [facility] could not answer any other questions. CN II-XII intact b/l. Muscle strength 5/5 in UE and 4/5 in LE. Sensation intact. Pupils responsive to light. Abdomen: Soft, non tender, no hepatospleenomegaly, non distended Cardio: Regular rate and rhythm, no murmurs or gallops Lung: Clear to auscultation b/l. no wheezing or rales. Labs: all on 04/23/23 no current labs after admission to [facility] CTA of head- multifocal intracranial atherosclerosis without blunt vascular injury, a right cisternal subarachnoid hemorrhage, and mild posterior posterior left cerebral subdural hemorrgae CT maxifacial sinus- nondisplaced right zygomatic fracture, right costomanubrial fracture. Pelvic X-ray showed large areas of central lucency and peripheral sclerosis in b/l femoral head- suggestive of underlying AVN on left Chest radiograph showed trace medial right pneumothorax. Right chest wall exhibits subcutaneous emphysema Chest CT showed mild cardiomegaly w/ pulmonary vascular congestion and perihilar interstital opacites -likely edema. Knee radiograph showed mild osteoarthritis in knee greatest at patellofemoral region. Assessment: Acute PT and OT subdural hematoma pelvic fracture DMT2 CKD HTN arthritis HLD Plan: continue PT and OT pain management monitor labs and vitals repeat neurological testing MINDY COHN DO 04/30/23 2012: Supervisory-Addendum Brief Verification & Attestation Participated in pt care: history, MDM, physical Personally performed: exam, history, MDM, supervision of care Care discussed with: Medical Student Procedures: n/a Results interpretation: Verified all documentation Verification and Attestation of Medical Student E/M Service A medical student performed and documented this service in my presence. I reviewed and verified all information documented by the medical student and made modifications to such information, when appropriate. I personally performed the physical exam and medical decision making. Mindy Cohn, Apr 30, 2023,20:12 YUAN Apr 30, 2023 15:17 MINDY COHN DO Apr 30, 2023 20:12
--- NOTE | 2023-04-30 16:31 | Physical Therapy Evaluation ---
PT Evaluation-General Medical Diagnosis Admission Date Apr 30, 2023 at 13:00 Medical Diagnosis: SDH; closed fx of R acetabulum; closed fx of ramus of L pubis Onset Date: Apr 23, 2023 Therapy Diagnosis Therapy Diagnosis: FALL, MULTIPLE FX Height/Weight Height (Feet): 5 Height (Inches): 11.00 Weight (Pounds): 200 Weight (Ounces): 0.0 Precautions Precautions/Isolations: Fall Prevention, Standard Precautions, Pressure Ulcer impaired memory, becomes disoriented at night per family - has had chair alarms and telesitter at Weight Bear Status Right Lower Extremity: Right Weight Bearing/Tolerated Left Lower Extremity: Left Weight Bearing/Tolerated Referral Physician: Jackelyn Reason for Referral: Evaluation/Treatment Medical History Pertinent Medical History: Arthritis, DM, HTN, Prostate CA Additional Medical History CKD. Current History Fell down cement steps (8' height) with multiple fractures and head trauma. (L) parietal bleed, (R) zygomatic arch fx. (R) acetabular fx, (L) pelvic fx, 2nd rib fx, (R) costomanubrial fx. Reviewed History: Yes Social History Home: Single Level Current Living Status: Alone Entry Into Home: Level Entry Other Obstacles: multiple steps from home down to dock behind home ([facility]) significant other is in [facility]. Prior Prior Level of Function SCALE: Activities may be completed with or without assistive devices. 6-Qcnogolady-ailbxdx completes the activity by him/herself with no assistance from a helper. 5-Set-up or Clean-up Assistance-helper sets up or cleans up; patient completes activity. [place] assists only prior to or following the activity. 4-Supervision or Touching Assistance-helper provides verbal cues and/or touching/steadying and/or contact guard assistance as patient completes activity. Assistance may be provided throughout the activity or intermittently. 3-Partial/Moderate Assistance-helper does LESS THAN HALF the effort. [place] lifts, holds or supports trunk or limbs, but provides less than half the effort. 2-Substantial/Maximal Assistance-helper does MORE THAN HALF the effort. [place] l ifts or holds trunk or limbs and provides more than half the effort. 7-Mgzcfcmnd-slwpiq does ALL the effort. Patient does none of the effort to complete the activity. Or, the assistance of 2 or more helpers is required for the patient to complete the activity. If activity was not attempted, code reason: 7-Patient Refused. 9-Not Applicable-not attempted and the patient did not perform the activity before the current illness, exacerbation or injury. 10-Not Attempted due to Environmental Limitations-(lack of equipment, weather restraints, etc.). 88-Not Attempted due to Medical Conditions or Safety Concerns. Bed Mobility: 6 Transfers (B,C,W/C): 6 Gait: 6 Stairs: 6 Wheelchair Mobility: 9 Indoor Mobility (Ambulation): Independent Stairs: Independent Prior Devices Use: None Drove. 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 Likes to garden/take care of [place] (was pulling weeds and watering j[place]igan when this incident occurred). PT Evaluation-Current Subjective C/o discomfort (R) hip. Pain Section J - Health Conditions 1. Rarely or not at all 2. Occasionally 3. Frequently 4. Almost constantly 8. Unable to answer Pain Effect on Sleep: 3 Pain Interference with Therapy: 3 Pain Interference w/Day-to-Day: 3 Pt/Family Goals To go home with family support. Objective Patient Orientation: Person poor memory - needs to be reminded daily of what happened (per daughter). Cues needed to initiate most tasks with therapy this pm. ROM/Strength ROM Upper Extremities deferred to OT ROM Lower Extremities WFL ankles/knees/(L) hip. Impaired active (R) hip flexion due to pain (fx acetabulum). Strength Upper Extremities deferred to OT Strength Lower Extremities (B) ankles 5/5, (B) knee flexion 5/5, (L) knee ext 5/5, (R) knee extension 4/5. (L) hip flexion 3+/5, (R) hi flexion 2/5. Integumentary/Posture Bowel Incontinence: No Bladder Incontinence: Yes Sensory Hand Dominance: Right Sensation Right Lower Extremit: Intact Sensation Left Lower Extremity: Intact Transfers Roll Left & Right (QC): 4 (cues for bedrail use and to reach across body) Sit to Lying (QC): 3 (mod (A) of 1) Lying to Sitting/Side of Bed(Q: 3 (mod (A) of 1) Sit to Stand (QC): 3 (mod (A) of 1 with v.c. for hand placement /p multiple attempts to pull up from walker.) Chair/Nef-ed-Wyjjt Xfer(QC): 3 (min (A) with FWW, cues for hand placement) Toilet Transfer (QC): 3 (min (A) to sit, mod (A) to stand from toilet with FWW and GB) Car Transfer (QC): 4 (CGA) once patient had sat to toilet, it was noted that he had been incontinent of urine on the floor, saturating his shorts and socks - patient was not aware. Clean socks/shorts obtained for patient - he required max (A) to don. Gait Does the Patient Walk?: Yes Mode of Locomotion: Walk Anticipated Mode of Locomotion: Walk Walk 10 feet (QC): 3 (Min (A) with FWW) Walk 50 ft with 2 Turns(QC): 3 (min (A) with FWw) Walk 150 ft (QC): 88 (unable to reach distance due to fatigue) Walking 10ft/uneven surface-QC: 3 (min (A) with FWW) Distance: 60' x 2 Gait Assistive Device: FWW Comments/Gait Description slow jose daniel, deliberate steps, patient needs reminded of pelvis injury as to reason for (R) hip pain Wheelchair Training Does the Pt Use a Wheelchair?: No Wheel 50 ft with 2 turns (QC): 3 (min (A) 2" curb step) Wheel 150 ft (QC): 9 Stairs 1 Step (curb) (QC): 88 (due to (R) hip pain) 4 Steps (QC): 88 12 Steps (QC): 88 (due to pain (R) hip) Walking Assistive Device: Walker Balance Sitting Static: Good Sitting Dynamic: Fair Standing Static: Fair Standing Dynamic: Fair Picking up an Object (QC): 88 (due to pain and fear of falling. ) Special Test Comments [facility] standing balance score: 2/5. [facility] sitting balance score: 4+/5 Assessment/Needs 73 y/o male s/p fall with head trauma and rib/facial/hip/pelvis fractures. Decreased memory/safety/cognition will affect progress with therapy and ultimately D/C plan. Pain, especially (R) hip limits mobility/transfers/bed mobility at this time. ARU therapy necessary to maximize independence and safety for either return home or to decrease burden of care on family that may provide care at D/C. Rehab Potential: Good Equipment Needs FWW PT Custodial Goals Neurosurgeon Goals PT Neurosurgeon Goals Time Frame: May 21, 2023 Roll Left to Right (QC): 6 Sit to Lying (QC): 6 Lying-Sitting on Side/Bed(QC): 6 Sit to Stand (QC): 6 Chair/Hxm-ys-Eznqd Xfer(QC): 6 Toilet/Commode Transfer (QC): 6 Car Transfer (QC): 6 Does the Patient Walk: Yes Walk 10 feet (QC): 6 (with FWW) Walk 10ft-Uneven Surface(QC): 6 Walk 50ft with 2 Turns (QC): 6 Walk 150 ft (QC): 6 Does the Pt use WC or Scooter?: No Wheel 50 feet with 2 turns (QC: 9 Type: N/A Wheel 150 feet: 9 Type: N/A 1 Step (curb) (QC): 5 4 Steps (QC): 5 12 Steps (QC): 5 Picking up an Object (QC): 6 (with bone process operator) PT Plan Problem List Problem List: Activity Tolerance, Functional Strength, Safety, Balance, Gait, Transfer, Bed Mobility, ROM, Other (pain) Treatment/Plan Treatment Plan: Continue Plan of Care Treatment Plan: Bed Mobility, Education, Functional Activity Ilya, Functional Strength, Group Therapy, Gait, Safety, Therapeutic Exercise, Transfers Treatment Duration: May 21, 2023 Frequency: At least 5 of 7 days/Wk (IRF) Estimated Hrs Per Day: 1.5 hours per day Patient and/or Family Agrees t: Yes Safety Risks/Education Safety Risk Comments: fall risk, decreased safety awareness Patient Education: Gait Training, Transfer Techniques Teaching Recipient: Patient Teaching Methods: Discussion Response to Teaching: Reinforcement Needed Discharge Recommendations Therapy Discharge Recommendati: 24 Hour Supervision, Intermittent Supervision, Home & Family, Post Acute PT Equpiment Recommendations-D/C: Front Wheeled Walker Time Time In: 1430 Time Out: 1600 DATE: Apr 30, 2023 Total Billed Treatment Time: 90 Total Billed Treatment EVM 20(1), GT 10(1), Ex 30(2), FA 30(2) Sully Baptiste PT Apr 30, 2023 16:31
[2023-04-30] MEDS: ACETAMINOPHEN 325 MG TABLET PO SCH ×2 (16:38→21:53)
[2023-04-30] MEDS: BISACODYL 10 MG SUPPOSITORY RC SCH ×2 (16:38→22:00)
[2023-04-30] MEDS: metFORMIN 500 MG TABLET PO SCH (17:38)
[2023-04-30] MEDS: OMEGA 3 (FISH OIL) 1000 MG CAP PO SCH (17:38)
[2023-04-30 20:42] VITALS: BP 129/71
[2023-04-30] MEDS ORDERED: SENNA W/DOCUSATE TABLET PO SCH (21:00)
[2023-04-30] MEDS ORDERED: NON-FORMULARY MEDICATION 1 EA EA (Fish Oil/Borage/Flax/Om3,6,9#1 (Omega 3-6-9 1,200 mg Sof PO SCH (21:00)
[2023-04-30] MEDS ORDERED: NON-FORMULARY MEDICATION 1 EA EA (Amantadine HCl (Amantadine) 100 MG) PO SCH (21:00)
[2023-04-30] MEDS: SENNOSIDES 8.6 MG TABLET PO SCH (21:50)
[2023-04-30] MEDS: DOCUSATE SODIUM 100 MG CAPSULE PO SCH (21:50)
[2023-04-30] MEDS: AMANTADINE 100 MG CAPSULE PO SCH (21:53)
[2023-05-01] MEDS: ACETAMINOPHEN 325 MG TABLET PO SCH ×4 (04:00→21:25)
[2023-05-01] MEDS: BISACODYL 10 MG SUPPOSITORY RC SCH ×4 (04:00→21:30)
[2023-05-01 05:55] LABS: BASOPHILS % (AUTO) 1 % (0-10); EOSINOPHILS # (AUTO) 0.2 10^3/uL (0.0-0.3); EOSINOPHILS % (AUTO) 3 % (0-10); HEMATOCRIT 39 % (40-54); HEMOGLOBIN 12.5 g/dL (13.3-17.7); LYMPHOCYTES # (AUTO) 1.7 10^3/uL (1.0-4.0); LYMPHOCYTES % (AUTO) 22 % (12-44); MEAN CORPUSCULAR HEMOGLOBIN 30 pg (25-34); MEAN CORPUSCULAR HGB CONC 32 g/dL (32-36); MEAN CORPUSCULAR VOLUME 94 fL (80-99); MONOCYTES # (AUTO) 0.8 10^3/uL (0.0-1.0); MONOCYTES % (AUTO) 11 % (0-12); NEUTROPHILS # (AUTO) 4.8 10^3/uL (1.8-7.8); NEUTROPHILS % (AUTO) 63 % (42-75); PLATELET COUNT 366 10^3/uL (130-400); WHITE BLOOD COUNT 7.6 10^3/uL (4.3-11.0)
[2023-05-01] MEDS: THERAPEUTIC MULTIVITAMIN W/MINERALS TABLET PO SCH (06:16)
[2023-05-01 06:21] LABS: ALBUMIN 3.8 GM/DL (3.2-4.5); BILIRUBIN,TOTAL 0.9 MG/DL (0.1-1.0); CREATININE SERUM 1.38 MG/DL (0.60-1.30); POTASSIUM 4.2 MMOL/L (3.6-5.0); TOTAL PROTEIN 6.7 GM/DL (6.4-8.2)
[2023-05-01 08:00] VITALS: BP 131/66
[2023-05-01] MEDS: amLODIPine 10 MG TABLET PO SCH (08:58)
[2023-05-01] MEDS: OMEGA 3 (FISH OIL) 1000 MG CAP PO SCH ×3 (08:58→18:09)
[2023-05-01] MEDS: VITAMIN E PO SCH (08:58)
[2023-05-01] MEDS: ASPIRIN 81 MG CHEWABLE TABLET PO SCH (08:59)
[2023-05-01] MEDS: TAMSULOSIN 0.4 MG (FLOMAX) CAP PO SCH (08:59)
[2023-05-01] MEDS: AMANTADINE 100 MG CAPSULE PO SCH ×2 (08:59→21:25)
[2023-05-01] MEDS ORDERED: [UNRECOGNIZED DRUG - OTHER] PO SCH (09:00)
[2023-05-01] MEDS: metFORMIN 500 MG TABLET PO SCH ×2 (09:00→18:09)
[2023-05-01] MEDS ORDERED: NON-FORMULARY MEDICATION 1 EA EA (Multivitamin 1 EACH) PO SCH (09:00)
[2023-05-01] MEDS ORDERED: ASCORBATE CALCIUM PO SCH (09:00)
[2023-05-01] MEDS ORDERED: NON-FORMULARY MEDICATION 1 EA EA (Dapagliflozin Propanediol (Farxiga) 10 MG) PO SCH (09:00)
[2023-05-01] MEDS: EMPAGLIFLOZIN 10 MG TABLET PO SCH (09:00)
[2023-05-01] MEDS ORDERED: NON-FORMULARY MEDICATION 1 EA EA (Vitamin E Mixed (Vitamin E) 400 UNIT) PO SCH (09:00)
[2023-05-01] MEDS: SENNOSIDES 8.6 MG TABLET PO SCH ×2 (09:02→21:30)
[2023-05-01] MEDS: DOCUSATE SODIUM 100 MG CAPSULE PO SCH ×2 (09:02→21:30)
--- NOTE | 2023-05-01 09:55 | Individualized Plan of Care ---
Individualized Plan of Care Rehab Nursing IPOC Order Admission Date Apr 30, 2023 at 13:00 Current Orders Orders Admission Order(Inpt,Obs,Sdc) (04/30/23 09:40) Vital Signs: Per Unit Policy ( 08,16,00 (04/30/23 09:40) Eder Caballero 09,21 (04/30/23 09:40) Sequential Compression Device [id number] (04/30/23 09:40) Tableau Administrator-Inpt Rehab Con (04/30/23 09:40) Rehab Nursing Orders-Ipoc (04/30/23 09:40) Physical Therapy Rehab Orders (04/30/23 09:40) Occupational Therapy Rehab Ord (04/30/23 09:40) Speech Therapy Rehab Orders (04/30/23 09:40) Cbc With Automated Diff (05/01/23 06:00) Comprehensive Metabolic Panel (05/01/23 06:00) Precautions (Aru) (04/30/23 09:40) Weekly Weight WEEK (04/30/23 09:40) Rehab-Intensity Of Therapy (04/30/23 09:40) Initiate Admission Nursing Pro .admission (04/30/23 09:40) Alprazolam Tablet (Alprazolam Tablet) (04/30/23 09:45) Calcium Carbonate Chew Tablet (Calcium C (04/30/23 09:45) Diphenhydramine Tablet (Diphenhydramine (04/30/23 09:45) Docusate Sodium Capsule (Docusate Sodium (04/30/23 21:00) Docusate Sodium Capsule (Docusate Sodium (04/30/23 09:45) Bisacodyl Suppository (Bisacodyl Supposi (04/30/23 09:45) Lactulose Oral Solution (Enulose Oral So (04/30/23 09:45) Na Phos/Na Biphos Adult Enema (Na Phos/N (04/30/23 09:45) Guaifenesin/Codeine Syrup (Guaifenesin/C (04/30/23 09:45) Loperamide Capsule (Loperamide Capsule) (04/30/23 09:45) Melatonin Tablet (Melatonin Tablet) (04/30/23 09:45) Polyethylene Glycol Powder (Polyethylen (04/30/23 21:00) Ondansetron Oral Dissolve Tab (Ondanset (04/30/23 09:45) Senna W/Docusate Tablet (Senna W/Docusat (04/30/23 21:00) Acetaminophen Tablet (Acetaminophen Ta (04/30/23 09:45) Initiate Admission Nursing Pro .admission (04/30/23 09:40) Admission Arrival Bed Request (04/30/23 13:07) Acetaminophen Tablet (Acetaminophen Ta (04/30/23 16:00) Amlodipine Tablet (Amlodipine Tablet) (05/01/23 09:00) Aspirin Chewable Tablet (Aspirin Chewabl (05/01/23 09:00) Bisacodyl Suppository (Bisacodyl Supposi (04/30/23 16:00) Lisinopril Tablet (Lisinopril Tablet) (05/01/23 09:00) Metformin Tablet (Metformin Tablet) (04/30/23 18:00) Oxycodone Immediate Rel Tablet (Oxycodon (04/30/23 13:30) Polyethylene Glycol Powder (Polyethylen (04/30/23 21:00) Sennosides Tablet (Senokot Tablet) (04/30/23 21:00) (Nf) Amantadine Hcl (Amantadine) (04/30/23 21:00) (Nf) Ascorbate Calcium (Vitamin C) (05/01/23 09:00) (Nf) Bacitracin Zinc (04/30/23 13:30) (Nf) Dapagliflozin Propanediol (Farxiga) (05/01/23 09:00) (Nf) Fish Oil/Borage/Flax/Om3,6,9#1 (Ome (04/30/23 21:00) (Nf) Multivitamin (05/01/23 09:00) (Nf) Vitamin E Mixed (Vitamin E) (05/01/23 09:00) Multivitamin W/Mineral Tablet (Multivita (05/01/23 07:00) Dl-Alpha Tochopheryl Capsule (Dl-Alpha T (05/01/23 09:00) Tamsulosin Capsule (Flomax Capsule) (05/01/23 08:00) Fish Oil Capsule (Fish Oil Capsule) (04/30/23 18:00) Ascorbic Acid Tablet (Ascorbic Acid Tabl (05/01/23 07:00) Amantadine Capsule (Amantadine Capsule) (04/30/23 21:00) Bacitracin Ointment (Bacitracin Ointment (04/30/23 13:45) Empagliflozin Tablet (Empagliflozin Tabl (05/01/23 09:00) Nursing Communication (Order) (04/30/23 16:07) Patient Visit (04/30/23 ) Pt Eval Moderate Complexity (04/30/23 ) Gait Training, Ea 15 Min (04/30/23 ) Functional Activities, Ea 15 (04/30/23 ) Exercise Therap, Ea 15 Min (04/30/23 ) Cho 60g/M 1snack (16-2000 Fab) (04/30/23 Dinner) Ensure Plus Vanilla (04/30/23 18:51) Artifical Tears Ophth Solution (Artifica (05/01/23 11:30) Patient Visit (05/01/23 ) Functional Activities, Ea 15 (05/01/23 ) Exercise Therap, Ea 15 Min (05/01/23 ) Gait Training, Ea 15 Min (05/01/23 ) Patient Visit (05/01/23 ) Speech Sound Lang Comp (05/01/23 ) Treat. Speech/Lang/Voice (05/01/23 ) Accucheck Achs ACHS (05/01/23 20:29) Novolog Sliding Scale "B" (05/01/23 21:00) Insulin Determir (Per Unit) (Insulin Det (05/01/23 21:00) Rehab Nursing Orders: Ongoing Assess. of Cognitive Status, Ongoing Assess. of Function Status, Bladder Management, Bladder Scan, Bladder Training, Bowel Management, Bowel Training, Disease Management & Educaiton, DVT Prophylaxis, Fall Prevention, Fluid/Electrolyte/Nutrition Mgmt, Infection Prevention, Medication Management & Education, Management of Risks & Complications, Management of Skin Intergrity, Nutrition Management, Pain Management, Patient/Family Support, Safety Management, Wound Management Intensity of Therapy to be met Patient to be seen: Min.3h per day/5 of 7d PT IPOC Problem List: Activity Tolerance, Functional Strength, Safety, Balance, Gait, Transfer, Bed Mobility, ROM, Other (pain) Treatment Plan: Continue Plan of Care Bed Mobility, Education, Functional Activity Ilya, Functional Strength, Group Therapy, Gait, Safety, Therapeutic Exercise, Transfers Treatment Duration: May 21, 2023 Frequency: At least 5 of 7 days/Wk (IRF) Estimated Hrs Per Day: 1.5 hours per day OT IPOC Problems: Decreased Activ Tolerance, Decreased UE Strength OT Treatment, Training and Edu: Yes Plan of Care: ADL Retraining, Cognitive Retraining, Functional Mobility, Group Exercise/Act as Ind, UE Funct Exercise/Act, UE Neuromus Re-Ed/Coord Treatment Duration: May 14, 2023 Frequency: At least 5 of 7 days/Wk (IRF) Estimated Hrs Per Day: 1.[address] IPOC Speech Therapy Treatment Plan: Continue Plan of Care Treatment Duration: May 01, 2023 Frequency: Modified Program (IRF) Estimated Hrs Per Day: Other Tableau Administrator/Case Mgmt Tableau Administrator/Case Managemen: Discharge Planning Dietitian/Flat Sheet Maker Dietitian/Flat Sheet Maker to monitor nutritional status and make changes and/or recommendations as needed and work with speech pathology on dietary upgrades as the occur. Physician IPOC Medical Issues being managed closely and that require the 24 hour availability of a physician: Recent head injury with amnesia and pelvic fracture with pain issues will require close monitoring for any signs of brain dysfunction and further compromise of function Medical Issues: Bowel/Bladder Function, DVT Prophylaxis, Falls Precautions, Fluid/Electrolyte/Nutrition Balance, Infection Protection, Pain Management Brief Synthesis of Preadmission Screen, Post-Admission Evaluation, and Therapy Evaluations: PT OT will focus on regaining function with the use of AD in order to increase stamina and independence in order to return to live in his own home Medical Prognosis: Good Anticipated Length of Stay: 10 days MARCIO COHN DO May 01, 2023 09:55
--- NOTE | 2023-05-01 09:55 | PM&R Progress Note ---
Subjective HPI/CC On Admission Date Seen by Provider: May 01, 2023 Time Seen by Provider: 12:30 Subjective/Events-last exam 05/01/2023: Doing better Slow ambulation No falls No pain except when he walks Reviewed labs Eating ok Cognition is deficient Review of Systems General: Fatigue, Malaise Objective Exam Vital Signs Vital Signs Date Time Temp Pulse Resp B/P (MAP) Pulse Ox O2 Delivery O2 Flow Rate FiO2 05/01/23 09:00 96 Room Air 05/01/23 08:00 36.2 57 18 131/66 (87) Capillary Refill : General Appearance: No Apparent Distress, WD/WN, Chronically ill HEENT: PERRL/EOMI, Normal ENT Inspection, Pharynx Normal Neck: Full Range of Motion, Normal Inspection, Non Tender, Supple, Carotid Bruit Respiratory: Chest Non Tender, Lungs Clear, Normal Breath Sounds, No Accessory Muscle Use, No Respiratory Distress Cardiovascular: Regular Rate, Rhythm, No Edema, No Gallop, No JVD, No Murmur, Normal Peripheral Pulses Gastrointestinal: Normal Bowel Sounds, No Organomegaly, No Pulsatile Mass, Non Tender, Soft Back: Normal Inspection, No CVA Tenderness, No Vertebral Tenderness Extremity: Normal Capillary Refill, Normal Inspection, Normal Range of Motion (except legs are limited due to pelvic fracture pain), Non Tender, No Calf T enderness, No Pedal Edema Neurologic/Psychiatric: Alert, Oriented x3 (poor recall), home economist consumer service II-XII Norm as Tested, Abnormal Gait, Depressed Affect, Motor Weakness (all extremities 3/5) Skin: Normal Color, Warm/Dry Lymphatic: No Adenopathy Results/Procedures Lab Laboratory Tests 05/01/23 05:25 Patient resulted labs reviewed. FIM Transfers Therapy Code Descriptions/Definitions Functional [place] Measure: 0=Not Assessed/NA 4=Minimal Assistance 1=Total Assistance 5=Supervision or Setup 2=Maximal Assistance 6=Modified [place] 3=Moderate Assistance 7=Complete IndependenceSCALE: Activities may be completed with or without assistive devices. 7-Knykrrazyw-hctzipw completes the activity by him/herself with no assistance from a helper. 5-Set-up or Clean-up Assistance-helper sets up or cleans up; patient completes activity. [place] assists only prior to or following the activity. 4-Supervision or Touching Assistance-helper provides verbal cues and/or touching/steadying and/or contact guard assistance as patient completes activity. Assistance may be provided throughout the activity or intermittently. 3-Partial/Moderate Assistance-helper does LESS THAN HALF the effort. [place] lifts, holds or supports trunk or limbs, but provides less than half the effort. 2-Substantial/Maximal Assistance-helper does MORE THAN HALF the effort. [place] lifts or holds trunk or limbs and provides more than half the effort. 8-Obiqowyyo-kwzcmc does ALL the effort. Patient does none of the effort to complete the activity. Or, the assistance of 2 or more helpers is required for the patient to complete the activity. If activity was not attempted, code reason: 7-Patient Refused. 9-Not Applicable-not attempted and the patient did not perform the activity before the current illness, exacerbation or injury. 10-Not Attempted due to Environmental Limitations-(lack of equipment, weather restraints, etc.). 88-Not Attempted due to Medical Conditions or Safety Concerns. Roll Left to Right (QC): 4 (cues for bedrail use and to reach across body) Sit to Lying (QC): 3 (mod (A) of 1) Sit to Stand (QC): 3 (mod (A) of 1 with v.c. for hand placement /p multiple attempts to pull up from walker.) Chair/Ogt-xx-Taxub Xfer(QC): 3 (min (A) with FWW, cues for hand placement) Car Transfer (QC): 4 (CGA) Gait Training Does the Patient Walk?: Yes Walk 10 feet (QC): 3 (Min (A) with FWW) Walk 50 ft with 2 Turns(QC): 3 (min (A) with FWw) Walk 150 ft (QC): 88 (unable to reach distance due to fatigue) Walking 10ft/uneven surface-QC: 3 (min (A) with FWW) Gait Assistive Device: FWW Wheelchair Training Does the Pt Use a Wheelchair?: No Wheel 50 ft with 2 turns (QC): 3 (min (A) 2" curb step) Wheel 150 ft (QC): 9 Stair Training 1 Step (curb) (QC): 88 (due to (R) hip pain) 4 Steps (QC): 88 12 Steps (QC): 88 (due to pain (R) hip) Balance Picking up an Object (QC): 88 (due to pain and fear of falling. ) ADL-Treatment Eating (QC): 6 (Pt independently opened packages and utilized utensils co rrectly.) Oral Hygiene (QC): 4 (Verbal cues for oral care) Shower/Bathe Self (QC): 3 (Partial/mod A for sponge bath seated at EOB; pt required verbal cues for sequencing task; pt required (A) to clean buttocks and B feet; pt would benefit from long handled sponge.) Upper Body Dressing (QC): 4 (SBA to don shirt seated at EOB.) Lower Body Dressing (QC): 2 (Sub/max A to don/doff pants and brief) On/Off Footwear (QC): 1 (Total A for donning/doffing socks seated at EOB; pt would benefit from AE.) Toileting Hygiene (QC): 2 (Sub/max A for toileting) Assessment/Plan Assessment and Plan Assess & Plan/Chief Complaint Assessment: s/p fall on concrete steps sustaining SDH, facial fractures, pelvic fractures and sustaining brain injury with LOC DM HTN BPH h/o prostate cancer Current constipation-resolved Plan: PT OT ST to help regain cognition Monitor BP and sugar Home meds 05/01/2023: Monitor closely Accuchecks with SSI Levemir 10 units at night (1) Subdural hematoma MARCIO COHN DO May 01, 2023 09:55
--- NOTE | 2023-05-01 10:31 | ST Cognitive Linguistic Eval ---
Speech Evaluation-General Medical Diagnosis SDH; Closed fx of R Acetabulum; Closed fx of Ramus of L Pubis Onset Date: Apr 23, 2023 Therapy Diagnosis Therapy Diagnosis: Mild to Moderate Cognitive Impairment; Mild Anomia Precautions Precautions: Fall Precautions/Isolations: Fall Prevention, Standard Precautions Referral Referring Physician: Dr. Mindy Hayden Reason for Referral: Evaluation/Treatment Medical History Pertinent Medical History: Arthritis, DM, HTN, Prostate CA Reviewed History: Yes Social History Current Living Status: Alone Speech PLF-Current Status Prior Level of Function Per medical chart review, the patient's family members may have suspected a slight decline in the patient's memory function recently. The patient was unable to identify any concerns or difficulties with his cognition, speech, language or swallowing prior to his accident. Subjective The patient was seated upright in bed, awake and alert, upon entrance to his room by the clinician. The patient greeted the clinician appropriately and was agreeable to participation in the cognitive linguistic assessment. The RN was present at the initiation of the evaluation and provided the patient multiple pills. The patient self-administered medication with straw drinks of thin liquid. Overt s/s of suspected aspiration were not displayed with straw drinks of thin liquid on this date. Language Eval: Auditory Comprehends Simple Yes/No Ques: Functional Indent/Objects Multiple Hardy: Functional Follows 1-Step Commands: Functional Follows General Conversations: Mild (Intermittent (mild) redirection to topic.) Language Eval: Verbal Language Completes Spontaneous Greeting: Functional Produces Auto, Serial Info: Functional Imitates Simple Words/Phrases: Functional Word Finding: Moderate Requests Basic Needs: Functional States Basic Personal Info: Functional Language Evaluation: Reading Comprehends Single Nouns: Functional Follows Simple Written Direct: Functional Language Evaluation: Writing Writes to Simple Dictation: Functional (The patient stated the legibility of his writing was slightly declined due to underlying arthritis.) Cognitive Patient Orientation The patient was independently oriented to self, location, month, day of the week, and year. Objective Cognitive Domain Attention: Mild Memory: Moderate (The patient was able to recall 5/5 word immediately, 0/5 words following a five minute delay, and 2/5 words following the five minute delay with category cues.) Problem Solving: Mild Executive Functions: Mild Visuospatial Skills: WNL Composite Severity Rating: Mild (Mild to moderate.) Clock Drawing Severity Rating: WNL Objective Formal/Standardized Tests [facility] Mental Status Exam (SLUMS) Results The patient demonstrated a result of +17/30 on the SLUMS correlating to a score of "dementia" per rubric. The patient displayed difficulty with word-finding, delayed recall, and problem solving. Oral Motor/Speech Production The patient does not display dysarthria or apraxia of speech. The patient is 100% intelligible in known and unknown contexts. Impression The patient demonstrated a mild to moderate cognitive impairment, most notably in the areas of memory, attention, problem solving and word-finding. As the patient does live independently and reportedly completes his own medication and bill management, the clinician recommends skilled speech pathology cognitive therapy for improvement in the above areas prior to discharge. Speech Short Term Goals Short Term Goals Short Term Goals 1. The patient will display 80% accuracy with memory exercises through utilization of functional memory strategies and mild clinician cueing. Time Frame-STG: Seven Days. Speech Gardening Supervisor Goals Intermediate Goals 1. The patient will demonstrate improved cognitive linguistic skills for safe discharge to the least restrictive environment. Time Frame: Ten Days. Speech-Plan Treatment Plan Speech Therapy Treatment Plan: Continue Plan of Care Treatment Duration: May 10, 2023 Frequency: Modified Program (IRF) Estimated Hrs Per Day: .5 hour per day Rehab Potential: Fair Pt/Family Agrees to Plan: Yes Safety Risks/Education Teaching Recipient: Patient Teaching Methods: Discussion Response to Teaching: Verbalize Understanding, Reinforcement Needed Education Topics Provided: Results, Recommendations, Plan of Care Time Speech Therapy Time In: 09:00 Speech Therapy Time Out: 09:30 DATE: May 01, 2023 Total Billed Time: 30 Billed Treatment Time 1, ISA SEYMOUR [facility] May 01, 2023 10:31
--- NOTE | 2023-05-01 11:18 | Physical Therapy Daily Note ---
PT Daily Note-Current Subjective Pt laying Supine in bed upon arrival. Pt agrees to PT. Pain Numeric Pain Scale: 7 Location: Left Location Body Site: Hip Section J - Health Conditions 1. Rarely or not at all 2. Occasionally 3. Frequently 4. Almost constantly 8. Unable to answer Pain Effect on Sleep: 3 Pain Interference with Therapy: 3 Pain Interference w/Day-to-Day: 3 Mental Status Patient Orientation: Person, Confused, Place Transfers SCALE: Activities may be completed with or without assistive devices. 8-Gliimnzlmo-iirovek completes the activity by him/herself with no assistance from a helper. 5-Set-up or Clean-up Assistance-helper sets up or cleans up; patient completes activity. [place] assists only prior to or following the activity. 4-Supervision or Touching Assistance-helper provides verbal cues and/or touching/steadying and/or contact guard assistance as patient completes activity. Assistance may be provided throughout the activity or intermittently. 3-Partial/Moderate Assistance-helper does LESS THAN HALF the effort. [place] lifts, holds or supports trunk or limbs, but provides less than half the effort. 2-Substantial/Maximal Assistance-helper does MORE THAN HALF the effort. [place] lifts or holds trunk or limbs and provides more than half the effort. 9-Saqrtlnki-epgabv does ALL the effort. Patient does none of the effort to complete the activity. Or, the assistance of 2 or more helpers is required for the patient to complete the activity. If activity was not attempted, code reason: 7-Patient Refused. 9-Not Applicable-not attempted and the patient did not perform the activity before the current illness, exacerbation or injury. 10-Not Attempted due to Environmental Limitations-(lack of equipment, weather restraints, etc.). 88-Not Attempted due to Medical Conditions or Safety Concerns. Lying to Sitting/Side of Bed(Q: 4 Sit to Stand (QC): 4 Weight Bearing Right Lower Extremity: Right Weight Bearing/Tolerated Left Lower Extremity: Left Weight Bearing/Tolerated Gait Training Does the Patient Walk?: Yes Distance: 55', 85' 44' Walk 10 feet (QC): 4 Walk 50 ft with 2 Turns(QC): 4 Walk 150 ft (QC): 4 Gait Persons Needed: 1 Gait Assistive Device: FWW Exercises Seated Therapy Exercises: Ankle pumps, Long arc quads, Hip flexion, Hip abd/add, Glut set Seated Reps: 15 Treatments Pt works on bed mobility, TF from Supine to EOB to Standing followed by amb in hallway. Pt takes RB as needed. Pt completes Seated Ex in Gym and returns to room at end of tx to rest before shower. All needs met. Assessment Current Status: Good Progress Pain affects but doesn't limit participation in tx. PT Correction Goals Correction Goals PT Stockroom Attendant Goals Time Frame: May 21, 2023 Roll Left & Right (QC): 6 Sit to Lying (QC): 6 Lying-Sitting on Side/Bed(QC): 6 Sit to Stand (QC): 6 Chair/Rje-bl-Fflhu Xfer(QC): 6 Toilet Transfer (QC): 6 Car Transfer (QC): 6 Does the Patient Walk: Yes Walk 10 feet (QC): 6 (with FWW) Walk 50ft with 2 Turns (QC): 6 Walk 150 ft (QC): 6 Walking 10ft on Uneven Surface: 6 1 Step (curb) (QC): 5 4 Steps (QC): 5 12 Steps (QC): 5 Picking up an Object (QC): 6 (with snowboard instructor) Does the Pt use WC or Scooter?: No Wheel 50 feet with 2 turns (QC: 9 Type: N/A Wheel 150 feet: 9 Type: N/A PT Plan Problem List Problem List: Activity Tolerance, Functional Strength, Transfer Treatment/Plan Treatment Plan: Continue Plan of Care Treatment Plan: Bed Mobility, Education, Functional Activity Ilya, Functional Strength, Group Therapy, Gait, Safety, Therapeutic Exercise, Transfers Treatment Duration: May 21, 2023 Frequency: At least 5 of 7 days/Wk (IRF) Estimated Hrs Per Day: 1.5 hours per day Patient and/or Family Agrees t: Yes Safety Risks/Education Patient Education: Transfer Techniques, Correct Positioning, Safety Issues Teaching Recipient: Patient Teaching Methods: Discussion Response to Teaching: Reinforcement Needed Time Time In: 1000 Time Out: 1100 DATE: May 01, 2023 Total Billed Treatment Time: 60 Total Billed Treatment 1, FA (15m), EX (20m), GT x2 (25m) RICKEY PIEDRA INVESTIGATION OFFICER May 01, 2023 11:18
[2023-05-01] MEDS ORDERED: ARTIFICAL TEARS Ophth solution 0.4 ML UNIT DOSE OU PRN (11:30)
--- NOTE | 2023-05-01 11:56 | Occupational Ther Daily Note ---
OT Current Status-Daily Note Subjective Received pt from PT ambulating into room with FWW, CGA. Pt agrees to therapy. C/o of pain in R hip 11/09. Nrsg notified. Mental Status/Objective Patient Orientation: Person, Place, Situation ADL-Treatment Therapy Code Descriptions/Definitions Functional [place] Measure: 0=Not Assessed/NA 4=Minimal Assistance 1=Total Assistance 5=Supervision or Setup 2=Maximal Assistance 6=Modified [place] 3=Moderate Assistance 7=Complete IndependenceSCALE: Activities may be completed with or without assistive devices. 3-Tietyqpeoq-tgzbvhc completes the activity by him/herself with no assistance from a helper. 5-Set-up or Clean-up Assistance-helper sets up or cleans up; patient completes activity. [place] assists only prior to or following the activity. 4-Supervision or Touching Assistance-helper provides verbal cues and/or touching/steadying and/or contact guard assistance as patient completes activity. Assistance may be provided throughout the activity or intermittently. 3-Partial/Moderate Assistance-helper does LESS THAN HALF the effort. [place] lifts, holds or supports trunk or limbs, but provides less than half the effort. 2-Substantial/Maximal Assistance-helper does MORE THAN HALF the effort. [place] lifts or holds trunk or limbs and provides more than half the effort. 3-Lpyzliieq-xiqcwo does ALL the effort. Patient does none of the effort to complete the activity. Or, the assistance of 2 or more helpers is required for the patient to complete the activity. If activity was not attempted, code reason: 7-Patient Refused. 9-Not Applicable-not attempted and the patient did not perform the activity before the current illness, exacerbation or injury. 10-Not Attempted due to Environmental Limitations-(lack of equipment, weather restraints, etc.). 88-Not Attempted due to Medical Conditions or Safety Concerns. Oral Hygiene (QC): 6 (Pt stood at sink while completing oral care.) Bathing Location: L Arm, R Arm, L Upper Leg, R Upper Leg, L Lower Leg (including foot), R Lower Leg (including foot), Chest, Abdomen, Buttocks, Perineal Area Shower/Bathe Self (QC): 4 (Multiple VCs given to use soap and steps of the task. VC to make sure all body parts were washed. Pt utilized long-handled sponge to wash LE/feet/and back. ) Upper Body Dressing (QC): 5 (Set up. Pt was able to button up shirt.) Lower Body Dressing (QC): 3 (Min A to thread brief around feet. Pt was able to thread pants around feet. CGA for steadying in standing while pt hiked pants over hips. ) On/Off Footwear: 5 (Pt utilized figure-four technique to don/doff socks. ) Other Treatment Pt completed 5 B UE exercises (HEP) while sitting up in recliner with OTAS for skilled instruction. Ended session pt sitting up in recliner with call light/phone in reach. All needs met and safety measures in place. Education OT Patient Education: Correct positioning, Energy conservation, Home exercise program, Modified ADL techniques, Use of adapted equipment Teaching Recipient: Patient Teaching Methods: Demonstration, Discussion Response to Teaching: Verbalize Understanding, Return Demonstration Pt education given on AE (long-handled sponge) and HEP. Skilled instruction required for proper positioning/movement. Pt verbalized and demonstrated understanding after instruction. BIMS CAM BIMS Expression of Ideas and Wants: Without Difficulty Understanding Verbal Content: Understands Brief Interview/Mental Status: Yes IRF ASHLEIGH BIMS: IRF ASH[place]IGH BIMS Response (Comments) Value Repitition of Three Words Three 3 Recalls Socks Yes, No Cue Required 2 Recalls Blue Yes, No Cue Required 2 Recalls Bed Yes, No Cue Required 2 Year Correct 3 Month Accurate Within 5 Days 2 Day Correct 1 Total 15 Patient Normally Able to Recal: Current Session, Location of own room, Staff Names and faces, That he/she in a [facility] Should Staff Asses. Mental St.: No CAM Mental Status Change/Baseline: 1 Inattention: 0 Disorganized thinkin Altered level of consciousness: 0 OT Short Term Goals Short Term Goals Time Frame: May 02, 2023 OT Rotary Shear Cutter Goals [facility] Goals Eating (QC): 6 Oral Hygiene (QC): 6 Toileting Hygiene (QC): 4 Shower/Bathe Self (QC): 4 Upper Body Dressing (QC): 6 Lower Body Dressing (QC): 4 On/Off Footwear (QC): 6 1=Demonstrate adherence to instructed precautions during ADL tasks. 2=Patient will verbalize/demonstrate understanding of assistive devices/modifications for ADL. 3=Patient will improve strength/tolerance for activity to enable patient to perform ADL's. OT Education/Plan Problem List/Assessment Assessment: Decreased Activ Tolerance, Decreased Safety Aware, Decreased UE Strength, Impaired Funct Balance, Impaired Self-Care Skills Discharge Recommendations Plan/Recommendations: Continue POC Treatment Plan/Plan of Care Treatment,Training & Education: Yes Patient would benefit from OT for education, treatment and training to promote independence in ADL's, mobility, safety and/or upper extremity function for ADL's. Plan of Care: ADL Retraining, Cognitive Retraining, Functional Mobility, Group Exercise/Act as Ind, UE Funct Exercise/Act, UE Neuromus Re-Ed/Coord Treatment Duration: May 14, 2023 Frequency: At least 5 of 7 days/Wk (IRF) Estimated Hrs Per Day: 1.5 hours per day Agreement: Yes Rehab Potential: Fair Time Start Time: 11:00 Stop Time: 12:00 DATE: May 01, 2023 Total Time Billed (hr/min): 60 Billed Treatment Time 1 visit- ADL 3 (50 min) EX (10 min) JACY JAMIL May 01, 2023 11:56
--- NOTE | 2023-05-01 14:08 | Occupational Ther Daily Note ---
OT Current Status-Daily Note Subjective Pt dozing supine in bed. Pt agrees to therapy, c/o of 5/10 pain in R hip. Nrsg notified. Mental Status/Objective Patient Orientation: Person, Place, Situation ADL-Treatment Therapy Code Descriptions/Definitions Functional [place] Measure: 0=Not Assessed/NA 4=Minimal Assistance 1=Total Assistance 5=Supervision or Setup 2=Maximal Assistance 6=Modified [place] 3=Moderate Assistance 7=Complete IndependenceSCALE: Activities may be completed with or without assistive devices. 7-Upsbhjllpm-ybouorn completes the activity by him/herself with no assistance from a helper. 5-Set-up or Clean-up Assistance-helper sets up or cleans up; patient completes activity. [place] assists only prior to or following the activity. 4-Supervision or Touching Assistance-helper provides verbal cues and/or touc edmar/steadying and/or contact guard assistance as patient completes activity. Assistance may be provided throughout the activity or intermittently. 3-Partial/Moderate Assistance-helper does LESS THAN HALF the effort. [place] lifts, holds or supports trunk or limbs, but provides less than half the effort. 2-Substantial/Maximal Assistance-helper does MORE THAN HALF the effort. [place] lifts or holds trunk or limbs and provides more than half the effort. 0-Ntdwzlzaa-hjsiqn does ALL the effort. Patient does none of the effort to complete the activity. Or, the assistance of 2 or more helpers is required for the patient to complete the activity. If activity was not attempted, code reason: 7-Patient Refused. 9-Not Applicable-not attempted and the patient did not perform the activity before the current illness, exacerbation or injury. 10-Not Attempted due to Environmental Limitations-(lack of equipment, weather restraints, etc.). 88-Not Attempted due to Medical Conditions or Safety Concerns. Other Treatment Pt min A supine to EOB. Pt completed cognitive task for further independence with functional tasks. Pt working on sequencing of tasks, hand-eye coordination, problem solving strategies, and fine/gross motor control. Pt needed increased time for problem solving strategies. Pt completed 5 rounds of task, each time getting better with sequencing due to repetition. EOB to supine min A. Ended session with pt supine in bed with call light/phone in reach. All needs met and safety measures in place. Education OT Patient Education: Purpose of tx/functional activities Teaching Recipient: Patient Teaching Methods: Discussion Response to Teaching: Verbalize Understanding Pt education about purpose of cognitive task to increase problem solving/sequencing for further independence with functional tasks. Pt verbalized understanding of instruction. OT Correction Goals Plant Security Guard Goals Eating (QC): 6 Oral Hygiene (QC): 6 Toileting Hygiene (QC): 4 Shower/Bathe Self (QC): 4 Upper Body Dressing (QC): 6 Lower Body Dressing (QC): 4 On/Off Footwear (QC): 6 1=Demonstrate adherence to instructed precautions during ADL tasks. 2=Patient will verbalize/demonstrate understanding of assistive devices/modifications for ADL. 3=Patient will improve strength/tolerance for activity to enable patient to perform ADL's. OT Education/Plan Problem List/Assessment Assessment: Decreased Activ Tolerance, Decreased Safety Aware, Decreased UE Strength, Impaired Cognition, Impaired Funct Balance, Impaired Self-Care Skills Discharge Recommendations Plan/Recommendations: Continue POC Treatment Plan/Plan of Care Treatment,Training & Education: Yes Patient would benefit from OT for education, treatment and training to promote independence in ADL's, mobility, safety and/or upper extremity function for ADL's. Plan of Care: ADL Retraining, Cognitive Retraining, Functional Mobility, Group Exercise/Act as Ind, UE Funct Exercise/Act, UE Neuromus Re-Ed/Coord Treatment Duration: May 14, 2023 Frequency: At least 5 of 7 days/Wk (IRF) Estimated Hrs Per Day: 1.5 hours per day Agreement: Yes Rehab Potential: Fair Time Start Time: 13:30 Stop Time: 14:00 DATE: May 01, 2023 Total Time Billed (hr/min): 30 Billed Treatment Time 1 visit- FA 2 (30 mins) JACY JAMIL May 01, 2023 14:08
[2023-05-01 20:45] VITALS: BP 128/65
[2023-05-01] MEDS: inSUlin ASPART 1 UNIT/0.01 ML (PER UNIT) SC SCH (21:30)
[2023-05-01] MEDS: inSUlin DETERMIR 1 UNIT/0.01 ML (CHARGE PER UNIT) SQ SCH (21:30)
[2023-05-02] MEDS: BISACODYL 10 MG SUPPOSITORY RC SCH ×4 (03:25→21:30)
[2023-05-02] MEDS: ACETAMINOPHEN 325 MG TABLET PO SCH ×4 (03:25→21:30)
[2023-05-02] MEDS: inSUlin ASPART 1 UNIT/0.01 ML (PER UNIT) SC SCH ×4 (06:30→21:30)
[2023-05-02] MEDS: THERAPEUTIC MULTIVITAMIN W/MINERALS TABLET PO SCH (06:33)
--- NOTE | 2023-05-02 07:35 | PM&R Progress Note ---
Subjective HPI/CC On Admission Date Seen by Provider: May 02, 2023 Time Seen by Provider: 12:00 Subjective/Events-last exam 05/02/2023: No major issues Moving slowly but moving well No falls No pain except pelvic fracture 05/01/2023: Doing better Slow ambulation No falls No pain except when he walks Reviewed labs Eating ok Cognition is deficient Review of Systems General: Fatigue, Malaise Musculoskeletal: back pain Neurological: Confusion Objective Exam Vital Signs Vital Signs Date Time Temp Pulse Resp B/P (MAP) Pulse Ox O2 Delivery O2 Flow Rate FiO2 05/02/23 21:30 96 Room Air 05/02/23 20:15 36.1 50 20 120/69 (86) Capillary Refill : General Appearance: No Apparent Distress, WD/WN, Chronically ill HEENT: PERRL/EOMI, Normal ENT Inspection, Pharynx Normal Neck: Full Range of Motion, Normal Inspection, Non Tender, Supple, Carotid Bruit Respiratory: Chest Non Tender, Lungs Clear, Normal Breath Sounds, No Accessory Muscle Use, No Respiratory Distress Cardiovascular: Regular Rate, Rhythm, No Edema, No Gallop, No JVD, No Murmur, Normal Peripheral Pulses Gastrointestinal: Normal Bowel Sounds, No Organomegaly, No Pulsatile Mass, Non Tender, Soft Back: Normal Inspection, No CVA Tenderness, No Vertebral Tenderness Extremity: Normal Capillary Refill, Normal Inspection, Normal Range of Motion (except legs are limited due to pelvic fracture pain), Non Tender, No Calf Tenderness, No Pedal Edema Neurologic/Psychiatric: Alert, Oriented x3 (poor recall), per diem registered nurse II-XII Norm as T ested, Abnormal Gait, Depressed Affect, Motor Weakness (all extremities 3/5) Skin: Normal Color, Warm/Dry Lymphatic: No Adenopathy Results/Procedures Lab Patient resulted labs reviewed. FIM Transfers Therapy Code Descriptions/Definitions Functional [place] Measure: 0=Not Assessed/NA 4=Minimal Assistance 1=Total Assistance 5=Supervision or Setup 2=Maximal Assistance 6=Modified [place] 3=Moderate Assistance 7=Complete IndependenceSCALE: Activities may be completed with or without assistive devices. 1-Jrluddmsor-uufmuaf completes the activity by him/herself with no assistance from a helper. 5-Set-up or Clean-up Assistance-helper sets up or cleans up; patient completes activity. [place] assists only prior to or following the activity. 4-Supervision or Touching Assistance-helper provides verbal cues and/or touching/steadying and/or contact guard assistance as patient completes activity. Assistance may be provided throughout the activity or intermittently. 3-Partial/Moderate Assistance-helper does LESS THAN HALF the effort. [place] lifts, holds or supports trunk or limbs, but provides less than half the effort. 2-Substantial/Maximal Assistance-helper does MORE THAN HALF the effort. [place] lifts or holds trunk or limbs and provides more than half the effort. 7-Wltggfqgf-qzsasm does ALL the effort. Patient does none of the effort to complete the activity. Or, the assistance of 2 or more helpers is required for the patient to complete the activity. If activity was not attempted, code reason: 7-Patient Refused. 9-Not Applicable-not attempted and the patient did not perform the activity before the current illness, exacerbation or injury. 10-Not Attempted due to Environmental Limitations-(lack of equipment, weather restraints, etc.). 88-Not Attempted due to Medical Conditions or Safety Concerns. Roll Left to Right (QC): 4 (cues for bedrail use and to reach across body) Sit to Lying (QC): 3 (mod (A) of 1) Sit to Stand (QC): 4 Chair/Ukn-be-Zheiz Xfer(QC): 3 (min (A) with FWW, cues for hand placement) Car Transfer (QC): 4 (CGA) Gait Training Does the Patient Walk?: Yes Distance: 55', 85' 44' Walk 10 feet (QC): 4 Walk 50 ft with 2 Turns(QC): 4 Walk 150 ft (QC): 4 Walking 10ft/uneven surface-QC: 3 (min (A) with FWW) Gait Persons Needed: 1 Gait Assistive Device: FWW Wheelchair Training Does the Pt Use a Wheelchair?: No Wheel 50 ft with 2 turns (QC): 3 (min (A) 2" curb step) Wheel 150 ft (QC): 9 Type of Wheelchair: N/A Stair Training 1 Step (curb) (QC): 88 (due to (R) hip pain) 4 Steps (QC): 88 12 Steps (QC): 88 (due to pain (R) hip) Balance Picking up an Object (QC): 88 (due to pain and fear of falling. ) ADL-Treatment Eating (QC): 6 (Pt independently opened packages and utilized utensils correctly.) Oral Hygiene (QC): 6 (Pt stood at sink while completing oral care.) Bathing Location: L Arm, R Arm, L Upper Leg, R Upper Leg, L Lower Leg (including foot), R Lower Leg (including foot), Chest, Abdomen, Buttocks, Perineal Area Shower/Bathe Self (QC): 4 (Multiple VCs given to use soap and steps of the task. VC to make sure all body parts were washed. Pt utilized long-handled sponge to wash LE/feet/and back. ) Upper Body Dressing (QC): 5 (Set up. Pt was able to button up shirt.) Lower Body Dressing (QC): 3 (Min A to thread brief around feet. Pt was able to thread pants around feet. CGA for steadying in standing while pt hiked pants over hips. ) On/Off Footwear (QC): 5 (Pt utilized figure-four technique to don/doff socks. ) Toileting Hygiene (QC): 2 (Sub/max A for toileting) Assessment/Plan Assessment and Plan Assess & Plan/Chief Complaint Assessment: s/p fall on concrete steps sustaining SDH, facial fractures, pelvic fractures and sustaining brain injury with LOC DM HTN BPH h/o prostate cancer Current constipation-resolved CKD Plan: PT OT ST to help regain cognition Monitor BP and sugar Home meds 05/01/2023: Monitor closely Accuchecks with SSI Levemir 10 units at night 05/02/2023: Monitor sugar (1) Subdural hematoma MARCIO COHN DO May 02, 2023 07:35
[2023-05-02 08:00] VITALS: BP 143/77
[2023-05-02] MEDS: DOCUSATE SODIUM 100 MG CAPSULE PO SCH ×2 (08:14→21:30)
[2023-05-02] MEDS: ASPIRIN 81 MG CHEWABLE TABLET PO SCH (08:14)
[2023-05-02] MEDS: OMEGA 3 (FISH OIL) 1000 MG CAP PO SCH ×3 (08:14→17:44)
[2023-05-02] MEDS: AMANTADINE 100 MG CAPSULE PO SCH ×2 (08:14→21:30)
[2023-05-02] MEDS: VITAMIN E PO SCH (08:14)
[2023-05-02] MEDS: TAMSULOSIN 0.4 MG (FLOMAX) CAP PO SCH (08:14)
[2023-05-02] MEDS: amLODIPine 10 MG TABLET PO SCH (08:14)
[2023-05-02] MEDS: SENNOSIDES 8.6 MG TABLET PO SCH ×2 (08:14→21:30)
[2023-05-02] MEDS: metFORMIN 500 MG TABLET PO SCH ×2 (08:14→17:44)
[2023-05-02] MEDS: EMPAGLIFLOZIN 10 MG TABLET PO SCH (08:14)
--- NOTE | 2023-05-02 12:12 | Occupational Ther Daily Note ---
OT Current Status-Daily Note Subjective Pt alert, sitting up in bed. Pt agrees to therapy, c/o of 4/10 pain in hip. Nrsg notified. Mental Status/Objective Patient Orientation: Person, Place, Situation ADL-Treatment Therapy Code Descriptions/Definitions Functional [place] Measure: 0=Not Assessed/NA 4=Minimal Assistance 1=Total Assistance 5=Supervision or Setup 2=Maximal Assistance 6=Modified [place] 3=Moderate Assistance 7=Complete IndependenceSCALE: Activities may be completed with or without assistive devices. 1-Exzsnlfjid-kinbavv completes the activity by him/herself with no assistance from a helper. 5-Set-up or Clean-up Assistance-helper sets up or cleans up; patient completes activity. [place] assists only prior to or following the activity. 4-Supervision or Touching Assistance-helper provides verbal cues and/or to uching/steadying and/or contact guard assistance as patient completes activity. Assistance may be provided throughout the activity or intermittently. 3-Partial/Moderate Assistance-helper does LESS THAN HALF the effort. [place] lifts, holds or supports trunk or limbs, but provides less than half the effort. 2-Substantial/Maximal Assistance-helper does MORE THAN HALF the effort. [place] lifts or holds trunk or limbs and provides more than half the effort. 8-Stmqlwdox-riaqpk does ALL the effort. Patient does none of the effort to complete the activity. Or, the assistance of 2 or more helpers is required for the patient to complete the activity. If activity was not attempted, code reason: 7-Patient Refused. 9-Not Applicable-not attempted and the patient did not perform the activity before the current illness, exacerbation or injury. 10-Not Attempted due to Environmental Limitations-(lack of equipment, weather restraints, etc.). 88-Not Attempted due to Medical Conditions or Safety Concerns. Oral Hygiene (QC): 4 (Standing at sink to complete oral care with SBA.) On/Off Footwear: 5 (Set up for positioning of shoes and socks. Pt donned/doffed socks with figure-four technique. Pt able to slide on slippers.) Toileting Hygiene (QC): 4 (CGA sit to stand while pt wiped.) Toilet Transfer (QC): 3 (Min A sit to stand from toilet.) Other Treatment Min A supine to EOB. Pt ambulated with FWW from room to gym, CGA. Pt working on 2+ step tasks to increase sequencing abilities. Min VCs needed to go over steps of tasks. Pt completed 16 resistive clothespins and 9 mas bag tosses working on fine/gross motor strengthening, hand-eye coordination, sequencing, and dynamic standing balance. Pt then completed cognitive activity w/ suction pegs and map to work on multi-step functional tasks, fine motor coordination, memory skills, and overall UE strengthening for ~30 mins. VCs needed for steps and rest breaks for pain management. Pt displayed improvement with activity tolerance, memory, and functional movement. Pt ambulated from gym to room, CGA. EOB to supine Min A. Pt needed 1 VC to remind of accident that led to pain in the hip. Ended session with pt sitting up in bed with call light/phone in reach. All needs met and safety measures in place. Education OT Patient Education: Energy conservation, Purpose of tx/functional activities Teaching Recipient: Patient Teaching Methods: Discussion Response to Teaching: Verbalize Understanding OT Short Term Goals Short Term Goals Time Frame: May 02, 2023 OT Nursing Home Goals Nursing Home Goals Acute change in mental status: 1 Inattention: 0 Disorganized thinkin Altered level of consciousness: 0 Eating (QC): 6 Oral Hygiene (QC): 6 Toileting Hygiene (QC): 4 Shower/Bathe Self (QC): 4 Upper Body Dressing (QC): 6 Lower Body Dressing (QC): 4 On/Off Footwear (QC): 6 1=Demonstrate adherence to instructed precautions during ADL tasks. 2=Patient will verbalize/demonstrate understanding of assistive devices/modifications for ADL. 3=Patient will improve strength/tolerance for activity to enable patient to perform ADL's. OT Education/Plan Problem List/Assessment Assessment: Decreased Activ Tolerance, Decreased UE Strength, Impaired Bed Mobility, Impaired Funct Balance, Impaired Self-Care Skills Discharge Recommendations Plan/Recommendations: Continue POC Treatment Plan/Plan of Care Treatment,Training & Education: Yes Patient would benefit from OT for education, treatment and training to promote independence in ADL's, mobility, safety and/or upper extremity function for ADL's. Plan of Care: ADL Retraining, Cognitive Retraining, Functional Mobility, Group Exercise/Act as Ind, UE Funct Exercise/Act, UE Neuromus Re-Ed/Coord Treatment Duration: May 14, 2023 Frequency: At least 5 of 7 days/Wk (IRF) Estimated Hrs Per Day: 1.5 hours per day Agreement: Yes Rehab Potential: Fair Time Start Time: 10:30 Stop Time: 12:00 DATE: May 02, 2023 Total Time Billed (hr/min): 90 Billed Treatment Time 1 visit-ADL 2 (30 min) FA 4 (60 min) JACY JAMIL May 02, 2023 12:12
--- NOTE | 2023-05-02 13:40 | Speech Therapy Daily Note ---
Speech Daily Progress Note Subjective Date Seen by Provider: May 02, 2023 Time Seen by Provider: 09:00 The patient was seated upright in bed, awake and alert, upon entrance to his room by the clinician. The patient greeted the clinician appropriately and was agreeable to participation in the skilled cognitive therapy session. Per patient, "I just feel better today." Objective The patient and clinician discussed functional safety problem solving, specifically in and around the home. The patient described his home environment to the clinician, including daily tasks he completes. As the patient lives alone, the patient is responsible for meals, cleaning, transportation, medicine management, and bill management. The clinician discussed safety measures including fire safety, transportation safety, and ambulation safety around the water (the patient lives at [facility]). The patient and clinician brainstormed the possibility of contacting a neighbor or family member when he wishes to visit the water (as he must complete multiple concrete steps). The patient agreed with the plan and stated, "My 's been asking me to do that for years." Additionally, the patient is currently driving. The clinician discussed the topic of driving and assessing for cognitive appropriateness closing to the date of discharge. The patient remains on topic throughout structured and unstructured conversation on this date, displaying improved attention and pragmatics in comparison to the prior session. Word-finding (mild) remains however with additional time, the patient consistently locates the word independently. Assessment Assessment Current Status: Good Progress Treatment Plan Continue Plan of Care Speech Short Term Goals Short Term Goals Short Term Goals 1. The patient will display 80% accuracy with memory exercises through utilization of functional memory strategies and mild clinician cueing. Time Frame-STG: Seven Days. Speech Spot Machine Operator Goals Spot Machine Operator Goals 1. The patient will demonstrate improved cognitive linguistic skills for safe discharge to the least restrictive environment. Time Frame: Ten Days. Speech-Plan Treatment Plan Speech Therapy Treatment Plan: Continue Plan of Care Treatment Duration: May 10, 2023 Frequency: Modified Program (IRF) Estimated Hrs Per Day: .5 hour per day Rehab Potential: Fair Pt/Family Agrees to Plan: Yes Safety Risks/Education Teaching Recipient: Patient Teaching Methods: Discussion Response to Teaching: Verbalize Understanding Education Topics Provided: Recommendations, Safety Precautions Time Speech Therapy Time In: 09:00 Speech Therapy Time Out: 09:30 DATE: May 02, 2023 Total Billed Time: 30 Billed Treatment Time ISA Lawson [facility] May 02, 2023 13:40
--- NOTE | 2023-05-02 15:31 | Physical Therapy Daily Note ---
PT Daily Note-Current Subjective Pt sitting up in bed eating lunch upon arrival. Pt agrees to PT. Pain Numeric Pain Scale: 7 Location: Left Location Body Site: Hip Pain Description: Ache Section J - Health Conditions 1. Rarely or not at all 2. Occasionally 3. Frequently 4. Almost constantly 8. Unable to answer Pain Effect on Sleep: 3 Pain Interference with Therapy: 3 Pain Interference w/Day-to-Day: 3 Mental Status Patient Orientation: Person, Confused, Place Transfers SCALE: Activities may be completed with or without assistive devices. 3-Uqnmwqjdkt-wkgftcl completes the activity by him/herself with no assistance from a helper. 5-Set-up or Clean-up Assistance-helper sets up or cleans up; patient completes activity. [place] assists only prior to or following the activity. 4-Supervision or Touching Assistance-helper provides verbal cues and/or to uching/steadying and/or contact guard assistance as patient completes activity. Assistance may be provided throughout the activity or intermittently. 3-Partial/Moderate Assistance-helper does LESS THAN HALF the effort. [place] lifts, holds or supports trunk or limbs, but provides less than half the effort. 2-Substantial/Maximal Assistance-helper does MORE THAN HALF the effort. [place] lifts or holds trunk or limbs and provides more than half the effort. 7-Nzjktevwv-fxhrfb does ALL the effort. Patient does none of the effort to complete the activity. Or, the assistance of 2 or more helpers is required for the patient to complete the activity. If activity was not attempted, code reason: 7-Patient Refused. 9-Not Applicable-not attempted and the patient did not perform the activity before the current illness, exacerbation or injury. 10-Not Attempted due to Environmental Limitations-(lack of equipment, weather restraints, etc.). 88-Not Attempted due to Medical Conditions or Safety Concerns. Sit to Stand (QC): 4 Toilet Transfer (QC): 4 Weight Bearing Right Lower Extremity: Right Weight Bearing/Tolerated Left Lower Extremity: Left Weight Bearing/Tolerated Gait Training Does the Patient Walk?: Yes Distance: 90' x2 Walk 10 feet (QC): 4 Walk 50 ft with 2 Turns(QC): 4 Gait Persons Needed: 1 Gait Assistive Device: FWW Slow jose daniel, normal step length, analgetic gait pattern. Treatments Pt Educ. while pt finished eating over pain management strategies, progress since admission per pt request & explanation of accident & injury. Pt TF from Supine to EOB to Standing using FWW. Pt amb in hallway, taking RB as needed. Pt returns to room to use BR before resting at EOB to shave w/electric razor at end of tx. All needs met, call light next to pt. Assessment Current Status: Good Progress Pt reports pain with standing but this doesn't limit participation in tx. Pt is noticeably stiff after sitting and laying. PT Skilled Nursing Goals [employer] Goals PT Skilled Nursing Goals Time Frame: May 21, 2023 Roll Left & Right (QC): 6 Sit to Lying (QC): 6 Lying-Sitting on Side/Bed(QC): 6 Sit to Stand (QC): 6 Chair/Fvp-yz-Kishf Xfer(QC): 6 Toilet Transfer (QC): 6 Car Transfer (QC): 6 Does the Patient Walk: Yes Walk 10 feet (QC): 6 (with FWW) Walk 50ft with 2 Turns (QC): 6 Walk 150 ft (QC): 6 Walking 10ft on Uneven Surface: 6 1 Step (curb) (QC): 5 4 Steps (QC): 5 12 Steps (QC): 5 Picking up an Object (QC): 6 (with afloat cryptologic manager) Does the Pt use WC or Scooter?: No Wheel 50 feet with 2 turns (QC: 9 Type: N/A Wheel 150 feet: 9 Type: N/A PT Plan Problem List Problem List: Activity Tolerance, Gait, Transfer Treatment/Plan Treatment Plan: Continue Plan of Care Treatment Plan: Bed Mobility, Education, Functional Activity Ilya, Functional Strength, Group Therapy, Gait, Safety, Therapeutic Exercise, Transfers Treatment Duration: May 21, 2023 Frequency: At least 5 of 7 days/Wk (IRF) Estimated Hrs Per Day: 1.5 hours per day Patient and/or Family Agrees t: Yes Safety Risks/Education Patient Education: Gait Training, Transfer Techniques, Correct Positioning, Safety Issues Teaching Recipient: Patient Teaching Methods: Discussion Response to Teaching: Verbalize Understanding Time Time In: 1300 Time Out: 1400 DATE: May 02, 2023 Total Billed Treatment Time: 60 Total Billed Treatment 1, FA x2 (30m) & GT x2 (30m) RICKEY PIEDRA INSTRUMENT TECHNOLOGIST May 02, 2023 15:31
[2023-05-02 20:15] VITALS: BP 120/69
[2023-05-02] MEDS: inSUlin DETERMIR 1 UNIT/0.01 ML (CHARGE PER UNIT) SQ SCH (21:30)
[2023-05-02] MEDS: CALCIUM CARBONATE 500 MG CHEW TABLET PO PRN (21:35)
[2023-05-03] MEDS: ACETAMINOPHEN 325 MG TABLET PO SCH ×4 (04:37→21:26)
[2023-05-03] MEDS: BISACODYL 10 MG SUPPOSITORY RC SCH (04:38)
[2023-05-03] MEDS: inSUlin ASPART 1 UNIT/0.01 ML (PER UNIT) SC SCH ×4 (05:32→21:20)
[2023-05-03] MEDS: THERAPEUTIC MULTIVITAMIN W/MINERALS TABLET PO SCH (06:57)
[2023-05-03 07:49] VITALS: BP 114/69
[2023-05-03] MEDS: AMANTADINE 100 MG CAPSULE PO SCH ×2 (09:14→21:26)
[2023-05-03] MEDS: ASPIRIN 81 MG CHEWABLE TABLET PO SCH (09:14)
[2023-05-03] MEDS: CALCIUM CARBONATE 500 MG CHEW TABLET PO PRN (09:14)
[2023-05-03] MEDS: TAMSULOSIN 0.4 MG (FLOMAX) CAP PO SCH (09:14)
[2023-05-03] MEDS: OMEGA 3 (FISH OIL) 1000 MG CAP PO SCH ×3 (09:14→18:16)
[2023-05-03] MEDS: amLODIPine 10 MG TABLET PO SCH (09:14)
[2023-05-03] MEDS: metFORMIN 500 MG TABLET PO SCH ×2 (09:14→18:16)
[2023-05-03] MEDS: EMPAGLIFLOZIN 10 MG TABLET PO SCH (09:15)
[2023-05-03] MEDS: VITAMIN E PO SCH (09:15)
[2023-05-03] MEDS: DOCUSATE SODIUM 100 MG CAPSULE PO SCH ×2 (09:21→21:20)
[2023-05-03] MEDS: SENNOSIDES 8.6 MG TABLET PO SCH ×2 (09:22→21:20)
--- NOTE | 2023-05-03 09:22 | Occupational Ther Daily Note ---
OT Current Status-Daily Note Subjective Pt alert, sitting up in recliner. Pt agrees to therapy, no c/o of pain. Pt mentioned indigestion, nrsg notified. Mental Status/Objective Patient Orientation: Person, Place, Situation ADL-Treatment Therapy Code Descriptions/Definitions Functional [place] Measure: 0=Not Assessed/NA 4=Minimal Assistance 1=Total Assistance 5=Supervision or Setup 2=Maximal Assistance 6=Modified [place] 3=Moderate Assistance 7=Complete IndependenceSCALE: Activities may be completed with or without assistive devices. 2-Fsauhilzqk-zktbern completes the activity by him/herself with no assistance from a helper. 5-Set-up or Clean-up Assistance-helper sets up or cleans up; patient completes activity. [place] assists only prior to or following the activity. 4-Supervision or Touching Assistance-helper provides verbal cues and/or touching/steadying and/or contact guard assistance as patient completes activity. Assistance may be provided throughout the activity or intermittently. 3-Partial/Moderate Assistance-helper does LESS THAN HALF the effort. [place] l ifts, holds or supports trunk or limbs, but provides less than half the effort. 2-Substantial/Maximal Assistance-helper does MORE THAN HALF the effort. [place] lifts or holds trunk or limbs and provides more than half the effort. 8-Lkwoycnjf-ulijpn does ALL the effort. Patient does none of the effort to complete the activity. Or, the assistance of 2 or more helpers is required for t he patient to complete the activity. If activity was not attempted, code reason: 7-Patient Refused. 9-Not Applicable-not attempted and the patient did not perform the activity before the current illness, exacerbation or injury. 10-Not Attempted due to Environmental Limitations-(lack of equipment, weather restraints, etc.). 88-Not Attempted due to Medical Conditions or Safety Concerns. Oral Hygiene (QC): 4 (Pt standing at sink, CGA for safety.) Toileting Hygiene (QC): 4 (Pt standing at sink after toileting to wash hands, CGA for safety) Toilet Transfer (QC): 4 (Pt pull down/pulled up pants after toileting, CGA for steadying.) Pt washed face standing at sink, CGA for safety. Other Treatment Pt sitting up in recliner while instruction given to pt over HEP. Pt completed 9 UE exercises with resistive theraband. Skilled instruction required by clinician for proper positioning/movement during exercises. Ended session with pt supine in bed with call light/phone in reach. All needs met and safety measures in place. Education OT Patient Education: Correct positioning, Home exercise program Teaching Recipient: Patient Teaching Methods: Demonstration, Discussion Response to Teaching: Verbalize Understanding, Return Demonstration Skilled instruction required by OTAS for proper positioning/movement for UE HEP with resistive theraband. Pt verbalized and demonstrated understanding of instruction. OT Short Term Goals Short Term Goals Time Frame: May 02, 2023 OT Certified Alcohol Drug Counselor Goals Custodial Goals Acute change in mental status: 1 Inattention: 0 Disorganized thinkin Altered level of consciousness: 0 Eating (QC): 6 Oral Hygiene (QC): 6 Toileting Hygiene (QC): 4 Shower/Bathe Self (QC): 4 Upper Body Dressing (QC): 6 Lower Body Dressing (QC): 4 On/Off Footwear (QC): 6 1=Demonstrate adherence to instructed precautions during ADL tasks. 2=Patient will verbalize/demonstrate understanding of assistive devices/modifications for ADL. 3=Patient will improve strength/tolerance for activity to enable patient to perform ADL's. OT Education/Plan Problem List/Assessment Assessment: Decreased Activ Tolerance, Decreased UE Strength, Impaired Cognition, Impaired Funct Balance, Impaired Self-Care Skills Discharge Recommendations Plan/Recommendations: Continue POC Treatment Plan/Plan of Care Treatment,Training & Education: Yes Patient would benefit from OT for education, treatment and training to promote independence in ADL's, mobility, safety and/or upper extremity function for ADL's. Plan of Care: ADL Retraining, Cognitive Retraining, Functional Mobility, Group Exercise/Act as Ind, UE Funct Exercise/Act, UE Neuromus Re-Ed/Coord Treatment Duration: May 14, 2023 Frequency: At least 5 of 7 days/Wk (IRF) Estimated Hrs Per Day: 1.5 hours per day Agreement: Yes Rehab Potential: Fair Time Start Time: 08:30 Stop Time: 09:00 DATE: May 03, 2023 Total Time Billed (hr/min): 30 Billed Treatment Time 1 visit- ADL 1 (15 mins) EX 1 (15 mins) JACY JAMIL May 03, 2023 09:22
--- NOTE | 2023-05-03 10:37 | PM&R Progress Note ---
Subjective HPI/CC On Admission Date Seen by Provider: May 03, 2023 Time Seen by Provider: 10:45 Subjective/Events-last exam 05/03/2023: Patient doing well Improved cognition Moving around a lot better Less pain Blood sugars improved with long-acting insulin 05/02/2023: No major issues Moving slowly but moving well No falls No pain except pelvic fracture 05/01/2023: Doing better Slow ambulation No falls No pain except when he walks Reviewed labs Eating ok Cognition is deficient Review of Systems General: Fatigue, Malaise Objective Exam Vital Signs Vital Signs Date Time Temp Pulse Resp B/P (MAP) Pulse Ox O2 Delivery O2 Flow Rate FiO2 05/03/23 21:20 99 Room Air 05/03/23 20:10 36.1 53 18 116/63 (80) Capillary Refill : General Appearance: No Apparent Distress, WD/WN, Chronically ill HEENT: PERRL/EOMI, Normal ENT Inspection, Pharynx Normal Neck: Full Range of Motion, Normal Inspection, Non Tender, Supple, Carotid Bruit Respiratory: Chest Non Tender, Lungs Clear, Normal Breath Sounds, No Accessory Muscle Use, No Respiratory Distress Cardiovascular: Regular Rate, Rhythm, No Edema, No Gallop, No JVD, No Murmur, Normal Peripheral Pulses Gastrointestinal: Normal Bowel Sounds, No Organomegaly, No Pulsatile Mass, Non Tender, Soft Back: Normal Inspection, No CVA Tenderness, No Vertebral Tenderness Extremity: Normal Capillary Refill, Normal Inspection, Normal Range of Motion (except legs are limited due to pelvic fracture pain), Non Tender, No Calf Tenderness, No Pedal Edema Neurologic/Psychiatric: Alert, Oriented x3 (poor recall), health equipment servicer II-XII Norm as Tested, Abnormal Gait, Depressed Affect, Motor Weakness (all extremities 3/5) Skin: Normal Color, Warm/Dry Lymphatic: No Adenopathy Results/Procedures Lab Patient resulted labs reviewed. FIM Transfers Therapy Code Descriptions/Definitions Functional [place] Measure: 0=Not Assessed/NA 4=Minimal Assistance 1=Total Assistance 5=Supervision or Setup 2=Maximal Assistance 6=Modified [place] 3=Moderate Assistance 7=Complete IndependenceSCALE: Activities may be completed with or without assistive devices. 5-Xlbhnnkgnv-skyncgv completes the activity by him/herself with no assistance from a helper. 5-Set-up or Clean-up Assistance-helper sets up or cleans up; patient completes activity. [place] assists only prior to or following the activity. 4-Supervision or Touching Assistance-helper provides verbal cues and/or touching/steadying and/or contact guard assistance as patient completes activity. Assistance may be provided throughout the activity or intermittently. 3-Partial/Moderate Assistance-helper does LESS THAN HALF the effort. [place] lifts, holds or supports trunk or limbs, but provides less than half the effort. 2-Substantial/Maximal Assistance-helper does MORE THAN HALF the effort. [place] lifts or holds trunk or limbs and provides more than half the effort. 5-Xfoopdhrs-fwxlfy does ALL the effort. Patient does none of the effort to complete the activity. Or, the assistance of 2 or more helpers is required for the patient to complete the activity. If activity was not attempted, code reason: 7-Patient Refused. 9-Not Applicable-not attempted and the patient did not perform the activity before the current illness, exacerbation or injury. 10-Not Attempted due to Environmental Limitations-(lack of equipment, weather restraints, etc.). 88-Not Attempted due to Medical Conditions or Safety Concerns. Roll Left to Right (QC): 4 (cues for bedrail use and to reach across body) Sit to Lying (QC): 3 (mod (A) of 1) Sit to Stand (QC): 4 Chair/Vwo-fx-Emzsv Xfer(QC): 3 (min (A) with FWW, cues for hand placement) Car Transfer (QC): 4 (CGA) Gait Training Does the Patient Walk?: Yes Distance: 90' x2 Walk 10 feet (QC): 4 Walk 50 ft with 2 Turns(QC): 4 Walk 150 ft (QC): 4 Walking 10ft/uneven surface-QC: 3 (min (A) with FWW) Gait Persons Needed: 1 Gait Assistive Device: FWW Wheelchair Training Does the Pt Use a Wheelchair?: No Wheel 50 ft with 2 turns (QC): 3 (min (A) 2" curb step) Wheel 150 ft (QC): 9 Type of Wheelchair: N/A Stair Training 1 Step (curb) (QC): 88 (due to (R) hip pain) 4 Steps (QC): 88 12 Steps (QC): 88 (due to pain (R) hip) Balance Picking up an Object (QC): 88 (due to pain and fear of falling. ) ADL-Treatment Eating (QC): 6 (Pt independently opened packages and utilized utensils correctly.) Oral Hygiene (QC): 4 (Pt standing at sink, CGA for safety.) Bathing Location: L Arm, R Arm, L Upper Leg, R Upper Leg, L Lower Leg ( including foot), R Lower Leg (including foot), Chest, Abdomen, Buttocks, Perineal Area Shower/Bathe Self (QC): 4 (Multiple VCs given to use soap and steps of the task. VC to make sure all body parts were washed. Pt utilized long-handled sponge to wash LE/feet/and back. ) Upper Body Dressing (QC): 5 (Set up. Pt was able to button up shirt.) Lower Body Dressing (QC): 3 (Min A to thread brief around feet. Pt was able to thread pants around feet. CGA for steadying in standing while pt hiked pants over hips. ) On/Off Footwear (QC): 5 (Set up for positioning of shoes and socks. Pt donned/doffed socks with figure-four technique. Pt able to slide on slippers.) Toileting Hygiene (QC): 4 (Pt standing at sink after toileting to wash hands, CGA for safety) Toilet Transfer (QC): 4 (Pt pull down/pulled up pants after toileting, CGA for steadying.) Assessment/Plan Assessment and Plan Assess & Plan/Chief Complaint Assessment: s/p fall on concrete steps sustaining SDH, facial fractures, pelvic fractures and sustaining brain injury with LOC DM HTN BPH h/o prostate cancer Current constipation-resolved CKD Plan: PT OT ST to help regain cognition Monitor BP and sugar Home meds 05/01/2023: Monitor closely Accuchecks with SSI Levemir 10 units at night 05/02/2023: Monitor sugar 05/03/2023: Supportive care Monitor blood sugars (1) Subdural hematoma MARCIO COHN DO May 03, 2023 10:36
--- NOTE | 2023-05-03 10:54 | Occupational Ther Daily Note ---
OT Current Status-Daily Note Subjective Pt alert, supine in bed. Pt agrees to therapy, no c/o of pain. Indigestion present, medication was given prior to tx. Pt c/o of pain in R hip during sit to stand and ambulation, nrsg notified. Mental Status/Objective Patient Orientation: Person, Place, Situation ADL-Treatment Therapy Code Descriptions/Definitions Functional [place] Measure: 0=Not Assessed/NA 4=Minimal Assistance 1=Total Assistance 5=Supervision or Setup 2=Maximal Assistance 6=Modified [place] 3=Moderate Assistance 7=Complete IndependenceSCALE: Activities may be completed with or without assistive devices. 7-Echfvyjpni-iyiunwa completes the activity by him/herself with no assistance from a helper. 5-Set-up or Clean-up Assistance-helper sets up or cleans up; patient completes activity. [place] assists only prior to or following the activity. 4-Supervision or Touching Assistance-helper provides verbal cues and/or touching/steadying and/or contact guard assistance as patient completes activity. Assistance may be provided throughout the activity or intermittently. 3-Partial/Moderate Assistance-helper does LESS THAN HALF the effort. [place] lifts, holds or supports trunk or limbs, but provides less than half the effort. 2-Substantial/Maximal Assistance-helper does MORE THAN HALF the effort. [place] lifts or holds trunk or limbs and provides more than half the effort. 2-Gdvzxpagj-sxliry does ALL the effort. Patient does none of the effort to complete the activity. Or, the assistance of 2 or more helpers is required for the patient to complete the activity. If activity was not attempted, code reason: 7-Patient Refused. 9-Not Applicable-not attempted and the patient did not perform the activity before the current illness, exacerbation or injury. 10-Not Attempted due to Environmental Limitations-(lack of equipment, weather restraints, etc.). 88-Not Attempted due to Medical Conditions or Safety Concerns. Other Treatment Pt ambulated from room to kitchen with FWW, CGA for safety. Pt completed simple cooking task with microwave mug cake standing at kitchen counter with CGA for safety. Pt given directions prior to task and shown where necessary items are located. Pt then followed directions for functional task, referring back when unable to recall the next step. Pt utilized counter to side step to sink and back to microwave with SBA. Pt able to position items that were required for recipe by scooting along counter with good safety awareness. VCs for safety such as waiting for food to cool off before eating/waiting before touching hot mug/not putting spoon into microwave. Education given on energy conservation techniques and pain management during functional tasks. Pt working on memory recall, sequencing of tasks, energy conservation, problem solving strategies, dynamic standing balance, and meal preparation. Pt ambulated back to room with CGA. Sitting EOB to supine min A due to pain in hip that decreased after transfer. Continued kitchen safety education with pt by completing cognitive activity. Pt shows progress with memory recall strategies and sequencing but still requires min VCs for safety. Pt needed 1 reminder about what happened to cause his accident due to him forgetting, after reminder he still could not recall what happened. Ended session with pt sitting up in bed with call light/phone in reach. All needs met and safety measures in place. Education OT Patient Education: Energy conservation, Purpose of tx/functional activities, Safety issues, Other (Kitchen safety) Teaching Recipient: Patient Teaching Methods: Demonstration, Discussion Response to Teaching: Verbalize Understanding, Return Demonstration Skilled instruction required to educate pt on kitchen safety and energy conservation during functional tasks. Pt verbalized/demonstrated understanding of instructions. OT Short Term Goals Short Term Goals Time Frame: May 02, 2023 OT Electrotyper Goals Electrotyper Goals Acute change in mental status: 1 Inattention: 0 Disorganized thinkin Altered level of consciousness: 0 Eating (QC): 6 Oral Hygiene (QC): 6 Toileting Hygiene (QC): 4 Shower/Bathe Self (QC): 4 Upper Body Dressing (QC): 6 Lower Body Dressing (QC): 4 On/Off Footwear (QC): 6 1=Demonstrate adherence to instructed precautions during ADL tasks. 2=Patient will verbalize/demonstrate understanding of assistive devices/ modifications for ADL. 3=Patient will improve strength/tolerance for activity to enable patient to perform ADL's. OT Education/Plan Problem List/Assessment Assessment: Decreased Activ Tolerance, Decreased Safety Aware, Decreased UE Strength, Impaired Bed Mobility, Impaired Cognition, Impaired Funct Balance, Impaired Self-Care Skills Discharge Recommendations Plan/Recommendations: Continue POC Treatment Plan/Plan of Care Treatment,Training & Education: Yes Patient would benefit from OT for education, treatment and training to promote independence in ADL's, mobility, safety and/or upper extremity function for ADL's. Plan of Care: ADL Retraining, Cognitive Retraining, Functional Mobility, Group Exercise/Act as Ind, UE Funct Exercise/Act, UE Neuromus Re-Ed/Coord Treatment Duration: May 14, 2023 Frequency: At least 5 of 7 days/Wk (IRF) Estimated Hrs Per Day: 1.5 hours per day Agreement: Yes Rehab Potential: Fair Time Start Time: 09:30 Stop Time: 10:30 DATE: May 03, 2023 Total Time Billed (hr/min): 60 Billed Treatment Time 1 visit- FA 4 (60 mins) JACY JAMIL May 03, 2023 10:54
[2023-05-03] MEDS ORDERED: PANTOPRAZOLE 40 MG TABLET PO NR (11:00)
[2023-05-03] MEDS: SUCRALFATE 1 GM TABLET PO SCH ×3 (11:27→21:26)
[2023-05-03] MEDS: ONDANSETRON 4 MG ORAL DISSOLVE TABLET PO PRN (11:35)
--- NOTE | 2023-05-03 11:37 | Speech Therapy Daily Note ---
Speech Daily Progress Note Subjective Date Seen by Provider: May 03, 2023 Time Seen by Provider: 09:00 The patient was lying in bed, awake and alert, upon entrance to his room by the clinician. The patient greeted the clinician appropriately and was agreeable to participation in the skilled cognitive treatment session. The patient reports increased fatigue, indigestion, and right hip pain (unrated) on this date. The RN was notified of the patient's report and provided medication throughout the therapy. Objective The patient participated in discussions regarding kitchen safety and accurate sequencing of instructions to make a "mug cake" in preparation for the upcoming occupational therapy session. The patient responded appropriately to kitchen safety scenarios independently with increased response time provided. Cake instructions were left with the patient to re-read during downtime. Throughout structured conversation, the patient displayed adequate sustained attention and appropriate conversation skills. The patient asked follow up questions and remained on topic without verbal or visual cues from the clinician. The patient does report "some clearing" of cognitive processes on this date. Assessment Assessment Current Status: Good Progress Treatment Plan Continue Plan of Care Speech Short Term Goals Short Term Goals Short Term Goals 1. The patient will display 80% accuracy with memory exercises through utilization of functional memory strategies and mild clinician cueing. Time Frame-STG: Seven Days. Speech Lead Teacher Goals [facility] Goals 1. The patient will demonstrate improved cognitive linguistic skills for safe discharge to the least restrictive environment. Time Frame: Ten Days. Speech-Plan Treatment Plan Speech Therapy Treatment Plan: Continue Plan of Care Treatment Duration: May 10, 2023 Frequency: Modified Program (IRF) Estimated Hrs Per Day: .5 hour per day Rehab Potential: Fair Safety Risks/Education Teaching Recipient: Patient Teaching Methods: Demonstration, Discussion Response to Teaching: Verbalize Understanding, Return Demonstration Education Topics Provided: Functional Sequencing, Safety Problem Solving Time Speech Therapy Time In: 09:00 Speech Therapy Time Out: 09:30 DATE: May 03, 2023 Total Billed Time: 30 Billed Treatment Time 1ISA [facility] ST May 03, 2023 11:37
--- NOTE | 2023-05-03 14:07 | Physical Therapy Daily Note ---
PT Daily Note-Current Subjective Pt laying Supine in bed visiting w/friend upon arrival. Pt agrees to PT. Pain Numeric Pain Scale: 6 Location: Left Location Body Site: Hip Section J - Health Conditions 1. Rarely or not at all 2. Occasionally 3. Frequently 4. Almost constantly 8. Unable to answer Pain Effect on Sleep: 3 Pain Interference with Therapy: 3 Pain Interference w/Day-to-Day: 3 Mental Status Patient Orientation: Person, Place, Situation Transfers SCALE: Activities may be completed with or without assistive devices. 0-Ekfwlyyigf-cacbxfe completes the activity by him/herself with no assistance from a helper. 5-Set-up or Clean-up Assistance-helper sets up or cleans up; patient completes activity. [place] assists only prior to or following the activity. 4-Supervision or Touching Assistance-helper provides verbal cues and/or touching/steadying and/or contact guard assistance as patient completes activity. Assistance may be provided throughout the activity or intermittently. 3-Partial/Moderate Assistance-helper does LESS THAN HALF the effort. [place] lifts, holds or supports trunk or limbs, but provides less than half the effort. 2-Substantial/Maximal Assistance-helper does MORE THAN HALF the effort. [place] lifts or holds trunk or limbs and provides more than half the effort. 3-Ybfyxbjvz-vxawdo does ALL the effort. Patient does none of the effort to complete the activity. Or, the assistance of 2 or more helpers is required for the patient to complete the activity. If activity was not attempted, code reason: 7-Patient Refused. 9-Not Applicable-not attempted and the patient did not perform the activity before the current illness, exacerbation or injury. 10-Not Attempted due to Environmental Limitations-(lack of equipment, weather restraints, etc.). 88-Not Attempted due to Medical Conditions or Safety Concerns. Weight Bearing Right Lower Extremity: Right Weight Bearing/Tolerated Left Lower Extremity: Left Weight Bearing/Tolerated Gait Training Does the Patient Walk?: Yes Distance: 100' Walk 10 feet (QC): 4 Walk 50 ft with 2 Turns(QC): 4 Gait Persons Needed: 1 Gait Assistive Device: FWW Exercises Seated Therapy Exercises: Ankle pumps, Long arc quads, Hip abd/add, Glut set Seated Reps: 10 Treatments Pt and friend had questions over pt's progress and est. d/c date of 05/12/23. SUPERVISOR OF GUIDANCE AND TESTING w/permission from pt discussed SW note from 05/02/23 after weekly ARU mtg. SUPERVISOR OF GUIDANCE AND TESTING also discussed w/SW and reported to pt that plan is to d/c w/HH or OP of pt's choosing w/pt having option of entering SNF w/i 30 days if needed. Pt after rec. medicine vomits, Nurse informed. Pt given nausea med. After that pt agrees to amb in hallway. Pt completes Seated EX and rests at recliner for lunch. All needs met, call light in hand. Assessment Current Status: Fair Progress Pain and stiffness limit walking and nausea demonstrated during tx. PT Intermediate Goals Intermediate Goals PT [employer] Goals Time Frame: May 21, 2023 Roll Left & Right (QC): 6 Sit to Lying (QC): 6 Lying-Sitting on Side/Bed(QC): 6 Sit to Stand (QC): 6 Chair/Tpe-hj-Fntsf Xfer(QC): 6 Toilet Transfer (QC): 6 Car Transfer (QC): 6 Does the Patient Walk: Yes Walk 10 feet (QC): 6 (with FWW) Walk 50ft with 2 Turns (QC): 6 Walk 150 ft (QC): 6 Walking 10ft on Uneven Surface: 6 1 Step (curb) (QC): 5 4 Steps (QC): 5 12 Steps (QC): 5 Picking up an Object (QC): 6 (with assistant women's basketball coach) Does the Pt use WC or Scooter?: No Wheel 50 feet with 2 turns (QC: 9 Type: N/A Wheel 150 feet: 9 Type: N/A PT Plan Problem List Problem List: Activity Tolerance, Functional Strength, Gait Treatment/Plan Treatment Plan: Continue Plan of Care Treatment Plan: Bed Mobility, Education, Functional Activity Ilya, Functional Strength, Group Therapy, Gait, Safety, Therapeutic Exercise, Transfers Treatment Duration: May 21, 2023 Frequency: At least 5 of 7 days/Wk (IRF) Estimated Hrs Per Day: 1.5 hours per day Patient and/or Family Agrees t: Yes Safety Risks/Education Patient Education: Gait Training, Correct Positioning Teaching Recipient: Patient Teaching Methods: Discussion Response to Teaching: Verbalize Understanding Time Time In: 1100 Time Out: 1200 DATE: May 03, 2023 Total Billed Treatment Time: 60 Total Billed Treatment 1, GT x2 (25m) & FA x2 (35m) RICKEY PIEDRA PTA May 03, 2023 14:07
[2023-05-03 20:10] VITALS: BP 116/63
[2023-05-03] MEDS: inSUlin DETERMIR 1 UNIT/0.01 ML (CHARGE PER UNIT) SQ SCH (21:26)
[2023-05-04] MEDS: ACETAMINOPHEN 325 MG TABLET PO SCH ×4 (04:02→21:12)
[2023-05-04] MEDS: THERAPEUTIC MULTIVITAMIN W/MINERALS TABLET PO SCH (06:01)
[2023-05-04] MEDS: SUCRALFATE 1 GM TABLET PO SCH ×4 (06:01→21:12)
--- NOTE | 2023-05-04 06:12 | PM&R Progress Note ---
Subjective HPI/CC On Admission Date Seen by Provider: May 04, 2023 Time Seen by Provider: 09:00 Subjective/Events-last exam 05/04/2023: Patient doing much better No pain is reported No falls Cognition improved Blood sugar improved 05/03/2023: Patient doing well Improved cognition Moving around a lot better Less pain Blood sugars improved with long-acting insulin 05/02/2023: No major issues Moving slowly but moving well No falls No pain except pelvic fracture 05/01/2023: Doing better Slow ambulation No falls No pain except when he walks Reviewed labs Eating ok Cognition is deficient Review of Systems General: Fatigue, Malaise Objective Exam Vital Signs Vital Signs Date Time Temp Pulse Resp B/P (MAP) Pulse Ox O2 Delivery O2 Flow Rate FiO2 05/04/23 21:00 96 Room Air 05/04/23 19:06 36.0 51 14 118/57 (77) Capillary Refill : General Appearance: No Apparent Distress, WD/WN, Chronically ill HEENT: PERRL/EOMI, Normal ENT Inspection, Pharynx Normal Neck: Full Range of Motion, Normal Inspection, Non Tender, Supple, Carotid Bruit Respiratory: Chest Non Tender, Lungs Clear, Normal Breath Sounds, No Accessory Muscle Use, No Respiratory Distress Cardiovascular: Regular Rate, Rhythm, No Edema, No Gallop, No JVD, No Murmur, Normal Peripheral Pulses Gastrointestinal: Normal Bowel Sounds, No Organomegaly, No Pulsatile Mass, Non Tender, Soft Back: Normal Inspection, No CVA Tenderness, No Vertebral Tenderness Extremity: Normal Capillary Refill, Normal Inspection, Normal Range of Motion (except legs are limited due to pelvic fracture pain), Non Tender, No Calf Tenderness, No Pedal Edema Neurologic/Psychiatric: Alert, Oriented x3 (poor recall), 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 FIM Transfers Therapy Code Descriptions/Definitions Functional [place] Measure: 0=Not Assessed/NA 4=Minimal Assistance 1=Total Assistance 5=Supervision or Setup 2=Maximal Assistance 6=Modified [place] 3=Moderate Assistance 7=Complete IndependenceSCALE: Activities may be completed with or without assistive devices. 5-Uvljjeqepf-rycwblq completes the activity by him/herself with no assistance from a helper. 5-Set-up or Clean-up Assistance-helper sets up or cleans up; patient completes activity. [place] assists only prior to or following the activity. 4-Supervision or Touching Assistance-helper provides verbal cues and/or touching/steadying and/or contact guard assistance as patient completes activity. Assistance may be provided throughout the activity or intermittently. 3-Partial/Moderate Assistance-helper does LESS THAN HALF the effort. [place] lifts, holds or supports trunk or limbs, but provides less than half the effort. 2-Substantial/Maximal Assistance-helper does MORE THAN HALF the effort. [place] lifts or holds trunk or limbs and provides more than half the effort. 9-Yaktxtxvn-pugvzt does ALL the effort. Patient does none of the effort to complete the activity. Or, the assistance of 2 or more helpers is required for the patient to complete the activity. If activity was not attempted, code reason: 7-Patient Refused. 9-Not Applicable-not attempted and the patient did not perform the activity before the current illness, exacerbation or injury. 10-Not Attempted due to Environmental Limitations-(lack of equipment, weather restraints, etc.). 88-Not Attempted due to Medical Conditions or Safety Concerns. Roll Left to Right (QC): 4 (cues for bedrail use and to reach across body) Sit to Lying (QC): 3 (mod (A) of 1) Sit to Stand (QC): 4 Chair/Ntm-ag-Qfgrw Xfer(QC): 3 (min (A) with FWW, cues for hand placement) Car Transfer (QC): 4 (CGA) Gait Training Does the Patient Walk?: Yes Distance: 100' Walk 10 feet (QC): 4 Walk 50 ft with 2 Turns(QC): 4 Walk 150 ft (QC): 4 Walking 10ft/uneven surface-QC: 3 (min (A) with FWW) Gait Persons Needed: 1 Gait Assistive Device: FWW Wheelchair Training Does the Pt Use a Wheelchair?: No Wheel 50 ft with 2 turns (QC): 3 (min (A) 2" curb step) Wheel 150 ft (QC): 9 Type of Wheelchair: N/A Stair Training 1 Step (curb) (QC): 88 (due to (R) hip pain) 4 Steps (QC): 88 12 Steps (QC): 88 (due to pain (R) hip) Balance Picking up an Object (QC): 88 (due to pain and fear of falling. ) ADL-Treatment Eating (QC): 6 (Pt independently opened packages and utilized utensils correctly.) Oral Hygiene (QC): 4 (Pt standing at sink, CGA for safety.) Bathing Location: L Arm, R Arm, L Upper Leg, R Upper Leg, L Lower Leg (including foot), R Lower Leg (including foot), Chest, Abdomen, Buttocks, Perineal Area Shower/Bathe Self (QC): 4 (Multiple VCs given to use soap and steps of the task. VC to make sure all body parts were washed. Pt utilized long-handled sponge to wash LE/feet/and back. ) Upper Body Dressing (QC): 5 (Set up. Pt was able to button up shirt.) Lower Body Dressing (QC): 3 (Min A to thread brief around feet. Pt was able to thread pants around feet. CGA for steadying in standing while pt hiked pants over hips. ) On/Off Footwear (QC): 5 (Set up for positioning of shoes and socks. Pt donned/doffed socks with figure-four technique. Pt able to slide on slippers.) Toileting Hygiene (QC): 4 (Pt standing at sink after toileting to wash hands, CGA for safety) Toilet Transfer (QC): 4 (Pt pull down/pulled up pants after toileting, CGA for steadying.) Assessment/Plan Assessment and Plan Assess & Plan/Chief Complaint Assessment: s/p fall on concrete steps sustaining SDH, facial fractures, pelvic fractures and sustaining brain injury with LOC DM HTN BPH h/o prostate cancer Current constipation-resolved CKD Plan: PT OT ST to help regain cognition Monitor BP and sugar Home meds 05/01/2023: Monitor closely Accuchecks with SSI Levemir 10 units at night 05/02/2023: Monitor sugar 05/03/2023: Supportive care Monitor blood sugars 05/04/2023: Supportive care Monitor closely (1) Subdural hematoma MARCIO COHN DO May 04, 2023 06:12
[2023-05-04] MEDS: inSUlin ASPART 1 UNIT/0.01 ML (PER UNIT) SC SCH ×4 (06:17→20:59)
[2023-05-04 08:06] VITALS: BP 127/68
[2023-05-04] MEDS: EMPAGLIFLOZIN 10 MG TABLET PO SCH (08:55)
[2023-05-04] MEDS: AMANTADINE 100 MG CAPSULE PO SCH ×2 (08:55→21:12)
[2023-05-04] MEDS: TAMSULOSIN 0.4 MG (FLOMAX) CAP PO SCH (08:55)
[2023-05-04] MEDS: OMEGA 3 (FISH OIL) 1000 MG CAP PO SCH ×3 (08:55→17:35)
[2023-05-04] MEDS: amLODIPine 10 MG TABLET PO SCH (08:55)
[2023-05-04] MEDS: metFORMIN 500 MG TABLET PO SCH ×2 (08:56→17:35)
[2023-05-04] MEDS: SENNOSIDES 8.6 MG TABLET PO SCH ×2 (08:56→20:58)
[2023-05-04] MEDS: ASPIRIN 81 MG CHEWABLE TABLET PO SCH (08:56)
[2023-05-04] MEDS: VITAMIN E PO SCH (08:56)
[2023-05-04] MEDS: DOCUSATE SODIUM 100 MG CAPSULE PO SCH ×2 (08:56→20:58)
[2023-05-04] MEDS: PANTOPRAZOLE 40 MG TABLET PO SCH (08:56)
[2023-05-04] MEDS: oxyCODONE IMMEDIATE RELEASE 5 MG TABLET PO PRN (13:50)
[2023-05-04 19:06] VITALS: BP 118/57
[2023-05-04] MEDS: inSUlin DETERMIR 1 UNIT/0.01 ML (CHARGE PER UNIT) SQ SCH (21:13)
[2023-05-05] MEDS: ACETAMINOPHEN 325 MG TABLET PO SCH ×4 (04:36→21:27)
[2023-05-05] MEDS: inSUlin ASPART 1 UNIT/0.01 ML (PER UNIT) SC SCH ×4 (05:52→21:28)
[2023-05-05] MEDS: THERAPEUTIC MULTIVITAMIN W/MINERALS TABLET PO SCH (06:42)
[2023-05-05] MEDS: SUCRALFATE 1 GM TABLET PO SCH ×4 (06:42→21:27)
--- NOTE | 2023-05-05 07:11 | PM&R Progress Note ---
Subjective HPI/CC On Admission Date Seen by Provider: May 05, 2023 Time Seen by Provider: 12:00 Subjective/Events-last exam 05/05/2023: Patient doing really well Kgquef-vv-yef is at the bedside No falls No pain Discharge plan for 05/12/23 05/04/2023: Patient doing much better No pain is reported No falls Cognition improved Blood sugar improved 05/03/2023: Patient doing well Improved cognition Moving around a lot better Less pain Blood sugars improved with long-acting insulin 05/02/2023: No major issues Moving slowly but moving well No falls No pain except pelvic fracture 05/01/2023: Doing better Slow ambulation No falls No pain except when he walks Reviewed labs Eating ok Cognition is deficient Review of Systems General: Fatigue, Malaise Musculoskeletal: back pain Neurological: Confusion Objective Exam Vital Signs Vital Signs Date Time Temp Pulse Resp B/P (MAP) Pulse Ox O2 Delivery O2 Flow Rate FiO2 05/05/23 08:54 97 Room Air 05/05/23 07:24 36.9 53 20 128/61 (83) Capillary Refill : General Appearance: No Apparent Distress, WD/WN, Chronically ill HEENT: PERRL/EOMI, Normal ENT Inspection, Pharynx Normal Neck: Full Range of Motion, Normal Inspection, Non Tender, Supple, Carotid Bruit Respiratory: Chest Non Tender, Lungs Clear, Normal Breath Sounds, No Accessory Muscle Use, No Respiratory Distress Cardiovascular: Regular Rate, Rhythm, No Edema, No Gallop, No JVD, No Murmur, Normal Peripheral Pulses Gastrointestinal: Normal Bowel Sounds, No Organomegaly, No Pulsatile Mass, Non Tender, Soft Back: Normal Inspection, No CVA Tenderness, No Vertebral Tenderness Extremity: Normal Capillary Refill, Normal Inspection, Normal Range of Motion (except legs are limited due to pelvic fracture pain), Non Tender, No Calf Tenderness, No Pedal Edema Neurologic/Psychiatric: Alert, Oriented x3 (poor recall), bone crusher II-XII Norm as Tested, Abnormal Gait, Depressed Affect, Motor Weakness (all extremities 3/5) Skin: Normal Color, Warm/Dry Lymphatic: No Adenopathy Results/Procedures Lab Patient resulted labs reviewed. FIM Transfers Therapy Code Descriptions/Definitions Functional [place] Measure: 0=Not Assessed/NA 4=Minimal Assistance 1=Total Assistance 5=Supervision or Setup 2=Maximal Assistance 6=Modified [place] 3=Moderate Assistance 7=Complete IndependenceSCALE: Activities may be completed with or without assistive devices. 6-Qenfcimkbj-pvjgdzy completes the activity by him/herself with no assistance from a helper. 5-Set-up or Clean-up Assistance-helper sets up or cleans up; patient completes activity. [place] assists only prior to or following the activity. 4-Supervision or Touching Assistance-helper provides verbal cues and/or touching/steadying and/or contact guard assistance as patient completes activity. Assistance may be provided throughout the activity or intermittently. 3-Partial/Moderate Assistance-helper does LESS THAN HALF the effort. [place] lifts, holds or supports trunk or limbs, but provides less than half the effort. 2-Substantial/Maximal Assistance-helper does MORE THAN HALF the effort. [place] lifts or holds trunk or limbs and provides more than half the effort. 2-Mxdapyzbx-bzwshm does ALL the effort. Patient does none of the effort to complete the activity. Or, the assistance of 2 or more helpers is required for the patient to complete the activity. If activity was not attempted, code reason: 7-Patient Refused. 9-Not Applicable-not attempted and the patient did not perform the activity before the current illness, exacerbation or injury. 10-Not Attempted due to Environmental Limitations-(lack of equipment, weather restraints, etc.). 88-Not Attempted due to Medical Conditions or Safety Concerns. Roll Left to Right (QC): 4 (cues for bedrail use and to reach across body) Sit to Lying (QC): 3 (mod (A) of 1) Sit to Stand (QC): 4 Chair/Uof-id-Ipwdg Xfer(QC): 3 (min (A) with FWW, cues for hand placement) Car Transfer (QC): 4 (CGA) Gait Training Does the Patient Walk?: Yes Distance: 100' Walk 10 feet (QC): 4 Walk 50 ft with 2 Turns(QC): 4 Walk 150 ft (QC): 4 Walking 10ft/uneven surface-QC: 3 (min (A) with FWW) Gait Persons Needed: 1 Gait Assistive Device: FWW Wheelchair Training Does the Pt Use a Wheelchair?: No Wheel 50 ft with 2 turns (QC): 3 (min (A) 2" curb step) Wheel 150 ft (QC): 9 Type of Wheelchair: N/A Stair Training 1 Step (curb) (QC): 88 (due to (R) hip pain) 4 Steps (QC): 88 12 Steps (QC): 88 (due to pain (R) hip) Balance Picking up an Object (QC): 88 (due to pain and fear of falling. ) ADL-Treatment Eating (QC): 6 (Pt independently opened packages and utilized utensils c orrectly.) Oral Hygiene (QC): 4 (Pt standing at sink, CGA for safety.) Bathing Location: L Arm, R Arm, L Upper Leg, R Upper Leg, L Lower Leg (including foot), R Lower Leg (including foot), Chest, Abdomen, Buttocks, Perineal Area Shower/Bathe Self (QC): 4 (Multiple VCs given to use soap and steps of the task. VC to make sure all body parts were washed. Pt utilized long-handled sponge to wash LE/feet/and back. ) Upper Body Dressing (QC): 5 (Set up. Pt was able to button up shirt.) Lower Body Dressing (QC): 3 (Min A to thread brief around feet. Pt was able to thread pants around feet. CGA for steadying in standing while pt hiked pants over hips. ) On/Off Footwear (QC): 5 (Set up for positioning of shoes and socks. Pt donned/doffed socks with figure-four technique. Pt able to slide on slippers.) Toileting Hygiene (QC): 4 (Pt standing at sink after toileting to wash hands, CGA for safety) Toilet Transfer (QC): 4 (Pt pull down/pulled up pants after toileting, CGA for steadying.) Assessment/Plan Assessment and Plan Assess & Plan/Chief Complaint Assessment: s/p fall on concrete steps sustaining SDH, facial fractures, pelvic fractures and sustaining brain injury with LOC DM HTN BPH h/o prostate cancer Current constipation-resolved CKD Plan: PT OT ST to help regain cognition Monitor BP and sugar Home meds 05/01/2023: Monitor closely Accuchecks with SSI Levemir 10 units at night 05/02/2023: Monitor sugar 05/03/2023: Supportive care Monitor blood sugars 05/04/2023: Supportive care Monitor closely 05/05/2023: Monitor closely Monitor pain (1) Subdural hematoma MARCIO COHN DO May 05, 2023 07:11
[2023-05-05 07:24] VITALS: BP 128/61
[2023-05-05] MEDS: amLODIPine 10 MG TABLET PO SCH (08:22)
[2023-05-05] MEDS: TAMSULOSIN 0.4 MG (FLOMAX) CAP PO SCH (08:22)
[2023-05-05] MEDS: OMEGA 3 (FISH OIL) 1000 MG CAP PO SCH ×3 (08:22→17:25)
[2023-05-05] MEDS: ASPIRIN 81 MG CHEWABLE TABLET PO SCH (08:22)
[2023-05-05] MEDS: PANTOPRAZOLE 40 MG TABLET PO SCH (08:22)
[2023-05-05] MEDS: VITAMIN E PO SCH (08:22)
[2023-05-05] MEDS: DOCUSATE SODIUM 100 MG CAPSULE PO SCH ×2 (08:22→21:56)
[2023-05-05] MEDS: AMANTADINE 100 MG CAPSULE PO SCH ×2 (08:22→21:26)
[2023-05-05] MEDS: EMPAGLIFLOZIN 10 MG TABLET PO SCH (08:22)
[2023-05-05] MEDS: metFORMIN 500 MG TABLET PO SCH ×2 (08:22→17:25)
[2023-05-05] MEDS: SENNOSIDES 8.6 MG TABLET PO SCH ×2 (08:23→21:57)
[2023-05-05 20:55] VITALS: BP 120/56
[2023-05-05] MEDS: inSUlin DETERMIR 1 UNIT/0.01 ML (CHARGE PER UNIT) SQ SCH (21:28)
[2023-05-06] MEDS: ACETAMINOPHEN 325 MG TABLET PO SCH ×4 (03:49→20:42)
[2023-05-06 06:17] LABS: BASOPHILS # (AUTO) 0.1 10^3/uL (0.0-0.1); BASOPHILS % (AUTO) 1 % (0-10); EOSINOPHILS # (AUTO) 0.2 10^3/uL (0.0-0.3); EOSINOPHILS % (AUTO) 2 % (0-10); HEMATOCRIT 37 % (40-54); LYMPHOCYTES # (AUTO) 1.8 10^3/uL (1.0-4.0); LYMPHOCYTES % (AUTO) 21 % (12-44); MEAN CORPUSCULAR HEMOGLOBIN 31 pg (25-34); MEAN CORPUSCULAR HGB CONC 33 g/dL (32-36); MEAN CORPUSCULAR VOLUME 94 fL (80-99); MEAN PLATELET VOLUME 10.3 fL (9.0-12.2); MONOCYTES # (AUTO) 0.7 10^3/uL (0.0-1.0); MONOCYTES % (AUTO) 9 % (0-12); NEUTROPHILS # (AUTO) 5.6 10^3/uL (1.8-7.8); NEUTROPHILS % (AUTO) 67 % (42-75); PLATELET COUNT 444 10^3/uL (130-400); WHITE BLOOD COUNT 8.4 10^3/uL (4.3-11.0)
[2023-05-06 06:31] LABS: ALBUMIN 3.6 GM/DL (3.2-4.5); BILIRUBIN,TOTAL 0.5 MG/DL (0.1-1.0); CALCIUM 8.7 MG/DL (8.5-10.1); CREATININE SERUM 1.39 MG/DL (0.60-1.30); POTASSIUM 4.2 MMOL/L (3.6-5.0); TOTAL PROTEIN 6.5 GM/DL (6.4-8.2)
[2023-05-06] MEDS: inSUlin ASPART 1 UNIT/0.01 ML (PER UNIT) SC SCH ×4 (06:35→20:35)
[2023-05-06] MEDS: SUCRALFATE 1 GM TABLET PO SCH ×4 (06:44→20:42)
[2023-05-06] MEDS: THERAPEUTIC MULTIVITAMIN W/MINERALS TABLET PO SCH (06:44)
--- NOTE | 2023-05-06 07:09 | PM&R Progress Note ---
Subjective HPI/CC On Admission Date Seen by Provider: May 06, 2023 Time Seen by Provider: 10:00 Subjective/Events-last exam 05/06/2023: No major issues Labs stable Eating well Less confusion 05/05/2023: Patient doing really well Kzsnun-lv-nfa is at the bedside No falls No pain Discharge plan for 05/12/23 05/04/2023: Patient doing much better No pain is reported No falls Cognition improved Blood sugar improved 05/03/2023: Patient doing well Improved cognition Moving around a lot better Less pain Blood sugars improved with long-acting insulin 05/02/2023: No major issues Moving slowly but moving well No falls No pain except pelvic fracture 05/01/2023: Doing better Slow ambulation No falls No pain except when he walks Reviewed labs Eating ok Cognition is deficient Review of Systems General: Fatigue, Malaise Neurological: Confusion Objective Exam Vital Signs Vital Signs Date Time Temp Pulse Resp B/P (MAP) Pulse Ox O2 Delivery O2 Flow Rate FiO2 05/06/23 09:28 95 Room Air 05/06/23 08:01 35.9 51 16 114/61 (78) Capillary Refill : General Appearance: No Apparent Distress, WD/WN, Chronically ill HEENT: PERRL/EOMI, Normal ENT Inspection, Pharynx Normal Neck: Full Range of Motion, Normal Inspection, Non Tender, Supple, Carotid Bruit Respiratory: Chest Non Tender, Lungs Clear, Normal Breath Sounds, No Accessory Muscle Use, No Respiratory Distress Cardiovascular: Regular Rate, Rhythm, No Edema, No Gallop, No JVD, No Murmur, Normal Peripheral Pulses Gastrointestinal: Normal Bowel Sounds, No Organomegaly, No Pulsatile Mass, Non Tender, Soft Back: Normal Inspection, No CVA Tenderness, No Vertebral Tenderness Extremity: Normal Capillary Refill, Normal Inspection, Normal Range of Motion (except legs are limited due to pelvic fracture pain), Non Tender, No Calf Tenderness, No Pedal Edema Neurologic/Psychiatric: Alert, Oriented x3 (poor recall), 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 FIM Transfers Therapy Code Descriptions/Definitions Functional [place] Measure: 0=Not Assessed/NA 4=Minimal Assistance 1=Total Assistance 5=Supervision or Setup 2=Maximal Assistance 6=Modified [place] 3=Moderate Assistance 7=Complete IndependenceSCALE: Activities may be completed with or without assistive devices. 2-Ildpuofssq-ctnjgbc completes the activity by him/herself with no assistance from a helper. 5-Set-up or Clean-up Assistance-helper sets up or cleans up; patient completes activity. [place] assists only prior to or following the activity. 4-Supervision or Touching Assistance-helper provides verbal cues and/or touching/steadying and/or contact guard assistance as patient completes activity. Assistance may be provided throughout the activity or intermittently. 3-Partial/Moderate Assistance-helper does LESS THAN HALF the effort. [place] li fts, holds or supports trunk or limbs, but provides less than half the effort. 2-Substantial/Maximal Assistance-helper does MORE THAN HALF the effort. [place] lifts or holds trunk or limbs and provides more than half the effort. 3-Mxzzshivt-kloewx does ALL the effort. Patient does none of the effort to complete the activity. Or, the assistance of 2 or more helpers is required for the patient to complete the activity. If activity was not attempted, code reason: 7-Patient Refused. 9-Not Applicable-not attempted and the patient did not perform the activity before the current illness, exacerbation or injury. 10-Not Attempted due to Environmental Limitations-(lack of equipment, weather restraints, etc.). 88-Not Attempted due to Medical Conditions or Safety Concerns. Roll Left to Right (QC): 4 (cues for bedrail use and to reach across body) Sit to Lying (QC): 3 (mod (A) of 1) Sit to Stand (QC): 4 Chair/Ixm-pv-Mtbyq Xfer(QC): 3 (min (A) with FWW, cues for hand placement) Car Transfer (QC): 4 (CGA) Gait Training Does the Patient Walk?: Yes Distance: 100' Walk 10 feet (QC): 4 Walk 50 ft with 2 Turns(QC): 4 Walk 150 ft (QC): 4 Walking 10ft/uneven surface-QC: 3 (min (A) with FWW) Gait Persons Needed: 1 Gait Assistive Device: FWW Wheelchair Training Does the Pt Use a Wheelchair?: No Wheel 50 ft with 2 turns (QC): 3 (min (A) 2" curb step) Wheel 150 ft (QC): 9 Type of Wheelchair: N/A Stair Training 1 Step (curb) (QC): 88 (due to (R) hip pain) 4 Steps (QC): 88 12 Steps (QC): 88 (due to pain (R) hip) Balance Picking up an Object (QC): 88 (due to pain and fear of falling. ) ADL-Treatment Eating (QC): 6 (Pt independently opened packages and utilized utensils correctly.) Oral Hygiene (QC): 4 (Pt standing at sink, CGA for safety.) Bathing Location: L Arm, R Arm, L Upper Leg, R Upper Leg, L Lower Leg (including foot), R Lower Leg (including foot), Chest, Abdomen, Buttocks, Perineal Area Shower/Bathe Self (QC): 4 (Multiple VCs given to use soap and steps of the task. VC to make sure all body parts were washed. Pt utilized long-handled sponge to wash LE/feet/and back. ) Upper Body Dressing (QC): 5 (Set up. Pt was able to button up shirt.) Lower Body Dressing (QC): 3 (Min A to thread brief around feet. Pt was able to thread pants around feet. CGA for steadying in standing while pt hiked pants over hips. ) On/Off Footwear (QC): 5 (Set up for positioning of shoes and socks. Pt donned/doffed socks with figure-four technique. Pt able to slide on slippers.) Toileting Hygiene (QC): 4 (Pt standing at sink after toileting to wash hands, CGA for safety) Toilet Transfer (QC): 4 (Pt pull down/pulled up pants after toileting, CGA for steadying.) Assessment/Plan Assessment and Plan Assess & Plan/Chief Complaint Assessment: s/p fall on concrete steps sustaining SDH, facial fractures, pelvic fractures and sustaining brain injury with LOC DM HTN BPH h/o prostate cancer Current constipation-resolved CKD Plan: PT OT ST to help regain cognition Monitor BP and sugar Home meds 05/01/2023: Monitor closely Accuchecks with SSI Levemir 10 units at night 05/02/2023: Monitor sugar 05/03/2023: Supportive care Monitor blood sugars 05/04/2023: Supportive care Monitor closely 05/05/2023: Monitor closely Monitor pain 05/06/2023: Monitor closely Fall risk (1) Subdural hematoma MARCIO COHN DO May 06, 2023 07:09
[2023-05-06 08:01] VITALS: BP 114/61
[2023-05-06] MEDS: VITAMIN E PO SCH (08:47)
[2023-05-06] MEDS: OMEGA 3 (FISH OIL) 1000 MG CAP PO SCH ×3 (08:47→18:09)
[2023-05-06] MEDS: PANTOPRAZOLE 40 MG TABLET PO SCH (08:47)
[2023-05-06] MEDS: amLODIPine 10 MG TABLET PO SCH (08:47)
[2023-05-06] MEDS: EMPAGLIFLOZIN 10 MG TABLET PO SCH (08:47)
[2023-05-06] MEDS: DOCUSATE SODIUM 100 MG CAPSULE PO SCH ×2 (08:47→20:42)
[2023-05-06] MEDS: AMANTADINE 100 MG CAPSULE PO SCH ×2 (08:48→20:41)
[2023-05-06] MEDS: TAMSULOSIN 0.4 MG (FLOMAX) CAP PO SCH (08:48)
[2023-05-06] MEDS: ASPIRIN 81 MG CHEWABLE TABLET PO SCH (08:48)
[2023-05-06] MEDS: metFORMIN 500 MG TABLET PO SCH ×2 (08:48→18:09)
[2023-05-06] MEDS: SENNOSIDES 8.6 MG TABLET PO SCH ×2 (08:48→20:42)
--- NOTE | 2023-05-06 09:32 | Occupational Ther Daily Note ---
OT Current Status-Daily Note Subjective Pt consented to OT session this AM. Co-treat with ST secondary to decreased executive functioning skills, processing, and initiation to increase (I) with functional tasks and to decrease burden of care. ST focusing on executive functioning skills while OT focusing on ADLs, assisting with standing and strengthening B UE's. Pain Numeric Pain Scale: 0-No Pain Location: No Pain Reported ADL-Treatment Therapy Code Descriptions/Definitions Functional [place] Measure: 0=Not Assessed/NA 4=Minimal Assistance 1=Total Assistance 5=Supervision or Setup 2=Maximal Assistance 6=Modified [place] 3=Moderate Assistance 7=Complete IndependenceSCALE: Activities may be completed with or without assistive devices. 7-Igmbwfvqga-bbpdqnl completes the activity by him/herself with no assistance from a helper. 5-Set-up or Clean-up Assistance-helper sets up or cleans up; patient completes activity. [place] assists only prior to or following the activity. 4-Supervision or Touching Assistance-helper provides verbal cues and/or touching/steadying and/or contact guard assistance as patient completes activity. Assistance may be provided throughout the activity or intermittently. 3-Partial/Moderate Assistance-helper does LESS THAN HALF the effort. [place] lifts, holds or supports trunk or limbs, but provides less than half the effort. 2-Substantial/Maximal Assistance-helper does MORE THAN HALF the effort. [place] lifts or holds trunk or limbs and provides more than half the effort. 8-Akxubblec-ulacdt does ALL the effort. Patient does none of the effort to complete the activity. Or, the assistance of 2 or more helpers is required for the patient to complete the activity. If activity was not attempted, code reason: 7-Patient Refused. 9-Not Applicable-not attempted and the patient did not perform the activity before the current illness, exacerbation or injury. 10-Not Attempted due to Environmental Limitations-(lack of equipment, weather restraints, etc.). 88-Not Attempted due to Medical Conditions or Safety Concerns. Oral Hygiene (QC): 4 (SBA for performing oral care standing at sink for steadiness. Pt required min verbal cues.) Bathing Location: L Arm, R Arm, L Upper Leg, R Upper Leg, L Lower Leg (including foot), R Lower Leg (including foot), Chest, Abdomen, Buttocks, Perineal Area Shower/Bathe Self (QC): 4 (Pt perofrmed bathing seated on built in shower bench with SBA for safety. ) Upper Body Dressing (QC): 5 (Set-up A for UBD dressing with pt seated in WC) Lower Body Dressing (QC): 4 (SBA for steadiness for donning/doffing pants and underwear) On/Off Footwear: 4 (SBA for donning/doffing footwear seated in WC with pt performing figure 4 position ) Toileting Hygiene (QC): 4 (Pt voided seated on toilet for safety. SBA for toileting for safety/steadiness for pt to manage clothing and clean otoniel area.) Toilet Transfer (QC): 4 (Toilet t/f performed with CGA x 1 with pt utilizing GB's for safety.) Other Treatment Pt ambulated from bedside recliner>toilet with CGA x 1 with RW ADLs performed during session (see scores above) Pt ambulated from bathroom>recliner with CGA x 1 with RW Pt ambulated from room<>therapy gym with CGA x 1 with RW Speech therapy present during session. Refer to ST note for executive fu nctioning activities performed. Education OT Patient Education: Energy conservation, Exercise program, Home exercise program, Modified ADL techniques, Progress toward Goal/Update tx plan, Purpose of tx/functional activities, Reviewed precautions, Rehab process, Safety issues, Transfer techniques, Use of adapted equipment Teaching Recipient: Patient Teaching Methods: Demonstration, Discussion Response to Teaching: Verbalize Understanding, Return Demonstration, Reinforcement Needed OT Short Term Goals Short Term Goals Time Frame: May 02, 2023 OT Usp Goals Dental Technologist Goals Acute change in mental status: 1 Inattention: 0 Disorganized thinkin Altered level of consciousness: 0 Eating (QC): 6 Oral Hygiene (QC): 6 Toileting Hygiene (QC): 4 Shower/Bathe Self (QC): 4 Upper Body Dressing (QC): 6 Lower Body Dressing (QC): 4 On/Off Footwear (QC): 6 1=Demonstrate adherence to instructed precautions during ADL tasks. 2=Patient will verbalize/demonstrate understanding of assistive devices /modifications for ADL. 3=Patient will improve strength/tolerance for activity to enable patient to perform ADL's. OT Education/Plan Problem List/Assessment Assessment: Decreased Activ Tolerance, Decreased UE Strength, Impaired Cognition, Impaired Funct Balance, Impaired I ADL's, Impaired Self-Care Skills Discharge Recommendations Plan/Recommendations: Continue POC Treatment Plan/Plan of Care Treatment,Training & Education: Yes Patient would benefit from OT for education, treatment and training to promote independence in ADL's, mobility, safety and/or upper extremity function for ADL's. Plan of Care: ADL Retraining, Cognitive Retraining, Functional Mobility, Group Exercise/Act as Ind, UE Funct Exercise/Act, UE Neuromus Re-Ed/Coord Treatment Duration: May 14, 2023 Frequency: At least 5 of 7 days/Wk (IRF) Estimated Hrs Per Day: 1.5 hours per day Agreement: Yes Rehab Potential: Fair Ending session, pt remained seated in bedside recliner with needs/call light in reach. ST at bedside exiting room. Time Start Time: 08:00 Stop Time: 09:00 DATE: May 06, 2023 Total Time Billed (hr/min): 60 Billed Treatment Time 60 minutes 40 minutes co-treat with ST ADL 4 (60 minutes) SALOME SMITH May 06, 2023 09:32
--- NOTE | 2023-05-06 09:39 | Speech Therapy Daily Note ---
Speech Daily Progress Note Subjective Date Seen by Provider: May 06, 2023 Time Seen by Provider: 08:20 Pt in shower when TANK CAR REPAIRER arrives, occupational therapist present. [place] completed to target higher level cognitive tasks containing both motor and cognitive components, as well as functional sequencing. Pt pleasant and cooperative throughout session. Pain Location: No Pain Reported Objective Pt demonstrates functional sequencing of getting dressed with 100% accuracy with min verbal cues. Pt also brushes his teeth, completing sequencing with 100% accuracy independently. Pt is taken to the gym to work on following directions a nd sequencing using a map. Pt is able to follow the directions verbally provided on the map with 100% accuracy with min verbal cues. Pt is then asked to provide the directions when given one location and needing to get to another. Pt is able to complete task with 95% accuracy with min verbal cues. Occupational therapy finishes session. Pt is then given a tanagram task. Pt has difficulty with selecting pieces that fit into the space, potentially demonstrating some visuospatial deficits. Pt is shown the answer and puts the pieces in using the answer. With the answer, pt still selects a larger triangle for a space with a smaller triangle. Pt does recognize errors when he sees the shape doesn't fit. After pt had used then answer to put the pieces in, TANK CAR REPAIRER gives him a minute and asks him to try to memorize the answer. Pt is then provided the general outline again and fits the pieces in according to answer burgos from memory with 40% accuracy. Assessment Assessment Current Status: Good Progress Treatment Plan Continue Plan of Care Speech Short Term Goals Short Term Goals Short Term Goals 1. The patient will display 80% accuracy with memory exercises through utilization of functional memory strategies and mild clinician cueing. Time Frame-STG: Seven Days. Speech Proposal Director Goals Proposal Director Goals 1. The patient will demonstrate improved cognitive linguistic skills for safe discharge to the least restrictive environment. Time Frame: Ten Days. Speech-Plan Patient/Family Goals Patient/Family Goals: Pt's goal is to return home alone. Treatment Plan Speech Therapy Treatment Plan: Continue Plan of Care Treatment Duration: May 10, 2023 Frequency: Modified Program (IRF) Estimated Hrs Per Day: .5 hour per day Rehab Potential: Fair Pt/Family Agrees to Plan: Yes Safety Risks/Education Teaching Recipient: Patient Teaching Methods: Discussion Response to Teaching: Verbalize Understanding Education Topics Provided: Pt educated on purpose of therapy tasks. Pt receptive and verbalized understanding. Time Speech Therapy Time In: 08:20 Speech Therapy Time Out: 09:22 DATE: May 06, 2023 Total Billed Time: 62 Billed Treatment Time Veronica Cheema Speech Therapy May 06, 2023 09:39
--- NOTE | 2023-05-06 12:38 | Physical Therapy Daily Note ---
PT Daily Note-Current Subjective Pt sitting in recliner upon arrival. Pt agrees to PT. Pain Location: Right Location Body Site: Hip Pain Description: Ache, Tightness Section J - Health Conditions 1. Rarely or not at all 2. Occasionally 3. Frequently 4. Almost constantly 8. Unable to answer Pain Effect on Sleep: 3 Pain Interference with Therapy: 3 Pain Interference w/Day-to-Day: 3 Mental Status Patient Orientation: Person, Confused, Place Transfers SCALE: Activities may be completed with or without assistive devices. 2-Rrexjsfhxv-zsihuqn completes the activity by him/herself with no assistance from a helper. 5-Set-up or Clean-up Assistance-helper sets up or cleans up; patient completes activity. [place] assists only prior to or following the activity. 4-Supervision or Touching Assistance-helper provides verbal cues and/or touching/steadying and/or contact guard assistance as patient completes activity. Assistance may be provided throughout the activity or intermittently. 3-Partial/Moderate Assistance-helper does LESS THAN HALF the effort. [place] lifts, holds or supports trunk or limbs, but provides less than half the effort. 2-Substantial/Maximal Assistance-helper does MORE THAN HALF the effort. [place] lifts or holds trunk or limbs and provides more than half the effort. 0-Elaytjcwb-jojrsd does ALL the effort. Patient does none of the effort to complete the activity. Or, the assistance of 2 or more helpers is required for the patient to complete the activity. If activity was not attempted, code reason: 7-Patient Refused. 9-Not Applicable-not attempted and the patient did not perform the activity before the current illness, exacerbation or injury. 10-Not Attempted due to Environmental Limitations-(lack of equipment, weather restraints, etc.). 88-Not Attempted due to Medical Conditions or Safety Concerns. Sit to Stand (QC): 4 Toilet Transfer (QC): 4 Weight Bearing Right Lower Extremity: Right Weight Bearing/Tolerated Left Lower Extremity: Left Weight Bearing/Tolerated Gait Training Does the Patient Walk?: Yes Distance: 185' Walk 10 feet (QC): 4 Walk 50 ft with 2 Turns(QC): 4 Walk 150 ft (QC): 4 Gait Assistive Device: FWW Treatments TF to standing and amb in hallway before asking to return to room to use BR. All needs met, call light in hand. Assessment Current Status: Good Progress Pt continues to report pain/tightness in hip & R glut muscles when standing and amb. Pt greatly increases distance of amb. PT Kettle Hand Goals Kettle Hand Goals PT Kettle Hand Goals Time Frame: May 21, 2023 Roll Left & Right (QC): 6 Sit to Lying (QC): 6 Lying-Sitting on Side/Bed(QC): 6 Sit to Stand (QC): 6 Chair/Apt-uk-Tasbm Xfer(QC): 6 Toilet Transfer (QC): 6 Car Transfer (QC): 6 Does the Patient Walk: Yes Walk 10 feet (QC): 6 (with FWW) Walk 50ft with 2 Turns (QC): 6 Walk 150 ft (QC): 6 Walking 10ft on Uneven Surface: 6 1 Step (curb) (QC): 5 4 Steps (QC): 5 12 Steps (QC): 5 Picking up an Object (QC): 6 (with kidney trimmer) Does the Pt use WC or Scooter?: No Wheel 50 feet with 2 turns (QC: 9 Type: N/A Wheel 150 feet: 9 Type: N/A PT Plan Treatment/Plan Treatment Plan: Continue Plan of Care Treatment Plan: Bed Mobility, Education, Functional Activity Ilya, Functional Strength, Group Therapy, Gait, Safety, Therapeutic Exercise, Transfers Treatment Duration: May 21, 2023 Frequency: At least 5 of 7 days/Wk (IRF) Estimated Hrs Per Day: 1.5 hours per day Patient and/or Family Agrees t: Yes Safety Risks/Education Patient Education: Gait Training, Correct Positioning Teaching Recipient: Patient Teaching Methods: Discussion Response to Teaching: Verbalize Understanding Time Time In: 1000 Time Out: 1030 DATE: May 06, 2023 Total Billed Treatment Time: 30 Total Billed Treatment 1, GT (20m) & FA (10m) RICKEY PIEDRA FILAMENT MAKER May 06, 2023 12:38
--- NOTE | 2023-05-06 14:22 | Therapy Group Daily Note ---
Therapy Daily Group Note Patient Education Topic Exercises, Other List Below (ARU description) Exercises Stretching, UE Exercise Session Ratio (pt:therapist): 3:1 Goal of Session: Education on ARU Expectations, UE/LE Strengthing (B UE strengthening) Goal Met for this Session: Yes Pt Benefit of Group: Contributions to Others, Increased Functional Safety, I ncreased Functional Strength, Improved Cognition, Recognition of Peers, Socialization Other/Notes Pt ambulated using FWW to therapy gym for OT group. Group consisted of introductions (name, favorite fall activity), socialization, B UE seated exercises, education on benefits of exercise and ARU description. Pt introduced self appropriately and activity listened to peers. Pt asked questions of other group members and responded to questions appropriately. Pt able to complete B UE seated exercises and tolerated well. Pt able to ambulated to area of each exercise with SBA. Pt vocalized understanding of educational topic and gave personal story about each. After session, pt lying in bed with call light/phone in reach. All needs met in room. Start Time: 13:00 Stop Time: 14:00 Total Billed Treatment Time: 60 Total Billed Treatment 1-GRP JACY JAMIL May 06, 2023 14:22
[2023-05-06 20:00] VITALS: BP 127/63
[2023-05-06] MEDS: inSUlin DETERMIR 1 UNIT/0.01 ML (CHARGE PER UNIT) SQ SCH (20:42)
[2023-05-07] MEDS: ACETAMINOPHEN 325 MG TABLET PO SCH ×4 (04:12→21:12)
--- NOTE | 2023-05-07 05:02 | PM&R Progress Note ---
Subjective HPI/CC On Admission Date Seen by Provider: May 07, 2023 Time Seen by Provider: 10:30 Subjective/Events-last exam 05/07/2023: Patient doing a lot better Less pain Ambulating slowly but further Reviewed meds and labs Blood sugars improved 05/06/2023: No major issues Labs stable Eating well Less confusion 05/05/2023: Patient doing really well Afhmsq-wz-zqo is at the bedside No falls No pain Discharge plan for 05/12/23 05/04/2023: Patient doing much better No pain is reported No falls Cognition improved Blood sugar improved 05/03/2023: Patient doing well Improved cognition Moving around a lot better Less pain Blood sugars improved with long-acting insulin 05/02/2023: No major issues Moving slowly but moving well No falls No pain except pelvic fracture 05/01/2023: Doing better Slow ambulation No falls No pain except when he walks Reviewed labs Eating ok Cognition is deficient Review of Systems General: Fatigue, Malaise Objective Exam Vital Signs Vital Signs Date Time Temp Pulse Resp B/P (MAP) Pulse Ox O2 Delivery O2 Flow Rate FiO2 05/07/23 09:00 Room Air 05/07/23 08:52 35.7 48 18 120/65 (83) 100 Capillary Refill : General Appearance: No Apparent Distress, WD/WN, Chronically ill HEENT: PERRL/EOMI, Normal ENT Inspection, Pharynx Normal Neck: Full Range of Motion, Normal Inspection, Non Tender, Supple, Carotid Bruit Respiratory: Chest Non Tender, Lungs Clear, Normal Breath Sounds, No Accessory Muscle Use, No Respiratory Distress Cardiovascular: Regular Rate, Rhythm, No Edema, No Gallop, No JVD, No Murmur, Normal Peripheral Pulses Gastrointestinal: Normal Bowel Sounds, No Organomegaly, No Pulsatile Mass, Non Tender, Soft Back: Normal Inspection, No CVA Tenderness, No Vertebral Tenderness Extremity: Normal Capillary Refill, Normal Inspection, Normal Range of Motion (except legs are limited due to pelvic fracture pain), Non Tender, No Calf Tenderness, No Pedal Edema Neurologic/Psychiatric: Alert, Oriented x3 (poor recall), attache II-XII Norm as Tested, Abnormal Gait, Depressed Affect, Motor Weakness (all extremities 3/5) Skin: Normal Color, Warm/Dry Lymphatic: No Adenopathy Results/Procedures Lab Patient resulted labs reviewed. FIM Transfers Therapy Code Descriptions/Definitions Functional [place] Measure: 0=Not Assessed/NA 4=Minimal Assistance 1=Total Assistance 5=Supervision or Setup 2=Maximal Assistance 6=Modified [place] 3=Moderate Assistance 7=Complete IndependenceSCALE: Activities may be completed with or without assistive devices. 2-Fjqqnuitnr-vkfcekl completes the activity by him/herself with no assistance from a helper. 5-Set-up or Clean-up Assistance-helper sets up or cleans up; patient completes activity. [place] assists only prior to or following the activity. 4-Supervision or Touching Assistance-helper provides verbal cues and/or touching/steadying and/or contact guard assistance as patient completes activity. Assistance may be provided throughout the activity or intermittently. 3-Partial/Moderate Assistance-helper does LESS THAN HALF the effort. [place] lifts, holds or supports trunk or limbs, but provides less than half the effort. 2-Substantial/Maximal Assistance-helper does MORE THAN HALF the effort. [place] lifts or holds trunk or limbs and provides more than half the effort. 0-Suntiuygd-cjunqq does ALL the effort. Patient does none of the effort to complete the activity. Or, the assistance of 2 or more helpers is required for the patient to complete the activity. If activity was not attempted, code reason: 7-Patient Refused. 9-Not Applicable-not attempted and the patient did not perform the activity before the current illness, exacerbation or injury. 10-Not Attempted due to Environmental Limitations-(lack of equipment, weather restraints, etc.). 88-Not Attempted due to Medical Conditions or Safety Concerns. Roll Left to Right (QC): 4 (cues for bedrail use and to reach across body) Sit to Lying (QC): 3 (mod (A) of 1) Sit to Stand (QC): 4 Chair/Ysi-ve-Djujc Xfer(QC): 3 (min (A) with FWW, cues for hand placement) Car Transfer (QC): 4 (CGA) Gait Training Does the Patient Walk?: Yes Distance: 185' Walk 10 feet (QC): 4 Walk 50 ft with 2 Turns(QC): 4 Walk 150 ft (QC): 4 Walking 10ft/uneven surface-QC: 3 (min (A) with FWW) Gait Persons Needed: 1 Gait Assistive Device: FWW Wheelchair Training Does the Pt Use a Wheelchair?: No Wheel 50 ft with 2 turns (QC): 3 (min (A) 2" curb step) Wheel 150 ft (QC): 9 Type of Wheelchair: N/A Stair Training 1 Step (curb) (QC): 88 (due to (R) hip pain) 4 Steps (QC): 88 12 Steps (QC): 88 (due to pain (R) hip) Balance Picking up an Object (QC): 88 (due to pain and fear of falling. ) ADL-Treatment Eating (QC): 6 (Pt independently opened packages and utilized utensils correctly.) Oral Hygiene (QC): 4 (SBA for performing oral care standing at sink for steadiness. Pt required min verbal cues.) Bathing Location: L Arm, R Arm, L Upper Leg, R Upper Leg, L Lower Leg (including foot), R Lower Leg (including foot), Chest, Abdomen, Buttocks, Perineal Area Shower/Bathe Self (QC): 4 (Pt perofrmed bathing seated on built in shower bench with SBA for safety. ) Upper Body Dressing (QC): 5 (Set-up A for UBD dressing with pt seated in WC) Lower Body Dressing (QC): 4 (SBA for steadiness for donning/doffing pants and underwear) On/Off Footwear (QC): 4 (SBA for donning/doffing footwear seated in WC with pt performing figure 4 position ) Toileting Hygiene (QC): 4 (Pt voided seated on toilet for safety. SBA for toileting for safety/steadiness for pt to manage clothing and clean otoniel area.) Toilet Transfer (QC): 4 (Toilet t/f performed with CGA x 1 with pt utilizing GB's for safety.) Assessment/Plan Assessment and Plan Assess & Plan/Chief Complaint Assessment: s/p fall on concrete steps sustaining SDH, facial fractures, pelvic fractures and sustaining brain injury with LOC DM HTN BPH h/o prostate cancer Current constipation-resolved CKD Plan: PT OT ST to help regain cognition Monitor BP and sugar Home meds 05/01/2023: Monitor closely Accuchecks with SSI Levemir 10 units at night 05/02/2023: Monitor sugar 05/03/2023: Supportive care Monitor blood sugars 05/04/2023: Supportive care Monitor closely 05/05/2023: Monitor closely Monitor pain 05/06/2023: Monitor closely Fall risk 05/07/2023: Supportive care Monitor sugars (1) Subdural hematoma MARCIO COHN DO May 07, 2023 05:01
[2023-05-07] MEDS: inSUlin ASPART 1 UNIT/0.01 ML (PER UNIT) SC SCH ×4 (05:42→21:11)
[2023-05-07] MEDS: SUCRALFATE 1 GM TABLET PO SCH ×4 (06:14→21:12)
[2023-05-07] MEDS: THERAPEUTIC MULTIVITAMIN W/MINERALS TABLET PO SCH (06:14)
[2023-05-07 08:52] VITALS: BP 120/65
[2023-05-07] MEDS: TAMSULOSIN 0.4 MG (FLOMAX) CAP PO SCH (08:58)
[2023-05-07] MEDS: VITAMIN E PO SCH (08:58)
[2023-05-07] MEDS: amLODIPine 10 MG TABLET PO SCH (08:59)
[2023-05-07] MEDS: OMEGA 3 (FISH OIL) 1000 MG CAP PO SCH ×3 (08:59→17:18)
[2023-05-07] MEDS: PANTOPRAZOLE 40 MG TABLET PO SCH (08:59)
[2023-05-07] MEDS: ASPIRIN 81 MG CHEWABLE TABLET PO SCH (08:59)
[2023-05-07] MEDS: metFORMIN 500 MG TABLET PO SCH ×2 (08:59→17:18)
[2023-05-07] MEDS: EMPAGLIFLOZIN 10 MG TABLET PO SCH (08:59)
[2023-05-07] MEDS: AMANTADINE 100 MG CAPSULE PO SCH ×2 (09:00→21:11)
[2023-05-07] MEDS: DOCUSATE SODIUM 100 MG CAPSULE PO SCH ×2 (09:02→21:12)
[2023-05-07] MEDS: SENNOSIDES 8.6 MG TABLET PO SCH ×2 (09:03→21:12)
--- NOTE | 2023-05-07 09:17 | Occupational Ther Daily Note ---
OT Current Status-Daily Note Subjective Pt alert, sitting up in recliner. Pt agrees to therapy. No c/o of pain while sitting/supine, c/o of pain sit to stand. Mental Status/Objective Patient Orientation: Person, Place, Situation ADL-Treatment Therapy Code Descriptions/Definitions Functional [place] Measure: 0=Not Assessed/NA 4=Minimal Assistance 1=Total Assistance 5=Supervision or Setup 2=Maximal Assistance 6=Modified [place] 3=Moderate Assistance 7=Complete IndependenceSCALE: Activities may be completed with or without assistive devices. 6-Vnhtlwbxeb-ledgvgn completes the activity by him/herself with no assistance from a helper. 5-Set-up or Clean-up Assistance-helper sets up or cleans up; patient completes activity. [place] assists only prior to or following the activity. 4-Supervision or Touching Assistance-helper provides verbal cues and/or touching/steadying and/or contact guard assistance as patient completes activity. Assistance may be provided throughout the activity or intermittently. 3-Partial/Moderate Assistance-helper does LESS THAN HALF the effort. [place] lifts, holds or supports trunk or limbs, but provides less than half the effort. 2-Substantial/Maximal Assistance-helper does MORE THAN HALF the effort. [place] lifts or holds trunk or limbs and provides more than half the effort. 7-Vonsifbhv-iffzve does ALL the effort. Patient does none of the effort to complete the activity. Or, the assistance of 2 or more helpers is required for the patient to complete the activity. If activity was not attempted, code reason: 7-Patient Refused. 9-Not Applicable-not attempted and the patient did not perform the activity before the current illness, exacerbation or injury. 10-Not Attempted due to Environmental Limitations-(lack of equipment, weather restraints, etc.). 88-Not Attempted due to Medical Conditions or Safety Concerns. Oral Hygiene (QC): 5 (SBA standing at sink for safety.) Pt washed face standing at sink with SBA for safety. Other Treatment Pt is progressing well with ADLs by being able to completed by self with SBA to set upfor safety. Continue with safety concerns due to difficulty with problem solving and sequencing. Pt ambulated from room to gym with FWW, CGA for safety. Pt on arm mera for 3 mins x2 with 3 min rest break in-between, then completed task with 16 resistive clothespins x2 on each hand. Pt working on B UE strengthening, fine/gross motor strengthening/control, and activity tolerance. Pt completed cognitive task in standing for ~6 mins with a 5 min sitting break, then standing for another ~8 mins utilizing grab bar for steadying support, then completed kitchen safety task in standing for 15 mins with ~3 min sitting break in-between. Min VCs required for sequencing and reminder to take rest breaks. Pt working on dynamic standing balance, activity tolerance, sequencing, and cognitive strategies. Education about energy conservation was needed. Pt needed reminder about what caused his accident due to forgetting. Pt ambulated back to room utilizing FWW, CGA for safety. EOB to supine independent. Ended session with pt supine in bed with call light/phone in reach. All needs met and safety measures in place. Education OT Patient Education: Correct positioning, Purpose of tx/functional activities Teaching Recipient: Patient Teaching Methods: Demonstration, Discussion Response to Teaching: Verbalize Understanding, Return Demonstration Pt education on proper form during arm mera and purpose of cognitive tasks to increase cognitive strategies and problem-solving skills. OT Short Term Goals Short Term Goals Time Frame: May 02, 2023 OT Mcc Goals Mcc Goals Acute change in mental status: 1 Inattention: 0 Disorganized thinkin Altered level of consciousness: 0 Eating (QC): 6 Oral Hygiene (QC): 6 Toileting Hygiene (QC): 4 Shower/Bathe Self (QC): 4 Upper Body Dressing (QC): 6 Lower Body Dressing (QC): 4 On/Off Footwear (QC): 6 1=Demonstrate adherence to instructed precautions during ADL tasks. 2=Patient will verbalize/demonstrate understanding of assistive devices/modifica tions for ADL. 3=Patient will improve strength/tolerance for activity to enable patient to perform ADL's. OT Education/Plan Problem List/Assessment Assessment: Decreased Activ Tolerance, Decreased UE Strength, Impaired Cognition, Impaired Self-Care Skills Discharge Recommendations Plan/Recommendations: Continue POC Treatment Plan/Plan of Care Treatment,Training & Education: Yes Patient would benefit from OT for education, treatment and training to promote independence in ADL's, mobility, safety and/or upper extremity function for ADL's. Plan of Care: ADL Retraining, Cognitive Retraining, Functional Mobility, Group Exercise/Act as Ind, UE Funct Exercise/Act, UE Neuromus Re-Ed/Coord Treatment Duration: May 14, 2023 Frequency: At least 5 of 7 days/Wk (IRF) Estimated Hrs Per Day: 1.5 hours per day Agreement: Yes Rehab Potential: Fair Time Start Time: 07:30 Stop Time: 09:00 DATE: May 07, 2023 Total Time Billed (hr/min): 90 Billed Treatment Time 1 visit- ADL 1 (10 mins) EX 1 (15 mins) FA 4 (65 mins) JACY JAMIL May 07, 2023 09:17
--- NOTE | 2023-05-07 12:45 | Physical Therapy Daily Note ---
PT Daily Note-Current Subjective Pt laying Supine in bed upon arrival. Pt agrees to PT. Pain Numeric Pain Scale: 4 Location: Right Location Body Site: Hip Pain Description: Ache Section J - Health Conditions 1. Rarely or not at all 2. Occasionally 3. Frequently 4. Almost constantly 8. Unable to answer Pain Effect on Sleep: 3 Pain Interference with Therapy: 3 Pain Interference w/Day-to-Day: 3 Mental Status Patient Orientation: Person, Place, Situation Transfers SCALE: Activities may be completed with or without assistive devices. 7-Jgychzitqp-wdfpbqp completes the activity by him/herself with no assistance from a helper. 5-Set-up or Clean-up Assistance-helper sets up or cleans up; patient completes activity. [place] assists only prior to or following the activity. 4-Supervision or Touching Assistance-helper provides verbal cues and/or touching/steadying and/or contact guard assistance as patient completes activity. Assistance may be provided throughout the activity or intermittently. 3-Partial/Moderate Assistance-helper does LESS THAN HALF the effort. [place] lifts, holds or supports trunk or limbs, but provides less than half the effort. 2-Substantial/Maximal Assistance-helper does MORE THAN HALF the effort. [place] lifts or holds trunk or limbs and provides more than half the effort. 9-Cfwdcrajc-lnpntz does ALL the effort. Patient does none of the effort to complete the activity. Or, the assistance of 2 or more helpers is required for the patient to complete the activity. If activity was not attempted, code reason: 7-Patient Refused. 9-Not Applicable-not attempted and the patient did not perform the activity before the current illness, exacerbation or injury. 10-Not Attempted due to Environmental Limitations-(lack of equipment, weather restraints, etc.). 88-Not Attempted due to Medical Conditions or Safety Concerns. Lying to Sitting/Side of Bed(Q: 5 Sit to Stand (QC): 5 Weight Bearing Right Lower Extremity: Right Weight Bearing/Tolerated Left Lower Extremity: Left Weight Bearing/Tolerated Gait Training Does the Patient Walk?: Yes Distance: 176', 155', 70' Walk 10 feet (QC): 5 Walk 50 ft with 2 Turns(QC): 5 Walk 150 ft (QC): 5 Gait Assistive Device: FWW Wheelchair Training Does the Pt Use a Wheelchair?: No Exercises Standing: Hip Abduction, Hamstring curls, 3 way Ex=Flex, Abd, Ext, Marching Standing Reps: 10 Treatments TF from Supine to EOB to Standing and amb to BR. After toileting, pt needs shorts and brief changed as pt missed toilet while urinating in seated position. After changing clothes, pt amb in hallway. Pt takes RB after each amb. Pt then completes Standing EX at //bars before returning to room to rest at recliner for lunch. All needs met, call light in hand. Assessment Current Status: Good Progress Pt is able to amb farther due to decreased fatigue and pain. PT Opal Miner Goals Halfway Goals PT Opal Miner Goals Time Frame: May 21, 2023 Roll Left & Right (QC): 6 Sit to Lying (QC): 6 Lying-Sitting on Side/Bed(QC): 6 Sit to Stand (QC): 6 Chair/Ixi-jj-Yqshr Xfer(QC): 6 Toilet Transfer (QC): 6 Car Transfer (QC): 6 Does the Patient Walk: Yes Walk 10 feet (QC): 6 (with FWW) Walk 50ft with 2 Turns (QC): 6 Walk 150 ft (QC): 6 Walking 10ft on Uneven Surface: 6 1 Step (curb) (QC): 5 4 Steps (QC): 5 12 Steps (QC): 5 Picking up an Object (QC): 6 (with repairer and checker) Does the Pt use WC or Scooter?: No Wheel 50 feet with 2 turns (QC: 9 Type: N/A Wheel 150 feet: 9 Type: N/A PT Plan Problem List Problem List: Activity Tolerance, Safety Treatment/Plan Treatment Plan: Continue Plan of Care Treatment Plan: Bed Mobility, Education, Functional Activity Ilya, Functional Strength, Group Therapy, Gait, Safety, Therapeutic Exercise, Transfers Treatment Duration: May 21, 2023 Frequency: At least 5 of 7 days/Wk (IRF) Estimated Hrs Per Day: 1.5 hours per day Patient and/or Family Agrees t: Yes Safety Risks/Education Patient Education: Gait Training, Correct Positioning, Safety Issues Teaching Recipient: Patient Teaching Methods: Discussion Response to Teaching: Verbalize Understanding Time Time In: 1100 Time Out: 1200 DATE: May 07, 2023 Total Billed Treatment Time: 60 Total Billed Treatment 1, GT x2 (30m), FA (10m) & EX (20m) RICKEY PIEDRA AVIATION SAFETY INSPECTOR May 07, 2023 12:45
--- NOTE | 2023-05-07 14:11 | Physical Therapy Daily Note ---
PT Daily Note-Current Subjective Pt sitting in recliner upon arrival. Pt agrees to PT. Pain Numeric Pain Scale: 4 Location: Right Location Body Site: Hip Pain Description: Ache, Tightness Section J - Health Conditions 1. Rarely or not at all 2. Occasionally 3. Frequently 4. Almost constantly 8. Unable to answer Pain Effect on Sleep: 3 Pain Interference with Therapy: 3 Pain Interference w/Day-to-Day: 3 Mental Status Patient Orientation: Person, Place, Situation Transfers SCALE: Activities may be completed with or without assistive devices. 2-Oxefgfnasq-lxjkewk completes the activity by him/herself with no assistance from a helper. 5-Set-up or Clean-up Assistance-helper sets up or cleans up; patient completes activity. [place] assists only prior to or following the activity. 4-Supervision or Touching Assistance-helper provides verbal cues and/or touching/steadying and/or contact guard assistance as patient completes activity. Assistance may be provided throughout the activity or intermittently. 3-Partial/Moderate Assistance-helper does LESS THAN HALF the effort. [place] lifts, holds or supports trunk or limbs, but provides less than half the effort. 2-Substantial/Maximal Assistance-helper does MORE THAN HALF the effort. [place] lifts or holds trunk or limbs and provides more than half the effort. 8-Ggcypkicj-mcuwej does ALL the effort. Patient does none of the effort to complete the activity. Or, the assistance of 2 or more helpers is required for the patient to complete the activity. If activity was not attempted, code reason: 7-Patient Refused. 9-Not Applicable-not attempted and the patient did not perform the activity before the current illness, exacerbation or injury. 10-Not Attempted due to Environmental Limitations-(lack of equipment, weather restraints, etc.). 88-Not Attempted due to Medical Conditions or Safety Concerns. Sit to Lying (QC): 5 Sit to Stand (QC): 5 Weight Bearing Right Lower Extremity: Right Weight Bearing/Tolerated Left Lower Extremity: Left Weight Bearing/Tolerated Gait Training Does the Patient Walk?: Yes Distance: 176' x2 Walk 10 feet (QC): 5 Walk 50 ft with 2 Turns(QC): 5 Walk 150 ft (QC): 5 Gait Assistive Device: FWW Wheelchair Training Does the Pt Use a Wheelchair?: No Treatments TF from recliner to Standing and amb in hallway. Pt takes RB between walks and returns to room at end of walk to rest Supine in bed. All needs met, call light in hand. Assessment Current Status: Good Progress Pain and fatigue have improved over previous days tx but both limit tx. PT Gripper Machine Operator Goals Alf Goals PT Gripper Machine Operator Goals Time Frame: May 21, 2023 Roll Left & Right (QC): 6 Sit to Lying (QC): 6 Lying-Sitting on Side/Bed(QC): 6 Sit to Stand (QC): 6 Chair/Dbq-ia-Vljor Xfer(QC): 6 Toilet Transfer (QC): 6 Car Transfer (QC): 6 Does the Patient Walk: Yes Walk 10 feet (QC): 6 (with FWW) Walk 50ft with 2 Turns (QC): 6 Walk 150 ft (QC): 6 Walking 10ft on Uneven Surface: 6 1 Step (curb) (QC): 5 4 Steps (QC): 5 12 Steps (QC): 5 Picking up an Object (QC): 6 (with deputy grand jury) Does the Pt use WC or Scooter?: No Wheel 50 feet with 2 turns (QC: 9 Type: N/A Wheel 150 feet: 9 Type: N/A PT Plan Problem List Problem List: Activity Tolerance Treatment/Plan Treatment Plan: Continue Plan of Care Treatment Plan: Bed Mobility, Education, Functional Activity Ilya, Functional Strength, Group Therapy, Gait, Safety, Therapeutic Exercise, Transfers Treatment Duration: May 21, 2023 Frequency: At least 5 of 7 days/Wk (IRF) Estimated Hrs Per Day: 1.5 hours per day Patient and/or Family Agrees t: Yes Safety Risks/Education Patient Education: Gait Training, Correct Positioning, Safety Issues Teaching Recipient: Patient Teaching Methods: Discussion Response to Teaching: Verbalize Understanding Time Time In: 1300 Time Out: 1330 DATE: May 07, 2023 Total Billed Treatment Time: 30 Total Billed Treatment 1, GT x2 (30m) RICKEY PIEDRA POWDERER May 07, 2023 14:11
--- NOTE | 2023-05-07 15:46 | Speech Therapy Daily Note ---
Speech Daily Progress Note Subjective Date Seen by Provider: May 07, 2023 Time Seen by Provider: 14:15 The patient was awake and alert, and motivated to participate in treatment. He had no complaints at time of treatment. Objective Word retrieval, organization, and STM were targeted in session. The patient was able to complete structured semantic feature analysis to describe target words with min/mod assist needed, overall accuracy of 75%. Embedded within the target words were location words (e.g. pharmacy, grocery store), which the patient was instructed to recall as the task progressed, resulting in a lengthening word list over course of the task with filled intervals between retrieval opportunities. The patient required max cueing initially to maintain set to the rule to retain the salient words, faded to min cues. Strategies of rehearsal and short-interval spaced retrieval were used to aid recall. The patient recalled 3/3 words at end of session using strategies. Assessment Assessment Current Status: Good Progress Treatment Plan Continue Plan of Care Speech Short Term Goals Short Term Goals Short Term Goals 1. The patient will display 80% accuracy with memory exercises through utilization of functional memory strategies and mild clinician cueing. Time Frame-STG: Seven Days. Speech Counseling Program Leader Goals Counseling Program Leader Goals 1. The patient will demonstrate improved cognitive linguistic skills for safe discharge to the least restrictive environment. Time Frame: Ten Days. Speech-Plan Treatment Plan Speech Therapy Treatment Plan: Continue Plan of Care Treatment Duration: May 10, 2023 Frequency: Modified Program (IRF) Estimated Hrs Per Day: .5 hour per day Rehab Potential: Fair Safety Risks/Education Teaching Recipient: Patient Teaching Methods: Demonstration Response to Teaching: Verbalize Understanding Education Topics Provided: Memory strategies Time Speech Therapy Time In: 14:15 Speech Therapy Time Out: 15:00 DATE: May 07, 2023 Total Billed Time: 45 Billed Treatment Time 1 ISA(45) BERTHA NAIR May 07, 2023 15:46
[2023-05-07 20:00] VITALS: BP 123/62
[2023-05-07] MEDS: inSUlin DETERMIR 1 UNIT/0.01 ML (CHARGE PER UNIT) SQ SCH (21:10)
[2023-05-08] MEDS: ACETAMINOPHEN 325 MG TABLET PO SCH ×4 (05:06→21:52)
[2023-05-08] MEDS: SUCRALFATE 1 GM TABLET PO SCH ×4 (06:20→21:52)
[2023-05-08] MEDS: inSUlin ASPART 1 UNIT/0.01 ML (PER UNIT) SC SCH ×4 (06:20→21:57)
[2023-05-08] MEDS: THERAPEUTIC MULTIVITAMIN W/MINERALS TABLET PO SCH (06:20)
[2023-05-08 08:00] VITALS: BP 116/58
[2023-05-08] MEDS: ASPIRIN 81 MG CHEWABLE TABLET PO SCH (08:05)
[2023-05-08] MEDS: AMANTADINE 100 MG CAPSULE PO SCH ×2 (08:05→21:52)
[2023-05-08] MEDS: OMEGA 3 (FISH OIL) 1000 MG CAP PO SCH ×3 (08:05→18:29)
[2023-05-08] MEDS: TAMSULOSIN 0.4 MG (FLOMAX) CAP PO SCH (08:05)
[2023-05-08] MEDS: PANTOPRAZOLE 40 MG TABLET PO SCH (08:05)
[2023-05-08] MEDS: amLODIPine 10 MG TABLET PO SCH (08:05)
[2023-05-08] MEDS: EMPAGLIFLOZIN 10 MG TABLET PO SCH (08:05)
[2023-05-08] MEDS: VITAMIN E PO SCH (08:06)
[2023-05-08] MEDS: metFORMIN 500 MG TABLET PO SCH ×2 (08:11→18:28)
[2023-05-08] MEDS: DOCUSATE SODIUM 100 MG CAPSULE PO SCH ×2 (08:11→20:18)
[2023-05-08] MEDS: SENNOSIDES 8.6 MG TABLET PO SCH ×2 (08:12→20:18)
--- NOTE | 2023-05-08 09:39 | Physical Therapy Daily Note ---
PT Daily Note-Current Subjective Pt sitting up in bed upon arrival. Pt agrees to PT but reports feeling achy and cold today. Pain Numeric Pain Scale: 5-Moderate Pain Location: Right Location Body Site: Hip Pain Description: Ache, Tightness Section J - Health Conditions 1. Rarely or not at all 2. Occasionally 3. Frequently 4. Almost constantly 8. Unable to answer Pain Effect on Sleep: 3 Pain Interference with Therapy: 3 Pain Interference w/Day-to-Day: 3 Mental Status Patient Orientation: Person, Confused, Place Transfers SCALE: Activities may be completed with or without assistive devices. 0-Mdhzlwuuhx-jbtytxo completes the activity by him/herself with no assistance from a helper. 5-Set-up or Clean-up Assistance-helper sets up or cleans up; patient completes activity. [place] assists only prior to or following the activity. 4-Supervision or Touching Assistance-helper provides verbal cues and/or touching/steadying and/or contact guard assistance as patient completes activ ity. Assistance may be provided throughout the activity or intermittently. 3-Partial/Moderate Assistance-helper does LESS THAN HALF the effort. [place] lifts, holds or supports trunk or limbs, but provides less than half the effort. 2-Substantial/Maximal Assistance-helper does MORE THAN HALF the effort. [place] lifts or holds trunk or limbs and provides more than half the effort. 3-Bctyfosvh-bfanbm does ALL the effort. Patient does none of the effort to complete the activity. Or, the assistance of 2 or more helpers is required for the patient to complete the activity. If activity was not attempted, code reason: 7-Patient Refused. 9-Not Applicable-not attempted and the patient did not perform the activity before the current illness, exacerbation or injury. 10-Not Attempted due to Environmental Limitations-(lack of equipment, weather restraints, etc.). 88-Not Attempted due to Medical Conditions or Safety Concerns. Sit to Stand (QC): 4 Weight Bearing Right Lower Extremity: Right Weight Bearing/Tolerated Left Lower Extremity: Left Weight Bearing/Tolerated Gait Training Does the Patient Walk?: Yes Distance: 176' x2 Walk 10 feet (QC): 4 Walk 50 ft with 2 Turns(QC): 4 Walk 150 ft (QC): 4 Gait Assistive Device: FWW Pt walks with tender/analgetic gait pattern. Wheelchair Training Does the Pt Use a Wheelchair?: No Exercises Seated Therapy Exercises: Ankle pumps, Long arc quads, Hip flexion, Hip abd/add, Glut set Seated Reps: 15 Treatments Pt takes morning meds given by Nurse to start tx. Pt TF to standing from recliner and amb in hallway. Pt takes extended RB as needed. Pt amb again to Therapy Gym and completes Seated Ex before returning to room to rest Supine in bed. All needs met, call light in hand. Assessment Current Status: Fair Progress Pt needs extended RB and reports acheness during tx. Pt's demeanor is off for typical tx as seen by this therapist. PT Counter Server Goals Correction Goals PT Correction Goals Time Frame: May 21, 2023 Roll Left & Right (QC): 6 Sit to Lying (QC): 6 Lying-Sitting on Side/Bed(QC): 6 Sit to Stand (QC): 6 Chair/Uvt-rn-Bmrfm Xfer(QC): 6 Toilet Transfer (QC): 6 Car Transfer (QC): 6 Does the Patient Walk: Yes Walk 10 feet (QC): 6 (with FWW) Walk 50ft with 2 Turns (QC): 6 Walk 150 ft (QC): 6 Walking 10ft on Uneven Surface: 6 1 Step (curb) (QC): 5 4 Steps (QC): 5 12 Steps (QC): 5 Picking up an Object (QC): 6 (with anvilsmith) Does the Pt use WC or Scooter?: No Wheel 50 feet with 2 turns (QC: 9 Type: N/A Wheel 150 feet: 9 Type: N/A PT Plan Problem List Problem List: Activity Tolerance, Functional Strength Treatment/Plan Treatment Plan: Continue Plan of Care Treatment Plan: Bed Mobility, Education, Functional Activity Ilya, Functional Strength, Group Therapy, Gait, Safety, Therapeutic Exercise, Transfers Treatment Duration: May 21, 2023 Frequency: At least 5 of 7 days/Wk (IRF) Estimated Hrs Per Day: 1.5 hours per day Patient and/or Family Agrees t: Yes Time Time In: 0800 Time Out: 929 DATE: May 08, 2023 Total Billed Treatment Time: 90 Total Billed Treatment 1, GT x2 (30m) & FA x4 (60m) RICKEY PIEDRA CUSTOM SHOE DESIGNER AND MAKER May 08, 2023 09:39
--- NOTE | 2023-05-08 09:47 | PM&R Progress Note ---
Subjective HPI/CC On Admission Date Seen by Provider: May 08, 2023 Time Seen by Provider: 09:45 Subjective/Events-last exam 05/08/2023: Doing a bit better Cognition is improved No falls Pain controlled BM+ 05/07/2023: Patient doing a lot better Less pain Ambulating slowly but further Reviewed meds and labs Blood sugars improved 05/06/2023: No major issues Labs stable Eating well Less confusion 05/05/2023: Patient doing really well Qfhjym-ln-csf is at the bedside No falls No pain Discharge plan for 05/12/23 05/04/2023: Patient doing much better No pain is reported No falls Cognition improved Blood sugar improved 05/03/2023: Patient doing well Improved cognition Moving around a lot better Less pain Blood sugars improved with long-acting insulin 05/02/2023: No major issues Moving slowly but moving well No falls No pain except pelvic fracture 05/01/2023: Doing better Slow ambulation No falls No pain except when he walks Reviewed labs Eating ok Cognition is deficient Review of Systems General: Fatigue, Malaise Objective Exam Vital Signs Vital Signs Date Time Temp Pulse Resp B/P (MAP) Pulse Ox O2 Delivery O2 Flow Rate FiO2 05/08/23 09:53 Room Air 05/08/23 08:00 36.2 46 18 116/58 (77) 100 Capillary Refill : General Appearance: No Apparent Distress, WD/WN, Chronically ill HEENT: PERRL/EOMI, Normal ENT Inspection, Pharynx Normal Neck: Full Range of Motion, Normal Inspection, Non Tender, Supple, Carotid Bruit Respiratory: Chest Non Tender, Lungs Clear, Normal Breath Sounds, No Accessory Muscle Use, No Respiratory Distress Cardiovascular: Regular Rate, Rhythm, No Edema, No Gallop, No JVD, No Murmur, Normal Peripheral Pulses Gastrointestinal: Normal Bowel Sounds, No Organomegaly, No Pulsatile Mass, Non Tender, Soft Back: Normal Inspection, No CVA Tenderness, No Vertebral Tenderness Extremity: Normal Capillary Refill, Normal Inspection, Normal Range of Motion (except legs are limited due to pelvic fracture pain), Non Tender, No Calf Tenderness, No Pedal Edema Neurologic/Psychiatric: Alert, Oriented x3 (poor recall), 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 FIM Transfers Therapy Code Descriptions/Definitions Functional [place] Measure: 0=Not Assessed/NA 4=Minimal Assistance 1=Total Assistance 5=Supervision or Setup 2=Maximal Assistance 6=Modified [place] 3=Moderate Assistance 7=Complete IndependenceSCALE: Activities may be completed with or without assistive devices. 3-Fsbhprcuxs-jmaihqj completes the activity by him/herself with no assistance from a helper. 5-Set-up or Clean-up Assistance-helper sets up or cleans up; patient completes activity. [place] assists only prior to or following the activity. 4-Supervision or Touching Assistance-helper provides verbal cues and/or touching/steadying and/or contact guard assistance as patient completes activity. Assistance may be provided throughout the activity or intermittently. 3-Partial/Moderate Assistance-helper does LESS THAN HALF the effort. [place] lifts, holds or supports trunk or limbs, but provides less than half the effort. 2-Substantial/Maximal Assistance-helper does MORE THAN HALF the effort. [place] lifts or holds trunk or limbs and provides more than half the effort. 2-Jpgnicgbj-ydftoe does ALL the effort. Patient does none of the effort to complete the activity. Or, the assistance of 2 or more helpers is required for the patient to complete the activity. If activity was not attempted, code reason: 7-Patient Refused. 9-Not Applicable-not attempted and the patient did not perform the activity before the current illness, exacerbation or injury. 10-Not Attempted due to Environmental Limitations-(lack of equipment, weather restraints, etc.). 88-Not Attempted due to Medical Conditions or Safety Concerns. Roll Left to Right (QC): 4 (cues for bedrail use and to reach across body) Sit to Lying (QC): 5 Sit to Stand (QC): 5 Chair/Ezs-qy-Sitlq Xfer(QC): 3 (min (A) with FWW, cues for hand placement) Car Transfer (QC): 4 (CGA) Gait Training Does the Patient Walk?: Yes Distance: 176' x2 Walk 10 feet (QC): 5 Walk 50 ft with 2 Turns(QC): 5 Walk 150 ft (QC): 5 Walking 10ft/uneven surface-QC: 3 (min (A) with FWW) Gait Persons Needed: 1 Gait Assistive Device: FWW Wheelchair Training Does the Pt Use a Wheelchair?: No Wheel 50 ft with 2 turns (QC): 3 (min (A) 2" curb step) Wheel 150 ft (QC): 9 Type of Wheelchair: N/A Stair Training 1 Step (curb) (QC): 88 (due to (R) hip pain) 4 Steps (QC): 88 12 Steps (QC): 88 (due to pain (R) hip) Balance Picking up an Object (QC): 88 (due to pain and fear of falling. ) ADL-Treatment Eating (QC): 6 (Pt independently opened packages and utilized utensils correctly.) Oral Hygiene (QC): 5 (SBA standing at sink for safety.) Bathing Location: L Arm, R Arm, L Upper Leg, R Upper Leg, L Lower Leg (including foot), R Lower Leg (including foot), Chest, Abdomen, Buttocks, Perineal Area Shower/Bathe Self (QC): 4 (Pt perofrmed bathing seated on built in shower bench with SBA for safety. ) Upper Body Dressing (QC): 5 (Set-up A for UBD dressing with pt seated in WC) Lower Body Dressing (QC): 4 (SBA for steadiness for donning/doffing pants and underwear) On/Off Footwear (QC): 4 (SBA for donning/doffing footwear seated in WC with pt performing figure 4 position ) Toileting Hygiene (QC): 4 (Pt voided seated on toilet for safety. SBA for toileting for safety/steadiness for pt to manage clothing and clean otoniel area.) Toilet Transfer (QC): 4 (Toilet t/f performed with CGA x 1 with pt utilizing GB's for safety.) Assessment/Plan Assessment and Plan Assess & Plan/Chief Complaint Assessment: s/p fall on concrete steps sustaining SDH, facial fractures, pelvic fractures and sustaining brain injury with LOC DM HTN BPH h/o prostate cancer Current constipation-resolved CKD Plan: PT OT ST to help regain cognition Monitor BP and sugar Home meds 05/01/2023: Monitor closely Accuchecks with SSI Levemir 10 units at night 05/02/2023: Monitor sugar 05/03/2023: Supportive care Monitor blood sugars 05/04/2023: Supportive care Monitor closely 05/05/2023: Monitor closely Monitor pain 05/06/2023: Monitor closely Fall risk 05/07/2023: Supportive care Monitor sugars 05/08/2023: Monitor closely Pain control (1) Subdural hematoma MARCIO COHN DO May 08, 2023 09:47
--- NOTE | 2023-05-08 11:09 | Occupational Ther Daily Note ---
OT Current Status-Daily Note Subjective Pt semi-reclined in bed upon entering room, sleeping. Pt easily aroused to verbal and tactile stimuli. Pt stated he did not feel well today and he just finished PT. Therapist asked pt would he like for her to return later in the morning so he can rest and he stated "yes". First attempt at 09:30. Therapist returned at 10:15 with pt agreeing to perform OT session. Pt more lethargic today and not as talkative as noted in previous sessions. Increased time needed to perform tasks secondary to pt being fatigued. Notified RN of pt being more fatigued and stating he did not feel well today. Pain Numeric Pain Scale: 6 Location: Right Location Body Site: Hip Pain Description: Ache Mental Status/Objective Patient Orientation: Person, Place, Time, Situation, Normal For Age ADL-Treatment Therapy Code Descriptions/Definitions Functional [place] Measure: 0=Not Assessed/NA 4=Minimal Assistance 1=Total Assistance 5=Supervision or Setup 2=Maximal Assistance 6=Modified [place] 3=Moderate Assistance 7=Complete IndependenceSCALE: Activities may be completed with or without assistive devices. 7-Hjzqarvjrv-qytnouw completes the activity by him/herself with no assistance from a helper. 5-Set-up or Clean-up Assistance-helper sets up or cleans up; patient completes activity. [place] assists only prior to or following the activity. 4-Supervision or Touching Assistance-helper provides verbal cues and/or touching/steadying and/or contact guard assistance as patient completes activity. Assistance may be provided throughout the activity or intermittently. 3-Partial/Moderate Assistance-helper does LESS THAN HALF the effort. [place] lifts, holds or supports trunk or limbs, but provides less than half the effort. 2-Substantial/Maximal Assistance-helper does MORE THAN HALF the effort. [place] lifts or holds trunk or limbs and provides more than half the effort. 9-Aqlrbaioo-lgyzyt does ALL the effort. Patient does none of the effort to complete the activity. Or, the assistance of 2 or more helpers is required for the patient to complete the activity. If activity was not attempted, code reason: 7-Patient Refused. 9-Not Applicable-not attempted and the patient did not perform the activity be fore the current illness, exacerbation or injury. 10-Not Attempted due to Environmental Limitations-(lack of equipment, weather restraints, etc.). 88-Not Attempted due to Medical Conditions or Safety Concerns. Oral Hygiene (QC): 4 (SBA for oral care standing at sink) Bathing Location: L Arm, R Arm, L Upper Leg, R Upper Leg, L Lower Leg (i ncluding foot), R Lower Leg (including foot), Chest, Abdomen, Buttocks, Perineal Area Shower/Bathe Self (QC): 4 (SBA for bathing in shower with pt utilizing built in shower bench, long handled sponge, GB's, and hand held shower head. SBA needed just for steadiness when standing to clean buttocks and otoniel area. Pt required no cues and able to initiate tasks. ) Upper Body Dressing (QC): 5 (Set-up A to don/doff shirt in seated position) Lower Body Dressing (QC): 4 (SBA to don/doff shorts and underwear with pt able to thread BLE's into pants legs and underwear while in seated position performing figure 4 position. Pt performed sit<>stand with SBA where pt pulled pants and underwear over hips. SBA needed for steadiness with pt requiring no verbal cues for initiation. ) On/Off Footwear: 3 (Pt required min A to doff R sock with pt unable to perform figure 4. Pt able to don R sock after showering with SBA performing figure 4. SBA to don/doff L sock performing figure 4 position. Will go over hip kit in next therapy session to ensure more (I) in the home environment. Pt is typically set-up A for footwear with pt requiring more (A) today secondary to fatigue and pain.) Toileting Hygiene (QC): 4 (SBA with toileting with pt able to manage clothing. Pt voided seated on BSC over toilet. ) Toilet Transfer (QC): 4 (SBA/CGA for toilet transfer with pt utilizing GB's; BSC over toilet) Education OT Patient Education: Energy conservation, Exercise program, Home exercise program, Modified ADL techniques, Progress toward Goal/Update tx plan, Purpose of tx/functional activities, Reviewed precautions, Rehab process, Safety issues, Transfer techniques, Use of adapted equipment Teaching Recipient: Patient Teaching Methods: Demonstration, Discussion Response to Teaching: Verbalize Understanding, Return Demonstration OT Short Term Goals Short Term Goals Time Frame: May 02, 2023 OT Shelter Goals Medical Reception Goals Acute change in mental status: 1 Inattention: 0 Disorganized thinkin Altered level of consciousness: 0 Eating (QC): 6 Oral Hygiene (QC): 6 Toileting Hygiene (QC): 4 Shower/Bathe Self (QC): 4 Upper Body Dressing (QC): 6 Lower Body Dressing (QC): 4 On/Off Footwear (QC): 6 1=Demonstrate adherence to instructed precautions during ADL tasks. 2=Patient will verbalize/demonstrate understanding of assistive devices/modifications for ADL. 3=Patient will improve strength/tolerance for activity to enable patient to perform ADL's. OT Education/Plan Problem List/Assessment Assessment: Decreased Activ Tolerance, Decreased Safety Aware, Decreased UE Strength, Impaired Bed Mobility, Impaired Cognition, Impaired Funct Balance, Impaired I ADL's, Impaired Self-Care Skills Discharge Recommendations Plan/Recommendations: Continue POC Equpiment Recommendations-D/C: Bath Chair, Rails on Toilet Comment Discussed with pt. Treatment Plan/Plan of Care Treatment,Training & Education: Yes Patient would benefit from OT for education, treatment and training to promote independence in ADL's, mobility, safety and/or upper extremity function for ADL's. Plan of Care: ADL Retraining, Cognitive Retraining, Functional Mobility, Group Exercise/Act as Ind, UE Funct Exercise/Act, UE Neuromus Re-Ed/Coord Treatment Duration: May 14, 2023 Frequency: At least 5 of 7 days/Wk (IRF) Estimated Hrs Per Day: 1.5 hours per day Agreement: Yes Rehab Potential: Good Ending session, pt remained semi-reclined in bed with needs/call light in reach. RN aware of pt's performance and disposition. Time Start Time: 10:15 Stop Time: 11:30 DATE: May 08, 2023 Total Time Billed (hr/min): 75 Billed Treatment Time 75 minutes ADL 4 (60 minutes) EX 1 (15 minutes) SALOME SMITH May 08, 2023 11:09
--- NOTE | 2023-05-08 15:51 | Speech Therapy Daily Note ---
Speech Daily Progress Note Subjective Time Seen by Provider: 13:40 The pt was reclined in bed, reported minimal pain. Awake, alert, and appropriate. Objective The completed simple mathematical problem solving for addition/subtraction with 70% accuracy. He maintained attention to 2 rule sets through task with 90% acc uracy. Recalling single-step directions after timed interval in response to an alarm was at 2/2 accuracy, with long-term recall at end of session at 2/2 for both directions. The pt verbally sequenced directions to his home town with mild/moderate disorganization. With listener support and clarification, he was able to provide basic directions. Specific word retrieval for described words was at 90% accuracy. Structured SFA for target words was at 70% accuracy, with continued decreased organization and specificity noted. Assessment Assessment Current Status: Good Progress Treatment Plan Continue Plan of Care Speech Short Term Goals Short Term Goals Short Term Goals 1. The patient will display 80% accuracy with memory exercises through utilization of functional memory strategies and mild clinician cueing. Time Frame-STG: Seven Days. Speech Long-Term Goals Show Host/Hostess Goals 1. The patient will demonstrate improved cognitive linguistic skills for safe discharge to the least restrictive environment. Time Frame: Ten Days. Speech-Plan Treatment Plan Speech Therapy Treatment Plan: Continue Plan of Care Treatment Duration: May 10, 2023 Frequency: Modified Program (IRF) Estimated Hrs Per Day: .5 hour per day Rehab Potential: Good Safety Risks/Education Teaching Recipient: Patient Teaching Methods: Demonstration Response to Teaching: Return Demonstration Education Topics Provided: Strategies for recall of information Time Speech Therapy Time In: 13:40 Speech Therapy Time Out: 14:35 DATE: May 08, 2023 Total Billed Time: 55 Billed Treatment Time 1 BERTHA SANZ May 08, 2023 15:51
[2023-05-08 20:00] VITALS: BP 133/63
[2023-05-08] MEDS: inSUlin DETERMIR 1 UNIT/0.01 ML (CHARGE PER UNIT) SQ SCH (21:52)
[2023-05-09] MEDS: ACETAMINOPHEN 325 MG TABLET PO SCH ×4 (04:58→21:06)
--- NOTE | 2023-05-09 05:13 | PM&R Progress Note ---
Subjective HPI/CC On Admission Date Seen by Provider: May 09, 2023 Time Seen by Provider: 12:30 Subjective/Events-last exam 05/09/2023: No major issues Pain controlled BM+ Ready for DC soon 05/08/2023: Doing a bit better Cognition is improved No falls Pain controlled BM+ 05/07/2023: Patient doing a lot better Less pain Ambulating slowly but further Reviewed meds and labs Blood sugars improved 05/06/2023: No major issues Labs stable Eating well Less confusion 05/05/2023: Patient doing really well Daegyk-vn-jkd is at the bedside No falls No pain Discharge plan for 05/12/23 05/04/2023: Patient doing much better No pain is reported No falls Cognition improved Blood sugar improved 05/03/2023: Patient doing well Improved cognition Moving around a lot better Less pain Blood sugars improved with long-acting insulin 05/02/2023: No major issues Moving slowly but moving well No falls No pain except pelvic fracture 05/01/2023: Doing better Slow ambulation No falls No pain except when he walks Reviewed labs Eating ok Cognition is deficient Review of Systems General: Fatigue, Malaise Objective Exam Vital Signs Vital Signs Date Time Temp Pulse Resp B/P (MAP) Pulse Ox O2 Delivery O2 Flow Rate FiO2 05/09/23 19:12 36.3 51 18 107/56 (73) 97 Room Air Capillary Refill : General Appearance: No Apparent Distress, WD/WN, Chronically ill HEENT: PERRL/EOMI, Normal ENT Inspection, Pharynx Normal Neck: Full Range of Motion, Normal Inspection, Non Tender, Supple, Carotid Bruit Respiratory: Chest Non Tender, Lungs Clear, Normal Breath Sounds, No Accessory Muscle Use, No Respiratory Distress Cardiovascular: Regular Rate, Rhythm, No Edema, No Gallop, No JVD, No Murmur, Normal Peripheral Pulses Gastrointestinal: Normal Bowel Sounds, No Organomegaly, No Pulsatile Mass, Non Tender, Soft Back: Normal Inspection, No CVA Tenderness, No Vertebral Tenderness Extremity: Normal Capillary Refill, Normal Inspection, Normal Range of Motion (except legs are limited due to pelvic fracture pain), Non Tender, No Calf Tenderness, No Pedal Edema Neurologic/Psychiatric: Alert, Oriented x3 (poor recall), 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 FIM Transfers Therapy Code Descriptions/Definitions Functional [place] Measure: 0=Not Assessed/NA 4=Minimal Assistance 1=Total Assistance 5=Supervision or Setup 2=Maximal Assistance 6=Modified [place] 3=Moderate Assistance 7=Complete IndependenceSCALE: Activities may be completed with or without assistive devices. 9-Lnpwhgxepo-etgpldg completes the activity by him/herself with no assistance from a helper. 5-Set-up or Clean-up Assistance-helper sets up or cleans up; patient completes activity. [place] assists only prior to or following the activity. 4-Supervision or Touching Assistance-helper provides verbal cues and/or touching/steadying and/or contact guard assistance as patient completes activity. Assistance may be provided throughout the activity or intermittently. 3-Partial/Moderate Assistance-helper does LESS THAN HALF the effort. [place] lifts, holds or supports trunk or limbs, but provides less than half the effort. 2-Substantial/Maximal Assistance-helper does MORE THAN HALF the effort. [place] lifts or holds trunk or limbs and provides more than half the effort. 7-Ivfqcbfrp-awzrcp does ALL the effort. Patient does none of the effort to complete the activity. Or, the assistance of 2 or more helpers is required for the patient to complete the activity. If activity was not attempted, code reason: 7-Patient Refused. 9-Not Applicable-not attempted and the patient did not perform the activity before the current illness, exacerbation or injury. 10-Not Attempted due to Environmental Limitations-(lack of equipment, weather restraints, etc.). 88-Not Attempted due to Medical Conditions or Safety Concerns. Roll Left to Right (QC): 4 (cues for bedrail use and to reach across body) Sit to Lying (QC): 5 Sit to Stand (QC): 4 Chair/Vkd-og-Gldyu Xfer(QC): 3 (min (A) with FWW, cues for hand placement) Car Transfer (QC): 4 (CGA) Gait Training Does the Patient Walk?: Yes Distance: 176' x2 Walk 10 feet (QC): 4 Walk 50 ft with 2 Turns(QC): 4 Walk 150 ft (QC): 4 Walking 10ft/uneven surface-QC: 3 (min (A) with FWW) Gait Persons Needed: 1 Gait Assistive Device: FWW Wheelchair Training Does the Pt Use a Wheelchair?: No Wheel 50 ft with 2 turns (QC): 3 (min (A) 2" curb step) Wheel 150 ft (QC): 9 Type of Wheelchair: N/A Stair Training 1 Step (curb) (QC): 88 (due to (R) hip pain) 4 Steps (QC): 88 12 Steps (QC): 88 (due to pain (R) hip) Balance Picking up an Object (QC): 88 (due to pain and fear of falling. ) ADL-Treatment Eating (QC): 6 (Pt independently opened packages and utilized utensils correctly.) Oral Hygiene (QC): 4 (SBA for oral care standing at sink) Bathing Location: L Arm, R Arm, L Upper Leg, R Upper Leg, L Lower Leg (including foot), R Lower Leg (including foot), Chest, Abdomen, Buttocks, Perineal Area Shower/Bathe Self (QC): 4 (SBA for bathing in shower with pt utilizing built in shower bench, long handled sponge, GB's, and hand held shower head. SBA needed just for steadiness when standing to clean buttocks and otoniel area. Pt required no cues and able to initiate tasks. ) Upper Body Dressing (QC): 5 (Set-up A to don/doff shirt in seated position) Lower Body Dressing (QC): 4 (SBA to don/doff shorts and underwear with pt able to thread BLE's into pants legs and underwear while in seated position performing figure 4 position. Pt performed sit<>stand with SBA where pt pulled pants and underwear over hips. SBA needed for steadiness with pt requiring no verbal cues for initiation. ) On/Off Footwear (QC): 3 (Pt required min A to doff R sock with pt unable to perform figure 4. Pt able to don R sock after showering with SBA performing figure 4. SBA to don/doff L sock performing figure 4 position. Will go over hip kit in next therapy session to ensure more (I) in the home environment. Pt is typically set-up A for footwear with pt requiring more (A) today secondary to fatigue and pain.) Toileting Hygiene (QC): 4 (SBA with toileting with pt able to manage clothing. Pt voided seated on BSC over toilet. ) Toilet Transfer (QC): 4 (SBA/CGA for toilet transfer with pt utilizing GB's; BSC over toilet) Assessment/Plan Assessment and Plan Assess & Plan/Chief Complaint Assessment: s/p fall on concrete steps sustaining SDH, facial fractures, pelvic fractures and sustaining brain injury with LOC DM HTN BPH h/o prostate cancer Current constipation-resolved CKD Plan: PT OT ST to help regain cognition Monitor BP and sugar Home meds 05/01/2023: Monitor closely Accuchecks with SSI Levemir 10 units at night 05/02/2023: Monitor sugar 05/03/2023: Supportive care Monitor blood sugars 05/04/2023: Supportive care Monitor closely 05/05/2023: Monitor closely Monitor pain 05/06/2023: Monitor closely Fall risk 05/07/2023: Supportive care Monitor sugars 05/08/2023: Monitor closely Pain control 05/09/2023: Monitor pain DC planned (1) Subdural hematoma MARCIO COHN DO May 09, 2023 05:13
[2023-05-09] MEDS: inSUlin ASPART 1 UNIT/0.01 ML (PER UNIT) SC SCH ×4 (06:25→21:06)
[2023-05-09] MEDS: SUCRALFATE 1 GM TABLET PO SCH ×4 (06:25→21:05)
[2023-05-09] MEDS: THERAPEUTIC MULTIVITAMIN W/MINERALS TABLET PO SCH (06:25)
[2023-05-09] MEDS: OMEGA 3 (FISH OIL) 1000 MG CAP PO SCH ×3 (07:50→17:55)
[2023-05-09] MEDS: VITAMIN E PO SCH (07:51)
[2023-05-09] MEDS: metFORMIN 500 MG TABLET PO SCH ×2 (07:51→17:56)
[2023-05-09] MEDS: PANTOPRAZOLE 40 MG TABLET PO SCH (07:51)
[2023-05-09] MEDS: DOCUSATE SODIUM 100 MG CAPSULE PO SCH ×2 (07:51→19:59)
[2023-05-09] MEDS: ASPIRIN 81 MG CHEWABLE TABLET PO SCH (07:51)
[2023-05-09] MEDS: EMPAGLIFLOZIN 10 MG TABLET PO SCH (07:51)
[2023-05-09] MEDS: AMANTADINE 100 MG CAPSULE PO SCH ×2 (07:52→21:05)
[2023-05-09] MEDS: amLODIPine 10 MG TABLET PO SCH (07:52)
[2023-05-09] MEDS: TAMSULOSIN 0.4 MG (FLOMAX) CAP PO SCH (07:52)
[2023-05-09] MEDS: SENNOSIDES 8.6 MG TABLET PO SCH ×2 (07:53→19:59)
[2023-05-09 07:54] VITALS: BP 111/61
--- NOTE | 2023-05-09 09:17 | Physical Therapy Daily Note ---
PT Daily Note-Current Subjective Pt sitting in recliner upon arrival. Pt agrees to PT. Pt is acting more like himself today than yesterday. Pain Numeric Pain Scale: 3 Location: Right Location Body Site: Hip Pain Description: Ache Section J - Health Conditions 1. Rarely or not at all 2. Occasionally 3. Frequently 4. Almost constantly 8. Unable to answer Pain Effect on Sleep: 3 Pain Interference with Therapy: 3 Pain Interference w/Day-to-Day: 3 Mental Status Patient Orientation: Person, Place, Situation Transfers SCALE: Activities may be completed with or without assistive devices. 0-Eflvzapddg-fqespfz completes the activity by him/herself with no assistance from a helper. 5-Set-up or Clean-up Assistance-helper sets up or cleans up; patient completes activity. [place] assists only prior to or following the activity. 4-Supervision or Touching Assistance-helper provides verbal cues and/or touching/steadying and/or contact guard assistance as patient completes activity. Assistance may be provided throughout the activity or intermittently. 3-Partial/Moderate Assistance-helper does LESS THAN HALF the effort. [place] lifts, holds or supports trunk or limbs, but provides less than half the effort. 2-Substantial/Maximal Assistance-helper does MORE THAN HALF the effort. [place] lifts or holds trunk or limbs and provides more than half the effort. 4-Ikekxfsmw-pbixhy does ALL the effort. Patient does none of the effort to complete the activity. Or, the assistance of 2 or more helpers is required for the patient to complete the activity. If activity was not attempted, code reason: 7-Patient Refused. 9-Not Applicable-not attempted and the patient did not perform the activity before the current illness, exacerbation or injury. 10-Not Attempted due to Environmental Limitations-(lack of equipment, weather restraints, etc.). 88-Not Attempted due to Medical Conditions or Safety Concerns. Sit to Stand (QC): 5 Toilet Transfer (QC): 5 Weight Bearing Right Lower Extremity: Right Weight Bearing/Tolerated Left Lower Extremity: Left Weight Bearing/Tolerated Gait Training Does the Patient Walk?: Yes Distance: 147', 155' Walk 10 feet (QC): 5 Walk 50 ft with 2 Turns(QC): 5 Walk 150 ft (QC): 5 Gait Assistive Device: FWW Wheelchair Training Does the Pt Use a Wheelchair?: No Exercises Standing: Hip Abduction, Hamstring curls, Heel/toe raises, 3 way Ex=Flex, Abd, Ext, Marching, Weight shifts Standing Reps: 15 Treatments Pt TF to standing and amb to BR. After toileting, pt attempted pericare but needed SAIL REPAIR PERSON assist after BM. Pt amb in hallway then took RB. Pt completed Standing Ex at //bars, RB as needed. Pt amb in hallway before returning to room to rest Supine in bed. All needs met, call light in hand. Assessment Current Status: Good Progress Pt demonstrates less pain while walking although some when TF from sit to stand. Pt is gaining strength. PT Group Home Goals Group Home Goals PT Railroad Car Repairman Goals Time Frame: May 21, 2023 Roll Left & Right (QC): 6 Sit to Lying (QC): 6 Lying-Sitting on Side/Bed(QC): 6 Sit to Stand (QC): 6 Chair/Epk-ou-Pahvt Xfer(QC): 6 Toilet Transfer (QC): 6 Car Transfer (QC): 6 Does the Patient Walk: Yes Walk 10 feet (QC): 6 (with FWW) Walk 50ft with 2 Turns (QC): 6 Walk 150 ft (QC): 6 Walking 10ft on Uneven Surface: 6 1 Step (curb) (QC): 5 4 Steps (QC): 5 12 Steps (QC): 5 Picking up an Object (QC): 6 (with chin strap maker) Does the Pt use WC or Scooter?: No Wheel 50 feet with 2 turns (QC: 9 Type: N/A Wheel 150 feet: 9 Type: N/A PT Plan Treatment/Plan Treatment Plan: Continue Plan of Care Treatment Plan: Bed Mobility, Education, Functional Activity Ilya, Functional Strength, Group Therapy, Gait, Safety, Therapeutic Exercise, Transfers Treatment Duration: May 21, 2023 Frequency: At least 5 of 7 days/Wk (IRF) Estimated Hrs Per Day: 1.5 hours per day Patient and/or Family Agrees t: Yes Safety Risks/Education Patient Education: Gait Training, Correct Positioning Teaching Recipient: Patient Teaching Methods: Discussion Response to Teaching: Verbalize Understanding Time Time In: 0800 Time Out: 0915 DATE: May 09, 2023 Total Billed Treatment Time: 75 Total Billed Treatment 1, GT x2 (30m), EX x2 (30m) & FA (15m) RICKEY PIEDRA SAIL REPAIR PERSON May 09, 2023 09:17
[2023-05-09] MEDS: oxyCODONE IMMEDIATE RELEASE 5 MG TABLET PO PRN (12:22)
--- NOTE | 2023-05-09 13:45 | Occupational Ther Daily Note ---
OT Current Status-Daily Note Subjective Pt semi-reclined in bed upon entering. Pt consented to OT session this AM. Pain Numeric Pain Scale: 0-No Pain Location: No Pain Reported Mental Status/Objective Patient Orientation: Person, Place, Time, Situation ADL-Treatment Therapy Code Descriptions/Definitions Functional [place] Measure: 0=Not Assessed/NA 4=Minimal Assistance 1=Total Assistance 5=Supervision or Setup 2=Maximal Assistance 6=Modified [place] 3=Moderate Assistance 7=Complete IndependenceSCALE: Activities may be completed with or without assistive devices. 0-Hvqexnvymv-gilavck completes the activity by him/herself with no assistance from a helper. 5-Set-up or Clean-up Assistance-helper sets up or cleans up; patient completes activity. [place] assists only prior to or following the activity. 4-Supervision or Touching Assistance-helper provides verbal cues and/or touch ing/steadying and/or contact guard assistance as patient completes activity. Assistance may be provided throughout the activity or intermittently. 3-Partial/Moderate Assistance-helper does LESS THAN HALF the effort. [place] lifts, holds or supports trunk or limbs, but provides less than half the effort. 2-Substantial/Maximal Assistance-helper does MORE THAN HALF the effort. [place] lifts or holds trunk or limbs and provides more than half the effort. 1-Gjqcpdmco-yxbbtp does ALL the effort. Patient does none of the effort to complete the activity. Or, the assistance of 2 or more helpers is required for the patient to complete the activity. If activity was not attempted, code reason: 7-Patient Refused. 9-Not Applicable-not attempted and the patient did not perform the activity before the current illness, exacerbation or injury. 10-Not Attempted due to Environmental Limitations-(lack of equipment, weather restraints, etc.). 88-Not Attempted due to Medical Conditions or Safety Concerns. Other Treatment Supine>sit at EOB performed with SBA utilizing bed rail Pt ambulated from room>therapy gym with CGA x 1 with RW Pt performed seated activity at EOM with 2# wrist weights donned to BUE's and utilizing non-weighted dowel bar where pt batted a ball back and forth with therapist for 3 trials x 1 minute each trial to increase endurance, activity tolerance, BUE strength, core strength, and hand/eye coordination to increase (I) with ADLs and IADLs. Pt required rest breaks between each trial. No pain reported during activity. Pt ambulated from therapy gym<>courtyard outside with CGA x 1 with RW with WC follow for safety. Pt navigated self from therapy gym<>court yard with min verbal cues to increase functional mobility, community reintegration, activity tolerance, executive functioning skills, and endurance to increase (I) with IADLs. Sit<>stand activity performed with pt performing 10 reps x 1 set. Activity performed to increase BLE strength, endurance, activity tolerance, and self-care t/f's to increase (I) with ADLs. Pt performed sit<>stand with SBA x 1 with RW available for balance, as needed. Intermittent rest breaks needed secondary to fatigue. Pt reported no pain while performing activity. Pt performed standing activity with utilizing 3# dumbbell performing BUE strengthening ex's in all available planes of motion to increase endurance, standing tolerance, standing balance, BUE strength, and BLE strength. Pt performed 2 sets x 10 reps. Seated rest break needed after first trial. No LOB noted while performing activity. Activity performed to improve (I) with ADLs and IADLs. Education OT Patient Education: Energy conservation, Progress toward Goal/Update tx plan, Purpose of tx/functional activities, Reviewed precautions, Rehab process, Safety issues, Transfer techniques Teaching Recipient: Patient Teaching Methods: Demonstration, Discussion Response to Teaching: Verbalize Understanding, Return Demonstration OT Short Term Goals Short Term Goals Time Frame: May 02, 2023 OT Program Facilitator Goals Program Facilitator Goals Acute change in mental status: 1 Inattention: 0 Disorganized thinkin Altered level of consciousness: 0 Eating (QC): 6 Oral Hygiene (QC): 6 Toileting Hygiene (QC): 4 Shower/Bathe Self (QC): 4 Upper Body Dressing (QC): 6 Lower Body Dressing (QC): 4 On/Off Footwear (QC): 6 1=Demonstrate adherence to instructed precautions during ADL tasks. 2=Patient will verbalize/demonstrate understanding of assistive devices/modifications for ADL. 3=Patient will improve strength/tolerance for activity to enable patient to perform ADL's. OT Education/Plan Problem List/Assessment Assessment: Decreased Activ Tolerance, Decreased UE Strength, Impaired Cognition, Impaired Funct Balance, Impaired I ADL's, Impaired Self-Care Skills Discharge Recommendations Plan/Recommendations: Continue POC Treatment Plan/Plan of Care Treatment,Training & Education: Yes Patient would benefit from OT for education, treatment and training to promote independence in ADL's, mobility, safety and/or upper extremity function for ADL's. Plan of Care: ADL Retraining, Cognitive Retraining, Functional Mobility, Group Exercise/Act as Ind, UE Funct Exercise/Act, UE Neuromus Re-Ed/Coord Treatment Duration: May 14, 2023 Frequency: At least 5 of 7 days/Wk (IRF) Estimated Hrs Per Day: 1.5 hours per day Agreement: Yes Rehab Potential: Good Time Start Time: 10:45 Stop Time: 12:00 DATE: May 09, 2023 Total Time Billed (hr/min): 75 Billed Treatment Time 75 minutes FA x 5 SALOME SMITH, GUERLINE May 09, 2023 13:45
--- NOTE | 2023-05-09 15:53 | Speech Therapy Daily Note ---
Speech Daily Progress Note Subjective Date Seen by Provider: May 09, 2023 Time Seen by Provider: 14:00 The pt reported right hip pain earlier in the day, for which he received medication. He was alert and motivated to participate in session. Objective Functional problem solving for calculating money amounts was targeted. The pt was able to correctly identify change needed when given an item cost and amount paid with 50% accuracy independently. With repetition of stimulus, accuracy improved to 75% accuracy. Tanagrams were completed to follow up on weekend therapy not of poor performance at task. The pt was able to independently place shapes with good accuracy across 4 trials. Maintenance of a 2-rule set was added to the task, with 80% accuracy achieved. Complex sequencing was then targeted, with good accuracy achieved, with occasional word-retrieval difficulty noted. The pt was able to produce desired word with extra time provided for all instances. Assessment Assessment Current Status: Good Progress Treatment Plan Continue Plan of Care Speech Short Term Goals Short Term Goals Short Term Goals 1. The patient will display 80% accuracy with memory exercises through utilization of functional memory strategies and mild clinician cueing. Time Frame-STG: Seven Days. Speech Jail Goals Jail Goals 1. The patient will demonstrate improved cognitive linguistic skills for safe discharge to the least restrictive environment. Time Frame: Ten Days. Speech-Plan Treatment Plan Speech Therapy Treatment Plan: Continue Plan of Care Treatment Duration: May 10, 2023 Frequency: Modified Program (IRF) Estimated Hrs Per Day: .5 hour per day Rehab Potential: Good Time Speech Therapy Time In: 14:00 Speech Therapy Time Out: 14:50 DATE: May 09, 2023 Total Billed Time: 50 Billed Treatment Time 1 (SLTS) BERTHA NAIR May 09, 2023 15:53
[2023-05-09 19:12] VITALS: BP 107/56
[2023-05-09] MEDS: inSUlin DETERMIR 1 UNIT/0.01 ML (CHARGE PER UNIT) SQ SCH (21:05)
[2023-05-10] MEDS: ACETAMINOPHEN 325 MG TABLET PO SCH ×4 (05:09→21:44)
--- NOTE | 2023-05-10 05:12 | PM&R Progress Note ---
Subjective HPI/CC On Admission Date Seen by Provider: May 10, 2023 Time Seen by Provider: 12:30 Subjective/Events-last exam 05/10/2023: Patient doing really well Set for discharge Saturday No falls Pain is pretty well controlled 05/09/2023: No major issues Pain controlled BM+ Ready for DC soon 05/08/2023: Doing a bit better Cognition is improved No falls Pain controlled BM+ 05/07/2023: Patient doing a lot better Less pain Ambulating slowly but further Reviewed meds and labs Blood sugars improved 05/06/2023: No major issues Labs stable Eating well Less confusion 05/05/2023: Patient doing really well Pxpmog-yz-nuh is at the bedside No falls No pain Discharge plan for 05/12/23 05/04/2023: Patient doing much better No pain is reported No falls Cognition improved Blood sugar improved 05/03/2023: Patient doing well Improved cognition Moving around a lot better Less pain Blood sugars improved with long-acting insulin 05/02/2023: No major issues Moving slowly but moving well No falls No pain except pelvic fracture 05/01/2023: Doing better Slow ambulation No falls No pain except when he walks Reviewed labs Eating ok Cognition is deficient Review of Systems General: Fatigue, Malaise Objective Exam Vital Signs Vital Signs Date Time Temp Pulse Resp B/P (MAP) Pulse Ox O2 Delivery O2 Flow Rate FiO2 05/10/23 20:30 36.4 52 20 128/62 (84) 99 Room Air Capillary Refill : General Appearance: No Apparent Distress, WD/WN, Chronically ill HEENT: PERRL/EOMI, Normal ENT Inspection, Pharynx Normal Neck: Full Range of Motion, Normal Inspection, Non Tender, Supple, Carotid Bruit Respiratory: Chest Non Tender, Lungs Clear, Normal Breath Sounds, No Accessory Muscle Use, No Respiratory Distress Cardiovascular: Regular Rate, Rhythm, No Edema, No Gallop, No JVD, No Murmur, Normal Peripheral Pulses Gastrointestinal: Normal Bowel Sounds, No Organomegaly, No Pulsatile Mass, Non Tender, Soft Back: Normal Inspection, No CVA Tenderness, No Vertebral Tenderness Extremity: Normal Capillary Refill, Normal Inspection, Normal Range of Motion (except legs are limited due to pelvic fracture pain), Non Tender, No Calf Tenderness, No Pedal Edema Neurologic/Psychiatric: Alert, Oriented x3 (poor recall), manager java II-XII Norm as Tested, Abnormal Gait, Depressed Affect, Motor Weakness (all extremities 3/5) Skin: Normal Color, Warm/Dry Lymphatic: No Adenopathy Results/Procedures Lab Patient resulted labs reviewed. FIM Transfers Therapy Code Descriptions/Definitions Functional [place] Measure: 0=Not Assessed/NA 4=Minimal Assistance 1=Total Assistance 5=Supervision or Setup 2=Maximal Assistance 6=Modified [place] 3=Moderate Assistance 7=Complete IndependenceSCALE: Activities may be completed with or without assistive devices. 1-Fznrjylpsb-cxfxfow completes the activity by him/herself with no assistance from a helper. 5-Set-up or Clean-up Assistance-helper sets up or cleans up; patient completes activity. [place] assists only prior to or following the activity. 4-Supervision or Touching Assistance-helper provides verbal cues and/or touching/steadying and/or contact guard assistance as patient completes activity. Assistance may be provided throughout the activity or intermittently. 3-Partial/Moderate Assistance-helper does LESS THAN HALF the effort. [place] lifts, holds or supports trunk or limbs, but provides less than half the effort. 2-Substantial/Maximal Assistance-helper does MORE THAN HALF the effort. [place] lifts or holds trunk or limbs and provides more than half the effort. 5-Bcarrsjux-otdhjd does ALL the effort. Patient does none of the effort to complete the activity. Or, the assistance of 2 or more helpers is required for the patient to complete the activity. If activity was not attempted, code reason: 7-Patient Refused. 9-Not Applicable-not attempted and the patient did not perform the activity before the current illness, exacerbation or injury. 10-Not Attempted due to Environmental Limitations-(lack of equipment, weather restraints, etc.). 88-Not Attempted due to Medical Conditions or Safety Concerns. Roll Left to Right (QC): 4 (cues for bedrail use and to reach across body) Sit to Lying (QC): 5 Sit to Stand (QC): 5 Chair/Jcx-fw-Kpkhn Xfer(QC): 3 (min (A) with FWW, cues for hand placement) Car Transfer (QC): 4 (CGA) Gait Training Does the Patient Walk?: Yes Distance: 147', 155' Walk 10 feet (QC): 5 Walk 50 ft with 2 Turns(QC): 5 Walk 150 ft (QC): 5 Walking 10ft/uneven surface-QC: 3 (min (A) with FWW) Gait Persons Needed: 1 Gait Assistive Device: FWW Wheelchair Training Does the Pt Use a Wheelchair?: No Wheel 50 ft with 2 turns (QC): 3 (min (A) 2" curb step) Wheel 150 ft (QC): 9 Type of Wheelchair: N/A Stair Training 1 Step (curb) (QC): 88 (due to (R) hip pain) 4 Steps (QC): 88 12 Steps (QC): 88 (due to pain (R) hip) Balance Picking up an Object (QC): 88 (due to pain and fear of falling. ) ADL-Treatment Eating (QC): 6 (Pt independently opened packages and utilized utensils correctly.) Oral Hygiene (QC): 4 (SBA for oral care standing at sink) Bathing Location: L Arm, R Arm, L Upper Leg, R Upper Leg, L Lower Leg (including foot), R Lower Leg (including foot), Chest, Abdomen, Buttocks, Perineal Area Shower/Bathe Self (QC): 4 (SBA for bathing in shower with pt utilizing built in shower bench, long handled sponge, GB's, and hand held shower head. SBA needed j ust for steadiness when standing to clean buttocks and otoniel area. Pt required no cues and able to initiate tasks. ) Upper Body Dressing (QC): 5 (Set-up A to don/doff shirt in seated position) Lower Body Dressing (QC): 4 (SBA to don/doff shorts and underwear with pt able to thread BLE's into pants legs and underwear while in seated position performing figure 4 position. Pt performed sit<>stand with SBA where pt pulled pants and underwear over hips. SBA needed for steadiness with pt requiring no verbal cues for initiation. ) On/Off Footwear (QC): 3 (Pt required min A to doff R sock with pt unable to perform figure 4. Pt able to don R sock after showering with SBA performing figure 4. SBA to don/doff L sock performing figure 4 position. Will go over hip kit in next therapy session to ensure more (I) in the home environment. Pt is typically set-up A for footwear with pt requiring more (A) today secondary to fatigue and pain.) Toileting Hygiene (QC): 4 (SBA with toileting with pt able to manage clothing. Pt voided seated on BSC over toilet. ) Toilet Transfer (QC): 4 (SBA/CGA for toilet transfer with pt utilizing GB's; BSC over toilet) Assessment/Plan Assessment and Plan Assess & Plan/Chief Complaint Assessment: s/p fall on concrete steps sustaining SDH, facial fractures, pelvic fractures and sustaining brain injury with LOC DM HTN BPH h/o prostate cancer Current constipation-resolved CKD Plan: PT OT ST to help regain cognition Monitor BP and sugar Home meds 05/01/2023: Monitor closely Accuchecks with SSI Levemir 10 units at night 05/02/2023: Monitor sugar 05/03/2023: Supportive care Monitor blood sugars 05/04/2023: Supportive care Monitor closely 05/05/2023: Monitor closely Monitor pain 05/06/2023: Monitor closely Fall risk 05/07/2023: Supportive care Monitor sugars 05/08/2023: Monitor closely Pain control 05/09/2023: Monitor pain DC planned 05/10/2023: Discharge home on Saturday Continue therapy (1) Subdural hematoma MARCIO COHN DO May 10, 2023 05:12
[2023-05-10] MEDS: THERAPEUTIC MULTIVITAMIN W/MINERALS TABLET PO SCH (06:25)
[2023-05-10] MEDS: SUCRALFATE 1 GM TABLET PO SCH ×4 (06:25→21:44)
[2023-05-10] MEDS: inSUlin ASPART 1 UNIT/0.01 ML (PER UNIT) SC SCH ×4 (06:30→21:36)
[2023-05-10 07:30] VITALS: BP 143/79
[2023-05-10] MEDS: oxyCODONE IMMEDIATE RELEASE 5 MG TABLET PO PRN (07:37)
[2023-05-10] MEDS ORDERED: INSU100I32 SQ (08:36)
[2023-05-10] MEDS ORDERED: DULA1.5P2 SQ (08:36)
[2023-05-10] MEDS ORDERED: CYCL1DRO18 OU (08:36)
[2023-05-10] MEDS ORDERED: GABA300C PO (08:36)
[2023-05-10] MEDS ORDERED: FENO145T26 PO (08:36)
[2023-05-10] MEDS ORDERED: ROPI2TAB52 PO (08:36)
[2023-05-10] MEDS ORDERED: EZET10TA49 PO (08:36)
[2023-05-10] MEDS: ASPIRIN 81 MG CHEWABLE TABLET PO SCH (08:40)
[2023-05-10] MEDS: PANTOPRAZOLE 40 MG TABLET PO SCH (08:40)
[2023-05-10] MEDS: EMPAGLIFLOZIN 10 MG TABLET PO SCH (08:40)
[2023-05-10] MEDS: OMEGA 3 (FISH OIL) 1000 MG CAP PO SCH ×3 (08:40→18:51)
[2023-05-10] MEDS: AMANTADINE 100 MG CAPSULE PO SCH ×2 (08:40→21:43)
[2023-05-10] MEDS: DOCUSATE SODIUM 100 MG CAPSULE PO SCH ×2 (08:40→21:44)
[2023-05-10] MEDS: metFORMIN 500 MG TABLET PO SCH ×2 (08:40→18:51)
[2023-05-10] MEDS: VITAMIN E PO SCH (08:40)
[2023-05-10] MEDS: amLODIPine 10 MG TABLET PO SCH (08:40)
[2023-05-10] MEDS: TAMSULOSIN 0.4 MG (FLOMAX) CAP PO SCH (08:40)
[2023-05-10] MEDS: SENNOSIDES 8.6 MG TABLET PO SCH ×2 (08:43→21:44)
--- NOTE | 2023-05-10 09:44 | Occupational Ther Daily Note ---
OT Current Status-Daily Note Subjective Pt alert, lying in bed. Family training completed today with son-in-law. Pt to discharge to home with family. Pt c/o pain with movement, nrsg had brought pain meds prior to therapy session. Mental Status/Objective Patient Orientation: Person, Place, Time, Situation ADL-Treatment Family had questions about toileting, shower, shower transfer and steps. Pt demonstrated independence with toileting and toilet transfer. Pt independent with bed mobility. Pt demonstrated ability to complete tub/shower transfer with shower bench with supervision. CGA to step in/out of tub using grabbars. Pt able to complete stairs using B hands on one rail with CGA for safety. Pt has one rail at home. After therapy, pt lying in bed with call light/phone in reach. All needs met in room. Therapy Code Descriptions/Definitions Functional [place] Measure: 0=Not Assessed/NA 4=Minimal Assistance 1=Total Assistance 5=Supervision or Setup 2=Maximal Assistance 6=Modified [place] 3=Moderate Assistance 7=Complete IndependenceSCALE: Activities may be completed with or without assistive devices. 7-Rswxzxdjcb-ivyevqv completes the activity by him/herself with no assistance from a helper. 5-Set-up or Clean-up Assistance-helper sets up or cleans up; patient completes activity. [place] assists only prior to or following the activity. 4-Supervision or Touching Assistance-helper provides verbal cues and/or touching/steadying and/or contact guard assistance as patient completes activity. Assistance may be provided throughout the activity or intermittently. 3-Partial/Moderate Assistance-helper does LESS THAN HALF the effort. [place] lifts, holds or supports trunk or limbs, but provides less than half the effort. 2-Substantial/Maximal Assistance-helper does MORE THAN HALF the effort. [place] lifts or holds trunk or limbs and provides more than half the effort. 5-Jnsehgwzl-jgxyel does ALL the effort. Patient does none of the effort to complete the activity. Or, the assistance of 2 or more helpers is required for the patient to complete the activity. If activity was not attempted, code reason: 7-Patient Refused. 9-Not Applicable-not attempted and the patient did not perform the activity before the current illness, exacerbation or injury. 10-Not Attempted due to Environmental Limitations-(lack of equipment, weather restraints, etc.). 88-Not Attempted due to Medical Conditions or Safety Concerns. Toileting Hygiene (QC): 6 Toilet Transfer (QC): 6 Discussed with son-in-law pt's difficulties with sequencing/problem solving when obstacle occur during routine/new tasks. Pt requires VC for safety. OT Short Term Goals Short Term Goals Time Frame: May 02, 2023 OT Boot Repairer Goals Boot Repairer Goals Acute change in mental status: 1 Inattention: 0 Disorganized thinkin Altered level of consciousness: 0 Eating (QC): 6 Oral Hygiene (QC): 6 Toileting Hygiene (QC): 4 Shower/Bathe Self (QC): 4 Upper Body Dressing (QC): 6 Lower Body Dressing (QC): 4 On/Off Footwear (QC): 6 1=Demonstrate adherence to instructed precautions during ADL tasks. 2=Patient will verbalize/demonstrate understanding of assistive devices/modifications for ADL. 3=Patient will improve strength/tolerance for activity to enable patient to perform ADL's. OT Education/Plan Problem List/Assessment Assessment: Decreased Safety Aware, Impaired Self-Care Skills Discharge Recommendations Plan/Recommendations: Continue POC Treatment Plan/Plan of Care Patient would benefit from OT for education, treatment and training to promote independence in ADL's, mobility, safety and/or upper extremity function for ADL's. Plan of Care: ADL Retraining, Cognitive Retraining, Functional Mobility, Group Exercise/Act as Ind, UE Funct Exercise/Act, UE Neuromus Re-Ed/Coord Treatment Duration: May 14, 2023 Frequency: At least 5 of 7 days/Wk (IRF) Estimated Hrs Per Day: 1.5 hours per day Agreement: Yes Rehab Potential: Good Time Start Time: 08:45 Stop Time: 09:15 DATE: May 10, 2023 Total Time Billed (hr/min): 30 Billed Treatment Time 1 visit-FA 1 (20 min) ADL 1 (10 min) JACY JAMIL May 10, 2023 09:44
[2023-05-10] MEDS: ONDANSETRON 4 MG ORAL DISSOLVE TABLET PO PRN (11:18)
--- NOTE | 2023-05-10 11:32 | Occupational Ther Daily Note ---
OT Current Status-Daily Note Subjective Pt consented to OT session this A.M. Pt seated on [facility] over toilet upon entering room where pt was finishing toileting. Pt performed ADLs (see scores below). After pt performed bathing, pt was seated in bedside recliner with RN present in room administering medications. Pt stated he felt nauseous. After a few minutes, pt began vomiting and RN aware. Pt returned to semi-reclined position in bed at the end of session with pt reporting he did feel some what better. Ending session, pt remained semi-reclined in bed with needs/call light in reach and RN aware of pt's disposition. Pain Comment: Pt reported pain when sitting, but did not give a pain score. Mental Status/Objective Patient Orientation: Person, Place, Time, Situation ADL-Treatment Therapy Code Descriptions/Definitions Functional [place] Measure: 0=Not Assessed/NA 4=Minimal Assistance 1=Total Assistance 5=Supervision or Setup 2=Maximal Assistance 6=Modified [place] 3=Moderate Assistance 7=Complete IndependenceSCALE: Activities may be completed with or without assistive devices. 1-Wxjgqnlyph-foovozw completes the activity by him/herself with no assistance from a helper. 5-Set-up or Clean-up Assistance-helper sets up or cleans up; patient completes activity. [place] assists only prior to or following the activity. 4-Supervision or Touching Assistance-helper provides verbal cues and/or touching/steadying and/or contact guard assistance as patient completes activity. Assistance may be provided throughout the activity or intermittently. 3-Partial/Moderate Assistance-helper does LESS THAN HALF the effort. [place] lifts, holds or supports trunk or limbs, but provides less than half the effort. 2-Substantial/Maximal Assistance-helper does MORE THAN HALF the effort. [place] lifts or holds trunk or limbs and provides more than half the effort. 1-Nayrtmflg-ufcqmm does ALL the effort. Patient does none of the effort to complete the activity. Or, the assistance of 2 or more helpers is required for the patient to complete the activity. If activity was not attempted, code reason: 7-Patient Refused. 9-Not Applicable-not attempted and the patient did not perform the activity before the current illness, exacerbation or injury. 10-Not Attempted due to Environmental Limitations-(lack of equipment, weather restraints, etc.). 88-Not Attempted due to Medical Conditions or Safety Concerns. Eating (QC): 6 ((I) with feeding) Oral Hygiene (QC): 6 ((I) with oral care while standing) Bathing Location: L Arm, R Arm, L Upper Leg, R Upper Leg, L Lower Leg (including foot), R Lower Leg (including foot), Chest, Abdomen, Buttocks, Perineal Area Shower/Bathe Self (QC): 6 ((I) with bathing while seated on built in shower bench with pt utilizing GB's, hand held shower head, and long handled sponge. Pt required no verbal cues while performing bathing.) Upper Body Dressing (QC): 6 ((I) with UBD in seated position) Lower Body Dressing (QC): 6 ((I) with donning/doffing pants and underwear) On/Off Footwear: 6 ((I) with donning/doffing socks seated in chair with pt performing figure 4 position.) Toileting Hygiene (QC): 6 ((I) with toileting with pt voiding in toilet anf able to manage clothing.) Toilet Transfer (QC): 6 (Pt performed toilet transfer with BSC over toilet with pt utilizing GB's for safety) Pt requires no verbal/visual/tactile cues to complete ADLs and pt able to s equence tasks better compared to initial evaluation. Education OT Patient Education: Energy conservation, Exercise program, Home exercise program, Modified ADL techniques, Progress toward Goal/Update tx plan, Purpose of tx/functional activities, Reviewed precautions, Rehab process, Safety issues, Transfer techniques, Use of adapted equipment Teaching Recipient: Patient Teaching Methods: Demonstration, Discussion Response to Teaching: Verbalize Understanding, Return Demonstration BIMS CAM BIMS Expression of Ideas and Wants: Without Difficulty Understanding Verbal Content: Understands Brief Interview/Mental Status: Yes IRF ASHLEIGH BIMS: IRF ASHLEIGH BIMS Response (Comments) Value Repitition of Three Words Three 3 Recalls Socks Yes, No Cue Required 2 Recalls Blue Yes, No Cue Required 2 Recalls Bed Yes, No Cue Required 2 Year Correct 3 Month Accurate Within 5 Days 2 Day Correct 1 Total [address] No CAM Mental Status Change/Baseline: 0 Inattention: 0 Disorganized thinkin Altered level of consciousness: 0 OT Short Term Goals Short Term Goals Time Frame: May 02, 2023 OT Custodial Goals Custodial Goals Acute change in mental status: 1 Inattention: 0 Disorganized thinkin Altered level of consciousness: 0 Eating (QC): 6 (MET) Oral Hygiene (QC): 6 (MET) Toileting Hygiene (QC): 4 (MET) Shower/Bathe Self (QC): 4 (MET) Upper Body Dressing (QC): 6 (MET) Lower Body Dressing (QC): 4 (MET) On/Off Footwear (QC): 6 (MET) 1=Demonstrate adherence to instructed precautions during ADL tasks. 2=Patient will verbalize/demonstrate understanding of assistive devices/modifications for ADL. 3=Patient will improve strength/tolerance for activity to enable patient to perform ADL's. OT Education/Plan Discharge Recommendations Plan/Recommendations: Continue POC Equpiment Recommendations-D/C: Bath Chair Comment Pt to purchase a TTB at time of discharge to ensure safety when performing ADLs in the home environment Treatment Plan/Plan of Care Treatment,Training & Education: Yes Patient would benefit from OT for education, treatment and training to promote independence in ADL's, mobility, safety and/or upper extremity function for ADL's. Plan of Care: ADL Retraining, Cognitive Retraining, Functional Mobility, Group Exercise/Act as Ind, UE Funct Exercise/Act, UE Neuromus Re-Ed/Coord Treatment Duration: May 14, 2023 Frequency: At least 5 of 7 days/Wk (IRF) Estimated Hrs Per Day: 1.5 hours per day Agreement: Yes Rehab Potential: Good Time Start Time: 10:45 Stop Time: 11:45 DATE: May 10, 2023 Total Time Billed (hr/min): 60 Billed Treatment Time 60 minutes ADL 4 SALOME SMITH OT May 10, 2023 11:32
--- NOTE | 2023-05-10 11:37 | Physical Therapy Daily Note ---
PT Daily Note-Current Subjective Pt is agreeable to PT. Pt reported R hip pain at 6/10. Pain Numeric Pain Scale: 6 Location: Right Location Body Site: Hip Section J - Health Conditions 1. Rarely or not at all 2. Occasionally 3. Frequently 4. Almost constantly 8. Unable to answer Pain Effect on Sleep: 1 Pain Interference with Therapy: 2 Pain Interference w/Day-to-Day: 2 Transfers SCALE: Activities may be completed with or without assistive devices. 8-Qjbbzmexzy-tsrioxd completes the activity by him/herself with no assistance from a helper. 5-Set-up or Clean-up Assistance-helper sets up or cleans up; patient completes activity. [place] assists only prior to or following the activity. 4-Supervision or Touching Assistance-helper provides verbal cues and/or touching/steadying and/or contact guard assistance as patient completes activity. Assistance may be provided throughout the activity or intermittently. 3-Partial/Moderate Assistance-helper does LESS THAN HALF the effort. [place] lifts, holds or supports trunk or limbs, but provides less than half the effort. 2-Substantial/Maximal Assistance-helper does MORE THAN HALF the effort. [place] lifts or holds trunk or limbs and provides more than half the effort. 0-Hmjwjkfra-jpaoyx does ALL the effort. Patient does none of the effort to complete the activity. Or, the assistance of 2 or more helpers is required for the patient to complete the activity. If activity was not attempted, code reason: 7-Patient Refused. 9-Not Applicable-not attempted and the patient did not perform the activity before the current illness, exacerbation or injury. 10-Not Attempted due to Environmental Limitations-(lack of equipment, weather restraints, etc.). 88-Not Attempted due to Medical Conditions or Safety Concerns. Roll Left & Right (QC): 6 Sit to Lying (QC): 6 Lying to Sitting/Side of Bed(Q: 6 Sit to Stand (QC): 6 Chair/Vyt-af-Bjeke Xfer(QC): 6 Toilet Transfer (QC): 6 Car Transfer (QC): 6 Weight Bearing Right Lower Extremity: Right Weight Bearing/Tolerated Left Lower Extremity: Left Weight Bearing/Tolerated Gait Training Does the Patient Walk?: Yes Distance: 190ft Walk 10 feet (QC): 6 Walk 50 ft with 2 Turns(QC): 6 Walk 150 ft (QC): 6 Walking 10ft/uneven surface-QC: 6 Gait Assistive Device: FWW Wheelchair Training Does the Pt Use a Wheelchair?: No Wheel 50 ft with 2 turns (QC): 9 Wheel 150 ft (QC): 9 Type of Wheelchair: N/A Stair Training Stair Training: Handrails/: No handrail #of Steps: 12 1 Step (curb) (QC): 6 4 Steps (QC): 6 12 Steps (QC): 6 Stairs: Pattern: Step to Balance Picking up an Object (QC): 6 (with cat tender ) Treatments QCs completed on this date, as the pt is discharging home on 05/12/23. Pt denies any questions or concerns. Pt completed all aspects of bed mobility and functional transfers with Mod I. Pt ambulated 190ft, 155ft, and 50ft x 2 with the FWW and Mod I. Pt is Mod I with steps with 1 HR. Pt edu on HEP, with handout provided. Pt completed seated B LE Ther Ex x 15 reps each with the green Tband. Pt completed 15 min on the nu-step on level 3. After treatment session, pt sitting on the toilet with call light in reach, as OT was getting ready to work with the pt/shower. All needs met. Assessment Current Status: Good Progress Pt tolerated PT well, with good effort; pt has progressed well with PT and has met all set goals; ready to d/c home on 05/12/23 with family support and [facility] PT [facility] Goals Perforating Machine Operator Goals PT Perforating Machine Operator Goals Time Frame: May 21, 2023 Roll Left & Right (QC): 6 Sit to Lying (QC): 6 Lying-Sitting on Side/Bed(QC): 6 Sit to Stand (QC): 6 Chair/Wbt-hr-Yeybl Xfer(QC): 6 Toilet Transfer (QC): 6 Car Transfer (QC): 6 Does the Patient Walk: Yes Walk 10 feet (QC): 6 (with FWW) Walk 50ft with 2 Turns (QC): 6 Walk 150 ft (QC): 6 Walking 10ft on Uneven Surface: 6 1 Step (curb) (QC): 5 4 Steps (QC): 5 12 Steps (QC): 5 Picking up an Object (QC): 6 (with cat tender) Does the Pt use WC or Scooter?: No Wheel 50 feet with 2 turns (QC: 9 Type: N/A Wheel 150 feet: 9 Type: N/A PT Plan Problem List Problem List: Activity Tolerance, Functional Strength, Safety, Balance, Gait, Transfer, Bed Mobility, ROM Treatment/Plan Treatment Plan: Continue Plan of Care Treatment Plan: Bed Mobility, Education, Functional Activity Ilya, Functional Strength, Group Therapy, Gait, Safety, Therapeutic Exercise, Transfers Treatment Duration: May 21, 2023 Frequency: At least 5 of 7 days/Wk (IRF) Estimated Hrs Per Day: 1.5 hours per day Patient and/or Family Agrees t: Yes Safety Risks/Education Patient Education: Gait Training, Transfer Techniques, Steps, Issued Written HEP, Correct Positioning, Safety Issues Teaching Recipient: Patient Teaching Methods: Demonstration, Discussion Response to Teaching: Verbalize Understanding, Return Demonstration Discharge Recommendations Therapy Discharge Recommendati: Home & Family, Post Acute PT Equpiment Recommendations-D/C: None Discharge Status/Home Program Cont per POC; d/c on 05/12/23 to home with family support and C Barriers to Progress Pain/weakness Target Placement Home with family support and HHC Time Time In: 930 Time Out: 1045 DATE: May 10, 2023 Total Billed Treatment Time: 75 Total Billed Treatment 75 min from [id number] 1 visit EX x 1 GT x 2 FA x 2 JEANNETTE POWER PT May 10, 2023 11:37
--- NOTE | 2023-05-10 14:49 | Speech Therapy Daily Note ---
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 He reported being sick in a.m., refused lunch meal. Objective Problem solving for phone use to access banking mansi on the pt's phone was targeted. The pt required assist to find banking icon on initial trial, subsequently able to locate icon independently for remaining trials. The pt was able to retrieve his password (protected from [employer] view) and access his accounts. He identified transactions in his account, and was able to recall/state purpose of each transaction with 90% accuracy. Temporal problem-solving was then completed for elapsed time over the past week, with min/mod assist needed to calculate date intervals. Conversational speech was appropriate, with one pause for word retrieval noted during session. Assessment Assessment Current Status: Good Progress Treatment Plan Discontinue ST Speech Short Term Goals Short Term Goals Short Term Goals 1. The patient will display 80% accuracy with memory exercises through utilization of functional memory strategies and mild clinician cueing. Time Frame-STG: Seven Days. Speech Reviewer Sales Goals Reviewer Sales Goals 1. The patient will demonstrate improved cognitive linguistic skills for safe discharge to the least restrictive environment. Time Frame: Ten Days. Speech-Plan Patient/Family Goals Patient/Family Goals: Pt is planning to d/c home to his daughter's house 05/12/23. Treatment Plan Speech Therapy Treatment Plan: Discontinue ST Treatment Duration: May 10, 2023 Frequency: Modified Program (IRF) Estimated Hrs Per Day: .5 hour per day Rehab Potential: Good Safety Risks/Education Teaching Recipient: Patient Teaching Methods: Discussion Response to Teaching: Verbalize Understanding Education Topics Provided: Finances to be completed with family assistance Discharge Recommendations Intermittent Supervision, Home & Family Time Speech Therapy Time In: 13:20 Speech Therapy Time Out: 14:00 DATE: May 10, 2023 Total Billed Time: 40 Billed Treatment Time 1(SLTS) BERTHA NAIR May 10, 2023 14:49
--- NOTE | 2023-05-10 14:54 | Therapy Team Discharge Summary ---
Therapy Discharge Summary Discharge Recommendations Date of Discharge Physical Therapy Roll Left to Right (QC): 6 Sit to Lying (QC): 6 Lying to Sitting/Side of Bed(Q: 6 Sit to Stand (QC): 6 Chair/Opn-tg-Nmzjn Xfer(QC): 6 Toilet Transfer (QC): 6 Car Transfer (QC): 6 Does the Patient Walk: Yes Mode of Locomotion: Walk Anticipated Mode of Locomotion: Walk Walk 10 feet (QC): 6 Walk 50 ft with 2 Turns(QC): 6 Walk 150 ft (QC): 6 Walking 10ft on uneven surface: 6 Distance: 60' x 2 Gait Assistive Device: FWW Does the Pt Use a Wheelchair: No Wheel 50 ft with 2 turns (QC): 9 Wheel 150 ft (QC): 9 Type of Wheelchair: N/A #of Steps: 12 1 Step (curb) (QC): 6 4 Steps (QC): 6 12 Steps (QC): 6 Walking Assistive Device: Walker Balance Sitting Static: Good Balance Sitting Dynamic: Fair Balance-Standing Static: Fair Picking up an Object (QC): 6 (with chipper operator ) Occupational Therapy Decreased Safety Aware, Impaired Self-Care Skills Eating (QC): 6 ((I) with feeding) Oral Hygiene (QC): 6 ((I) with oral care while standing) Shower/Bathe Self (QC): 6 ((I) with bathing while seated on built in shower bench with pt utilizing GB's, hand held shower head, and long handled sponge. Pt required no verbal cues while performing bathing.) Upper Body Dressing (QC): 6 ((I) with UBD in seated position) Lower Body Dressing (QC): 6 ((I) with donning/doffing pants and underwear) On/Off Footwear (QC): 6 ((I) with donning/doffing socks seated in chair with pt performing figure 4 position.) Toileting Hygiene (QC): 6 ((I) with toileting with pt voiding in toilet anf able to manage clothing.) Speech-Language Pathology The pt demonstrated gains on goals. He will continue to require assi stance/supervision for complex problem solving, including managing finances, medications, and appointment schedule. Written schedules and planners are recommended for improved memory and organization. He is able to effectively communicate wants, needs, and ideational complex ideas. PT Credit Reporter Goals Halfway Goals PT Credit Reporter Goals Time Frame: May 21, 2023 Roll Left to Right (QC): 6 Sit to Lying (QC): 6 Lying-Sitting on Side/Bed(QC): 6 Sit to Stand (QC): 6 Chair/Stl-xl-Vxobt Xfer(QC): 6 Toilet/Commode Transfer (QC): 6 Car Transfer (QC): 6 Does the Patient Walk: Yes Walk 10 feet (QC): 6 (with FWW) Walk 10ft-Uneven Surface(QC): 6 Walk 50ft with 2 Turns (QC): 6 Walk 150 ft (QC): 6 Does the Pt use WC or Scooter?: No Wheel 50 feet with 2 turns (QC: 9 Type: N/A Wheel 150 feet: 9 Type: N/A 1 Step (curb) (QC): 5 4 Steps (QC): 5 12 Steps (QC): 5 Picking up an Object (QC): 6 (with chipper operator) OT Credit Reporter Goals Halfway Goals Acute change in mental status: 0 Inattention: 0 Disorganized thinkin Altered level of consciousness: 0 Eating (QC): 6 (MET) Oral Hygiene (QC): 6 (MET) Toileting Hygiene (QC): 4 (MET) Shower/Bathe Self (QC): 4 (MET) Upper Body Dressing (QC): 6 (MET) Lower Body Dressing (QC): 4 (MET) On/Off Footwear (QC): 6 (MET) 1=Demonstrate adherence to instructed precautions during ADL tasks. 2=Patient will verbalize/demonstrate understanding of assistive devices/modifications for ADL. 3=Patient will improve strength/tolerance for activity to enable patient to perform ADL's. Speech Credit Reporter Goals Credit Reporter Goals 1. The patient will demonstrate improved cognitive linguistic skills for safe discharge to the least restrictive environment. Time Frame: Ten Days. BERTHA NAIR May 10, 2023 14:54
[2023-05-10 20:30] VITALS: BP 128/62
[2023-05-10] MEDS: inSUlin DETERMIR 1 UNIT/0.01 ML (CHARGE PER UNIT) SQ SCH (21:43)
[2023-05-11] MEDS: ACETAMINOPHEN 325 MG TABLET PO SCH ×4 (03:44→21:46)
[2023-05-11] MEDS: THERAPEUTIC MULTIVITAMIN W/MINERALS TABLET PO SCH (06:32)
[2023-05-11] MEDS: SUCRALFATE 1 GM TABLET PO SCH ×4 (06:32→21:45)
[2023-05-11] MEDS: inSUlin ASPART 1 UNIT/0.01 ML (PER UNIT) SC SCH ×4 (06:34→21:46)
--- NOTE | 2023-05-11 06:51 | PM&R Progress Note ---
Subjective HPI/CC On Admission Date Seen by Provider: May 11, 2023 Time Seen by Provider: 12:00 Subjective/Events-last exam 05/11/2023: No major issues Ready for DC tomorrow Left hand pain still an issue so will get xray 05/10/2023: Patient doing really well Set for discharge Saturday No falls Pain is pretty well controlled 05/09/2023: No major issues Pain controlled BM+ Ready for DC soon 05/08/2023: Doing a bit better Cognition is improved No falls Pain controlled BM+ 05/07/2023: Patient doing a lot better Less pain Ambulating slowly but further Reviewed meds and labs Blood sugars improved 05/06/2023: No major issues Labs stable Eating well Less confusion 05/05/2023: Patient doing really well Uivcbh-nr-ddb is at the bedside No falls No pain Discharge plan for 05/12/23 05/04/2023: Patient doing much better No pain is reported No falls Cognition improved Blood sugar improved 05/03/2023: Patient doing well Improved cognition Moving around a lot better Less pain Blood sugars improved with long-acting insulin 05/02/2023: No major issues Moving slowly but moving well No falls No pain except pelvic fracture 05/01/2023: Doing better Slow ambulation No falls No pain except when he walks Reviewed labs Eating ok Cognition is deficient Review of Systems General: Fatigue, Malaise Objective Exam Vital Signs Vital Signs Date Time Temp Pulse Resp B/P (MAP) Pulse Ox O2 Delivery O2 Flow Rate FiO2 05/11/23 09:55 36.2 52 18 121/60 (80) 99 Room Air Capillary Refill : General Appearance: No Apparent Distress, WD/WN, Chronically ill HEENT: PERRL/EOMI, Normal ENT Inspection, Pharynx Normal Neck: Full Range of Motion, Normal Inspection, Non Tender, Supple, Carotid B ruit Respiratory: Chest Non Tender, Lungs Clear, Normal Breath Sounds, No Accessory Muscle Use, No Respiratory Distress Cardiovascular: Regular Rate, Rhythm, No Edema, No Gallop, No JVD, No Murmur, Normal Peripheral Pulses Gastrointestinal: Normal Bowel Sounds, No Organomegaly, No Pulsatile Mass, Non Tender, Soft Back: Normal Inspection, No CVA Tenderness, No Vertebral Tenderness Extremity: Normal Capillary Refill, Normal Inspection, Normal Range of Motion (except legs are limited due to pelvic fracture pain), Non Tender, No Calf Tenderness, No Pedal Edema Neurologic/Psychiatric: Alert, Oriented x3 (poor recall), sand conditioner machine II-XII Norm as Tested, Abnormal Gait, Depressed Affect, Motor Weakness (all extremities 3/5) Skin: Normal Color, Warm/Dry Lymphatic: No Adenopathy Results/Procedures Lab Patient resulted labs reviewed. FIM Transfers Therapy Code Descriptions/Definitions Functional [place] Measure: 0=Not Assessed/NA 4=Minimal Assistance 1=Total Assistance 5=Supervision or Setup 2=Maximal Assistance 6=Modified [place] 3=Moderate Assistance 7=Complete IndependenceSCALE: Activities may be completed with or without assistive devices. 2-Oubrxeopth-jtepqcq completes the activity by him/herself with no assistance from a helper. 5-Set-up or Clean-up Assistance-helper sets up or cleans up; patient completes activity. [place] assists only prior to or following the activity. 4-Supervision or Touching Assistance-helper provides verbal cues and/or touching/steadying and/or contact guard assistance as patient completes activity. Assistance may be provided throughout the activity or intermittently. 3-Partial/Moderate Assistance-helper does LESS THAN HALF the effort. [place] lifts, holds or supports trunk or limbs, but provides less than half the effort. 2-Substantial/Maximal Assistance-helper does MORE THAN HALF the effort. [place] lifts or holds trunk or limbs and provides more than half the effort. 1-Oqutjwdej-wqbqor does ALL the effort. Patient does none of the effort to complete the activity. Or, the assistance of 2 or more helpers is required for the patient to complete the activity. If activity was not attempted, code reason: 7-Patient Refused. 9-Not Applicable-not attempted and the patient did not perform the activity before the current illness, exacerbation or injury. 10-Not Attempted due to Environmental Limitations-(lack of equipment, weather restraints, etc.). 88-Not Attempted due to Medical Conditions or Safety Concerns. Roll Left to Right (QC): 6 Sit to Lying (QC): 6 Sit to Stand (QC): 6 Chair/Ruq-hx-Jotgi Xfer(QC): 6 Car Transfer (QC): 6 Gait Training Does the Patient Walk?: Yes Distance: 190ft Walk 10 feet (QC): 6 Walk 50 ft with 2 Turns(QC): 6 Walk 150 ft (QC): 6 Walking 10ft/uneven surface-QC: 6 Gait Persons Needed: 1 Gait Assistive Device: FWW Wheelchair Training Does the Pt Use a Wheelchair?: No Wheel 50 ft with 2 turns (QC): 9 Wheel 150 ft (QC): 9 Type of Wheelchair: N/A Stair Training Stair Training: Handrails/: No handrail #of Steps: 12 1 Step (curb) (QC): 6 4 Steps (QC): 6 12 Steps (QC): 6 Stairs: Pattern: Step to Balance Picking up an Object (QC): 6 (with general ledger bookkeeper ) ADL-Treatment Eating (QC): 6 ((I) with feeding) Oral Hygiene (QC): 6 ((I) with oral care while standing) Bathing Location: L Arm, R Arm, L Upper Leg, R Upper Leg, L Lower Leg (including foot), R Lower Leg (including foot), Chest, Abdomen, Buttocks, Perineal Area Shower/Bathe Self (QC): 6 ((I) with bathing while seated on built in shower bench with pt utilizing GB's, hand held shower head, and long handled sponge. Pt required no verbal cues while performing bathing.) Upper Body Dressing (QC): 6 ((I) with UBD in seated position) Lower Body Dressing (QC): 6 ((I) with donning/doffing pants and underwear) On/Off Footwear (QC): 6 ((I) with donning/doffing socks seated in chair with pt performing figure 4 position.) Toileting Hygiene (QC): 6 ((I) with toileting with pt voiding in toilet anf able to manage clothing.) Toilet Transfer (QC): 6 (Pt performed toilet transfer with BSC over toilet with pt utilizing GB's for safety) Assessment/Plan Assessment and Plan Assess & Plan/Chief Complaint Assessment: s/p fall on concrete steps sustaining SDH, facial fractures, pelvic fractures and sustaining brain injury with LOC DM HTN BPH h/o prostate cancer Current constipation-resolved CKD Left hand pain Plan: PT OT ST to help regain cognition Monitor BP and sugar Home meds 05/01/2023: Monitor closely Accuchecks with SSI Levemir 10 units at night 05/02/2023: Monitor sugar 05/03/2023: Supportive care Monitor blood sugars 05/04/2023: Supportive care Monitor closely 05/05/2023: Monitor closely Monitor pain 05/06/2023: Monitor closely Fall risk 05/07/2023: Supportive care Monitor sugars 05/08/2023: Monitor closely Pain control 05/09/2023: Monitor pain DC planned 05/10/2023: Discharge home on Saturday Continue therapy 05/11/2023: Hand xray DC tomorrow (1) Subdural hematoma MARCIO COHN DO May 11, 2023 06:51
[2023-05-11 09:55] VITALS: BP 121/60
[2023-05-11] MEDS: AMANTADINE 100 MG CAPSULE PO SCH ×2 (09:58→21:46)
[2023-05-11] MEDS: metFORMIN 500 MG TABLET PO SCH ×2 (09:58→16:52)
[2023-05-11] MEDS: ASPIRIN 81 MG CHEWABLE TABLET PO SCH (09:58)
[2023-05-11] MEDS: TAMSULOSIN 0.4 MG (FLOMAX) CAP PO SCH (09:58)
[2023-05-11] MEDS: PANTOPRAZOLE 40 MG TABLET PO SCH (09:58)
[2023-05-11] MEDS: amLODIPine 10 MG TABLET PO SCH (09:58)
[2023-05-11] MEDS: VITAMIN E PO SCH (09:58)
[2023-05-11] MEDS: EMPAGLIFLOZIN 10 MG TABLET PO SCH (09:59)
[2023-05-11] MEDS: OMEGA 3 (FISH OIL) 1000 MG CAP PO SCH ×3 (09:59→16:52)
[2023-05-11] MEDS: DOCUSATE SODIUM 100 MG CAPSULE PO SCH ×2 (10:19→21:47)
[2023-05-11] MEDS: SENNOSIDES 8.6 MG TABLET PO SCH ×2 (10:20→21:47)
--- NOTE | 2023-05-11 16:26 | Diagnostic Imaging Report ---
INDICATION: Hand pain. EXAMINATION: Three views were obtained. FINDINGS: There are some degenerative changes of the 2nd and 3rd metacarpophalangeal joints. There is no fracture or dislocation. Soft tissues are unremarkable. IMPRESSION: 1. Degenerative changes of the 2nd and 3rd metacarpophalangeal joints. 2. No acute fracture or dislocation. Dictated by: Dictated on workstation # [id number]
[2023-05-11] MEDS ORDERED: FENO145T26 PO (21:25)
[2023-05-11] MEDS ORDERED: LISI10TA25 PO (21:25)
[2023-05-11] MEDS ORDERED: AMLO-251 PO (21:25)
[2023-05-11] MEDS ORDERED: ASPI-999 PO (21:25)
[2023-05-11] MEDS ORDERED: INSU100I32 SQ (21:25)
[2023-05-11] MEDS ORDERED: ACET325T38 PO (21:25)
[2023-05-11] MEDS ORDERED: EZET10TA49 PO (21:25)
[2023-05-11] MEDS ORDERED: DAPA10TA PO (21:25)
[2023-05-11] MEDS ORDERED: ONDA4TAB11 PO (21:26)
[2023-05-11] MEDS ORDERED: PANT40TA52 PO (21:26)
[2023-05-11] MEDS ORDERED: SUCR1TAB PO (21:26)
[2023-05-11] MEDS ORDERED: GABA300C PO (21:26)
[2023-05-11] MEDS ORDERED: OMEG100032 PO (21:26)
[2023-05-11] MEDS ORDERED: TMSL.4C PO (21:26)
[2023-05-11] MEDS ORDERED: METF-397 PO (21:26)
[2023-05-11] MEDS ORDERED: AMAN100C20 PO (21:26)
[2023-05-11] MEDS ORDERED: OXC5T PO (21:26)
[2023-05-11] MEDS ORDERED: ROPI2TAB52 PO (21:26)
--- NOTE | 2023-05-11 21:27 | D/C HH Face to Face Order ---
D/C Face to Face Orders Reconcile Patient Problems Problems Reviewed?: Yes Instructions for Patient [facility] Patient Instructions/FollowUp: pcp 1 week Physician to follow Patient: Kourtney Discharge Diet for Home: ADA Diet Patient Problems: head injury Patient Data-Allergies,Ht & Wt Patient Allergies: Coded Allergies: No Known Drug Allergies (Unverified , 07/31/10) Height (Feet): 5 Height (Inches): 11.00 Weight (Pounds): 200 Weight (Ounces): 0.0 Home Health Need/Face to Face Date of Face to Face: May 11, 2023 Clinical Findings: Generalized weakness and fatigue, Instability, Muscle weakness I have seen Pt iery-er-jxza: Yes Discharged To: Home Diagnosis/Conditions: Debility Patient is Homebound due to: Muscle weakness Homebound Status Due to the above stated illness, injury or surgical procedure (medical condition or diagnosis) and associated clinical findings, the patient is homebound because of his/her inability to leave home except with aid of a supportive device and/or person AND leaving the home requires a considerable and taxing effort or is medically contraindicated. Pt req the following assistanc: Walker Home Health Nursing Orders Home Health Services Order: Nursing Services, Shell Assembler-Evaluate & Treat, Physical Therapy-Evaluate & Treat Certify Stmt I certify that this patient is under my care and that I, a nurse practitioner or a physician; a resident assistant cna working with me, had a face to face encounter that - meets the physician face to face encounter requirements with this patient as dated. MARCIO COHN DO May 11, 2023 21:27
[2023-05-11] MEDS: inSUlin DETERMIR 1 UNIT/0.01 ML (CHARGE PER UNIT) SQ SCH (21:46)
[2023-05-12] MEDS: ACETAMINOPHEN 325 MG TABLET PO SCH ×3 (04:49→16:42)
--- NOTE | 2023-05-12 06:04 | Discharge Summary ---
Diagnosis/Chief Complaint Date of Admission Apr 30, 2023 at 13:00 Date of Discharge Discharge Date: May 12, 2023 Discharge Diagnosis Assessment: s/p fall on concrete steps sustaining SDH, facial fractures, pelvic fractures and sustaining brain injury with LOC DM HTN BPH h/o prostate cancer Current constipation-resolved CKD Left hand pain Plan: PT OT ST to help regain cognition Monitor BP and sugar Home meds 05/01/2023: Monitor closely Accuchecks with SSI Levemir 10 units at night 05/02/2023: Monitor sugar 05/03/2023: Supportive care Monitor blood sugars 05/04/2023: Supportive care Monitor closely 05/05/2023: Monitor closely Monitor pain 05/06/2023: Monitor closely Fall risk 05/07/2023: Supportive care Monitor sugars 05/08/2023: Monitor closely Pain control 05/09/2023: Monitor pain DC planned 05/10/2023: Discharge home on Saturday Continue therapy 05/11/2023: Hand xray DC tomorrow (1) Subdural hematoma Discharge Summary Discharge Physical Examination Allergies: Coded Allergies: No Known Drug Allergies (Unverified , 07/31/10) Vitals & I&Os Vital Signs Date Time Temp Pulse Resp B/P (MAP) Pulse Ox O2 Delivery O2 Flow Rate FiO2 05/12/23 08:00 Room Air 05/12/23 07:42 36.7 58 18 123/67 (85) 98 General Appearance: Alert, Oriented X3, Cooperative Respiratory: Clear to Auscultation Cardiovascular: Regular Rate Psych/Mental Status: Mental Status NL Hospital Course Was the Problem List Reviewed?: Yes Hospital course: Patient had an uneventful but lengthy hospital course after he was transferred from after multiple fractures of the face and brain bleed following fall on concrete steps at a dock at [facility]. He was sent up to assessed to have nonsurgical injuries. Cognition was an issue which cleared over time. Labs remained stable. Blood sugar managed with insulin. Home meds were restarted. Overall did very well had no events during hospital course and was discharged in improved condition. Labs (last 24 hrs) Laboratory Tests 04/30/23 13:44: Glucometer 177H 04/30/23 15:57: Glucometer 229H 04/30/23 20:41: Glucometer 183H 05/01/23 05:25: White Blood Count 7.6, Red Blood Count 4.15L, Hemoglobin 12.5L, Hematocrit 39L, Mean Corpuscular Volume 94, Mean Corpuscular Hemoglobin 30, Mean Corpuscular Hemoglobin Concent 32, Red Cell Distribution Width 12.9, Platelet Count 366, Mean Platelet Volume 10.0, Immature Granulocyte % (Auto) 1, Neutrophils (%) (Auto) 63, Lymphocytes (%) (Auto) 22, Monocytes (%) (Auto) 11, Eosinophils (%) (Auto) 3, Basophils (%) (Auto) 1, Neutrophils # (Auto) 4.8, Lymphocytes # (Auto) 1.7, Monocytes # (Auto) 0.8, Eosinophils # (Auto) 0.2, Basophils # (Auto) 0.0, Immature Granulocyte # (Auto) 0.1, Sodium Level 135, Potassium Level 4.2, Chloride Level 104, Carbon Dioxide Level 18L, Anion Gap 13, Blood Urea Nitrogen 44H, Creatinine 1.38H, Estimat Glomerular Filtration Rate 54, BUN/Creatinine Ratio 32, Glucose Level 150H, Calcium Level 9.0, Corrected Calcium 9.2, Total Bilirubin 0.9, Aspartate Amino Transf (AST/SGOT) 43H, Alanine Aminotransferase (ALT/SGPT) 86H, Alkaline Phosphatase 105, Total Protein 6.7, Albumin 3.8 05/01/23 11:02: Glucometer 201H 05/01/23 15:27: Glucometer 187H 05/01/23 21:12: Glucometer 166H 05/02/23 06:32: Glucometer 138H 05/02/23 10:48: Glucometer 179H 05/02/23 15:24: Glucometer 183H 05/02/23 20:14: Glucometer 155H 05/03/23 05:01: Glucometer 113H 05/03/23 10:54: Glucometer 209H 05/03/23 15:46: Glucometer 152H 05/03/23 20:31: Glucometer 145H 05/04/23 05:56: Glucometer 130H 05/04/23 10:24: Glucometer 207H 05/04/23 15:28: Glucometer 185H 05/04/23 20:59: Glucometer 155H 05/05/23 05:46: Glucometer 127H 05/05/23 10:08: Glucometer 190H 05/05/23 15:11: Glucometer 137H 05/05/23 21:16: Glucometer 203H 05/06/23 05:35: White Blood Count 8.4, Red Blood Count 3.91L, Hemoglobin 12.0L, Hematocrit 37L, Mean Corpuscular Volume 94, Mean Corpuscular Hemoglobin 31, Mean Corpuscular Hemoglobin Concent 33, Red Cell Distribution Width 13.2, Platelet Count 444H, Mean Platelet Volume 10.3, Immature Granulocyte % (Auto) 1, Neutrophils (%) (Auto) 67, Lymphocytes (%) (Auto) 21, Monocytes (%) (Auto) 9, Eosinophils (%) (Auto) 2, Basophils (%) (Auto) 1, Neutrophils # (Auto) 5.6, Lymphocytes # (Auto) 1.8, Monocytes # (Auto) 0.7, Eosinophils # (Auto) 0.2, Basophils # (Auto) 0.1, Immature Granulocyte # (Auto) 0.1, Sodium Level 133L, Potassium Level 4.2, Chloride Level 104, Carbon Dioxide Level 18L, Anion Gap 11, Blood Urea Nitrogen 40H, Creatinine 1.39H, Estimat Glomerular Filtration Rate 54, BUN/Creatinine Ratio 29, Glucose Level 117H, Calcium Level 8.7, Corrected Calcium 9.0, Total Bilirubin 0.5, Aspartate Amino Transf (AST/SGOT) 20, Alanine Aminotransferase (ALT/SGPT) 44, Alkaline Phosphatase 222H, Total Protein 6.5, Albumin 3.6 05/06/23 10:46: Glucometer 193H 05/06/23 15:16: Glucometer 160H 05/06/23 20:35: Glucometer 141H 05/07/23 05:30: Glucometer 102 05/07/23 11:10: Glucometer 124H 05/07/23 15:29: Glucometer 140H 05/07/23 21:05: Glucometer 154H 05/08/23 06:19: Glucometer 114H 05/08/23 11:40: SARS-CoV-2 RNA (RT-PCR) Not Detected 05/08/23 12:41: Glucometer 122H 05/08/23 16:37: Glucometer 92 05/08/23 21:51: Glucometer 144H 05/09/23 06:24: Glucometer 103 05/09/23 10:59: Glucometer 145H 05/09/23 15:35: Glucometer 122H 05/09/23 20:03: Glucometer 153H 05/10/23 06:27: Glucometer 120H 05/10/23 11:15: Glucometer 172H 05/10/23 16:25: Glucometer 110 05/10/23 21:31: Glucometer 158H 05/11/23 06:30: Glucometer 112H 05/11/23 12:11: Glucometer 160H 05/11/23 15:52: Glucometer 158H 05/11/23 20:17: Glucometer 221H 05/12/23 06:39: Glucometer 106 05/12/23 12:14: Glucometer 122H Pending Labs Laboratory Tests 04/30/23 13:44: Glucometer 177 04/30/23 15:57: Glucometer 229 04/30/23 20:41: Glucometer 183 05/01/23 05:25: White Blood Count 7.6, Red Blood Count 4.15, Hemoglobin 12.5, Hematocrit 39, Mean Corpuscular Volume 94, Mean Corpuscular Hemoglobin 30, Mean Corpuscular Hemoglobin Concent 32, Red Cell Distribution Width 12.9, Platelet Count 366, Mean Platelet Volume 10.0, Immature Granulocyte % (Auto) 1, Neutrophils (%) (Auto) 63, Lymphocytes (%) (Auto) 22, Monocytes (%) (Auto) 11, Eosinophils (%) (Auto) 3, Basophils (%) (Auto) 1, Neutrophils # (Auto) 4.8, Lymphocytes # (Auto) 1.7, Monocytes # (Auto) 0.8, Eosinophils # (Auto) 0.2, Basophils # (Auto) 0.0, Immature Granulocyte # (Auto) 0.1, Sodium Level 135, Potassium Level 4.2, Chloride Level 104, Carbon Dioxide Level 18, Anion Gap 13, Blood Urea Nitrogen 44, Creatinine 1.38, Estimat Glomerular Filtration Rate 54, BUN/Creatinine Ratio 32, Glucose Level 150, Calcium Level 9.0, Corrected Calcium 9.2, Total Bilirubin 0.9, Aspartate Amino Transf (AST/SGOT) 43, Alanine Aminotransferase (ALT/SGPT) 86, Alkaline Phosphatase 105, Total Protein 6.7, Albumin 3.8 05/01/23 11:02: Glucometer 201 05/01/23 15:27: Glucometer 187 05/01/23 21:12: Glucometer 166 05/02/23 06:32: Glucometer 138 05/02/23 10:48: Glucometer 179 05/02/23 15:24: Glucometer 183 05/02/23 20:14: Glucometer 155 05/03/23 05:01: Glucometer 113 05/03/23 10:54: Glucometer 209 05/03/23 15:46: Glucometer 152 05/03/23 20:31: Glucometer 145 05/04/23 05:56: Glucometer 130 05/04/23 10:24: Glucometer 207 05/04/23 15:28: Glucometer 185 05/04/23 20:59: Glucometer 155 05/05/23 05:46: Glucometer 127 05/05/23 10:08: Glucometer 190 05/05/23 15:11: Glucometer 137 05/05/23 21:16: Glucometer 203 05/06/23 05:35: White Blood Count 8.4, Red Blood Count 3.91, Hemoglobin 12.0, Hematocrit 37, Mean Corpuscular Volume 94, Mean Corpuscular Hemoglobin 31, Mean Corpuscular Hemoglobin Concent 33, Red Cell Distribution Width 13.2, Platelet Count 444, Mean Platelet Volume 10.3, Immature Granulocyte % (Auto) 1, Neutrophils (%) (Auto) 67, Lymphocytes (%) (Auto) 21, Monocytes (%) (Auto) 9, Eosinophils (%) (Auto) 2, Basophils (%) (Auto) 1, Neutrophils # (Auto) 5.6, Lymphocytes # (Auto) 1.8, Monocytes # (Auto) 0.7, Eosinophils # (Auto) 0.2, Basophils # (Auto) 0.1, Immature Granulocyte # (Auto) 0.1, Sodium Level 133, Potassium Level 4.2, Chloride Level 104, Carbon Dioxide Level 18, Anion Gap 11, Blood Urea Nitrogen 40, Creatinine 1.39, Estimat Glomerular Filtration Rate 54, BUN/Creatinine Ratio 29, Glucose Level 117, Calcium Level 8.7, Corrected Calcium 9.0, Total Bilirubin 0.5, Aspartate Amino Transf (AST/SGOT) 20, Alanine Aminotransferase (ALT/SGPT) 44, Alkaline Phosphatase 222, Total Protein 6.5, Albumin 3.6 05/06/23 10:46: Glucometer 193 05/06/23 15:16: Glucometer 160 05/06/23 20:35: Glucometer 141 05/07/23 05:30: Glucometer 102 05/07/23 11:10: Glucometer 124 05/07/23 15:29: Glucometer 140 05/07/23 21:05: Glucometer 154 05/08/23 06:19: Glucometer 114 05/08/23 11:40: SARS-CoV-2 RNA (RT-PCR) Not Detected 05/08/23 12:41: Glucometer 122 05/08/23 16:37: Glucometer 92 05/08/23 21:51: Glucometer 144 05/09/23 06:24: Glucometer 103 05/09/23 10:59: Glucometer 145 05/09/23 15:35: Glucometer 122 05/09/23 20:03: Glucometer 153 05/10/23 06:27: Glucometer 120 05/10/23 11:15: Glucometer 172 05/10/23 16:25: Glucometer 110 05/10/23 21:31: Glucometer 158 05/11/23 06:30: Glucometer 112 05/11/23 12:11: Glucometer 160 05/11/23 15:52: Glucometer 158 05/11/23 20:17: Glucometer 221 05/12/23 06:39: Glucometer 106 05/12/23 12:14: Glucometer 122 Discharge Home Medications: Active Scripts Active Fish Oil 1,000 mg Softgel ([place]-3/Dha/Epa/Fish Oil) 1,000 Mg (120 Mg-180 Mg) Capsule 1,000 Mg PO WM Flomax (Tamsulosin HCl) 0.4 Mg Cap 0.4 Mg PO DAILY@0800 Metformin HCl 500 Mg Tablet 500 Mg PO BID WITH MEALS Pantoprazole Sodium 40 Mg Tablet.dr 40 Mg PO DAILY Sucralfate 1 Gram Tablet 1 Gm PO ACHS Ondansetron Odt (Ondansetron) 4 Mg Tab.rapdis 4 Mg PO Q6H PRN Amantadine (Amantadine HCl) 100 Mg Capsule 100 Mg PO BID Oxyir Tablet (Oxycodone HCl) 5 Mg Tab 5 Mg PO Q6H PRN Ropinirole HCl 2 Mg Tablet 4 Mg PO HS TAKES 2 (2MG) TABS Neurontin (Gabapentin) 300 Mg Capsule 300 Mg PO TID Tresiba Flextouch U-100 (Insulin Degludec) 100 Unit/Ml (3 Ml) Insuln.pen 30 Units SQ HS Fenofibrate (Fenofibrate Nanocrystallized) 145 Mg Tablet 145 Mg PO HS Ezetimibe 10 Mg Tablet 10 Mg PO HS Aspirin 81 Mg Tab.chew 81 Mg PO DAILY Lisinopril 10 Mg Tablet 10 Mg PO DAILY Farxiga (Dapagliflozin Propanediol) 10 Mg Tablet 10 Mg PO DAILY Amlodipine Besylate 10 Mg Tablet 10 Mg PO DAILY Tylenol (Acetaminophen) 325 Mg Tablet 650 Mg PO Q6H TAKES 2 (325MG) TABS Reported cycloSPORINE 0.05 % Droperette 1 Drop OU BID Trulicity (Dulaglutide) 1.5 Mg/0.5 Ml Pen.injctr 1.5 Mg SQ SATURDAY Multivitamin 1 Each Tablet 1 Each PO DAILY Vitamin E (Vitamin E Mixed) 400 Unit Capsule 400 Unit PO DAILY [place] 3-6-9 1,200 mg Softgel (Fish Oil/Borage/Flax/Om3,6,9#1) 1,200 Mg Capsule 1 Ea PO TID Vitamin C (Ascorbate Calcium) 500 Mg Tablet 1,500 Mg PO DAILY TAKES 3 (500MG) TABS Instructions to patient/family Please see electronic discharge instructions given to patient. Diagnosis/Problems Diagnosis/Problems (1) Subdural hematoma MARCIO COHN DO May 12, 2023 06:04
[2023-05-12] MEDS: THERAPEUTIC MULTIVITAMIN W/MINERALS TABLET PO SCH (06:39)
[2023-05-12] MEDS: inSUlin ASPART 1 UNIT/0.01 ML (PER UNIT) SC SCH ×3 (06:39→17:53)
[2023-05-12] MEDS: SUCRALFATE 1 GM TABLET PO SCH ×4 (06:39→18:04)
[2023-05-12 07:42] VITALS: BP 123/67
[2023-05-12] MEDS: ASPIRIN 81 MG CHEWABLE TABLET PO SCH (07:47)
[2023-05-12] MEDS: TAMSULOSIN 0.4 MG (FLOMAX) CAP PO SCH (07:47)
[2023-05-12] MEDS: metFORMIN 500 MG TABLET PO SCH ×2 (07:47→18:15)
[2023-05-12] MEDS: AMANTADINE 100 MG CAPSULE PO SCH ×2 (07:47→19:44)
[2023-05-12] MEDS: VITAMIN E PO SCH (07:48)
[2023-05-12] MEDS: OMEGA 3 (FISH OIL) 1000 MG CAP PO SCH ×3 (07:48→18:04)
[2023-05-12] MEDS: EMPAGLIFLOZIN 10 MG TABLET PO SCH (07:48)
[2023-05-12] MEDS: amLODIPine 10 MG TABLET PO SCH (07:48)
[2023-05-12] MEDS: PANTOPRAZOLE 40 MG TABLET PO SCH (07:48)
[2023-05-12] MEDS: DOCUSATE SODIUM 100 MG CAPSULE PO SCH (07:51)
[2023-05-12] MEDS: SENNOSIDES 8.6 MG TABLET PO SCH (07:51)
[2023-05-12] MEDS: inSUlin DETERMIR 1 UNIT/0.01 ML (CHARGE PER UNIT) SQ SCH (19:45)
--- NOTE | 2023-05-13 10:46 | Therapy Team Discharge Summary ---
Therapy Discharge Summary Discharge Recommendations Date of Discharge May 12, 2023 at 19:47 Therapy D/C Recommendations: Home w/ Family Support, Physical Therapy Home Care Physical Therapy Pt is a 73 y/o male who fell down cement steps (8' height) with multiple fractures and head trauma. (L) parietal bleed, (R) zygomatic arch fx. (R) acetabular fx, (L) pelvic fx, 2nd rib fx, (R) costomanubrial fx. Admitted to ARU on 04/30/23. At OF, pt was Ind with no AD, driving and gardening. Upon PT eval, pt was Min A for functional mobility with the FWW. PT focused on B LE strength, overall functional mobility, endurance, balance/safety, and Ind. Pt progressed well with PT and met all set goals. Pt d/c from ARU to home with [facility] on 05/12/23; D/C from PT at this time. Roll Left to Right (QC): 6 Sit to Lying (QC): 6 Lying to Sitting/Side of Bed(Q: 6 Sit to Stand (QC): 6 Chair/Qdm-wc-Xupmr Xfer(QC): 6 Toilet Transfer (QC): 6 Car Transfer (QC): 6 Does the Patient Walk: Yes Mode of Locomotion: Walk Anticipated Mode of Locomotion: Walk Walk 10 feet (QC): 6 Walk 50 ft with 2 Turns(QC): 6 Walk 150 ft (QC): 6 Walking 10ft on uneven surface: 6 Distance: 190ft Gait Assistive Device: FWW Does the Pt Use a Wheelchair: No Wheel 50 ft with 2 turns (QC): 9 Wheel 150 ft (QC): 9 Type of Wheelchair: N/A #of Steps: 12 1 Step (curb) (QC): 6 4 Steps (QC): 6 12 Steps (QC): 6 Walking Assistive Device: Walker Balance Sitting Static: Normal Balance Sitting Dynamic: Good Balance-Standing Static: Good Picking up an Object (QC): 6 (with recreation professor ) Occupational Therapy Decreased Safety Aware, Impaired Self-Care Skills Eating (QC): 6 ((I) with feeding) Oral Hygiene (QC): 6 ((I) with oral care while standing) Shower/Bathe Self (QC): 6 ((I) with bathing while seated on built in shower bench with pt utilizing GB's, hand held shower head, and long handled sponge. Pt required no verbal cues while performing bathing.) Upper Body Dressing (QC): 6 ((I) with UBD in seated position) Lower Body Dressing (QC): 6 ((I) with donning/doffing pants and underwear) On/Off Footwear (QC): 6 ((I) with donning/doffing socks seated in chair with pt performing figure 4 position.) Toileting Hygiene (QC): 6 ((I) with toileting with pt voiding in toilet anf able to manage clothing.) PT Shelter Goals Inspector Subassembly Goals PT Inspector Subassembly Goals Time Frame: May 21, 2023 Roll Left to Right (QC): 6 Sit to Lying (QC): 6 Lying-Sitting on Side/Bed(QC): 6 Sit to Stand (QC): 6 Chair/Yxv-th-Fulrf Xfer(QC): 6 Toilet/Commode Transfer (QC): 6 Car Transfer (QC): 6 Does the Patient Walk: Yes Walk 10 feet (QC): 6 (with FWW) Walk 10ft-Uneven Surface(QC): 6 Walk 50ft with 2 Turns (QC): 6 Walk 150 ft (QC): 6 Does the Pt use WC or Scooter?: No Wheel 50 feet with 2 turns (QC: 9 Type: N/A Wheel 150 feet: 9 Type: N/A 1 Step (curb) (QC): 5 4 Steps (QC): 5 12 Steps (QC): 5 Picking up an Object (QC): 6 (with recreation professor) OT Shelter Goals Inspector Subassembly Goals Acute change in mental status: 0 Inattention: 0 Disorganized thinkin Altered level of consciousness: 0 Eating (QC): 6 (MET) Oral Hygiene (QC): 6 (MET) Toileting Hygiene (QC): 4 (MET) Shower/Bathe Self (QC): 4 (MET) Upper Body Dressing (QC): 6 (MET) Lower Body Dressing (QC): 4 (MET) On/Off Footwear (QC): 6 (MET) 1=Demonstrate adherence to instructed precautions during ADL tasks. 2=Patient will verbalize/demonstrate understanding of assistive devices/modifications for ADL. 3=Patient will improve strength/tolerance for activity to enable patient to perform ADL's. Speech Inspector Subassembly Goals Inspector Subassembly Goals 1. The patient will demonstrate improved cognitive linguistic skills for safe discharge to the least restrictive environment. Time Frame: Ten Days. JEANNETTE POWER PT May 13, 2023 10:46
--- NOTE | 2023-05-13 15:47 | Therapy Team Discharge Summary ---
Therapy Discharge Summary Discharge Recommendations Date of Discharge May 12, 2023 at 19:47 Therapy D/C Recommendations: Home w/ Family Support, Physical Therapy Home Care Physical Therapy Roll Left to Right (QC): 6 Sit to Lying (QC): 6 Lying to Sitting/Side of Bed(Q: 6 Sit to Stand (QC): 6 Chair/Pad-of-Ahzia Xfer(QC): 6 Toilet Transfer (QC): 6 Car Transfer (QC): 6 Does the Patient Walk: Yes Mode of Locomotion: Walk Anticipated Mode of Locomotion: Walk Walk 10 feet (QC): 6 Walk 50 ft with 2 Turns(QC): 6 Walk 150 ft (QC): 6 Walking 10ft on uneven surface: 6 Distance: 190ft Gait Assistive Device: FWW Does the Pt Use a Wheelchair: No Wheel 50 ft with 2 turns (QC): 9 Wheel 150 ft (QC): 9 Type of Wheelchair: N/A #of Steps: 12 1 Step (curb) (QC): 6 4 Steps (QC): 6 12 Steps (QC): 6 Walking Assistive Device: Walker Balance Sitting Static: Normal Balance Sitting Dynamic: Good Balance-Standing Static: Good Picking up an Object (QC): 6 (with audio visual engineer ) Occupational Therapy Pt was admitted to ARU facility on 04/30/23 with the diagnosis of SDH, closed fx of R acetabulum, and closed fx of ramus. Date of on set was 04/23/23. At initial evaluation, pt was set-up A with feeding, SBA for oral care, partial/mod A for bathing, SBA for UBD, sub/max A for LBD, total A for footwear, and sub/max A for toileting. Pt's therapy focused of therapeutic activities, therapeutic exercises, ADL performance, decreased cognition, and community reintegration. At discharge, pt was (I) with all ADLs. Pt met 7/ LTGs. Family education held with pt's daughter and son-in-law to discuss pt's CLOF and and DME needs. Pt discharged home on 05/12/23, with daughter and son-in-law where pt will receive HHOT at discharge. Discussed with pt and family that pt would benefit from TTB and BSC with family stating they will provide DME at discharge. Decreased Safety Aware, Impaired Self-Care Skills Eating (QC): 6 ((I) with feeding) Oral Hygiene (QC): 6 ((I) with oral care while standing) Shower/Bathe Self (QC): 6 ((I) with bathing while seated on built in shower bench with pt utilizing GB's, hand held shower head, and long handled sponge. Pt required no verbal cues while performing bathing.) Upper Body Dressing (QC): 6 ((I) with UBD in seated position) Lower Body Dressing (QC): 6 ((I) with donning/doffing pants and underwear) On/Off Footwear (QC): 6 ((I) with donning/doffing socks seated in chair with pt performing figure 4 position.) Toileting Hygiene (QC): 6 ((I) with toileting with pt voiding in toilet anf able to manage clothing.) PT Alf Goals Feed In Worker Goals PT Alf Goals Time Frame: May 21, 2023 Roll Left to Right (QC): 6 Sit to Lying (QC): 6 Lying-Sitting on Side/Bed(QC): 6 Sit to Stand (QC): 6 Chair/Iki-di-Werjz Xfer(QC): 6 Toilet/Commode Transfer (QC): 6 Car Transfer (QC): 6 Does the Patient Walk: Yes Walk 10 feet (QC): 6 (with FWW) Walk 10ft-Uneven Surface(QC): 6 Walk 50ft with 2 Turns (QC): 6 Walk 150 ft (QC): 6 Does the Pt use WC or Scooter?: No Wheel 50 feet with 2 turns (QC: 9 Type: N/A Wheel 150 feet: 9 Type: N/A 1 Step (curb) (QC): 5 4 Steps (QC): 5 12 Steps (QC): 5 Picking up an Object (QC): 6 (with audio visual engineer) OT Alf Goals Feed In Worker Goals Acute change in mental status: 0 Inattention: 0 Disorganized thinkin Altered level of consciousness: 0 Eating (QC): 6 (MET) Oral Hygiene (QC): 6 (MET) Toileting Hygiene (QC): 4 (MET) Shower/Bathe Self (QC): 4 (MET) Upper Body Dressing (QC): 6 (MET) Lower Body Dressing (QC): 4 (MET) On/Off Footwear (QC): 6 (MET) 1=Demonstrate adherence to instructed precautions during ADL tasks. 2=Patient will verbalize/demonstrate understanding of assistive devices/modifications for ADL. 3=Patient will improve strength/tolerance for activity to enable patient to perform ADL's. Speech Alf Goals Alf Goals 1. The patient will demonstrate improved cognitive linguistic skills for safe discharge to the least restrictive environment. Time Frame: Ten Days. SALOME SMITH, OT May 13, 2023 15:47
== END 2023-05-12 19:47 | disposition home health service (06) | DRG 950 ==
PROVIDERS: ADMIT Internal Medicine; ATTEND Internal Medicine
DX: S06.5XAD Traumatic subdural hemorrhage with loss of consciousness status unknown, subsequent encounter (principal); S06.6XAD Traumatic subarachnoid hemorrhage with loss of consciousness status unknown, subsequent encounter; S32.401D Unspecified fracture of right acetabulum, subsequent encounter for fracture with routine healing; S32.9XXD Fracture of unspecified parts of lumbosacral spine and pelvis, subsequent encounter for fracture with routine healing; S22.31XD Fracture of one rib, right side, subsequent encounter for fracture with routine healing; S02.40ED Zygomatic fracture, right side, subsequent encounter for fracture with routine healing; S22.21XD Fracture of manubrium, subsequent encounter for fracture with routine healing; E11.9 Type 2 diabetes mellitus without complications; Z91.81 History of falling; Z66 Do not resuscitate; I12.9 Hypertensive chronic kidney disease with stage 1 through stage 4 chronic kidney disease, or unspecified chronic kidney disease; E11.22 Type 2 diabetes mellitus with diabetic chronic kidney disease; N18.2 Chronic kidney disease, stage 2 (mild); C61 Malignant neoplasm of prostate; K21.9 Gastro-esophageal reflux disease without esophagitis; M19.90 Unspecified osteoarthritis, unspecified site; N40.1 Benign prostatic hyperplasia with lower urinary tract symptoms; R33.8 Other retention of urine; E78.00 Pure hypercholesterolemia, unspecified; K59.00 Constipation, unspecified; M79.642 Pain in left hand; Z79.899 Other long term (current) drug therapy; Z79.84 Long term (current) use of oral hypoglycemic drugs; Z79.82 Long term (current) use of aspirin; Z79.891 Long term (current) use of opiate analgesic; W10.8XXD Fall (on) (from) other stairs and steps, subsequent encounter; Z85.46 Personal history of malignant neoplasm of prostate
CPT/HCPCS: 36415; 73130; 80053; 82947; 85025; 87636

== ENCOUNTER → 2023-06-27 | Outpatient (CLI) | payer MEDICARE ==
[~2023-06-27] MED LIST changes: +ACET-93 PO; +ACET325T38 PO; -ACETAMINOPHEN 325 MG TABLET PO PRN; -ALPRAZolam 0.25 MG TABLET PO PRN; +AMAN100C20 PO; +AMAN100T PO; +AMLO-251 PO; +ASCO-262 PO; +ASPI-999 PO; +BACI1PAC28 TP; +BISA10SU8 RC; -BISACODYL 10 MG SUPPOSITORY PR PRN; +CYCL1DRO18 OU; +DAPA10TA PO; -DOCUSATE SODIUM 100 MG CAPSULE PO PRN; +DULA1.5P2 SQ; +EZET10TA49 PO; +FENO145T26 PO; +FISH12002 PO; +GABA300C PO; +INSU100I32 SQ; -LACTULOSE SYRUP 10GM/15ML 30ML UDC PO PRN; +LISI10TA25 PO; -LOPERAMIDE 2 MG CAPSULE PO PRN; -MELATONIN 3 MG TABLET PO PRN; +METF-397 PO; +MULT-1136 PO; +NALO4SPR; +OMEG100032 PO; +ONDA4TAB11 PO; +OXC5T PO; +OXYC5TAB PO; +PANT40TA52 PO; +POLY17PO6 PO; +ROPI2TAB52 PO; +SENN-234 PO; +SUCR1TAB PO; -Sodium Phosphate/Sodium Biphosphate ADULT enema PR PRN; +TMSL.4C PO; +VITA-212 PO; -diphenhydrAMINE 25 MG TABLET PO PRN; -guaiFENesin/CODEINE 10ML UDC PO PRN
== END ==
LOC: CARD 10:17
PROVIDERS: ATTEND Internal Medicine Cardiovascular Disease
DX: I11.9 Hypertensive heart disease without heart failure (principal); I34.0 Nonrheumatic mitral (valve) insufficiency; I25.10 Atherosclerotic heart disease of native coronary artery without angina pectoris
CPT/HCPCS: 93306

== ENCOUNTER 2023-07-01 09:53 | Outpatient (RCR) | payer MEDICARE | END 2023-07-02 | disposition home or self-care (01) | PROVIDERS: ATTEND Family Medicine | DX: S06.5XAD Traumatic subdural hemorrhage with loss of consciousness status unknown, subsequent encounter (principal); R53.1 Weakness; W19.XXXD Unspecified fall, subsequent encounter ==

== ENCOUNTER 2023-07-31 16:04 | Outpatient (RCR) | payer MEDICARE | END 2023-08-01 | disposition home or self-care (01) | PROVIDERS: ATTEND Family Medicine | DX: S06.5XAD Traumatic subdural hemorrhage with loss of consciousness status unknown, subsequent encounter (principal); I10 Essential (primary) hypertension; X58.XXXD Exposure to other specified factors, subsequent encounter ==